=== PATIENT | female | born 1950 ===

== ENCOUNTER 2021-11-29 08:07 | Inpatient (IN) | payer MEDICARE ==
[2021-11-29] MEDS ORDERED: ZIPRASIDONE MESYLATE 20 MG VIAL IM ONE (09:29)
[2021-11-29] MEDS ORDERED: TETANUS,DIPH,PERTUSS(ACELL) VACCINE 0.5 ML SYRINGE IM ONE (11:32)
[2021-11-29] MEDS ORDERED: LORazepam 2 MG/ML VIAL IM PRN (11:32)
[2021-11-29] MEDS ORDERED: SODIUM CHLORIDE 0.9% IRR 500 ML BOTTLE IR ONE (11:32)
--- NOTE | 2021-11-29 11:35 | Emergency Department Report ---
ED General Adult HPI - General Chief complaint: Psych Stated complaint: PSYCH EVAL/COMBATIVE Time Seen by Provider: 11/29/21 11:25 Source: EMS ( EMS documentation not available at time of chart dictation ), RN notes reviewed Mode of arrival: Stretcher Limitations: Other (Disorganized behavior) - History of Present Illness Initial comments: The patient was evaluated in the emergency department for symptoms described in the history of present illness. He/she was evaluated in the context of the global COVID-19 pandemic, which necessitated consideration that the patient might be at risk for infection with the virus that causes COVID-19. Institutional protocols and algorithms that pertain to the evaluation of patients at risk for COVID-19 are in a state of rapid change based on information released by regulatory bodies including the CDC and federal and state organizations. These policies and algorithms were followed during the patient's care in the emergency department. Please note that these policies, procedures and recommendations changed on a rapid basis. This is a 71-year-old female who was sent to the emergency room by a local [facility] with a complaint of being combative with staff. Patient reportedly had treatment in an outpatient psychiatric facility. As per nursing documentation, the patient is screaming out in the emergency room. Prior to my personal evaluation, the patient required sedation with Geodon. She is currently sleepy but arousable. She moves 4 extremities. She does not answer open-ended or close ended questions to myself she is not accompanied by friends or family at this time for collateral information or additional information. Current medications include Aricept, Namenda, Trileptal, eliquis, Colace, Synthroid, vitamin B12. She also takes Celexa and Seroquel. No additional history is available at this time. Patient herself is unable to describe the qualitative nature of symptoms, exacerbating factors relieving factors or aggravating factors. She appears to have had her first 2 COVID-19 vaccinations. Does not appear that she has had a booster. She also has paperwork that indicates that she has had a recent negative COVID PCR test. -: unknown Severity scale (0 -10): 0 - Related Data Allergies Allergy/AdvReac Type Severity Reaction Status Date / Time No Known Allergies Allergy Unverified 11/29/21 08:47 ED Review of Systems ROS: Stated complaint: PSYCH EVAL/COMBATIVE Other details as noted in HPI Comment: Unobtainable due to pts medical conditions ED Past Medical Hx - Past Medical History Hx Psychiatric Treatment: Yes (bipolar) Additional medical history: hypothyroid ED Physical Exam - General Limitations: Other (Patient is disorganized and sedated) General appearance: in no apparent distress - Head Head exam: Present: normocephalic, other (There is a left lateral facial abrasion. There is left facial ecchymosis. There is left chin ecchymosis) - Eye Eye exam: Present: normal appearance, PERRL, EOMI. Absent: nystagmus - ENT ENT exam: Present: normal exam, mucous membranes dry, normal external ear exam - Neck Neck exam: Present: normal inspection, full ROM. Absent: tenderness, meningismus - Respiratory Respiratory exam: Present: normal lung sounds bilaterally, chest wall tenderness. Absent: respiratory distress, wheezes, rales, rhonchi, stridor, decreased breath sounds - Cardiovascular Cardiovascular Exam: Present: regular rate, normal rhythm, normal heart sounds. Absent: bradycardia, tachycardia, irregular rhythm, systolic murmur, diastolic murmur, rubs, gallop - GI/Abdominal GI/Abdominal exam: Present: soft. Absent: distended, tenderness, guarding, rebound, rigid, pulsatile mass - Extremities Exam Extremities exam: Present: full ROM, other (2+ pulses noted in the bilateral upper and lower extremities. There is no palpable cord. negative Homans sign. Muscular compartments are soft. The pelvis is stable.). Absent: normal inspection (There is a right hand ecchymosis. There is bilateral shoulder ecchymosis), calf tenderness - Back Exam Back exam: Present: normal inspection. Absent: tenderness, CVA tenderness (R), CVA tenderness (L), paraspinal tenderness, vertebral tenderness - Neurological Exam Neurological exam: Present: altered, other (There is no facial droop. The tongue is midline. EOMI. 5 out of 5 strength in 4 extremities) - Psychiatric Psychiatric exam: Present: agitated - Skin Skin exam: Present: warm, dry, abrasion, ecchymosis ED Course Vital Signs 11/29/21 08:46 Temperature 97.4 F L Pulse Rate 99 H Respiratory 18 Rate Blood Pressure 153/98 [Left] O2 Sat by Pulse 96 Oximetry - Reevaluation(s) Reevaluation #1: 11/29/21 12:39 Differential diagnosis, including but not limited to: Dementia, psychosis, thyroid derangement, electrolyte derangement, intracranial hemorrhage, closed head injury, pneumonia, UTI Assessment and plan: 71-year-old female with evidence of closed head injury, subacute ecchymosis, reportedly agitated, referred to the emergency room for report of combative behavior. Patient is medicated prior to my personal evaluation. She is still somewhat agitated. As needed Haldol and Versed have been ordered. Have requested CT scan brain, facial bones and cervical spine. Have requested appropriate laboratory studies and urinalysis. Have also requested mental health evaluation. Reassess after initial diagnostics have completed Reevaluation #2: 11/29/21 14:15 Laboratory studies are reviewed and appreciated. Leukocytosis is likely a stress reaction. X-ray of the chest reviewed and appreciated. Lung sounds are clear. Do not clinically suspect acute decompensated congestive heart failure. Laboratory studies also demonstrate mild renal insufficiency, elevated CK, and dehydration. CT scan brain and cervical spine negative for acute findings. CT scan facial bones suggestive of maxillary sinus fracture Patient will be given gentle IV hydration. Her urinalysis is pending. CK will decrease on its own with rest and oral hydration Maxillary sinus fracture to be treated supportively and symptomatically. At this point in time, the patient does not appear to have an immediate medical contraindication to psychiatric admission, evaluation, consultation and placement. Suspect that her presentation is likely secondary to bipolar with dementia. Mental health consultation pending at this time Reevaluation #3: 11/29/21 14:46 As per collateral information obtained from our psychiatric nail maker, the patient has been in her current nursing residence for approximately 4 days. She has not taking any of her psychiatric medications, she has been throwing herself on the floor, and engaging in self-injurious behavior. 1013 is recommended, ordered, written, and signed by myself. ED Medical Decision Making - Lab Data Result diagrams: 11/29/21 13:05 11/29/21 13:05 Vital Signs 11/29/21 08:46 Temperature 97.4 F L Pulse Rate 99 H Respiratory 18 Rate Blood Pressure 153/98 [Left] O2 Sat by Pulse 96 Oximetry - Radiology Data Radiology results: pending, report reviewed, image reviewed CT CERVICAL SPINE WITHOUT CONTRAST INDICATION / CLINICAL INFORMATION: Closed head injury, medical clearance for psychiatric. Neck pain. TECHNIQUE: Axial CT images were obtained through the cervical spine. Sagittal and coronal reformatted images were produced. All CT scans at this location are performed using CT dose reduction for ALARA by means of automated exposure control. COMPARISON: None available. FINDINGS: VERTEBRAE: No acute fracture. ALIGNMENT: No significant abnormality. DISC SPACES: Mild discogenic spondylosis at C5-6 and C6-7. FACET JOINTS: Mild multilevel facet spondylosis. CRANIOCERVICAL JUNCTION:No significant abnormality. SPINAL CANAL: No significant abnormality. PARASPINAL SOFT TISSUES: No significant abnormality. ADDITIONAL FINDINGS: None. LUNG APICES: No significant abnormality of visualized lungs. IMPRESSION: 1. No acute fracture or subluxation. Signer Name: Bee Velazco MD Signed: 11/29/2021 11:48 AM Workstation Name: [facility] CT MAXILLOFACIAL WITHOUT CONTRAST INDICATION / CLINICAL INFORMATION: Closed head injury, medical clearance for psychiatric. Facial trauma. TECHNIQUE: All CT scans at this location are performed using CT dose reduction for ALARA by means of automated exposure control. COMPARISON: None available. FINDINGS: FACIAL BONES: Mildly comminuted fracture of the anterior and posterior denney of the left maxillary sinus. PARANASAL SINUSES: Minimal mucosal thickening of the left maxillary sinus. Sinuses are otherwise clear. ORBITS: No significant abnormality. SOFT TISSUES: No significant abnormality. VISUALIZED INTRACRANIAL STRUCTURES: No significant abnormality. ADDITIONAL FINDINGS: None. IMPRESSION: 1. Mildly comminuted fracture of the anterior and posterior denney of the left maxillary sinus. Signer Name: Bee Velazco MD Signed: 11/29/2021 11:52 AM Workstation Name: Nipendo CT HEAD WITHOUT CONTRAST INDICATION / CLINICAL INFORMATION: Closed head injury, medical clearance for psychiatric. TECHNIQUE: All CT scans at this location are performed using CT dose reduction for ALARA by means of automated exposure control. COMPARISON: None available. FINDINGS: HEMORRHAGE: None. EXTRA-AXIAL SPACES: Mildly prominent likely related to cortical atrophy. VENTRICULAR SYSTEM: Normal in size and morphology for the patient's age. CEREBRAL PARENCHYMA: No significant abnormality. No acute territorial infarct. MIDLINE SHIFT / HERNIATION: None. CEREBELLUM / BRAINSTEM: No significant abnormality. ORBITS: Normal as visualized. SOFT TISSUES: No significant abnormality. SKULL: No significant abnormality. PARANASAL SINUSES / MASTOID AIR CELLS: Normal as visua lized. ADDITIONAL FINDINGS: None. IMPRESSION: 1. No acute intracranial abnormality. 2. Chronic and age-related findings. Signer Name: Bee Velazco MD Signed: 11/29/2021 11:50 AM Workstation Name: [id number] Chest single view INDICATION: Dyspnea IMPRESSION: Cardiomegaly with faint ill-defined interstitial opacities within both lower lungs, nonspecific. No prior exams are available for comparison to determine chronicity. Signer Name: Rao Zuluaga MD Signed: 11/29/2021 1:04 PM Workstation Name: [id number] Critical care attestation.: If time is entered above; I have spent that time in minutes in the direct care of this critically ill patient, excluding procedure time. ED Disposition Clinical Impression: Closed head injury, Arm bruise, Facial bruising, Behavior concern in adult, Medical clearance for psychiatric admission, Fracture of maxillary sinus, Dehydration Disposition: [address] [place] [address] Is pt being admited?: No Does the pt Need Aspirin: No Condition: Good Instructions: Apixaban oral tablets Referrals: SCOTT COHEN MD [Primary Care Provider] - 3-5 Days
[2021-11-29] MEDS: HALOPERIDOL LACTATE 5 MG/1 ML INJ IM PRN ×2 (12:08→19:12)
[2021-11-29] MEDS: MIDAZOLAM 2 MG/2 ML INJ IM PRN (12:08)
--- NOTE | 2021-11-29 12:52 | Cat Scan Report ---
CT CERVICAL SPINE WITHOUT CONTRAST INDICATION / CLINICAL INFORMATION: Closed head injury, medical clearance for psychiatric. Neck pain. TECHNIQUE: Axial CT images were obtained through the cervical spine. Sagittal and coronal reformatted images were produced. All CT scans at this location are performed using CT dose reduction for ALARA by means of automated exposure control. COMPARISON: None available. FINDINGS: VERTEBRAE: No acute fracture. ALIGNMENT: No significant abnormality. DISC SPACES: Mild discogenic spondylosis at C5-6 and C6-7. FACET JOINTS: Mild multilevel facet spondylosis. CRANIOCERVICAL JUNCTION:No significant abnormality. SPINAL CANAL: No significant abnormality. PARASPINAL SOFT TISSUES: No significant abnormality. ADDITIONAL FINDINGS: None. LUNG APICES: No significant abnormality of visualized lungs. IMPRESSION: 1. No acute fracture or subluxation. Signer Name: Bee Velazco MD Signed: 11/29/2021 12:48 PM Workstation Name: [id number]
--- NOTE | 2021-11-29 12:55 | Cat Scan Report ---
CT HEAD WITHOUT CONTRAST INDICATION / CLINICAL INFORMATION: Closed head injury, medical clearance for psychiatric. TECHNIQUE: All CT scans at this location are performed using CT dose reduction for ALARA by means of automated exposure control. COMPARISON: None available. FINDINGS: HEMORRHAGE: None. EXTRA-AXIAL SPACES: Mildly prominent likely related to cortical atrophy. VENTRICULAR SYSTEM: Normal in size and morphology for the patient's age. CEREBRAL PARENCHYMA: No significant abnormality. No acute territorial infarct. MIDLINE SHIFT / HERNIATION: None. CEREBELLUM / BRAINSTEM: No significant abnormality. ORBITS: Normal as visualized. SOFT TISSUES: No significant abnormality. SKULL: No significant abnormality. PARANASAL SINUSES / MASTOID AIR CELLS: Normal as visualized. ADDITIONAL FINDINGS: None. IMPRESSION: 1. No acute intracranial abnormality. 2. Chronic and age-related findings. Signer Name: Bee Velazco MD Signed: 11/29/2021 12:50 PM Workstation Name: [id number]
--- NOTE | 2021-11-29 12:56 | Cat Scan Report ---
CT MAXILLOFACIAL WITHOUT CONTRAST INDICATION / CLINICAL INFORMATION: Closed head injury, medical clearance for psychiatric. Facial mildred menjivar. TECHNIQUE: All CT scans at this location are performed using CT dose reduction for ALARA by means of automated exposure control. COMPARISON: None available. FINDINGS: FACIAL BONES: Mildly comminuted fracture of the anterior and posterior denney of the left maxillary si nus. PARANASAL SINUSES: Minimal mucosal thickening of the left maxillary sinus. Sinuses are otherwise pratima r. ORBITS: No significant abnormality. SOFT TISSUES: No significant abnormality. VISUALIZED INTRACRANIAL STRUCTURES: No significant abnormality. ADDITIONAL FINDINGS: None. IMPRESSION: 1. Mildly comminuted fracture of the anterior and posterior denney of the left maxillary sinus. Signer Name: Bee Velazco MD Signed: 11/29/2021 12:52 PM Workstation Name: [id number]
[2021-11-29 13:28] LABS: Basophils # (Auto) 0.1 K/mm3 (0.0-0.1); Basophils % (Auto) 0.4 % (0.0-1.8); Eosinophils % (Auto) 0.2 % (0.0-4.3); Hematocrit 37.4 % (30.3-42.9); Hemoglobin 12.2 gm/dl (10.1-14.3); Lymphocytes # (Auto) 2.3 K/mm3 (1.2-5.4); Lymphocytes % (Auto) 15.3 % (13.4-35.0); Mean Corpuscular HGB Conc 33 % (30-34); Mean Corpuscular Volume 91 fl (79-97); Monocytes # (Auto) 1.9 K/mm3 (0.0-0.8); Monocytes % (Auto) 12.7 % (0.0-7.3); Platelet Count 329 K/mm3 (140-440); Red Cell Distribution Width 14.6 % (13.2-15.2)
[2021-11-29 13:45] LABS: Albumin 4.4 g/dL (3.9-5); Calcium 9.6 mg/dL (8.4-10.2)
--- NOTE | 2021-11-29 14:08 | XRay Report ---
Chest single view INDICATION: Dyspnea IMPRESSION: Cardiomegaly with faint ill-defined interstitial opacities within both lower lungs, nonspecific. No p rior exams are available for comparison to determine chronicity. Signer Name: Rao Zuluaga MD Signed: 11/29/2021 2:04 PM Workstation Name: [id number]
[2021-11-29 14:48] LABS: Bilirubin,Urine Negative (Negative); Blood,Urine 1+ (Negative); Color,Urine Straw (Yellow); Urobilinogen,Urine < 2.0 mg/dL (<2.0)
[2021-11-29 14:51] LABS: Amphetamine Screen,Urine Negative; Benzodiazepines Screen,Urine Negative; Cannabinoid Screen,Urine Negative; Cocaine Screen,Urine Negative; Methadone Screen,Urine Negative; Opiate Screen,Urine Negative
[2021-11-29] MEDS: SODIUM CHLORIDE 0.9% 1000 ML 2,000 ML IV ONE ×2 (15:57→15:58)
[2021-11-29] MEDS: QUEtiapine 200 MG TAB PO SCH (22:10)
[2021-11-29] MEDS: DONEPEZIL 10 MG TAB PO SCH (22:11)
[2021-11-29] MEDS: OXcarbazepine 300 MG TAB PO SCH (22:11)
[2021-11-29] MEDS: MEMANTINE 5 MG TAB PO SCH (22:11)
[2021-11-29] MEDS: APIXABAN 5 MG TAB PO SCH (23:48)
[2021-11-30] MEDS: LEVOTHYROXINE 100 MCG TAB PO SCH (06:36)
[2021-11-30] MEDS: HALOPERIDOL LACTATE 5 MG/1 ML INJ IM PRN ×2 (09:09→15:19)
--- NOTE | 2021-11-30 10:54 | Consultation ---
History of Present Illness - Reason for Consult Consult date: 11/30/21 Reason for consult: agitation - History of Present Psychiatric Illness The patient was seen today. Security is present. She is in the seclusion room. The patient is confused and disorganized. She is speaking nonsensically. She is lying on the floor with food and fluid spilled. The patient has defecated on the floor. She is disheveled. There is blood on the floor. When the patient gets up it's observed to be coming from her elbow. She comes out of the seclusion room and tries to enter other rooms. The nurse is there and is medicating the patient. PAST PSYCHIATRIC HISTORY: Unable to obtain PAST MEDICAL HISTORY: None reported Family Psychiatric History: None reported or documented SOCIAL HISTORY: Unable to obtain REVIEW OF SYSTEMS Unable to obtain MENTAL STATUS EXAMINATION Assessment (1) Bipolar Current Visit: Yes Status: Acute Treatment Plan 1013 Sitter: Defer to primary Medical: per primary Disposition: Recommend acute psychiatric inpatient treatment Will follow. Thanks Case staffed with Dr. Nava Medications and Allergies Allergies Allergy/AdvReac Type Severity Reaction Status Date / Time No Known Allergies Allergy Unverified 11/29/21 08:47 Active Meds: Active Medications Apixaban (Apixaban 5 Mg Tab) 5 mg PO Q12HR [facility]; Protocol Last Admin: 11/29/21 23:48 Dose: Not Given Citalopram Hydrobromide (Citalopram 20 Mg Tab) 20 mg PO QDAY [facility] Cyanocobalamin (Cyanocobalamin (Vit B-12) 1000 Mcg Tab) 1,000 mcg PO QDAY [facility] Docusate Sodium (Docusate Sodium 100 Mg/10 Ml Oral Liqd) 100 mg PO QDAY [facility] Donepezil HCl (Donepezil 10 Mg Tab) 10 mg PO QHS [facility] Last Admin: 11/29/21 22:11 Dose: 10 mg Haloperidol Lactate (Haloperidol Lactate 5 Mg/1 Ml Inj) 5 mg IM Q6HR PRN PRN Reason: Agitation Last Admin: 11/30/21 09:09 Dose: 5 mg Levothyroxine Sodium (Levothyroxine 100 Mcg Tab) 100 mcg PO DAILY@0600 [facility] Memantine (Memantine 5 Mg Tab) 5 mg PO Q12HR [facility] Last Admin: 11/29/21 22:11 Dose: 5 mg Midazolam HCl (Midazolam 2 Mg/2 Ml Inj) 2 mg IM Q6HR PRN PRN Reason: Agitation Last Admin: 11/29/21 12:08 Dose: 2 mg Oxcarbazepine (Oxcarbazepine 300 Mg Tab) 600 mg PO BID [facility] Last Admin: 11/29/21 22:11 Dose: 600 mg Quetiapine Fumarate (Quetiapine 200 Mg Tab) 400 mg PO QHS [facility] Last Admin: 11/29/21 22:10 Dose: 400 mg Mental Status Exam - Vital signs Last Vital Signs Temp 97.6 F 11/29/21 20:28 Pulse 102 H 11/29/21 20:28 Resp 18 11/29/21 20:28 BP 133/112 11/29/21 20:28 Pulse Ox 95 11/29/21 20:28 Results Result Diagrams: 11/29/21 13:05 11/29/21 13:05 Abnormal lab results 11/29/21 11/29/21 11/29/21 Range/Units 13:05 13:05 13:05 WBC 15.0 H (4.5-11.0) K/mm3 [place] % (Auto) 12.7 H (0.0-7.3) % [place] # (Auto) 1.9 H (0.0-0.8) K/mm3 Seg Neutrophils % 71.4 H (40.0-70.0) % Seg Neutrophils # 10.7 H (1.8-7.7) K/mm3 Sodium (137-145) mmol/L Chloride (98-107) mmol/L BUN (7-17) mg/dL Creatinine (0.6-1.2) mg/dL Glucose (65-100) mg/dL AST (5-40) units/L Total Creatine Kinase (30-135) units/L Salicylates < 0.3 L (2.8-20.0) mg/dL Acetaminophen 5.0 L (10.0-30.0) ug/mL 11/29/21 Range/Units 13:05 WBC (4.5-11.0) K/mm3 [place] % (Auto) (0.0-7.3) % [place] # (Auto) (0.0-0.8) K/mm3 Seg Neutrophils % (40.0-70.0) % Seg Neutrophils # (1.8-7.7) K/mm3 Sodium 147 H (137-145) mmol/L Chloride 111.2 H (98-107) mmol/L BUN 21 H (7-17) mg/dL Creatinine 1.8 H (0.6-1.2) mg/dL Glucose 102 H (65-100) mg/dL AST 53 H (5-40) units/L Total Creatine Kinase 1106 H (30-135) units/L Salicylates (2.8-20.0) mg/dL Acetaminophen (10.0-30.0) ug/mL All other labs normal.
[2021-11-30] MEDS: MEMANTINE 5 MG TAB PO SCH ×2 (11:09→22:33)
[2021-11-30] MEDS: APIXABAN 5 MG TAB PO SCH (11:09)
[2021-11-30] MEDS: DOCUSATE SODIUM 100 MG/10 ML ORAL LIQD PO SCH (11:09)
[2021-11-30] MEDS: CITALOPRAM 20 MG TAB PO SCH (11:09)
[2021-11-30] MEDS: CYANOCOBALAMIN (VIT B-12) 1000 MCG TAB PO SCH (11:10)
[2021-11-30] MEDS: OXcarbazepine 300 MG TAB PO SCH ×2 (11:10→22:34)
--- NOTE | 2021-11-30 12:40 | Event Note ---
Date: 11/30/21 Nursing team reports to myself that the patient is throwing herself on the floor, and also may have hit her head. Repeat CT scan of the brain is obtained, and it demonstrates possible small bleed. Head of bed elevation, aspiration precautions, fall precautions. Have discontinued Eliquis. I contacted neurosurgery on-call, Dr. Tavares. Discussed the patient's history, physical, CT scan findings and clinical impression. He will follow in consultation. Recommends discontinuation of Eliquis, head of bed elevation, frequent neurochecks, placement to stepdown. Endorsed to hospital physician, Dr. Marilu Jacobson for placement on step down unit We will also obtain 6-hour head CT, which is times for 22: 00. I will defer to the inpatient team to follow this up [facility] [address] [id number] Cat Scan Report Signed Patient: CANDICE STANTON MR#: [id number] : 1950 Acct:[id number] Age/Sex: 71 / F ADM Date: 11/29/21 Loc: ED Attending Dr: Ordering Physician: CHUCHO RIVAS MD Date of Service: 11/30/21 Procedure(s): CT head/brain wo con Accession Number(s): [id number] cc: CHUCHO RIVAS MD CT BRAIN: 11/30/2021 INDICATION / CLINICAL INFORMATION: MULTIPLE FALLS. COMPARISON: CT brain 11/29/2021 FINDINGS: BRAIN/INTRACRANIAL STRUCTURES: Unenhanced CT images of the brain were obtained and compared to the prior exam from 11/29/2021. There is been no change. Age-related atrophic changes are present. There is very subtle thickening of the inferior dorsal falx, and subtle asymmetry in the density of the tentorium, left greater than right. This subtle finding is best seen on coronal images 54-57. This may represent a very thin subdural blood product collection. Its small size would make this of doubtful clinical significance. There is no evidence of parenchymal hemorrhage. EXTRACRANIAL STRUCTURES: Unremarkable. IMPRESSION: No change when compared to 11/29/2021. Question of very subtle subdural hematoma along the inferior falx and left tentorium. All CT scans at this location are performed using dose reduction to ALARA by means of automated exposure control. Signer Name: Wu Posada MD Signed: 11/30/2021 2:27 PM Workstation Name: [id number] Transcribed By: AO Dictated By: Wu Posada MD Electronically Authenticated By: Wu Posada MD Signed Date/Time: 11/30/211426 DD/ 20 TD/TT: Vital Signs 11/29/21 11/29/21 11/29/21 08:46 14:30 14:45 Temperature 97.4 F L Pulse Rate 99 H 90 71 Respiratory 18 19 16 Rate Blood Pressure 162/87 126/61 Blood Pressure 153/98 [Left] O2 Sat by Pulse 96 98 97 Oximetry 11/29/21 11/29/21 11/29/21 14:53 15:00 15:16 Temperature Pulse Rate 76 76 75 Respiratory 18 15 13 Rate Blood Pressure 126/61 120/53 Blood Pressure 120/53 [Left] O2 Sat by Pulse 97 98 98 Oximetry 11/29/21 11/29/21 11/29/21 15:30 15:46 16:00 Temperature Pulse Rate 78 78 77 Respiratory 15 12 11 L Rate Blood Pressure 122/57 126/87 135/79 Blood Pressure [Left] O2 Sat by Pulse 98 99 99 Oximetry 11/29/21 11/29/21 11/29/21 16:16 16:30 16:46 Temperature Pulse Rate 82 82 80 Respiratory 15 13 13 Rate Blood Pressure 120/77 132/75 145/82 Blood Pressure [Left] O2 Sat by Pulse 98 99 99 Oximetry 11/29/21 11/29/21 11/29/21 17:00 17:26 17:30 Temperature Pulse Rate 77 79 80 Respiratory 14 13 14 Rate Blood Pressure 147/73 132/75 132/75 Blood Pressure [Left] O2 Sat by Pulse 99 99 100 Oximetry 11/29/21 11/29/21 11/29/21 17:46 18:00 18:16 Temperature Pulse Rate 82 81 80 Respiratory 15 13 12 Rate Blood Pressure 135/73 135/73 129/72 Blood Pressure [Left] O2 Sat by Pulse 98 98 98 Oximetry 11/29/21 11/29/21 11/29/21 18:30 18:46 20:28 Temperature 97.6 F Pulse Rate 103 H 100 H 102 H Respiratory 20 18 18 Rate Blood Pressure 129/72 153/63 Blood Pressure 133/112 [Left] O2 Sat by Pulse 98 97 95 Oximetry 11/30/21 11/30/21 12:00 14:00 Temperature 98.0 F Pulse Rate 88 Respiratory 18 18 Rate Blood Pressure Blood Pressure 125/87 [Left] O2 Sat by Pulse 98 98 Oximetry
[2021-11-30] MEDS: MIDAZOLAM 2 MG/2 ML INJ IM PRN ×2 (12:55→19:32)
--- NOTE | 2021-11-30 14:31 | Cat Scan Report ---
CT BRAIN: 11/30/2021 INDICATION / CLINICAL INFORMATION: MULTIPLE FALLS. COMPARISON: CT brain 11/29/2021 FINDINGS: BRAIN/INTRACRANIAL STRUCTURES: Unenhanced CT images of the brain were obtained and compared to the pr ior exam from 11/29/2021. There is been no change. Age-related atrophic changes are present. There is very subtle thickening of the inferior dorsal falx, and subtle asymmetry in the density of t he tentorium, left greater than right. This subtle finding is best seen on coronal images 54-57. This may represent a very thin subdural blood product collection. Its small size would make this of doubt ful clinical significance. There is no evidence of parenchymal hemorrhage. EXTRACRANIAL STRUCTURES: Unremarkable. IMPRESSION: No change when compared to 11/29/2021. Question of very subtle subdural hematoma along the inferior falx and left tentorium. All CT scans at this location are performed using dose reduction to ALARA by means of automated expos ure control. Signer Name: Wu Posada MD Signed: 11/30/2021 2:27 PM Workstation Name: [id number]
--- NOTE | 2021-11-30 19:30 | History and Physical Report ---
History of Present Illness Date of examination: 11/30/21 Date of admission: 11/30/2021 Chief complaint: Fall from bed and very small subdural hematoma History of present illness: This is a 71-year-old female who was sent to the emergency room by a local group home with a complaint of being combative with staff. Patient reportedly had treatment in an outpatient psychiatric facility. As per nursing documentation, the patient is screaming out in the emergency room. Prior to my personal evaluation, the patient required sedation with Geodon. She is currently sleepy but arousable. She moves 4 extremities. She does not answer open-ended or close ended questions to myself she is not accompanied by friends or family at this time for collateral information or additional information. Current medications include Aricept, Namenda, Trileptal, eliquis, Colace, Sy nthroid, vitamin B12. She also takes Celexa and Seroquel. No additional history is available at this time. Patient herself is unable to describe the qualitative nature of symptoms, exacerbating factors relieving factors or aggravating factors. She appears to have had her first 2 COVID-19 vaccinations. Does not appear that she has had a booster. She also has paperwork that indicates that she has had a recent negative COVID PCR test. Nursing team reports that the patient is throwing herself on the floor, and also may have hit her head. Repeat CT scan of the brain is obtained, and it demon strates possible small bleed. Head of bed elevation, aspiration precautions, fall precautions. Eliquis was discontinued. ED physician contacted neurosurgery on-call Dr. Tavares and discussed the patient's history, physical exam, CAT scan findings and clinical impression. Dr. Tavares agreed to follow in consultation. Recommended admitting the patient to IMCU and close observation. No loss of consciousness. Alert but agitated. Now calm down after Haldol. Will repeat the CAT scan. Of the head. Normal neuro exam. Past Medical History --Psychiatric Treatment: Yes (bipolar) --Additional medical history: hypothyroid Past surgical history -- Not available -Family history --not available- Social history -- Not available Review of Systems ROS: Stated complaint: PSYCH EVAL/COMBATIVE Other details as noted in HPI Comment: Unobtainable due to pts medical conditions Medications and Allergies Allergies Allergy/AdvReac Type Severity Reaction Status Date / Time No Known Allergies Allergy Unverified 11/29/21 08:47 Active Meds: Active Medications Citalopram Hydrobromide (Citalopram 20 Mg Tab) 20 mg PO QDAY [facility] Last Admin: 11/30/21 11:09 Dose: Not Given Cyanocobalamin (Cyanocobalamin (Vit B-12) 1000 Mcg Tab) 1,000 mcg PO QDAY [facility] Last Admin: 11/30/21 11:10 Dose: Not Given Docusate Sodium (Docusate Sodium 100 Mg/10 Ml Oral Liqd) 100 mg PO QDAY [facility] Last Admin: 11/30/21 11:09 Dose: Not Given Donepezil HCl (Donepezil 10 Mg Tab) 10 mg PO QHS [facility] Last Admin: 11/29/21 22:11 Dose: 10 mg Haloperidol Lactate (Haloperidol Lactate 5 Mg/1 Ml Inj) 5 mg IM Q6HR PRN PRN Reason: Agitation Last Admin: 11/30/21 15:19 Dose: 5 mg Levothyroxine Sodium (Levothyroxine 100 Mcg Tab) 100 mcg PO DAILY@0600 [facility] Memantine (Memantine 5 Mg Tab) 5 mg PO Q12HR [facility] Last Admin: 11/30/21 11:09 Dose: Not Given Midazolam HCl (Midazolam 2 Mg/2 Ml Inj) 2 mg IM Q6HR PRN PRN Reason: Agitation Last Admin: 11/30/21 12:55 Dose: 2 mg Mirtazapine (Mirtazapine 15 Mg Tab) 7.5 mg PO QHS [facility] Oxcarbazepine (Oxcarbazepine 300 Mg Tab) 600 mg PO BID [facility] Last Admin: 11/30/21 11:10 Dose: Not Given Quetiapine Fumarate (Quetiapine 200 Mg Tab) 400 mg PO QHS [facility] Last Admin: 11/29/21 22:10 Dose: 400 mg Exam - Constitutional Vitals: Temp Pulse Resp BP Pulse Ox 98.0 F 88 18 125/87 98 11/30/21 12:00 11/30/21 12:00 11/30/21 14:00 11/30/21 12:00 11/30/21 14:00 General appearance: Present: no acute distress, well-nourished - EENT Eyes: Present: PERRL ENT: hearing intact, clear oral mucosa - Neck Neck: Present: supple, normal ROM - Respiratory Respiratory effort: normal Respiratory: bilateral: CTA - Cardiovascular Heart rate: 78 Rhythm: regular Heart Sounds: Present: S1 & S2. Absent: rub, click - Extremities Extremities: no ischemia, pulses symmetrical, No edema Peripheral Pulses: within normal limits - Abdominal General gastrointestinal: Present: soft, non-tender, non-distended, normal bowel sounds Female genitourinary: Present: normal - Integumentary Integumentary: Present: clear, warm, dry - Musculoskeletal Musculoskeletal: gait normal, strength equal bilaterally - Psychiatric Psychiatric: appropriate mood/affect, intact judgment & insight, agitated - Neurologic Neurologic: CNII-XII intact, moves all extremities - Allied Health Allied health notes reviewed: nursing, case management Results - Labs CBC & Chem 7: 11/29/21 13:05 11/29/21 13:05 Labs: Laboratory Last Values WBC 15.0 K/mm3 (4.5-11.0) H 11/29/21 13:05 RBC 4.10 M/mm3 (3.65-5.03) 11/29/21 13:05 Hgb 12.2 gm/dl (10.1-14.3) 11/29/21 13:05 Hct 37.4 % (30.3-42.9) 11/29/21 13:05 MCV 91 fl (79-97) 11/29/21 13:05 MCH 30 pg (28-32) 11/29/21 13:05 MCHC 33 % (30-34) 11/29/21 13:05 RDW 14.6 % (13.2-15.2) 11/29/21 13:05 Plt Count 329 K/mm3 (140-440) 11/29/21 13:05 Lymph % (Auto) 15.3 % (13.4-35.0) 11/29/21 13:05 [place] % (Auto) 12.7 % (0.0-7.3) H 11/29/21 13:05 Eos % (Auto) 0.2 % (0.0-4.3) 11/29/21 13:05 Baso % (Auto) 0.4 % (0.0-1.8) 11/29/21 13:05 Lymph # (Auto) 2.3 K/mm3 (1.2-5.4) 11/29/21 13:05 [place] # (Auto) 1.9 K/mm3 (0.0-0.8) H 11/29/21 13:05 Eos # (Auto) 0.0 K/mm3 (0.0-0.4) 11/29/21 13:05 Baso # (Auto) 0.1 K/mm3 (0.0-0.1) 11/29/21 13:05 Seg Neutrophils % 71.4 % (40.0-70.0) H 11/29/21 13:05 Seg Neutrophils # 10.7 K/mm3 (1.8-7.7) H 11/29/21 13:05 Sodium 147 mmol/L (137-145) H 11/29/21 13:05 Potassium 5.0 mmol/L (3.6-5.0) 11/29/21 13:05 Chloride 111.2 mmol/L (98-107) H 11/29/21 13:05 Carbon Dioxide 22 mmol/L (22-30) 11/29/21 13:05 Anion Gap 19 mmol/L 11/29/21 13:05 BUN 21 mg/dL (7-17) H 11/29/21 13:05 Creatinine 1.8 mg/dL (0.6-1.2) H 11/29/21 13:05 Estimated GFR 28 ml/min 11/29/21 13:05 BUN/Creatinine Ratio 12 % 11/29/21 13:05 Glucose 102 mg/dL (65-100) H 11/29/21 13:05 Calcium 9.6 mg/dL (8.4-10.2) 11/29/21 13:05 Total Bilirubin 0.60 mg/dL (0.1-1.2) 11/29/21 13:05 AST 53 units/L (5-40) H 11/29/21 13:05 ALT 36 units/L (7-56) 11/29/21 13:05 Alkaline Phosphatase 93 units/L (35-129) 11/29/21 13:05 Total Creatine Kinase 1106 units/L (30-135) H 11/29/21 13:05 Total Protein 7.9 g/dL (6.3-8.2) 11/29/21 13:05 Albumin 4.4 g/dL (3.9-5) 11/29/21 13:05 Albumin/Globulin Ratio 1.3 % 11/29/21 13:05 TSH 1.280 mlU/mL (0.270-4.200) 11/29/21 13:05 Urine Color Straw (Yellow) 11/29/21 14:10 Urine Turbidity Clear (Clear) 11/29/21 14:10 Urine pH 6.0 (5.0-7.0) 11/29/21 14:10 Ur Specific [place] 1.005 (1.003-1.030) 11/29/21 14:10 Urine Protein 30 mg/dl mg/dL (Negative) 11/29/21 14:10 Urine Glucose (UA) Negative mg/dL (Negative) 11/29/21 14:10 Urine Ketones 15 mg/dL (Negative) 11/29/21 14:10 Urine Blood 1+ (Negative) 11/29/21 14:10 Urine Nitrite Negative (Negative) 11/29/21 14:10 Ur Reducing Substances Not Reportable 11/29/21 14:10 Urine Bilirubin Negative (Negative) 11/29/21 14:10 Urine Ictotest Not Reportable 11/29/21 14:10 Urine Urobilinogen < 2.0 mg/dL (<2.0) 11/29/21 14:10 Ur Leukocyte Esterase Negative (Negative) 11/29/21 14:10 Urine WBC (Auto) 2.0 /HPF (0.0-6.0) 11/29/21 14:10 Urine RBC (Auto) 4.0 /HPF (0.0-6.0) 11/29/21 14:10 U Epithel Cells (Auto) < 1.0 /HPF (0-13.0) 11/29/21 14:10 Salicylates < 0.3 mg/dL (2.8-20.0) L 11/29/21 13:05 Urine Opiates Screen Negative 11/29/21 14:10 Urine Methadone Screen Negative 11/29/21 14:10 Acetaminophen 5.0 ug/mL (10.0-30.0) L 11/29/21 13:05 Ur Barbiturates Screen Negative 11/29/21 14:10 Ur Phencyclidine Scrn Negative 11/29/21 14:10 Ur Amphetamines Screen Negative 11/29/21 14:10 U Benzodiazepines Scrn Negative 11/29/21 14:10 Urine Cocaine Screen Negative 11/29/21 14:10 U Marijuana (THC) Screen Negative 11/29/21 14:10 Drugs of Abuse Note Disclamer 11/29/21 14:10 Plasma/Serum Alcohol < 0.01 % (0-0.07) 11/29/21 13:05 SARS-CoV-2 (PCR) Positive (Negative) A 11/30/21 09:23 - Imaging and Cardiology CT Scan - head: report reviewed Imaging and Cardiology: CT of the cervical spine No acute fractures or subluxation Facial CT Mildly comminuted fracture of the anterior and posterior denney of the left maxillary sinus Head CT#1 No acute intracranial findings Head CT #2 Very subtotal thickening of the inferior dorsal phalanx, and septal asymmetry in the density of the tentorium left greater than right. This subtle finding is best seen on image of [id number]. May represent a very thin subdural blood product collection. Its very small size and would make this of doubtful clinical significance. Head CT #3 Unchanged suspected small left tentorial/inferior falx subdural hematoma. No new acute findings. Assessment and Plan Assessment and plan: Critical care statement The high probability OF a clinically significant sudden or life-threatening deterioration of the cardiorespiratory system and endocrine system required my full and direct attention, intervention and postoperative management. The aggregate critical care time was 40 minutes. The time is in addition to time spent performing reported procedures but includes the followin: Data review and interpretation 2: Patient assessment and monitoring of vital signs 3: Documentation 4:: Medication orders and management Advance Directives: Yes (Full code) VTE prophylaxis?: Mechanical Reason for no VTE Prophylaxis: Bleeding Plan of care discussed with patient/family: Yes - Patient Problems (1) Subdural hematoma Current Visit: Yes Status: Acute Plan to address problem: Very subtle subdural hematoma No intervention per neurosurgery Observation for 24 to 48 hours Frequent neurochecks Repeat CAT scan Neurology consult and neurosurgery consult Discussed with Dr. Tavares (2) Closed head injury Current Visit: Yes Status: Acute Qualifiers: Encounter type: initial encounter Qualified Code(s): S09.90XA - Unspecified injury of head, initial encounter Plan to address problem: Close observation neurochecks (3) Acute hypernatremia Current Visit: Yes Status: Acute Plan to address problem: Half-normal saline for now (4) COVID-19 Current Visit: Yes Status: Acute Plan to address problem: Tested positive for COVID virus Vaccinated asked to Normal oxygen saturations on room air ID consult (5) BERNICE (acute kidney injury) Current Visit: Yes Status: Acute Plan to address problem: IV fluids for now Vasomotor nephropathy (6) Rhabdomyolysis Current Visit: Yes Status: Acute Qualifiers: Rhabdomyolysis type: traumatic Plan to address problem: Mild IV fluids Recheck creatinine kinase (7) Hypothyroidism Current Visit: Yes Status: Chronic Qualifiers: Hypothyroidism type: acquired Qualified Code(s): E03.9 - Hypothyroidism, unspecified Plan to address problem: Continue to Synthroid and check TSH TSH was normal (8) Acute psychosis Current Visit: Yes Status: Acute Plan to address problem: Justyn initiated Mental health and psychiatric consult (9) DVT prophylaxis Current Visit: Yes Status: Acute Plan to address problem: Eliquis. Stopped No heparin or Eliquis because of the subdural bleed GI prophylaxis (10) Advance care planning Current Visit: Yes Status: Acute Plan to address problem: Could not be done because of the patient's agitated condition
[2021-11-30] MEDS ORDERED: ONDANSETRON 4 MG/2 ML INJ IV PRN (19:46)
[2021-11-30] MEDS ORDERED: ACETAMINOPHEN 325 MG TAB PO PRN (19:46)
[2021-11-30] MEDS ORDERED: METOCLOPRAMIDE 10 MG/2 ML INJ IV PRN (19:54)
[2021-11-30] MEDS ORDERED: HYDROmorphone 0.5 MG/0.5 ML INJ IV PRN (19:54)
[2021-11-30] MEDS ORDERED: D5W/0.9% NACL 1,000 ML IV SCH (20:00)
[2021-11-30] MEDS ORDERED: WATER FOR INJ Sterile (PF) 10 ML ONE (21:38)
[2021-11-30] MEDS: ZIPRASIDONE MESYLATE 20 MG VIAL IM SCH (21:43)
[2021-11-30] MEDS ORDERED: MIRTAZAPINE 15 MG TAB PO SCH (22:00)
[2021-11-30] MEDS: QUEtiapine 200 MG TAB PO SCH (22:33)
--- NOTE | 2021-12-01 00:08 | Cat Scan Report ---
CT HEAD WITHOUT CONTRAST INDICATION / CLINICAL INFORMATION: Reevaluation of possible subdural hematoma. TECHNIQUE: All CT scans at this location are performed using CT dose reduction for ALARA by means of automated exposure control. COMPARISON: None available. FINDINGS: BRAIN PARENCHYMA: No intraparenchymal hemorrhage. No evidence of recent infarct. No mass effect or mi dline shift. VENTRICULAR SYSTEM/EXTRA-AXIAL SPACES: Ventricles are normal for age. A previously questioned small s ubdural hematoma involving the inferior left falx and the tentorium is unchanged and measures up to 3 .4 mm in thickness on image 54 of the coronal series. ORBITS: Normal as visualized. SKELETAL SYSTEM/SOFT TISSUES: Normal bones and soft tissues. PARANASAL SINUSES/MASTOID AIR CELLS: No significant abnormality. ADDITIONAL FINDINGS: None. IMPRESSION: Unchanged suspected small left tentorial/inferior falx subdural hematoma. No new acute findings. Signer Name: Perico Tarango MD Signed: 12/01/2021 12:04 AM Workstation Name: [id number]
[2021-12-01] MEDS: LEVOTHYROXINE 100 MCG TAB PO SCH ×2 (00:59→05:28)
[2021-12-01] MEDS: DONEPEZIL 10 MG TAB PO SCH ×2 (01:01→21:22)
[2021-12-01 06:27] LABS: Basophils # (Auto) 0.1 K/mm3 (0.0-0.1); Basophils % (Auto) 0.6 % (0.0-1.8); Eosinophils # (Auto) 0.3 K/mm3 (0.0-0.4); Eosinophils % (Auto) 3.2 % (0.0-4.3); Hematocrit 34.4 % (30.3-42.9); Hemoglobin 11.2 gm/dl (10.1-14.3); Lymphocytes # (Auto) 2.1 K/mm3 (1.2-5.4); Lymphocytes % (Auto) 21.7 % (13.4-35.0); Mean Corpuscular HGB Conc 33 % (30-34); Mean Corpuscular Volume 91 fl (79-97); Monocytes # (Auto) 1.4 K/mm3 (0.0-0.8); Monocytes % (Auto) 15.2 % (0.0-7.3); Platelet Count 344 K/mm3 (140-440); Red Blood Count 3.78 M/mm3 (3.65-5.03); Red Cell Distribution Width 14.9 % (13.2-15.2)
[2021-12-01 06:40] LABS: Albumin 3.7 g/dL (3.9-5)
[2021-12-01] MEDS ORDERED: WATER FOR INJ Sterile (PF) 10 ML ONE ×2 (09:27→20:41)
[2021-12-01] MEDS: ZIPRASIDONE MESYLATE 20 MG VIAL IM SCH ×2 (09:30→21:22)
[2021-12-01] MEDS ORDERED: FAMOTIDINE 20 MG/2 ML INJ IV SCH (10:00)
--- NOTE | 2021-12-01 10:28 | Progress Note ---
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 Hospital Course to Date: 12/01: Repeat CT head pending. Mentation improved this am, patient drowsy but calmer this am, following simple commands. Neurology and NeuroSurgery consults pending. Keep patient as 1013 status, Mental health/Psych is also following. Continue current antipsychotics meds and PRN Haldol, close Qtc monitoring. Continue neuro check per protocol. Patient COVID PCR positive, patient remains stable on RA and hemodynamicaly stable. Continue to monitor for now, ID also consulted for further recs. Assessment and Plan #Traumatic Closed Head Injury #Small Subdural Hematoma #Acute Psychosis - Presented in acute psychosis, agitated and combative. Threw herself on the floor and hit her head - Imagings reviewed, Mildly comminuted fracture of the anterior and posterior denney of the left maxillary sinus and small subdural hematoma noted - Case discussed with NeuroSurgery- Dr. Cr on admit, no intervention recommended at this time. - Continue to monitor for 24 to 48hrs, repeat CT head, and neuro checks - Full NeuroSurgery consult pending - Repeat CT head/brain pending this am - Patient remains as 1013 status, sitter at the bedside - Continue current antipsychotics meds and PRN Haldol - Close Qtc monitoring- 12 lead EKG pending - Neuro checks per protocol - Home meds resumed - Mental Health/Psych also on consult, appreciate recommendations - Continue to hold AC until further recommendations form Neuro and NeuroSurgery #COVID-19 Infection - COVID PCR came back positive - Patient received both dose of Yee vaccine, but no booster - CXR with Bilateral opacities - Patient remains stable on RA, afebrile, with no WBCs - Will continue to monitor for now - ID consulted for further recs #BERNICE (Acute Kidney Injury) most likely Vasomotor Nephropathy #Acute Hypernatremia - Probably due to dehydration - Baseline renal function is unchanged - renal function improved post IVF hydration - Continue gentle hydration X1 bag - Encourage PO intake - Strict intake and output - Avoid nephrotoxic medications; Renally dose medications - Monitor and replace electrolytes as needed #Rhabdomyolysis - Presented with mildly elevated CPK - Continue IV fluid hydration - Recheck creatinine kinase #Hypothyroidism - Continue supportive care - TSH was normal - Resume Synthroid #GI/DVT Prophylaxis - PPI- pepcid - SCDs to bilateral lower extremities while in bed #Advance Care Planning - Disease education data, care plan, diagnoses, and prognosis were discussed with patient's son via phone. Patient is a FULL code. Patient's son acknowledged understanding and agreed with current care plan. The high probability of a clinically significant, sudden or life threatening deterioration of the [multiple] system(s) required my full and direct attention, intervention and personal management. The aggregate critical care time was [60] minutes. This time is in addition to time spent performing reported procedures but includes the following: [x] Data Review and interpretation [x] Patient assessment and monitoring of vital signs [x] Documentation [x] Medication orders and management Disposition Plan: IMCU Total Time Spent with Patient (Minutes): 60 History Interval history: Patient seen and examined at the bedside. Drowsy but easily arousable, following simple commands. Stable on RA, denied any pain nor any discomfort at this time, VSS. Remains as a 1013 status, sitter at the bedside. Hospitalist Physical - Constitutional Vitals: Temp Pulse Resp BP Pulse Ox 98.2 F 90 13 118/60 98 12/01/21 02:50 12/01/21 08:21 12/01/21 08:21 12/01/21 08:21 12/01/21 08:21 General appearance: Present: no acute distress, well-nourished, obese - EENT Eyes: Present: PERRL ENT: hearing intact - Neck Neck: Present: normal ROM - Respiratory Respiratory effort: normal Respiratory: bilateral: diminished - Cardiovascular Rhythm: regular Heart Sounds: Present: S1 & S2 - Extremities Extremities: no ischemia, pulses intact, pulses symmetrical Peripheral Pulses: within normal limits - Abdominal General gastrointestinal: soft, non-distended, normal bowel sounds - Integumentary Integumentary: Present: warm, dry - Psychiatric Psychiatric: appropriate mood/affect, cooperative, other (Drowsy, easily arousable) - Neurologic Neurologic: moves all extremities - Allied Health Allied health notes reviewed: nursing, case management Results - Labs CBC & Chem 7: 12/01/21 05:17 12/01/21 04:00 Labs: Laboratory Last Values WBC 9.6 K/mm3 (4.5-11.0) 12/01/21 05:17 RBC 3.78 M/mm3 (3.65-5.03) 12/01/21 05:17 Hgb 11.2 gm/dl (10.1-14.3) 12/01/21 05:17 Hct 34.4 % (30.3-42.9) 12/01/21 05:17 MCV 91 fl (79-97) 12/01/21 05:17 MCH 30 pg (28-32) 12/01/21 05:17 MCHC 33 % (30-34) 12/01/21 05:17 RDW 14.9 % (13.2-15.2) 12/01/21 05:17 Plt Count 344 K/mm3 (140-440) 12/01/21 05:17 Lymph % (Auto) 21.7 % (13.4-35.0) 12/01/21 05:17 [place] % (Auto) 15.2 % (0.0-7.3) H 12/01/21 05:17 Eos % (Auto) 3.2 % (0.0-4.3) 12/01/21 05:17 Baso % (Auto) 0.6 % (0.0-1.8) 12/01/21 05:17 Lymph # (Auto) 2.1 K/mm3 (1.2-5.4) 12/01/21 05:17 [place] # (Auto) 1.4 K/mm3 (0.0-0.8) H 12/01/21 05:17 Eos # (Auto) 0.3 K/mm3 (0.0-0.4) 12/01/21 05:17 Baso # (Auto) 0.1 K/mm3 (0.0-0.1) 12/01/21 05:17 Seg Neutrophils % 59.3 % (40.0-70.0) 12/01/21 05:17 Seg Neutrophils # 5.7 K/mm3 (1.8-7.7) 12/01/21 05:17 Sodium 150 mmol/L (137-145) H 12/01/21 04:00 Potassium 3.6 mmol/L (3.6-5.0) D 12/01/21 04:00 Chloride 117.0 mmol/L (98-107) H 12/01/21 04:00 Carbon Dioxide 22 mmol/L (22-30) 12/01/21 04:00 Anion Gap 15 mmol/L 12/01/21 04:00 BUN 23 mg/dL (7-17) H 12/01/21 04:00 Creatinine 1.5 mg/dL (0.6-1.2) H 12/01/21 04:00 Estimated GFR 34 ml/min 12/01/21 04:00 BUN/Creatinine Ratio 15 % 12/01/21 04:00 Glucose 107 mg/dL (65-100) H 12/01/21 04:00 Calcium 9.0 mg/dL (8.4-10.2) 12/01/21 04:00 Total Bilirubin 0.60 mg/dL (0.1-1.2) 12/01/21 04:00 AST 34 units/L (5-40) 12/01/21 04:00 ALT 33 units/L (7-56) 12/01/21 04:00 Alkaline Phosphatase 80 units/L (35-129) 12/01/21 04:00 Total Creatine Kinase 1106 units/L (30-135) H 11/29/21 13:05 Total Protein 7.2 g/dL (6.3-8.2) 12/01/21 04:00 Albumin 3.7 g/dL (3.9-5) L 12/01/21 04:00 Albumin/Globulin Ratio 1.1 % 12/01/21 04:00 TSH 1.280 mlU/mL (0.270-4.200) 11/29/21 13:05 Urine Color Straw (Yellow) 11/29/21 14:10 Urine Turbidity Clear (Clear) 11/29/21 14:10 Urine pH 6.0 (5.0-7.0) 11/29/21 14:10 Ur Specific [place] 1.005 (1.003-1.030) 11/29/21 14:10 Urine Protein 30 mg/dl mg/dL (Negative) 11/29/21 14:10 Urine Glucose (UA) Negative mg/dL (Negative) 11/29/21 14:10 Urine Ketones 15 mg/dL (Negative) 11/29/21 14:10 Urine Blood 1+ (Negative) 11/29/21 14:10 Urine Nitrite Negative (Negative) 11/29/21 14:10 Ur Reducing Substances Not Reportable 11/29/21 14:10 Urine Bilirubin Negative (Negative) 11/29/21 14:10 Urine Ictotest Not Reportable 11/29/21 14:10 Urine Urobilinogen < 2.0 mg/dL (<2.0) 11/29/21 14:10 Ur Leukocyte Esterase Negative (Negative) 11/29/21 14:10 Urine WBC (Auto) 2.0 /HPF (0.0-6.0) 11/29/21 14:10 Urine RBC (Auto) 4.0 /HPF (0.0-6.0) 11/29/21 14:10 U Epithel Cells (Auto) < 1.0 /HPF (0-13.0) 11/29/21 14:10 Salicylates < 0.3 mg/dL (2.8-20.0) L 11/29/21 13:05 Urine Opiates Screen Negative 11/29/21 14:10 Urine Methadone Screen Negative 11/29/21 14:10 Acetaminophen 5.0 ug/mL (10.0-30.0) L 11/29/21 13:05 Ur Barbiturates Screen Negative 11/29/21 14:10 Ur Phencyclidine Scrn Negative 11/29/21 14:10 Ur Amphetamines Screen Negative 11/29/21 14:10 U Benzodiazepines Scrn Negative 11/29/21 14:10 Urine Cocaine Screen Negative 11/29/21 14:10 U Marijuana (THC) Screen Negative 11/29/21 14:10 Drugs of Abuse Note Disclamer 11/29/21 14:10 Plasma/Serum Alcohol < 0.01 % (0-0.07) 11/29/21 13:05 SARS-CoV-2 (PCR) Positive (Negative) A 11/30/21 09:23 Seymour/IV: Voiding Method Diaper Active Medications - Current Medications Current Medications: Generic Name Dose Route Start Last Admin Trade Name Freq PRN Reason Stop Dose Admin Acetaminophen 650 mg 11/30/21 19:46 Acetaminophen 325 Mg Tab PO Q4H PRN Pain MILD(1-3)/Fever >100.5/MERCEDES Citalopram Hydrobromide 20 mg 11/30/21 10:00 11/30/21 11:09 Citalopram 20 Mg Tab PO Not Given QDAY REPLACED BY [facility] Cyanocobalamin 1,000 mcg 11/30/21 10:00 11/30/21 11:10 Cyanocobalamin (Vit B-12) 1000 Mcg Tab PO Not Given QDAY REPLACED BY [facility] Docusate Sodium 100 mg 11/30/21 10:00 11/30/21 11:09 Docusate Sodium 100 Mg/10 Ml Oral Liqd PO Not Given QDAY REPLACED BY [facility] Donepezil HCl 10 mg 11/29/21 22:00 12/01/21 01:01 Donepezil 10 Mg Tab PO Not Given QHS REPLACED BY [facility] Famotidine 20 mg 12/01/21 10:00 Famotidine 20 Mg/2 Ml Inj IV QDAY REPLACED BY [facility] Haloperidol Lactate 5 mg 11/29/21 11:32 11/30/21 15:19 Haloperidol Lactate 5 Mg/1 Ml Inj IM 5 mg Q6HR PRN Administration Agitation Hydromorphone HCl 0.5 mg 11/30/21 19:54 Hydromorphone 0.5 Mg/0.5 Ml Inj IV Q3H PRN Pain , Severe (7-10) Dextrose 1,000 mls @ 50 mls/hr 12/01/21 09:00 D5w IV 12/02/21 08:59 DIRECT REPLACED BY [facility] Levothyroxine Sodium 100 mcg 11/30/21 06:00 12/01/21 05:28 Levothyroxine 100 Mcg Tab PO 100 mcg DAILY@0600 [facility] Administration Memantine 5 mg 11/29/21 22:00 11/30/21 22:33 Memantine 5 Mg Tab PO 5 mg Q12HR [facility] Administration Metoclopramide HCl 10 mg 11/30/21 19:54 Metoclopramide 10 Mg/2 Ml Inj IV Q6H PRN Nausea And Vomiting Midazolam HCl 2 mg 11/29/21 11:55 11/30/21 19:32 Midazolam 2 Mg/2 Ml Inj IM 2 mg Q6HR PRN Administration Agitation Mirtazapine 7.5 mg 11/30/21 22:00 11/30/21 22:33 Mirtazapine 15 Mg Tab PO 7.5 mg QHS [facility] Administration Morphine Sulfate 2 mg 11/30/21 19:54 Morphine 2 Mg/1 Ml Inj IV Q4H PRN Pain, Moderate (4-6) Ondansetron HCl 4 mg 11/30/21 19:46 Ondansetron 4 Mg/2 Ml Inj IV Q8H PRN Nausea And Vomiting Oxcarbazepine 600 mg 11/29/21 22:00 11/30/21 22:34 Oxcarbazepine 300 Mg Tab PO 600 mg BID [facility] Administration Quetiapine Fumarate 400 mg 11/29/21 22:00 11/30/21 22:33 Quetiapine 200 Mg Tab PO 400 mg QHS [facility] Administration Sodium Chloride 10 ml 11/30/21 22:00 12/01/21 01:01 Sodium Chloride 0.9% 10 Ml Flush Syringe IV Not Given BID [facility] Sodium Chloride 10 ml 11/30/21 19:46 Sodium Chloride 0.9% 10 Ml Flush Syringe IV PRN PRN LINE FLUSH Ziprasidone 20 mg 11/30/21 21:00 11/30/21 21:43 Ziprasidone Mesylate 20 Mg Vial IM 20 mg Q12H [facility] Administration <MARCELLO THRASHER - Last Filed: 12/02/21 07:22> Assessment and Plan Assessment and plan: I saw and evaluated the patient. I agree with the findings and the plan of care as documented in the Nurse Practitioner's~note, with the following corrections and additions. Hospitalist Physical - Constitutional Vitals: Temp Pulse Resp BP Pulse Ox 98.5 F 83 13 114/63 96 12/02/21 03:40 12/02/21 04:20 12/02/21 04:20 12/02/21 04:20 12/02/21 04:20 Results - Labs CBC & Chem 7: 12/02/21 05:05 12/02/21 05:05 Labs: Laboratory Last Values WBC 8.4 K/mm3 (4.5-11.0) 12/02/21 05:05 RBC 3.65 M/mm3 (3.65-5.03) 12/02/21 05:05 Hgb 10.9 gm/dl (10.1-14.3) 12/02/21 05:05 Hct 33.2 % (30.3-42.9) 12/02/21 05:05 MCV 91 fl (79-97) 12/02/21 05:05 MCH 30 pg (28-32) 12/02/21 05:05 MCHC 33 % (30-34) 12/02/21 05:05 RDW 15.1 % (13.2-15.2) 12/02/21 05:05 Plt Count 322 K/mm3 (140-440) 12/02/21 05:05 Lymph % (Auto) 21.7 % (13.4-35.0) 12/01/21 05:17 [place] % (Auto) 15.2 % (0.0-7.3) H 12/01/21 05:17 Eos % (Auto) 3.2 % (0.0-4.3) 12/01/21 05:17 Baso % (Auto) 0.6 % (0.0-1.8) 12/01/21 05:17 Lymph # (Auto) 2.1 K/mm3 (1.2-5.4) 12/01/21 05:17 [place] # (Auto) 1.4 K/mm3 (0.0-0.8) H 12/01/21 05:17 Eos # (Auto) 0.3 K/mm3 (0.0-0.4) 12/01/21 05:17 Baso # (Auto) 0.1 K/mm3 (0.0-0.1) 12/01/21 05:17 Seg Neutrophils % 59.3 % (40.0-70.0) 12/01/21 05:17 Seg Neutrophils # 5.7 K/mm3 (1.8-7.7) 12/01/21 05:17 Sodium 150 mmol/L (137-145) H 12/02/21 05:05 Potassium 3.5 mmol/L (3.6-5.0) L 12/02/21 05:05 Chloride 116.3 mmol/L (98-107) H 12/02/21 05:05 Carbon Dioxide 23 mmol/L (22-30) 12/02/21 05:05 Anion Gap 14 mmol/L 12/02/21 05:05 BUN 23 mg/dL (7-17) H 12/02/21 05:05 Creatinine 1.4 mg/dL (0.6-1.2) H 12/02/21 05:05 Estimated GFR 37 ml/min 12/02/21 05:05 BUN/Creatinine Ratio 16 % 12/02/21 05:05 Glucose 106 mg/dL (65-100) H 12/02/21 05:05 Calcium 8.6 mg/dL (8.4-10.2) 12/02/21 05:05 Phosphorus 2.90 mg/dL (2.5-4.5) 12/02/21 05:05 Magnesium 2.60 mg/dL (1.7-2.3) H 12/02/21 05:05 Total Bilirubin 0.60 mg/dL (0.1-1.2) 12/01/21 04:00 AST 34 units/L (5-40) 12/01/21 04:00 ALT 33 units/L (7-56) 12/01/21 04:00 Alkaline Phosphatase 80 units/L (35-129) 12/01/21 04:00 Total Creatine Kinase 241 units/L (30-135) H 12/02/21 05:05 Total Protein 7.2 g/dL (6.3-8.2) 12/01/21 04:00 Albumin 3.7 g/dL (3.9-5) L 12/01/21 04:00 Albumin/Globulin Ratio 1.1 % 12/01/21 04:00 TSH 1.280 mlU/mL (0.270-4.200) 11/29/21 13:05 Urine Color Straw (Yellow) 11/29/21 14:10 Urine Turbidity Clear (Clear) 11/29/21 14:10 Urine pH 6.0 (5.0-7.0) 11/29/21 14:10 Ur Specific [place] 1.005 (1.003-1.030) 11/29/21 14:10 Urine Protein 30 mg/dl mg/dL (Negative) 11/29/21 14:10 Urine Glucose (UA) Negative mg/dL (Negative) 11/29/21 14:10 Urine Ketones 15 mg/dL (Negative) 11/29/21 14:10 Urine Blood 1+ (Negative) 11/29/21 14:10 Urine Nitrite Negative (Negative) 11/29/21 14:10 Ur Reducing Substances Not Reportable 11/29/21 14:10 Urine Bilirubin Negative (Negative) 11/29/21 14:10 Urine Ictotest Not Reportable 11/29/21 14:10 Urine Urobilinogen < 2.0 mg/dL (<2.0) 11/29/21 14:10 Ur Leukocyte Esterase Negative (Negative) 11/29/21 14:10 Urine WBC (Auto) 2.0 /HPF (0.0-6.0) 11/29/21 14:10 Urine RBC (Auto) 4.0 /HPF (0.0-6.0) 11/29/21 14:10 U Epithel Cells (Auto) < 1.0 /HPF (0-13.0) 11/29/21 14:10 Salicylates < 0.3 mg/dL (2.8-20.0) L 11/29/21 13:05 Urine Opiates Screen Negative 11/29/21 14:10 Urine Methadone Screen Negative 11/29/21 14:10 Acetaminophen 5.0 ug/mL (10.0-30.0) L 11/29/21 13:05 Ur Barbiturates Screen Negative 11/29/21 14:10 Ur Phencyclidine Scrn Negative 11/29/21 14:10 Ur Amphetamines Screen Negative 11/29/21 14:10 U Benzodiazepines Scrn Negative 11/29/21 14:10 Urine Cocaine Screen Negative 11/29/21 14:10 U Marijuana (THC) Screen Negative 11/29/21 14:10 Drugs of Abuse Note Disclamer 11/29/21 14:10 Plasma/Serum Alcohol < 0.01 % (0-0.07) 11/29/21 13:05 SARS-CoV-2 (PCR) Positive (Negative) A 11/30/21 09:23 Seymour/IV: Voiding Method Incontinent Active Medications - Current Medications Current Medications: Generic Name Dose Route Start Last Admin Trade Name Freq PRN Reason Stop Dose Admin Acetaminophen 650 mg 11/30/21 19:46 Acetaminophen 325 Mg Tab PO Q4H PRN Pain MILD(1-3)/Fever >100.5/MERCEDES Citalopram Hydrobromide 20 mg 11/30/21 10:00 12/01/21 10:30 Citalopram 20 Mg Tab PO 20 mg QDAY [facility] Administration Cyanocobalamin 1,000 mcg 11/30/21 10:00 12/01/21 10:30 Cyanocobalamin (Vit B-12) 1000 Mcg Tab PO 1,000 mcg QDAY [facility] Administration Docusate Sodium 100 mg 11/30/21 10:00 12/01/21 10:30 Docusate Sodium 100 Mg/10 Ml Oral Liqd PO 100 mg QDAY [facility] Administration Donepezil HCl 10 mg 11/29/21 22:00 12/01/21 21:22 Donepezil 10 Mg Tab PO 10 mg QHS [facility] Administration Famotidine 20 mg 12/02/21 10:00 Famotidine 20 Mg Tab PO QDAY [facility] Hydromorphone HCl 0.5 mg 12/01/21 16:08 Hydromorphone 0.5 Mg/0.5 Ml Inj IV Q6H PRN Pain , Severe (7-10) Dextrose 1,000 mls @ 50 mls/hr 12/01/21 09:00 12/01/21 10:31 D5w IV 12/02/21 08:59 50 mls/hr DIRECT [facility] Administration Levothyroxine Sodium 100 mcg 11/30/21 06:00 12/02/21 05:03 Levothyroxine 100 Mcg Tab PO 100 mcg DAILY@0600 [facility] Administration Memantine 5 mg 11/29/21 22:00 12/01/21 21:22 Memantine 5 Mg Tab PO 5 mg Q12HR [facility] Administration Mirtazapine 15 mg 12/01/21 22:00 12/01/21 21:22 Mirtazapine 15 Mg Tab PO 15 mg QHS [facility] Administration Morphine Sulfate 2 mg 11/30/21 19:54 Morphine 2 Mg/1 Ml Inj IV Q4H PRN Pain, Moderate (4-6) Oxcarbazepine 600 mg 11/29/21 22:00 12/01/21 21:23 Oxcarbazepine 300 Mg Tab PO 600 mg BID [facility] Administration Quetiapine Fumarate 200 mg 12/01/21 22:00 12/01/21 21:22 Quetiapine 200 Mg Tab PO 200 mg BID [facility] Administration Sodium Chloride 10 ml 11/30/21 22:00 12/01/21 21:22 Sodium Chloride 0.9% 10 Ml Flush Syringe IV 10 ml BID [facility] Administration Sodium Chloride 10 ml 11/30/21 19:46 Sodium Chloride 0.9% 10 Ml Flush Syringe IV PRN PRN LINE FLUSH Ziprasidone 20 mg 11/30/21 21:00 12/01/21 21:22 Ziprasidone Mesylate 20 Mg Vial IM 20 mg Q12H [facility] Administration
[2021-12-01] MEDS: CITALOPRAM 20 MG TAB PO SCH (10:30)
[2021-12-01] MEDS: MEMANTINE 5 MG TAB PO SCH ×2 (10:30→21:22)
[2021-12-01] MEDS: OXcarbazepine 300 MG TAB PO SCH ×2 (10:30→21:23)
[2021-12-01] MEDS: DOCUSATE SODIUM 100 MG/10 ML ORAL LIQD PO SCH (10:30)
[2021-12-01] MEDS: CYANOCOBALAMIN (VIT B-12) 1000 MCG TAB PO SCH (10:30)
[2021-12-01] MEDS: DEXTROSE 5% IN WATER 1,000 ML IV SCH (10:31)
[2021-12-01] MEDS: HALOPERIDOL LACTATE 5 MG/1 ML INJ IM PRN (11:03)
--- NOTE | 2021-12-01 11:06 | Cat Scan Report ---
CT HEAD WITHOUT CONTRAST INDICATION / CLINICAL INFORMATION: Subdural hematoma--subtle. TECHNIQUE: Axial imaging performed from the skull apex through the skull base without the use of cont rast. Sagittal and coronal reformatted images. All CT scans at this location are performed using CT dose reduction for ALARA by means of automated exposure control. COMPARISON: 11/30/2021 11/29/2021. FINDINGS: CEREBRAL PARENCHYMA: No significant abnormality. No acute territorial infarct. HEMORRHAGE: No intraparenchymal hemorrhage. EXTRA-AXIAL SPACES: Previously described small subdural hemorrhage along the left side of the posteri or falx and left tentorium is unchanged or slightly decreased in size. No new acute hemorrhage. VENTRICULAR SYSTEM: Normal in size and morphology for the patient's age. MIDLINE SHIFT OR HERNIATION: None. CEREBELLUM / BRAINSTEM: No significant abnormality. CALVARIUM: No significant abnormality. ORBITS: Normal as visualized. PARANASAL SINUSES / MASTOID AIR CELLS: Normal as visualized. SOFT TISSUES of HEAD: No significant abnormality. ADDITIONAL FINDINGS: None. IMPRESSION: Minimal improvement or no change in the small left subdural hemorrhage as described. No new acute pro cess. Signer Name: Erick Mares Jr, MD Signed: 12/01/2021 11:02 AM Workstation Name: [id number]
--- NOTE | 2021-12-01 12:21 | Consultation ---
History of Present Illness - Reason for Consult Consult date: 12/01/21 COVID-19 positive Requesting physician: CASSIE MATTHEWS - History of Present Illness The patient is a 71-year-old female admitted from the [place] [facility] due to being combative and throwing herself on the floor, CT head revealed possible small bleed. She also tested positive for COVID-19. Is otherwise asymptomatic, on room air. ID was consulted for additional evaluation. Labs revealed mild BERNICE and elevated CK. Review of Systems: General: no fevers,chills or rigors HEENT: no new visual disturbance Respiratory: No cough, sputum, hemoptysis or shortness of breath Cardiovascular: No chest pain, syncope Gastrointestinal: No nausea, vomiting or diarrhea Genitourinary: No dysuria or hematuria Musculoskeletal: No new or worsening neck pain or back pain Neurologic: No headaches, seizures Hematologic: No easy bruising or bleeding Endocrine: No night sweats or acute weight loss Skin: negative for rash, jaundice Psychiatric: No suicidal or homicidal ideation Medications and Allergies Allergies Allergy/AdvReac Type Severity Reaction Status Date / Time No Known Allergies Allergy Unverified 11/29/21 08:47 Active Meds: Active Medications Acetaminophen (Acetaminophen 325 Mg Tab) 650 mg PO Q4H PRN PRN Reason: Pain MILD(1-3)/Fever >100.5/MERCEDES Citalopram Hydrobromide (Citalopram 20 Mg Tab) 20 mg PO QDAY [facility] Last Admin: 12/01/21 10:30 Dose: 20 mg Cyanocobalamin (Cyanocobalamin (Vit B-12) 1000 Mcg Tab) 1,000 mcg PO QDAY [facility] Last Admin: 12/01/21 10:30 Dose: 1,000 mcg Docusate Sodium (Docusate Sodium 100 Mg/10 Ml Oral Liqd) 100 mg PO QDAY [facility] Last Admin: 12/01/21 10:30 Dose: 100 mg Donepezil HCl (Donepezil 10 Mg Tab) 10 mg PO QHS [facility] Last Admin: 12/01/21 01:01 Dose: Not Given Famotidine (Famotidine 20 Mg/2 Ml Inj) 20 mg IV QDAY [facility] Last Admin: 12/01/21 10:30 Dose: 20 mg Haloperidol Lactate (Haloperidol Lactate 5 Mg/1 Ml Inj) 5 mg IM Q6HR PRN PRN Reason: Agitation Last Admin: 12/01/21 11:03 Dose: 5 mg Hydromorphone HCl (Hydromorphone 0.5 Mg/0.5 Ml Inj) 0.5 mg IV Q3H PRN PRN Reason: Pain , Severe (7-10) Dextrose (D5w) 1,000 mls @ 50 mls/hr IV DIRECT [facility] Stop: 12/02/21 08:59 Last Admin: 12/01/21 10:31 Dose: 50 mls/hr Levothyroxine Sodium (Levothyroxine 100 Mcg Tab) 100 mcg PO DAILY@0600 [facility] Last Admin: 12/01/21 05:28 Dose: 100 mcg Memantine (Memantine 5 Mg Tab) 5 mg PO Q12HR [facility] Last Admin: 12/01/21 10:30 Dose: 5 mg Metoclopramide HCl (Metoclopramide 10 Mg/2 Ml Inj) 10 mg IV Q6H PRN PRN Reason: Nausea And Vomiting Midazolam HCl (Midazolam 2 Mg/2 Ml Inj) 2 mg IM Q6HR PRN PRN Reason: Agitation Last Admin: 11/30/21 19:32 Dose: 2 mg Mirtazapine (Mirtazapine 15 Mg Tab) 7.5 mg PO QHS [facility] Last Admin: 11/30/21 22:33 Dose: 7.5 mg Morphine Sulfate (Morphine 2 Mg/1 Ml Inj) 2 mg IV Q4H PRN PRN Reason: Pain, Moderate (4-6) Ondansetron HCl (Ondansetron 4 Mg/2 Ml Inj) 4 mg IV Q8H PRN PRN Reason: Nausea And Vomiting Oxcarbazepine (Oxcarbazepine 300 Mg Tab) 600 mg PO BID [facility] Last Admin: 12/01/21 10:30 Dose: 600 mg Quetiapine Fumarate (Quetiapine 200 Mg Tab) 400 mg PO QHS [facility] Last Admin: 11/30/21 22:33 Dose: 400 mg Sodium Chloride (Sodium Chloride 0.9% 10 Ml Flush Syringe) 10 ml IV BID [facility] Last Admin: 12/01/21 01:01 Dose: Not Given Sodium Chloride (Sodium Chloride 0.9% 10 Ml Flush Syringe) 10 ml IV PRN PRN PRN Reason: LINE FLUSH Ziprasidone (Ziprasidone Mesylate 20 Mg Vial) 20 mg IM Q12H [facility] Last Admin: 12/01/21 09:30 Dose: 20 mg Physical Examination - Physical Exam Narrative exam: Physical Exam: Constitutional: Resting in bed Head, Ears, Nose: Normocephalic, atraumatic. External ears, nose normal Eyes: Conjunctivae/corneas clear. No icterus. No ptosis. Neck: Supple, no meningeal signs Oral: Deferred Cardiovascular: S1, S2 + Respiratory: Good air entry, clear to auscultation bilaterally GI: Soft, non-tender; bowel sounds normal. No peritoneal signs Musculoskeletal: No pedal edema, no cyanosis. Skin: No rash or abscess Hem/Lymphatic: No palpable cervical or supraclavicular nodes. No lymphangitis Psych: Has restraints, calm Neurological: Resting in bed - Constitutional Vitals: Vital Signs Temp Pulse Resp BP Pulse Ox 98.6 F 77 16 124/50 98 12/01/21 12:00 12/01/21 12:00 12/01/21 12:00 12/01/21 12:00 12/01/21 12:00 Temperature -Last 24 Hours Temperature 98.6 F Temperature 98.4 F Temperature 98.2 F Results - Labs CBC & Chem 7: 12/01/21 05:17 12/01/21 04:00 Labs: Abnormal lab results 12/01/21 12/01/21 Range/Units 04:00 05:17 [place] % (Auto) 15.2 H (0.0-7.3) % [place] # (Auto) 1.4 H (0.0-0.8) K/mm3 Sodium 150 H (137-145) mmol/L Chloride 117.0 H (98-107) mmol/L BUN 23 H (7-17) mg/dL Creatinine 1.5 H (0.6-1.2) mg/dL Glucose 107 H (65-100) mg/dL Albumin 3.7 L (3.9-5) g/dL - Imaging and Cardiology Chest x-ray: report reviewed, image reviewed (no obvious pneumonia seen ) Assessment and Plan Cultures: COVID-19 PCR: Positive A/P: 71-year-old female admitted [facility] the [place] due to being combative and throwing herself on the floor, CT head revealed possible small bleed. She also tested positive for COVID-19: #COVID-19, asymptomatic: Duration of illness is unclear. Remains on room air. No cycle threshold values available on the PCR. Hold off on any antiviral treatment at this time. #Small subdural hematoma: Being monitored. #BERNICE: Improving #Hypernatremia #Leukocytosis: Resolved Recs: -No COVID specific therapeutics at this time -If patient develops hypoxia, would initiate Remdesivir and steroids Bhavani Szymanski MD, FACP, [facility] ([facility] O: [phone] F: [phone] C: [phone]
--- NOTE | 2021-12-01 14:56 | Progress Note ---
Subjective - Reason for Consult Consult date: 12/01/21 Reason for consult: psychosis - Chief Complaint Chief complaint: The patient was seen today. She is COVID positive. She is confused and trying to get out of bed. She does respond when I call her name. The sitter at bedside says the patient has been restless, slightly agitated and trying to get out of bed. REVIEW OF SYSTEMS Unable to obtain MENTAL STATUS EXAMINATION Assessment (1) Bipolar Current Visit: Yes Status: Acute Treatment Plan Increase Mirtazepine 15mg po qhs to promote rest Agree with home meds Sitter: Defer to primary Medical: per primary Disposition: Recommend acute psychiatric inpatient treatment Will follow. Thanks Case staffed with Dr. Nava Mental Status Exam - Vital signs Last Vital Signs Temp 98.6 F 12/01/21 12:00 Pulse 77 12/01/21 12:00 Resp 16 12/01/21 12:00 BP 124/50 12/01/21 12:00 Pulse Ox 98 12/01/21 12:00
[2021-12-01] MEDS: MIDAZOLAM 2 MG/2 ML INJ IM PRN (15:04)
--- NOTE | 2021-12-01 18:06 | Consultation ---
History of Present Illness Consult date: 12/01/21 Requesting physician: CHUCHO RIVAS Chief complaint: altered mental status History of present illness: Yenifer Landry is a 71 y/o Female transferred to [facility] from nursing facility due to altered mental status. She reportedly threw herself on the ground multiple times, which seems to have preceded this development. CT head in the ER revealed a small left parafalcine, tentorial SDH. Repeat CT demonstrated stable hemo rrhage. She was admitted to [facility] for further evaluation. She has been somewhat confused today but does respond appropriately. Of note, she has tested positive for COVID-19. Presently, she denies significant headache, nausea or vomiting. Medications and Allergies Allergies Allergy/AdvReac Type Severity Reaction Status Date / Time No Known Allergies Allergy Unverified 11/29/21 08:47 Active Meds: Active Medications Acetaminophen (Acetaminophen 325 Mg Tab) 650 mg PO Q4H PRN PRN Reason: Pain MILD(1-3)/Fever >100.5/MERCEDES Citalopram Hydrobromide (Citalopram 20 Mg Tab) 20 mg PO QDAY [facility] Last Admin: 12/01/21 10:30 Dose: 20 mg Cyanocobalamin (Cyanocobalamin (Vit B-12) 1000 Mcg Tab) 1,000 mcg PO QDAY [facility] Last Admin: 12/01/21 10:30 Dose: 1,000 mcg Docusate Sodium (Docusate Sodium 100 Mg/10 Ml Oral Liqd) 100 mg PO QDAY [facility] Last Admin: 12/01/21 10:30 Dose: 100 mg Donepezil HCl (Donepezil 10 Mg Tab) 10 mg PO QHS [facility] Last Admin: 12/01/21 01:01 Dose: Not Given Famotidine (Famotidine 20 Mg Tab) 20 mg PO QDAY [facility] Hydromorphone HCl (Hydromorphone 0.5 Mg/0.5 Ml Inj) 0.5 mg IV Q6H PRN PRN Reason: Pain , Severe (7-10) Dextrose (D5w) 1,000 mls @ 50 mls/hr IV DIRECT [facility] Stop: 12/02/21 08:59 Last Admin: 12/01/21 10:31 Dose: 50 mls/hr Levothyroxine Sodium (Levothyroxine 100 Mcg Tab) 100 mcg PO DAILY@0600 [facility] Last Admin: 12/01/21 05:28 Dose: 100 mcg Memantine (Memantine 5 Mg Tab) 5 mg PO Q12HR [facility] Last Admin: 12/01/21 10:30 Dose: 5 mg Mirtazapine (Mirtazapine 15 Mg Tab) 15 mg PO QHS [facility] Morphine Sulfate (Morphine 2 Mg/1 Ml Inj) 2 mg IV Q4H PRN PRN Reason: Pain, Moderate (4-6) Oxcarbazepine (Oxcarbazepine 300 Mg Tab) 600 mg PO BID [facility] Last Admin: 12/01/21 10:30 Dose: 600 mg Quetiapine Fumarate (Quetiapine 200 Mg Tab) 200 mg PO BID [facility] Sodium Chloride (Sodium Chloride 0.9% 10 Ml Flush Syringe) 10 ml IV BID [facility] Last Admin: 12/01/21 01:01 Dose: Not Given Sodium Chloride (Sodium Chloride 0.9% 10 Ml Flush Syringe) 10 ml IV PRN PRN PRN Reason: LINE FLUSH Ziprasidone (Ziprasidone Mesylate 20 Mg Vial) 20 mg IM Q12H [facility] Last Admin: 12/01/21 09:30 Dose: 20 mg Review of Systems All systems: negative (what is specified in HPI) Physical Examination - Vital Signs Vital Signs: Vital Signs Temp Pulse Resp BP Pulse Ox 97.4 F L 99 H 18 153/98 96 11/29/21 08:46 11/29/21 08:46 11/29/21 08:46 11/29/21 08:46 11/29/21 08:46 - Physical Exam Narrative exam: seen and examined in restraints NAD L tonie-orbital ecchymoses RRR breathing non-labored abdomen soft no acute distress A&Ox3 CNII-XII intact motor strength grossly full, follows commands x 4 Results - Laboratory Findings CBC and BMP: 12/01/21 05:17 12/01/21 04:00 Abnormal Lab Findings: Abnormal Labs 11/29/21 11/29/21 11/29/21 13:05 13:05 13:05 WBC 15.0 H [place] % (Auto) 12.7 H [place] # (Auto) 1.9 H Seg Neutrophils % 71.4 H Seg Neutrophils # 10.7 H Sodium Chloride BUN Creatinine Glucose AST Total Creatine Kinase Albumin Salicylates < 0.3 L Acetaminophen 5.0 L SARS-CoV-2 (PCR) 11/29/21 11/30/21 12/01/21 13:05 09:23 04:00 WBC [place] % (Auto) [place] # (Auto) Seg Neutrophils % Seg Neutrophils # Sodium 147 H 150 H Chloride 111.2 H 117.0 H BUN 21 H 23 H Creatinine 1.8 H 1.5 H Glucose 102 H 107 H AST 53 H Total Creatine Kinase 1106 H Albumin 3.7 L Salicylates Acetaminophen SARS-CoV-2 (PCR) Positive A 12/01/21 05:17 WBC [place] % (Auto) 15.2 H [place] # (Auto) 1.4 H Seg Neutrophils % Seg Neutrophils # Sodium Chloride BUN Creatinine Glucose AST Total Creatine Kinase Albumin Salicylates Acetaminophen SARS-CoV-2 (PCR) Assessment and Plan 71 y/o Female w/ acute left parafalcine and tentorial SDH, stable neurologically -may downgrade to floor tomorrow morning -PT/OT/ST -hold all blood thinners -strict bp control < 140 -please notify if questions/concerns, will follow along with you
[2021-12-01] MEDS: QUEtiapine 200 MG TAB PO SCH (21:22)
[2021-12-01] MEDS: MIRTAZAPINE 15 MG TAB PO SCH (21:22)
[2021-12-02] MEDS: LEVOTHYROXINE 100 MCG TAB PO SCH (05:03)
[2021-12-02 05:22] LABS: Hematocrit 33.2 % (30.3-42.9); Hemoglobin 10.9 gm/dl (10.1-14.3); Mean Corpuscular HGB Conc 33 % (30-34); Mean Corpuscular Volume 91 fl (79-97); Platelet Count 322 K/mm3 (140-440); Red Blood Count 3.65 M/mm3 (3.65-5.03); Red Cell Distribution Width 15.1 % (13.2-15.2)
[2021-12-02 05:50] LABS: Calcium 8.6 mg/dL (8.4-10.2)
[2021-12-02] MEDS ORDERED: POTASSIUM CHLORIDE ER 20 MEQ TAB PO SCH (09:00)
--- NOTE | 2021-12-02 09:58 | Consultation ---
History of Present Illness Consult date: 12/01/21 Chief complaint: SDH History of present illness: 71 yo female with hx of falls who presents with traumatic SDH. Seen by neurosurgery. Medications and Allergies Allergies Allergy/AdvReac Type Severity Reaction Status Date / Time No Known Allergies Allergy Unverified 11/29/21 08:47 Active Meds: Active Medications Acetaminophen (Acetaminophen 325 Mg Tab) 650 mg PO Q4H PRN PRN Reason: Pain MILD(1-3)/Fever >100.5/[place]ERCED[place] Citalopram Hydrobromide (Citalopram 20 Mg Tab) 20 mg PO QDAY [facility] Last Admin: 12/01/21 10:30 Dose: 20 mg Cyanocobalamin (Cyanocobalamin (Vit B-12) 1000 Mcg Tab) 1,000 mcg PO QDAY [facility] Last Admin: 12/01/21 10:30 Dose: 1,000 mcg Docusate Sodium (Docusate Sodium 100 Mg/10 Ml Oral Liqd) 100 mg PO QDAY [facility] Last Admin: 12/01/21 10:30 Dose: 100 mg Donepezil HCl (Donepezil 10 Mg Tab) 10 mg PO QHS [facility] Last Admin: 12/01/21 21:22 Dose: 10 mg Famotidine (Famotidine 20 Mg Tab) 20 mg PO QDAY [facility] Hydromorphone HCl (Hydromorphone 0.5 Mg/0.5 Ml Inj) 0.5 mg IV Q6H PRN PRN Reason: Pain , Severe (7-10) Dextrose (D5w) 1,000 mls @ 75 mls/hr IV DIRECT [facility] Stop: 12/03/21 08:59 Last Admin: 12/01/21 10:31 Dose: 50 mls/hr Levothyroxine Sodium (Levothyroxine 100 Mcg Tab) 100 mcg PO DAILY@0600 [facility] Last Admin: 12/02/21 05:03 Dose: 100 mcg Memantine (Memantine 5 Mg Tab) 5 mg PO Q12HR [facility] Last Admin: 12/01/21 21:22 Dose: 5 mg Mirtazapine (Mirtazapine 15 Mg Tab) 15 mg PO QHS [facility] Last Admin: 12/01/21 21:22 Dose: 15 mg Morphine Sulfate (Morphine 2 Mg/1 Ml Inj) 2 mg IV Q4H PRN PRN Reason: Pain, Moderate (4-6) Oxcarbazepine (Oxcarbazepine 300 Mg Tab) 600 mg PO BID [facility] Last Admin: 12/01/21 21:23 Dose: 600 mg Potassium Chloride (Potassium Chloride Er 20 Meq Tab) 20 meq PO ONCE@0900 [facility] Stop: 12/02/21 13:00 Quetiapine Fumarate (Quetiapine 200 Mg Tab) 200 mg PO BID [facility] Last Admin: 12/01/21 21:22 Dose: 200 mg Sodium Chloride (Sodium Chloride 0.9% 10 Ml Flush Syringe) 10 ml IV BID [facility] Last Admin: 12/01/21 21:22 Dose: 10 ml Sodium Chloride (Sodium Chloride 0.9% 10 Ml Flush Syringe) 10 ml IV PRN PRN PRN Reason: LINE FLUSH Ziprasidone (Ziprasidone Mesylate 20 Mg Vial) 20 mg IM Q12H [facility] Last Admin: 12/01/21 21:22 Dose: 20 mg Physical Examination - Vital Signs Vital Signs: Vital Signs Temp Pulse Resp BP Pulse Ox 97.4 F L 99 H 18 153/98 96 11/29/21 08:46 11/29/21 08:46 11/29/21 08:46 11/29/21 08:46 11/29/21 08:46 Results - Laboratory Findings CBC and BMP: 12/02/21 05:05 12/02/21 05:05 Abnormal Lab Findings: Abnormal Labs 11/29/21 11/29/21 11/29/21 13:05 13:05 13:05 WBC 15.0 H [place] % (Auto) 12.7 H [place] # (Auto) 1.9 H Seg Neutrophils % 71.4 H Seg Neutrophils # 10.7 H Sodium Potassium Chloride BUN Creatinine Glucose Magnesium AST Total Creatine Kinase Albumin Salicylates < 0.3 L Acetaminophen 5.0 L SARS-CoV-2 (PCR) 11/29/21 11/30/21 12/01/21 13:05 09:23 04:00 WBC [place] % (Auto) [place] # (Auto) Seg Neutrophils % Seg Neutrophils # Sodium 147 H 150 H Potassium Chloride 111.2 H 117.0 H BUN 21 H 23 H Creatinine 1.8 H 1.5 H Glucose 102 H 107 H Magnesium AST 53 H Total Creatine Kinase 1106 H Albumin 3.7 L Salicylates Acetaminophen SARS-CoV-2 (PCR) Positive A 12/01/21 12/02/21 05:17 05:05 WBC [place] % (Auto) 15.2 H [place] # (Auto) 1.4 H Seg Neutrophils % Seg Neutrophils # Sodium 150 H Potassium 3.5 L Chloride 116.3 H BUN 23 H Creatinine 1.4 H Glucose 106 H Magnesium 2.60 H AST Total Creatine Kinase 241 H Albumin Salicylates Acetaminophen SARS-CoV-2 (PCR) Assessment and Plan 71 yo female with hx of falls who presents with traumatic SDH. Defer to Neurosurgery. Fritz Otero MD Neurology
[2021-12-02] MEDS: DEXTROSE 5% IN WATER 1,000 ML IV SCH ×3 (10:01→21:52)
[2021-12-02] MEDS: FAMOTIDINE 20 MG TAB PO SCH (10:29)
[2021-12-02] MEDS: QUEtiapine 200 MG TAB PO SCH (10:29)
[2021-12-02] MEDS: CYANOCOBALAMIN (VIT B-12) 1000 MCG TAB PO SCH (10:29)
[2021-12-02] MEDS: DOCUSATE SODIUM 100 MG/10 ML ORAL LIQD PO SCH (10:30)
[2021-12-02] MEDS: CITALOPRAM 20 MG TAB PO SCH (10:30)
[2021-12-02] MEDS: OXcarbazepine 300 MG TAB PO SCH ×2 (10:30→21:54)
[2021-12-02] MEDS: MEMANTINE 5 MG TAB PO SCH ×2 (10:31→21:53)
--- NOTE | 2021-12-02 11:07 | Progress Note ---
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 Hospital Course to Date: 12/01: Repeat CT head pending. Mentation improved this am, patient drowsy but calmer this am, following simple commands. Neurology and NeuroSurgery consults pending. Keep patient as 1013 status, Mental health/Psych is also following. Continue current antipsychotics meds and PRN Haldol, close Qtc monitoring. Continue neuro check per protocol. Patient COVID PCR positive, patient remains stable on RA and hemodynamicaly stable. Continue to monitor for now, ID also consulted for further recs. 12/02: Repeat CT head/reviewed, subdural hematoma stable. NeuroSurgery recommendations noted, will hold off AC for now. PT/OT/Speech consulted. Patient with persistent hypernatremia, D5W increased to 75ml/hr. Continue to encourage PO intake and trend BMP. Mental health recommends inpatient psych once medically clear. Patient is stable for transfer to the floor. Assessment and Plan #Traumatic Closed Head Injury #Small Subdural Hematoma #Acute Psychosis - Presented in acute psychosis, agitated and combative. Threw herself on the floor and hit her head - Imagings reviewed, Mildly comminuted fracture of the anterior and posterior denney of the left maxillary sinus and small subdural hematoma noted - Case discussed with NeuroSurgery- Dr. Cr on admit, no intervention recommended at this time. - Continue to monitor for 24 to 48hrs, repeat CT head, and neuro checks - NeuroSurgery consulted, appreciate recommendations - Repeat CT head/brain reviewed, subdural hematoma stable. - Continue to hold off on AC for now - Patient remains as 1013 status, sitter at the bedside - Continue current antipsychotics meds - Close Qtc monitoring- 12 lead EKG pending - Neuro checks per protocol - Home meds resumed - Mental Health/Psych also on consult, appreciate recommendations - Mental health recommends inpatient psych once medically clear #COVID-19 Infection - COVID PCR came back positive - Patient received both dose of Yee vaccine, but no booster - CXR with Bilateral opacities - Patient remains stable on RA, afebrile, with no WBCs - Will continue to monitor for now - ID consulted, no indications for treatment at this time - Per ID If patient develops hypoxia, initiate Remdesivir and steroids #BERNICE (Acute Kidney Injury) most likely Vasomotor Nephropathy #Acute Hypernatremia - Probably due to dehydration - Baseline renal function is unknown - renal function improved post IVF hydration - With persistent hypernatremia, continue gentle hydration D5W increased to 75ml/hr - Encourage PO intake - Strict intake and output - Avoid nephrotoxic medications; Renally dose medications - Monitor and replace electrolytes as needed #Rhabdomyolysis - Presented with mildly elevated CPK - CPK improved - Continue IV fluid hydration - check creatinine kinase #Hypothyroidism - Continue supportive care - TSH was normal - Resume Synthroid #GI/DVT Prophylaxis - PPI- pepcid - SCDs to bilateral lower extremities while in bed #Advance Care Planning - Disease education data, care plan, diagnoses, and prognosis were discussed with patient's son via phone. Patient is a FULL code. Patient's son acknowledged understanding and agreed with current care plan. The high probability of a clinically significant, sudden or life threatening deterioration of the [multiple] system(s) required my full and direct attention, intervention and personal management. The aggregate critical care time was [60] minutes. This time is in addition to time spent performing reported procedures but includes the following: [x] Data Review and interpretation [x] Patient assessment and monitoring of vital signs [x] Documentation [x] Medication orders and management Disposition Plan: Transfer to the Floor Total Time Spent with Patient (Minutes): 60 History Interval history: Patient seen and examined at the bedside. Awake and alert this am, following simple commands but more restless and repetitive with words. Stable on RA, de nied any pain nor any discomfort at this time, VSS. Remains as a 1013 status, back on Bilateral wrist restraints this am for safety. Bedside sitter is still present. Hospitalist Physical - Constitutional Vitals: Temp Pulse Resp BP Pulse Ox 98.4 F 78 21 153/80 97 12/02/21 08:00 12/02/21 10:00 12/02/21 10:00 12/02/21 10:12/02/21 10:00 General appearance: Present: no acute distress, well-nourished, obese - EENT Eyes: Present: PERRL (left eye bruise/black eye) ENT: hearing intact - Neck Neck: Present: normal ROM - Respiratory Respiratory effort: normal Respiratory: left: wheezing (Upper lobe), bilateral: diminished - Cardiovascular Rhythm: regular Heart Sounds: Present: S1 & S2 - Extremities Extremities: no ischemia, pulses intact, pulses symmetrical Peripheral Pulses: within normal limits - Abdominal General gastrointestinal: soft, non-distended, normal bowel sounds - Integumentary Integumentary: Present: warm, dry, erythema (Generalized bruises) - Psychiatric Psychiatric: cooperative, other (AAO, Restless and not appropriate. Repetitive with words) - Neurologic Neurologic: moves all extremities, other (AAO, restless, not appropriate) - Allied Health Allied health notes reviewed: nursing, case management Results - Labs CBC & Chem 7: 12/02/21 05:05 12/02/21 05:05 Labs: Laboratory Last Values WBC 8.4 K/mm3 (4.5-11.0) 12/02/21 05:05 RBC 3.65 M/mm3 (3.65-5.03) 12/02/21 05:05 Hgb 10.9 gm/dl (10.1-14.3) 12/02/21 05:05 Hct 33.2 % (30.3-42.9) 12/02/21 05:05 MCV 91 fl (79-97) 12/02/21 05:05 MCH 30 pg (28-32) 12/02/21 05:05 MCHC 33 % (30-34) 12/02/21 05:05 RDW 15.1 % (13.2-15.2) 12/02/21 05:05 Plt Count 322 K/mm3 (140-440) 12/02/21 05:05 Lymph % (Auto) 21.7 % (13.4-35.0) 12/01/21 05:17 Humphreys % (Auto) 15.2 % (0.0-7.3) H 12/01/21 05:17 Eos % (Auto) 3.2 % (0.0-4.3) 12/01/21 05:17 Baso % (Auto) 0.6 % (0.0-1.8) 12/01/21 05:17 Lymph # (Auto) 2.1 K/mm3 (1.2-5.4) 12/01/21 05:17 Humphreys # (Auto) 1.4 K/mm3 (0.0-0.8) H 12/01/21 05:17 Eos # (Auto) 0.3 K/mm3 (0.0-0.4) 12/01/21 05:17 Baso # (Auto) 0.1 K/mm3 (0.0-0.1) 12/01/21 05:17 Seg Neutrophils % 59.3 % (40.0-70.0) 12/01/21 05:17 Seg Neutrophils # 5.7 K/mm3 (1.8-7.7) 12/01/21 05:17 Sodium 150 mmol/L (137-145) H 12/02/21 05:05 Potassium 3.5 mmol/L (3.6-5.0) L 12/02/21 05:05 Chloride 116.3 mmol/L (98-107) H 12/02/21 05:05 Carbon Dioxide 23 mmol/L (22-30) 12/02/21 05:05 Anion Gap 14 mmol/L 12/02/21 05:05 BUN 23 mg/dL (7-17) H 12/02/21 05:05 Creatinine 1.4 mg/dL (0.6-1.2) H 12/02/21 05:05 Estimated GFR 37 ml/min 12/02/21 05:05 BUN/Creatinine Ratio 16 % 12/02/21 05:05 Glucose 106 mg/dL (65-100) H 12/02/21 05:05 Calcium 8.6 mg/dL (8.4-10.2) 12/02/21 05:05 Phosphorus 2.90 mg/dL (2.5-4.5) 12/02/21 05:05 Magnesium 2.60 mg/dL (1.7-2.3) H 12/02/21 05:05 Total Bilirubin 0.60 mg/dL (0.1-1.2) 12/01/21 04:00 AST 34 units/L (5-40) 12/01/21 04:00 ALT 33 units/L (7-56) 12/01/21 04:00 Alkaline Phosphatase 80 units/L (35-129) 12/01/21 04:00 Total Creatine Kinase 241 units/L (30-135) H 12/02/21 05:05 Total Protein 7.2 g/dL (6.3-8.2) 12/01/21 04:00 Albumin 3.7 g/dL (3.9-5) L 12/01/21 04:00 Albumin/Globulin Ratio 1.1 % 12/01/21 04:00 TSH 1.280 mlU/mL (0.270-4.200) 11/29/21 13:05 Urine Color Straw (Yellow) 11/29/21 14:10 Urine Turbidity Clear (Clear) 11/29/21 14:10 Urine pH 6.0 (5.0-7.0) 11/29/21 14:10 Ur Specific Sigel 1.005 (1.003-1.030) 11/29/21 14:10 Urine Protein 30 mg/dl mg/dL (Negative) 11/29/21 14:10 Urine Glucose (UA) Negative mg/dL (Negative) 11/29/21 14:10 Urine Ketones 15 mg/dL (Negative) 11/29/21 14:10 Urine Blood 1+ (Negative) 11/29/21 14:10 Urine Nitrite Negative (Negative) 11/29/21 14:10 Ur Reducing Substances Not Reportable 11/29/21 14:10 Urine Bilirubin Negative (Negative) 11/29/21 14:10 Urine Ictotest Not Reportable 11/29/21 14:10 Urine Urobilinogen < 2.0 mg/dL (<2.0) 11/29/21 14:10 Ur Leukocyte Esterase Negative (Negative) 11/29/21 14:10 Urine WBC (Auto) 2.0 /HPF (0.0-6.0) 11/29/21 14:10 Urine RBC (Auto) 4.0 /HPF (0.0-6.0) 11/29/21 14:10 U Epithel Cells (Auto) < 1.0 /HPF (0-13.0) 11/29/21 14:10 Salicylates < 0.3 mg/dL (2.8-20.0) L 11/29/21 13:05 Urine Opiates Screen Negative 11/29/21 14:10 Urine Methadone Screen Negative 11/29/21 14:10 Acetaminophen 5.0 ug/mL (10.0-30.0) L 11/29/21 13:05 Ur Barbiturates Screen Negative 11/29/21 14:10 Ur Phencyclidine Scrn Negative 11/29/21 14:10 Ur Amphetamines Screen Negative 11/29/21 14:10 U Benzodiazepines Scrn Negative 11/29/21 14:10 Urine Cocaine Screen Negative 11/29/21 14:10 U Marijuana (THC) Screen Negative 11/29/21 14:10 Drugs of Abuse Note Disclamer 11/29/21 14:10 Plasma/Serum Alcohol < 0.01 % (0-0.07) 11/29/21 13:05 SARS-CoV-2 (PCR) Positive (Negative) A 11/30/21 09:23 Seymour/IV: Voiding Method Incontinent Active Medications - Current Medications Current Medications: Generic Name Dose Route Start Last Admin Trade Name Freq PRN Reason Stop Dose Admin Acetaminophen 650 mg 11/30/21 19:46 Acetaminophen 325 Mg Tab PO Q4H PRN Pain MILD(1-3)/Fever >100.5/MERCEDES Citalopram Hydrobromide 20 mg 11/30/21 10:00 12/02/21 10:30 Citalopram 20 Mg Tab PO 20 mg QDAY UCHE Administration Cyanocobalamin 1,000 mcg 11/30/21 10:00 12/02/21 10:29 Cyanocobalamin (Vit B-12) 1000 Mcg Tab PO 1,000 mcg QDAY UC[facility] Administration Docusate Sodium 100 mg 11/30/21 10:00 12/02/21 10:30 Docusate Sodium 100 Mg/10 Ml Oral Liqd PO 100 mg QDAY [facility] Administration Donepezil HCl 10 mg 11/29/21 22:00 12/01/21 21:22 Donepezil 10 Mg Tab PO 10 mg QHS UC[facility] Administration Famotidine 20 mg 12/02/21 10:00 12/02/21 10:29 Famotidine 20 Mg Tab PO 20 mg QDAY UCHE Administration Hydromorphone HCl 0.5 mg 12/01/21 16:08 Hydromorphone 0.5 Mg/0.5 Ml Inj IV Q6H PRN Pain , Severe (7-10) Dextrose 1,000 mls @ 75 mls/hr 12/01/21 09:00 12/01/21 10:31 D5w IV 12/03/21 08:59 50 mls/hr DIRECT [facility]HE Administration Levothyroxine Sodium 100 mcg 11/30/21 06:00 12/02/21 05:03 Levothyroxine 100 Mcg Tab PO 100 mcg DAILY@0600 UCHE Administration Memantine 5 mg 11/29/21 22:00 12/02/21 10:31 Memantine 5 Mg Tab PO 5 mg Q12HR [facility] Administration Mirtazapine 15 mg 12/01/21 22:00 12/01/21 21:22 Mirtazapine 15 Mg Tab PO 15 mg QHS [facility] Administration Morphine Sulfate 2 mg 11/30/21 19:54 Morphine 2 Mg/1 Ml Inj IV Q4H PRN Pain, Moderate (4-6) Oxcarbazepine 600 mg 11/29/21 22:00 12/02/21 10:30 Oxcarbazepine 300 Mg Tab PO 600 mg BID [facility] Administration Potassium Chloride 20 meq 12/02/21 09:00 12/02/21 10:30 Potassium Chloride Er 20 Meq Tab PO 12/02/21 13:00 20 meq ONCE@0900 [facility] Administration Quetiapine Fumarate 200 mg 12/01/21 22:00 12/02/21 10:29 Quetiapine 200 Mg Tab PO 200 mg BID [facility] Administration Sodium Chloride 10 ml 11/30/21 22:00 12/02/21 10:31 Sodium Chloride 0.9% 10 Ml Flush Syringe IV 10 ml BID [facility] Administration Sodium Chloride 10 ml 11/30/21 19:46 Sodium Chloride 0.9% 10 Ml Flush Syringe IV PRN PRN LINE FLUSH Ziprasidone 20 mg 11/30/21 21:00 12/01/21 21:22 Ziprasidone Mesylate 20 Mg Vial IM 20 mg Q12H [facility] Administration <MARCELLO THRASHER - Last Filed: 12/03/21 07:12> Assessment and Plan Assessment and plan: I saw and evaluated the patient. I agree with the findings and the plan of care as documented in the Nurse Practitioner's~note, with the following corrections and additions. Hospitalist Physical - Constitutional Vitals: Temp Pulse Resp BP Pulse Ox 97.6 F 70 20 125/68 100 12/03/21 04:00 12/03/21 05:05 12/03/21 04:00 12/03/21 04:00 12/03/21 05:05 Results - Labs CBC & Chem 7: 12/02/21 05:05 12/02/21 05:05 Labs: Laboratory Last Values WBC 8.4 K/mm3 (4.5-11.0) 12/02/21 05:05 RBC 3.65 M/mm3 (3.65-5.03) 12/02/21 05:05 Hgb 10.9 gm/dl (10.1-14.3) 12/02/21 05:05 Hct 33.2 % (30.3-42.9) 12/02/21 05:05 MCV 91 fl (79-97) 12/02/21 05:05 MCH 30 pg (28-32) 12/02/21 05:05 MCHC 33 % (30-34) 12/02/21 05:05 RDW 15.1 % (13.2-15.2) 12/02/21 05:05 Plt Count 322 K/mm3 (140-440) 12/02/21 05:05 Lymph % (Auto) 21.7 % (13.4-35.0) 12/01/21 05:17 Humphreys % (Auto) 15.2 % (0.0-7.3) H 12/01/21 05:17 Eos % (Auto) 3.2 % (0.0-4.3) 12/01/21 05:17 Baso % (Auto) 0.6 % (0.0-1.8) 12/01/21 05:17 Lymph # (Auto) 2.1 K/mm3 (1.2-5.4) 12/01/21 05:17 Humphreys # (Auto) 1.4 K/mm3 (0.0-0.8) H 12/01/21 05:17 Eos # (Auto) 0.3 K/mm3 (0.0-0.4) 12/01/21 05:17 Baso # (Auto) 0.1 K/mm3 (0.0-0.1) 12/01/21 05:17 Seg Neutrophils % 59.3 % (40.0-70.0) 12/01/21 05:17 Seg Neutrophils # 5.7 K/mm3 (1.8-7.7) 12/01/21 05:17 Sodium 150 mmol/L (137-145) H 12/02/21 05:05 Potassium 3.5 mmol/L (3.6-5.0) L 12/02/21 05:05 Chloride 116.3 mmol/L (98-107) H 12/02/21 05:05 Carbon Dioxide 23 mmol/L (22-30) 12/02/21 05:05 Anion Gap 14 mmol/L 12/02/21 05:05 BUN 23 mg/dL (7-17) H 12/02/21 05:05 Creatinine 1.4 mg/dL (0.6-1.2) H 12/02/21 05:05 Estimated GFR 37 ml/min 12/02/21 05:05 BUN/Creatinine Ratio 16 % 12/02/21 05:05 Glucose 106 mg/dL (65-100) H 12/02/21 05:05 Calcium 8.6 mg/dL (8.4-10.2) 12/02/21 05:05 Phosphorus 2.90 mg/dL (2.5-4.5) 12/02/21 05:05 Magnesium 2.60 mg/dL (1.7-2.3) H 12/02/21 05:05 Total Bilirubin 0.60 mg/dL (0.1-1.2) 12/01/21 04:00 AST 34 units/L (5-40) 12/01/21 04:00 ALT 33 units/L (7-56) 12/01/21 04:00 Alkaline Phosphatase 80 units/L (35-129) 12/01/21 04:00 Total Creatine Kinase 241 units/L (30-135) H 12/02/21 05:05 Total Protein 7.2 g/dL (6.3-8.2) 12/01/21 04:00 Albumin 3.7 g/dL (3.9-5) L 12/01/21 04:00 Albumin/Globulin Ratio 1.1 % 12/01/21 04:00 TSH 1.280 mlU/mL (0.270-4.200) 11/29/21 13:05 Urine Color Straw (Yellow) 11/29/21 14:10 Urine Turbidity Clear (Clear) 11/29/21 14:10 Urine pH 6.0 (5.0-7.0) 11/29/21 14:10 Ur Specific Sigel 1.005 (1.003-1.030) 11/29/21 14:10 Urine Protein 30 mg/dl mg/dL (Negative) 11/29/21 14:10 Urine Glucose (UA) Negative mg/dL (Negative) 11/29/21 14:10 Urine Ketones 15 mg/dL (Negative) 11/29/21 14:10 Urine Blood 1+ (Negative) 11/29/21 14:10 Urine Nitrite Negative (Negative) 11/29/21 14:10 Ur Reducing Substances Not Reportable 11/29/21 14:10 Urine Bilirubin Negative (Negative) 11/29/21 14:10 Urine Ictotest Not Reportable 11/29/21 14:10 Urine Urobilinogen < 2.0 mg/dL (<2.0) 11/29/21 14:10 Ur Leukocyte Esterase Negative (Negative) 11/29/21 14:10 Urine WBC (Auto) 2.0 /HPF (0.0-6.0) 11/29/21 14:10 Urine RBC (Auto) 4.0 /HPF (0.0-6.0) 11/29/21 14:10 U Epithel Cells (Auto) < 1.0 /HPF (0-13.0) 11/29/21 14:10 Salicylates < 0.3 mg/dL (2.8-20.0) L 11/29/21 13:05 Urine Opiates Screen Negative 11/29/21 14:10 Urine Methadone Screen Negative 11/29/21 14:10 Acetaminophen 5.0 ug/mL (10.0-30.0) L 11/29/21 13:05 Ur Barbiturates Screen Negative 11/29/21 14:10 Ur Phencyclidine Scrn Negative 11/29/21 14:10 Ur Amphetamines Screen Negative 11/29/21 14:10 U Benzodiazepines Scrn Negative 11/29/21 14:10 Urine Cocaine Screen Negative 11/29/21 14:10 U Marijuana (THC) Screen Negative 11/29/21 14:10 Drugs of Abuse Note Disclamer 11/29/21 14:10 Plasma/Serum Alcohol < 0.01 % (0-0.07) 11/29/21 13:05 SARS-CoV-2 (PCR) Positive (Negative) A 11/30/21 09:23 Seymour/IV: Voiding Method Diaper Active Medications - Current Medications Current Medications: Generic Name Dose Route Start Last Admin Trade Name Freq PRN Reason Stop Dose Admin Acetaminophen 650 mg 11/30/21 19:46 Acetaminophen 325 Mg Tab PO Q4H PRN Pain MILD(1-3)/Fever >100.5/MERCEDES Citalopram Hydrobromide 20 mg 11/30/21 10:00 12/02/21 10:30 Citalopram 20 Mg Tab PO 20 mg QDAY [facility] Administration Cyanocobalamin 1,000 mcg 11/30/21 10:00 12/02/21 10:29 Cyanocobalamin (Vit B-12) 1000 Mcg Tab PO 1,000 mcg QDAY [facility] Administration Docusate Sodium 100 mg 11/30/21 10:00 12/02/21 10:30 Docusate Sodium 100 Mg/10 Ml Oral Liqd PO 100 mg QDAY [facility] Administration Donepezil HCl 10 mg 11/29/21 22:00 12/02/21 22:51 Donepezil 10 Mg Tab PO Not Given QHS [facility] Famotidine 20 mg 12/02/21 10:00 12/02/21 10:29 Famotidine 20 Mg Tab PO 20 mg QDAY [facility] Administration Hydromorphone HCl 0.5 mg 12/01/21 16:08 Hydromorphone 0.5 Mg/0.5 Ml Inj IV Q6H PRN Pain , Severe (7-10) Dextrose 1,000 mls @ 75 mls/hr 12/01/21 09:00 12/02/21 21:52 D5w IV 12/03/21 08:59 75 mls/hr DIRECT [facility] Administration Valproate Sodium 500 mg/ 105 mls @ 100 mls/hr 12/02/21 13:00 12/02/21 21:54 Sodium Chloride IV 100 mls/hr Q12HR [facility] Administration Levothyroxine Sodium 100 mcg 11/30/21 06:00 12/03/21 05:28 Levothyroxine 100 Mcg Tab PO 100 mcg DAILY@0600 [facility] Administration Memantine 5 mg 11/29/21 22:00 12/02/21 21:53 Memantine 5 Mg Tab PO 5 mg Q12HR [facility] Administration Mirtazapine 15 mg 12/01/21 22:00 12/02/21 21:53 Mirtazapine 15 Mg Tab PO 15 mg QHS [facility] Administration Morphine Sulfate 2 mg 11/30/21 19:54 Morphine 2 Mg/1 Ml Inj IV Q4H PRN Pain, Moderate (4-6) Oxcarbazepine 600 mg 11/29/21 22:00 12/02/21 21:54 Oxcarbazepine 300 Mg Tab PO 600 mg BID [facility] Administration Quetiapine Fumarate 300 mg 12/02/21 22:00 12/02/21 21:52 Quetiapine 100 Mg Tab PO 300 mg QHS [facility] Administration Sodium Chloride 10 ml 11/30/21 22:00 12/02/21 21:53 Sodium Chloride 0.9% 10 Ml Flush Syringe IV 10 ml BID [facility] Administration Sodium Chloride 10 ml 11/30/21 19:46 Sodium Chloride 0.9% 10 Ml Flush Syringe IV PRN PRN LINE FLUSH Ziprasidone 20 mg 11/30/21 21:00 12/02/21 21:53 Ziprasidone Mesylate 20 Mg Vial IM 20 mg Q12H [facility] Administration
--- NOTE | 2021-12-02 12:32 | Progress Note ---
Subjective - Reason for Consult Consult date: 12/02/21 Reason for consult: psychosis - Chief Complaint Chief complaint: The patient was seen today. She is in wrist restraints. She presents more with it today, but she is still confused. She asks me how I was doing. She says she's doing fine. The patient says she slept good. She denies SI/HI or hallucinations. The sitter at bedside says the patient has been disorganized. REVIEW OF SYSTEMS Unable to obtain MENTAL STATUS EXAMINATION Assessment (1) Delirium (2) Bipolar Disorder Current Visit: Yes Status: Acute Treatment Plan Mirtazepine 15mg po qhs to promote rest Valproic 500mg IV q12h Decrease seroquel 300mg qhs Sitter: Defer to primary Medical: per primary Disposition: Recommend acute psychiatric inpatient treatment Will follow. Thanks Case staffed with Dr. Nava Mental Status Exam - Vital signs Last Vital Signs Temp 97.9 F 12/02/21 11:44 Pulse 78 12/02/21 10:00 Resp 21 12/02/21 10:00 BP 153/80 12/02/21 10:00 Pulse Ox 97 12/02/21 10:00
[2021-12-02] MEDS ORDERED: QUEtiapine 200 MG TAB PO SCH (14:00)
[2021-12-02] MEDS: VALPROATE SODIUM 500 MG in SODIUM CHLORIDE 0.9% 100 ML IV SCH ×2 (14:50→21:54)
[2021-12-02] MEDS: ZIPRASIDONE MESYLATE 20 MG VIAL IM SCH ×2 (14:51→21:53)
--- NOTE | 2021-12-02 15:26 | Progress Note ---
Assessment and Plan Cultures: COVID-19 PCR: Positive A/P: 71-year-old female admitted from the retirement due to being combative and throwing herself on the floor, CT head revealed possible small bleed. She also tested positive for COVID-19: #COVID-19, asymptomatic: Duration of illness is unclear. Remains on room air. No cycle threshold values available on the PCR. Hold off on any antiviral treatment at this time. #Small subdural hematoma: Being monitored. #BERNICE: Improving #Hypernatremia #Leukocytosis: Resolved Recs: -No COVID specific therapeutics at this time Will sign off. Bhavani Szymanski MD, FACP, [facility] O: [phone] F: [phone] C: [phone] Subjective Date of service: 12/02/21 Interval history: Afebrile. Remains on room air. Objective - Exam Narrative Exam: Physical Exam: Deferred to minimize transmission risk with COVID-19 - Constitutional Vitals: Vital Signs Temp Pulse Resp BP Pulse Ox 97.9 F 78 21 153/80 97 12/02/21 11:44 12/02/21 10:00 12/02/21 10:00 12/02/21 10:00 12/02/21 10:00 Temperature -Last 24 Hours Temperature 97.9 F Temperature 98.4 F Temperature 98.5 F Temperature 98.7 F Temperature 98.4 F Temperature 98.9 F - Labs CBC & Chem 7: 12/02/21 05:05 12/02/21 05:05 Labs: Abnormal lab results 12/02/21 Range/Units 05:05 Sodium 150 H (137-145) mmol/L Potassium 3.5 L (3.6-5.0) mmol/L Chloride 116.3 H (98-107) mmol/L BUN 23 H (7-17) mg/dL Creatinine 1.4 H (0.6-1.2) mg/dL Glucose 106 H (65-100) mg/dL Magnesium 2.60 H (1.7-2.3) mg/dL Total Creatine Kinase 241 H (30-135) units/L
[2021-12-02] MEDS: QUEtiapine 100 MG TAB PO SCH (21:52)
[2021-12-02] MEDS: MIRTAZAPINE 15 MG TAB PO SCH (21:53)
[2021-12-02] MEDS: DONEPEZIL 10 MG TAB PO SCH (22:51)
[2021-12-03] MEDS: LEVOTHYROXINE 100 MCG TAB PO SCH (05:28)
[2021-12-03 08:07] LABS: Calcium 8.4 mg/dL (8.4-10.2)
[2021-12-03] MEDS: CYANOCOBALAMIN (VIT B-12) 1000 MCG TAB PO SCH (09:58)
[2021-12-03] MEDS: CITALOPRAM 20 MG TAB PO SCH (09:58)
[2021-12-03] MEDS: FAMOTIDINE 20 MG TAB PO SCH (09:58)
[2021-12-03] MEDS: OXcarbazepine 300 MG TAB PO SCH ×2 (09:58→21:27)
[2021-12-03] MEDS: DOCUSATE SODIUM 100 MG/10 ML ORAL LIQD PO SCH (09:58)
[2021-12-03] MEDS: ZIPRASIDONE MESYLATE 20 MG VIAL IM SCH ×2 (09:59→21:28)
[2021-12-03] MEDS: MEMANTINE 5 MG TAB PO SCH ×2 (09:59→21:28)
[2021-12-03] MEDS: VALPROATE SODIUM 500 MG in SODIUM CHLORIDE 0.9% 100 ML IV SCH ×2 (12:02→21:27)
--- NOTE | 2021-12-03 15:56 | Progress Note ---
Subjective - Reason for Consult Consult date: 12/03/21 Reason for consult: psychosis - Chief Complaint Chief complaint: The patient was seen today. She is lying in bed awake. She is confused. The sitter says patient has been restless, agitated, and all over the place. The nurse says the patient was medicated it works well for her disorganization. REVIEW OF SYSTEMS Unable to obtain MENTAL STATUS EXAMINATION Assessment (1) Delirium (2) Bipolar Disorder Current Visit: Yes Status: Acute Treatment Plan Mirtazepine 15mg po qhs to promote rest Valproic 500mg IV q12h Decrease seroquel 300mg qhs Sitter: Defer to primary Medical: per primary Disposition: Recommend acute psychiatric inpatient treatment Will follow. Thanks Case staffed with Dr. Nava Mental Status Exam - Vital signs Last Vital Signs Temp 98.5 F 12/03/21 11:16 Pulse 80 12/03/21 11:16 Resp 20 12/03/21 11:16 BP 134/69 12/03/21 11:16 Pulse Ox 98 12/03/21 12:00
--- NOTE | 2021-12-03 16:09 | Progress Note ---
Assessment and Plan This is a 71-year-old female with jail psych issues admitted for acute psychosis and was found with small subdural hematoma most likely related to trauma from throwing herself on the floor and hitting her head while in the ED. Hospital Course to Date: 12/01: Repeat CT head pending. Mentation improved this am, patient drowsy but calmer this am, following simple commands. Neurology and NeuroSurgery consults pending. Keep patient as 1013 status, Mental health/Psych is also following. Continue current antipsychotics meds and PRN Haldol, close Qtc monitoring. Continue neuro check per protocol. Patient COVID PCR positive, patient remains stable on RA and hemodynamicaly stable. Continue to monitor for now, ID also consulted for further recs. 12/02: Repeat CT head/reviewed, subdural hematoma stable. NeuroSurgery recommendations noted, will hold off AC for now. PT/OT/Speech consulted. Patient with persistent hypernatremia, D5W increased to 75ml/hr. Continue to encourage PO intake and trend BMP. Mental health recommends inpatient psych once medically clear. Patient is stable for transfer to the floor. 12/03; remains clam but still confused. psych adjusting medications and recommended acute inpt psych treatment. cont Mirtazepine 15mg po qhs to promote rest, Valproic 500mg IV q12h, Decrease seroquel 300mg qhs cont d5Ns @ 75ml/hr, follow BMP to trend Na. Assessment and Plan #Traumatic Closed Head Injury #Small Subdural Hematoma #Acute Psychosis - Presented in acute psychosis, agitated and combative. Threw herself on the floor and hit her head - Imagings reviewed, Mildly comminuted fracture of the anterior and posterior denney of the left maxillary sinus and small subdural hematoma noted - Case discussed with NeuroSurgery- Dr. Cr on admit, no intervention recommended at this time. - Continue to monitor for 24 to 48hrs, repeat CT head, and neuro checks - NeuroSurgery consulted, appreciate recommendations - Repeat CT head/brain reviewed, subdural hematoma stable. - Continue to hold off on AC for now - Patient remains as 1013 status, sitter at the bedside - Continue current antipsychotics meds - Close Qtc monitoring- 12 lead EKG pending - Neuro checks per protocol - Home meds resumed - Mental Health/Psych also on consult, appreciate recommendations - Mental health recommends inpatient psych once medically clear #COVID-19 Infection - COVID PCR came back positive - Patient received both dose of Yee vaccine, but no booster - CXR with Bilateral opacities - Patient remains stable on RA, afebrile, with no WBCs - Will continue to monitor for now - ID consulted, no indications for treatment at this time - Per ID If patient develops hypoxia, initiate Remdesivir and steroids #BERNICE (Acute Kidney Injury) most likely Vasomotor Nephropathy #Acute Hypernatremia - Probably due to dehydration - Baseline renal function is unknown - renal function improved post IVF hydration - With persistent hypernatremia, continue gentle hydration D5W increased to 75ml/hr - cont to Encourage PO intake - Strict intake and output - Avoid nephrotoxic medications; Renally dose medications - Monitor and replace electrolytes as needed #Rhabdomyolysis - Presented with mildly elevated CPK - CPK improved - Continue IV fluid hydration - check creatinine kinase #Hypothyroidism - Continue supportive care - TSH was normal - Resumed Synthroid #GI/DVT Prophylaxis - PPI- pepcid - SCDs to bilateral lower extremities while in bed #Advance Care Planning - Disease education data, care plan, diagnoses, and prognosis were discussed with patient's son via phone. Patient is a FULL code. Patient's son acknowledged understanding and agreed with current care plan. Subjective Date of service: 12/03/21 Interval history: Patient seen and examined. Medical records and medication list reviewed. Sitter at the bedside Patient complains of dizziness, sitting on the bed Discussed plan of care at bedside with patient. Objective - Exam Narrative Exam: General appearance: Present: no acute distress, elderly white female - EENT Eyes: Present: PERRL (left eye bruise/black eye) ENT: hearing intact - Neck Neck: Present: normal ROM - Respiratory Respiratory effort: normal Respiratory: left: wheezing (Upper lobe), bilateral: diminished - Cardiovascular Rhythm: regular Heart Sounds: Present: S1 & S2 - Extremities Extremities: no ischemia, pulses intact, pulses symmetrical Peripheral Pulses: within normal limits - Abdominal General gastrointestinal: soft, non-distended, normal bowel sounds - Integumentary Integumentary: Present: warm, dry, erythema (Generalized bruises) - Psychiatric Psychiatric: cooperative, oriented to self, confused - Neurologic Neurologic: moves all extremities, other (AAO to self only) - Allied Health Allied health notes reviewed: nursing, case management - Constitutional Vitals: Vital Signs - 12hr 12/03/21 12/03/21 12/03/21 05:05 08:00 11:16 Temperature 98.5 F 98.5 F Pulse Rate 70 80 Pulse Rate [ 80 Right] Respiratory 20 20 Rate Blood Pressure 134/69 134/69 O2 Sat by Pulse 100 98 100 Oximetry 12/03/21 12:00 Temperature Pulse Rate Pulse Rate [ Right] Respiratory Rate Blood Pressure O2 Sat by Pulse 98 Oximetry - Labs CBC & Chem 7: 12/02/21 05:05 12/05/21 12:08 Labs: Abnormal lab results 12/03/21 Range/Units 07:23 Sodium 148 H (137-145) mmol/L Potassium 3.5 L (3.6-5.0) mmol/L Chloride 114.5 H (98-107) mmol/L Creatinine 1.3 H (0.6-1.2) mg/dL Magnesium 2.40 H (1.7-2.3) mg/dL
[2021-12-03] MEDS: POTASSIUM CHLORIDE ER 10 MEQ TAB PO SCH (17:17)
[2021-12-03] MEDS: DEXTROSE 5% IN WATER 1,000 ML IV SCH (21:26)
[2021-12-03] MEDS: QUEtiapine 100 MG TAB PO SCH (21:27)
[2021-12-03] MEDS: DONEPEZIL 10 MG TAB PO SCH (21:27)
[2021-12-03] MEDS: MIRTAZAPINE 15 MG TAB PO SCH (21:28)
[2021-12-04] MEDS: LEVOTHYROXINE 100 MCG TAB PO SCH (07:21)
[2021-12-04 07:44] LABS: Calcium 8.3 mg/dL (8.4-10.2)
[2021-12-04] MEDS: CITALOPRAM 20 MG TAB PO SCH (09:50)
[2021-12-04] MEDS: ZIPRASIDONE MESYLATE 20 MG VIAL IM SCH ×2 (09:50→23:42)
[2021-12-04] MEDS: OXcarbazepine 300 MG TAB PO SCH ×2 (09:50→23:41)
[2021-12-04] MEDS: DEXTROSE 5% IN WATER 1,000 ML IV SCH ×2 (09:51→23:41)
[2021-12-04] MEDS: POTASSIUM CHLORIDE ER 10 MEQ TAB PO SCH (09:51)
[2021-12-04] MEDS: DOCUSATE SODIUM 100 MG/10 ML ORAL LIQD PO SCH (09:51)
[2021-12-04] MEDS: FAMOTIDINE 20 MG TAB PO SCH (09:52)
[2021-12-04] MEDS: CYANOCOBALAMIN (VIT B-12) 1000 MCG TAB PO SCH (09:52)
[2021-12-04] MEDS: VALPROATE SODIUM 500 MG in SODIUM CHLORIDE 0.9% 100 ML IV SCH (10:00)
[2021-12-04] MEDS: MEMANTINE 5 MG TAB PO SCH ×2 (10:02→23:42)
--- NOTE | 2021-12-04 16:16 | Progress Note ---
Assessment and Plan This is a 71-year-old female with assisted psych issues admitted for acute psychosis and was found with small subdural hematoma most likely related to trauma from throwing herself on the floor and hitting her head while in the ED. Hospital Course to Date: 12/01: Repeat CT head pending. Mentation improved this am, patient drowsy but calmer this am, following simple commands. Neurology and NeuroSurgery consults pending. Keep patient as 1013 status, Mental health/Psych is also following. Continue current antipsychotics meds and PRN Haldol, close Qtc monitoring. Continue neuro check per protocol. Patient COVID PCR positive, patient remains stable on RA and hemodynamicaly stable. Continue to monitor for now, ID also consulted for further recs. 12/02: Repeat CT head/reviewed, subdural hematoma stable. NeuroSurgery recommendations noted, will hold off AC for now. PT/OT/Speech consulted. Patient with persistent hypernatremia, D5W increased to 75ml/hr. Continue to encourage PO intake and trend BMP. Mental health recommends inpatient psych once medically clear. Patient is stable for transfer to the floor. 12/03; remains clam but still confused. psych adjusting medications and recommended acute inpt psych treatment. cont Mirtazepine 15mg po qhs to promote rest, Valproic 500mg IV q12h, Decrease seroquel 300mg qhs cont d5w @ 75ml/hr, follow BMP to trend Na. 12/04; patient is more calm and cooperative. Sodium level stable at 150s. Continue D5W, follow BMP. Assessment and Plan #Traumatic Closed Head Injury #Small Subdural Hematoma #Acute Psychosis - Presented in acute psychosis, agitated and combative. Threw herself on the floor and hit her head - Imagings reviewed, Mildly comminuted fracture of the anterior and posterior denney of the left maxillary sinus and small subdural hematoma noted - Case discussed with NeuroSurgery- Dr. Cr on admit, no intervention recomme nded at this time. - Continue to monitor for 24 to 48hrs, repeat CT head, and neuro checks - NeuroSurgery consulted, appreciate recommendations - Repeat CT head/brain reviewed, subdural hematoma stable. - Continue to hold off on AC for now - Patient remains as 1013 status, sitter at the bedside - Continue current antipsychotics meds - Close Qtc monitoring- 12 lead EKG pending - Neuro checks per protocol - Home meds resumed - Mental Health/Psych also on consult, appreciate recommendations - Mental health recommends inpatient psych once medically clear #COVID-19 Infection - COVID PCR came back positive - Patient received both dose of Yee vaccine, but no booster - CXR with Bilateral opacities - Patient remains stable on RA, afebrile, with no WBCs - Will continue to monitor for now - ID consulted, no indications for treatment at this time - Per ID If patient develops hypoxia, initiate Remdesivir and steroids #BERNICE (Acute Kidney Injury) most likely Vasomotor Nephropathy #Acute Hypernatremia - Probably due to dehydration - Baseline renal function is unknown - renal function improved post IVF hydration - With persistent hypernatremia, continue gentle hydration D5W increased to 75ml/hr - cont to Encourage PO intake - Strict intake and output - Avoid nephrotoxic medications; Renally dose medications - Monitor and replace electrolytes as needed #Rhabdomyolysis - Presented with mildly elevated CPK - CPK improved - Continue IV fluid hydration - check creatinine kinase #Hypothyroidism - Continue supportive care - TSH was normal - Resumed Synthroid #GI/DVT Prophylaxis - PPI- pepcid - SCDs to bilateral lower extremities while in bed #Advance Care Planning - Disease education data, care plan, diagnoses, and prognosis were discussed with patient's son via phone. Patient is a FULL code. Patient's son acknowledged understanding and agreed with current care plan. Subjective Date of service: 12/04/21 Interval history: Patient seen and examined. Medical records and medication list reviewed. Sitter at the bedside Patient resting on bed Discussed plan of care at bedside with patient. Objective - Exam Narrative Exam: General appearance: Present: no acute distress, elderly white female - EENT Eyes: Present: PERRL (left eye bruise/black eye) ENT: hearing intact - Neck Neck: Present: normal ROM - Respiratory Respiratory effort: normal Respiratory: left: wheezing (Upper lobe), bilateral: diminished - Cardiovascular Rhythm: regular Heart Sounds: Present: S1 & S2 - Extremities Extremities: no ischemia, pulses intact, pulses symmetrical Peripheral Pulses: within normal limits - Abdominal General gastrointestinal: soft, non-distended, normal bowel sounds - Integumentary Integumentary: Present: warm, dry, erythema (Generalized bruises) - Psychiatric Psychiatric: cooperative, oriented to self, confused - Neurologic Neurologic: moves all extremities, other (AAO to self only) - Allied Health Allied health notes reviewed: nursing, case management - Constitutional Vitals: Vital Signs - 12hr 12/04/21 12/04/21 12/04/21 04:48 08:22 10:12 Temperature 99.1 F Pulse Rate 80 96 H Respiratory 20 Rate Blood Pressure 135/58 120/81 O2 Sat by Pulse 97 97 98 Oximetry - Labs CBC & Chem 7: 12/02/21 05:05 12/05/21 12:08 Labs: Abnormal lab results 12/04/21 Range/Units 07:05 Sodium 150 H (137-145) mmol/L Chloride 116.7 H (98-107) mmol/L Creatinine 1.3 H (0.6-1.2) mg/dL Calcium 8.3 L (8.4-10.2) mg/dL
--- NOTE | 2021-12-04 18:14 | Electrocardiograph Report ---
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
[2021-12-04] MEDS: VALPROIC ACID 250 MG CAP PO SCH (23:41)
[2021-12-04] MEDS: QUEtiapine 100 MG TAB PO SCH (23:42)
[2021-12-04] MEDS: MIRTAZAPINE 15 MG TAB PO SCH (23:42)
[2021-12-04] MEDS: DONEPEZIL 10 MG TAB PO SCH (23:43)
[2021-12-05] MEDS: LEVOTHYROXINE 100 MCG TAB PO SCH (05:43)
[2021-12-05] MEDS: ZIPRASIDONE MESYLATE 20 MG VIAL IM SCH ×2 (08:50→21:16)
[2021-12-05] MEDS: CYANOCOBALAMIN (VIT B-12) 1000 MCG TAB PO SCH (09:08)
[2021-12-05] MEDS: OXcarbazepine 300 MG TAB PO SCH ×2 (09:08→21:18)
[2021-12-05] MEDS: CITALOPRAM 20 MG TAB PO SCH (09:08)
[2021-12-05] MEDS: POTASSIUM CHLORIDE ER 10 MEQ TAB PO SCH (09:08)
[2021-12-05] MEDS: MEMANTINE 5 MG TAB PO SCH ×2 (09:08→21:17)
[2021-12-05] MEDS: FAMOTIDINE 20 MG TAB PO SCH (09:08)
[2021-12-05] MEDS: DOCUSATE SODIUM 100 MG/10 ML ORAL LIQD PO SCH (09:08)
[2021-12-05] MEDS: VALPROIC ACID 250 MG CAP PO SCH ×2 (09:09→21:17)
[2021-12-05] MEDS: DEXTROSE 5% IN WATER 1,000 ML IV SCH (13:04)
[2021-12-05 13:28] LABS: Calcium 8.5 mg/dL (8.4-10.2)
--- NOTE | 2021-12-05 14:30 | Progress Note ---
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 Hospital Course to Date: 12/01: Repeat CT head pending. Mentation improved this am, patient drowsy but calmer this am, following simple commands. Neurology and NeuroSurgery consults pending. Keep patient as 1013 status, Mental health/Psych is also following. Continue current antipsychotics meds and PRN Haldol, close Qtc monitoring. Continue neuro check per protocol. Patient COVID PCR positive, patient remains stable on RA and hemodynamicaly stable. Continue to monitor for now, ID also consulted for further recs. 12/02: Repeat CT head/reviewed, subdural hematoma stable. NeuroSurgery recommendations noted, will hold off AC for now. PT/OT/Speech consulted. Patient with persistent hypernatremia, D5W increased to 75ml/hr. Continue to encourage PO intake and trend BMP. Mental health recommends inpatient psych once medically clear. Patient is stable for transfer to the floor. 12/03; remains clam but still confused. psych adjusting medications and recommended acute inpt psych treatment. cont Mirtazepine 15mg po qhs to promote rest, Valproic 500mg IV q12h, Decrease seroquel 300mg qhs cont d5w @ 75ml/hr, follow BMP to trend Na. 12/04; patient is more calm and cooperative. Sodium level stable at 150s. Continue D5W, follow BMP. 12/05: Na level normal today. patient c/o dizziness, order PT eval. follow psych recommendation Assessment and Plan #Traumatic Closed Head Injury #Small Subdural Hematoma #Acute Psychosis - Presented in acute psychosis, agitated and combative. Threw herself on the floor and hit her head - Imagings reviewed, Mildly comminuted fracture of the anterior and posterior denney of the left maxillary sinus and small subdural hematoma noted - Case discussed with NeuroSurgery- Dr. Cr on admit, no intervention recommended at this time. - Continue to monitor for 24 to 48hrs, repeat CT head, and neuro checks - NeuroSurgery consulted, appreciate recommendations - Repeat CT head/brain reviewed, subdural hematoma stable. - Continue to hold off on AC for now - Patient remains as 1013 status, sitter at the bedside - Continue current antipsychotics meds - Close Qtc monitoring- 12 lead EKG pending - Neuro checks per protocol - Home meds resumed - Mental Health/Psych also on consult, appreciate recommendations - Mental health recommends inpatient psych once medically clear #COVID-19 Infection - COVID PCR came back positive - Patient received both dose of Yee vaccine, but no booster - CXR with Bilateral opacities - Patient remains stable on RA, afebrile, with no WBCs - Will continue to monitor for now - ID consulted, no indications for treatment at this time - Per ID If patient develops hypoxia, initiate Remdesivir and steroids #BERNICE (Acute Kidney Injury) most likely Vasomotor Nephropathy #Acute Hypernatremia - Probably due to dehydration - Baseline renal function is unknown - renal function improved post IVF hydration - With persistent hypernatremia, continue gentle hydration D5W increased to 75ml/hr - cont to Encourage PO intake - Strict intake and output - Avoid nephrotoxic medications; Renally dose medications - Monitor and replace electrolytes as needed #Rhabdomyolysis - Presented with mildly elevated CPK - CPK improved - Continue IV fluid hydration - check creatinine kinase #Hypothyroidism - Continue supportive care - TSH was normal - Resumed Synthroid #GI/DVT Prophylaxis - PPI- pepcid - SCDs to bilateral lower extremities while in bed #Advance Care Planning - Disease education data, care plan, diagnoses, and prognosis were discussed with patient's son via phone. Patient is a FULL code. Patient's son acknowledged understanding and agreed with current care plan. Subjective Date of service: 12/05/21 Interval history: Patient seen and examined. Medical records and medication list reviewed. Sitter at the bedside Patient resting on bed Discussed plan of care at bedside with patient. Objective - Exam Narrative Exam: General appearance: Present: no acute distress, elderly white female - EENT Eyes: Present: PERRL (left eye bruise/black eye) ENT: hearing intact - Neck Neck: Present: normal ROM - Respiratory Respiratory effort: normal Respiratory: left: wheezing (Upper lobe), bilateral: diminished - Cardiovascular Rhythm: regular Heart Sounds: Present: S1 & S2 - Extremities Extremities: no ischemia, pulses intact, pulses symmetrical Peripheral Pulses: within normal limits - Abdominal General gastrointestinal: soft, non-distended, normal bowel sounds - Integumentary Integumentary: Present: warm, dry, erythema (Generalized bruises) - Psychiatric Psychiatric: cooperative, oriented to self, confused - Neurologic Neurologic: moves all extremities, other (AAO to self only) - Allied Health Allied health notes reviewed: nursing, case management - Constitutional Vitals: Vital Signs - 12hr 12/05/21 12/05/21 12/05/21 08:45 08:59 11:37 Temperature 98.8 F 98.2 F Pulse Rate 95 H 89 Respiratory 20 22 19 Rate Blood Pressure 114/52 147/70 O2 Sat by Pulse 96 95 97 Oximetry - Labs CBC & Chem 7: 12/02/21 05:05 12/05/21 12:08 Labs: Abnormal lab results 12/05/21 Range/Units 12:08 Chloride 110.6 H (98-107) mmol/L Glucose 118 H (65-100) mg/dL
--- NOTE | 2021-12-05 15:46 | Progress Note ---
Subjective - Reason for Consult Consult date: 12/05/21 Reason for consult: mental health evaluation - Chief Complaint Chief complaint: The patient was seen today. She was seen resting quietly in bed with sitter at the door. The patient is calm and cooperative. She states she is doing well. the denies any current suicidal/homicidal ideation and denies hallucinations. VIEW OF SYSTEMS Unable to obtain MENTAL STATUS EXAMINATION Assessment (1) Delirium (2) Bipolar Disorder Current Visit: Yes Status: Acute Treatment Plan Continue Mirtazepine 15mg po qhs to promote rest Continue Valproic 500mg po BID Continue seroquel 300mg qhs Sitter: Defer to primary Medical: per primary Disposition: Do not Recommend acute psychiatric inpatient treatment Will follow for medication management. Thanks Case staffed with Dr. Nava Mental Status Exam - Vital signs Last Vital Signs Temp 98.2 F 12/05/21 11:37 Pulse 89 12/05/21 11:37 Resp 19 12/05/21 11:37 BP 147/70 12/05/21 11:37 Pulse Ox 97 12/05/21 11:37
[2021-12-05] MEDS: DONEPEZIL 10 MG TAB PO SCH (21:16)
[2021-12-05] MEDS: MIRTAZAPINE 15 MG TAB PO SCH (21:17)
[2021-12-05] MEDS: QUEtiapine 100 MG TAB PO SCH (21:18)
[2021-12-06] MEDS: DEXTROSE 5% IN WATER 1,000 ML IV SCH ×2 (06:22→22:00)
[2021-12-06] MEDS: LEVOTHYROXINE 100 MCG TAB PO SCH (06:22)
[2021-12-06] MEDS: VALPROIC ACID 250 MG CAP PO SCH ×2 (11:30→22:02)
[2021-12-06] MEDS: MEMANTINE 5 MG TAB PO SCH ×2 (11:30→22:01)
[2021-12-06] MEDS: FAMOTIDINE 20 MG TAB PO SCH (11:31)
[2021-12-06] MEDS: DOCUSATE SODIUM 100 MG/10 ML ORAL LIQD PO SCH (11:31)
[2021-12-06] MEDS: ZIPRASIDONE MESYLATE 20 MG VIAL IM SCH ×2 (11:31→22:01)
[2021-12-06] MEDS: CITALOPRAM 20 MG TAB PO SCH (11:31)
[2021-12-06] MEDS: POTASSIUM CHLORIDE ER 10 MEQ TAB PO SCH (11:31)
[2021-12-06] MEDS: OXcarbazepine 300 MG TAB PO SCH ×2 (11:32→22:02)
[2021-12-06] MEDS: CYANOCOBALAMIN (VIT B-12) 1000 MCG TAB PO SCH (11:32)
[2021-12-06] MEDS ORDERED: WATER FOR INJ Sterile (PF) 10 ML ONE ×2 (11:51→21:55)
--- NOTE | 2021-12-06 12:12 | Discharge Summary ---
Providers - Providers Date of Admission: 11/30/21 19:46 Date of discharge: 12/06/21 Attending physician: SELINA MCCLAIN 11/29/21 11:32 Consult to Mental Health [CONS] Stat Reason For Exam: aggressive behavior 11/30/21 Consult to Case Management [CONS] Routine Services Needed at Discharge: Home Health Services Notified:: yes 11/30/21 16:03 Consult to Physician [CONS] Urgent Comment: Consulting Provider: DIMITRI LAO II Physician Instructions: Reason For Exam: ? traumatic subdural 12/01/21 06:20 Consult to Mental Health [CONS] Routine Reason For Exam: Acute psychosis Consult to Physician [CONS] Routine Comment: Consulting Provider: CHRISTEN LEVIN Physician Instructions: Reason For Exam: Subdural bleed 12/01/21 06:22 Consult to Physician [CONS] Routine Comment: Consulting Provider: MO LONGO Physician Instructions: Reason For Exam: COVID-positive 12/02/21 08:34 Occupational Therapy Evaluate and Treat [CONS] Routine Comment: Reason For Exam: Conditionning Physical Therapy Evaluation and Treat [CONS] Routine Comment: Reason For Exam: Conditionning 12/02/21 11:06 Speech Therapy Evaluation and Treat [CONS] Routine Reason For Exam: S/p Subdural bleed Primary care physician: SCOTT COHEN MD Hospitalization Condition: Good Hospital course: This is a 71-year-old female with [facility] psych issues admitted for acute psychosis and was found with small subdural hematoma most likely related to trauma from throwing herself on the floor and hitting her head while in the ED. Hospital Course to Date: 12/01: Repeat CT head pending. Mentation improved this am, patient drowsy but calmer this am, following simple commands. Neurology and NeuroSurgery consults pending. Keep patient as 1013 status, Mental health/Psych is also following. Continue current antipsychotics meds and PRN Haldol, close Qtc monitoring. Continue neuro check per protocol. Patient COVID PCR positive, patient remains stable on RA and hemodynamicaly stable. Continue to monitor for now, ID also consulted for further recs. 12/02: Repeat CT head/reviewed, subdural hematoma stable. NeuroSurgery recommendations noted, will hold off AC for now. PT/OT/Speech consulted. Patient with persistent hypernatremia, D5W increased to 75ml/hr. Continue to encourage PO intake and trend BMP. Mental health recommends inpatient psych once medically clear. Patient is stable for transfer to the floor. 12/03; remains clam but still confused. psych adjusting medications and recommended acute inpt psych treatment. cont Mirtazepine 15mg po qhs to promote rest, Valproic 500mg IV q12h, Decrease seroquel 300mg qhs cont d5w @ 75ml/hr, follow BMP to trend Na. 12/04; patient is more calm and cooperative. Sodium level stable at 150s. Continue D5W, follow BMP. 12/05: Na level normal today. patient c/o dizziness, order PT eval. follow psych recommendation 12/06: Patient is cleared by psych for d/c. [facility] till Wednesday per CM. cont to follow clinically 12/07: patient was little agitated this am, currently very clam. pending [facility]ment [facility] - likely on Wednesday, cont to follow Assessment and Plan #Traumatic Closed Head Injury #Small Subdural Hematoma #Acute Psychosis - Presented in acute psychosis, agitated and combative. Threw herself on the floor and hit her head - Imagings reviewed, Mildly comminuted fracture of the anterior and posterior denney of the left maxillary sinus and small subdural hematoma noted - Case discussed with NeuroSurgery- Dr. Cr on admit, no intervention recommended at this time. - Continue to monitor for 24 to 48hrs, repeat CT head, and neuro checks - NeuroSurgery consulted, appreciate recommendations - Repeat CT head/brain reviewed, subdural hematoma stable. - Continue to hold off on AC for now - Patient is off 1013 status, sitter at the bedside - Continue current antipsychotics meds - Close Qtc monitoring - Neuro checks per protocol - Home meds resumed - Mental Health/Psych also on consult, appreciate recommendations - Mental health now recommends no inpatient psych #COVID-19 Infection - COVID PCR came back positive - Patient received both dose of Yee vaccine, but no booster - CXR with Bilateral opacities - Patient remains stable on RA, afebrile, with no WBCs - Will continue to monitor for now - ID consulted, no indications for treatment at this time - Per ID If patient develops hypoxia, initiate Remdesivir and steroids #BERNICE (Acute Kidney Injury) most likely Vasomotor Nephropathy #Acute Hypernatremia, resolved - Probably due to dehydration - Baseline renal function is unknown - renal function improved post IVF hydration - With persistent hypernatremia, continue gentle hydration D5W increased to 75ml/hr - cont to Encourage PO intake - Strict intake and output - Avoid nephrotoxic medications; Renally dose medications - Monitor and replace electrolytes as needed #Rhabdomyolysis - Presented with mildly elevated CPK - CPK improved - Continue IV fluid hydration - check serial creatinine kinase #Hypothyroidism - Continue supportive care - TSH was normal - Resumed Synthroid #GI/DVT Prophylaxis - PPI- pepcid - SCDs to bilateral lower extremities while in bed #Advance Care Planning - Disease education data, care plan, diagnoses, and prognosis were discussed with patient's son via phone. Patient is a FULL code. Patient's son acknowledged understanding and agreed with current care plan. [facility] Time spent for discharge: 34 minutes Core Measure Documentation - Palliative Care Palliative Care/ Comfort Measures: Not Applicable - Core Measures Any of the following diagnoses?: none Exam - Physical Exam Narrative exam: General appearance: Present: no acute distress, elderly white female - EENT Eyes: Present: PERRL (left eye bruise/black eye) ENT: hearing intact - Neck Neck: Present: normal ROM - Respiratory Respiratory effort: normal Respiratory: left: wheezing (Upper lobe), bilateral: diminished - Cardiovascular Rhythm: regular Heart Sounds: Present: S1 & S2 - Extremities Extremities: no ischemia, pulses intact, pulses symmetrical Peripheral Pulses: within normal limits - Abdominal General gastrointestinal: soft, non-distended, normal bowel sounds - Integumentary Integumentary: Present: warm, dry, erythema (Generalized bruises) - Psychiatric Psychiatric: cooperative, oriented to self, confused - Neurologic Neurologic: moves all extremities, other (AAO to self only) - Allied Health Allied health notes reviewed: nursing, case management - Constitutional Vitals: Temp Pulse Resp BP Pulse Ox 99.6 F 94 H 20 120/54 95 12/06/21 05:36 12/06/21 05:36 12/06/21 05:36 12/06/21 05:36 12/06/21 05:36 Plan Activity: advance as tolerated Weight Bearing Status: Weight Bear as Tolerated Diet: low fat, low salt Follow up with: SCOTT COHEN MD [Primary Care Provider] - 3-5 Days
[2021-12-06] MEDS: DONEPEZIL 10 MG TAB PO SCH (22:02)
[2021-12-06] MEDS: MIRTAZAPINE 15 MG TAB PO SCH (22:02)
[2021-12-06] MEDS: QUEtiapine 100 MG TAB PO SCH (22:06)
[2021-12-07] MEDS: LEVOTHYROXINE 100 MCG TAB PO SCH (05:39)
[2021-12-07] MEDS ORDERED: WATER FOR INJ Sterile (PF) 10 ML ONE ×2 (10:14→20:28)
[2021-12-07] MEDS: CYANOCOBALAMIN (VIT B-12) 1000 MCG TAB PO SCH (10:22)
[2021-12-07] MEDS: DOCUSATE SODIUM 100 MG/10 ML ORAL LIQD PO SCH (10:22)
[2021-12-07] MEDS: OXcarbazepine 300 MG TAB PO SCH ×2 (10:22→22:03)
[2021-12-07] MEDS: VALPROIC ACID 250 MG CAP PO SCH ×2 (10:22→22:03)
[2021-12-07] MEDS: POTASSIUM CHLORIDE ER 10 MEQ TAB PO SCH (10:23)
[2021-12-07] MEDS: FAMOTIDINE 20 MG TAB PO SCH (10:23)
[2021-12-07] MEDS: CITALOPRAM 20 MG TAB PO SCH (10:23)
[2021-12-07] MEDS: MEMANTINE 5 MG TAB PO SCH ×2 (10:23→22:03)
[2021-12-07] MEDS: ZIPRASIDONE MESYLATE 20 MG VIAL IM SCH ×2 (10:23→22:02)
--- NOTE | 2021-12-07 11:35 | Progress Note ---
Subjective - Reason for Consult Consult date: 12/07/21 Reason for consult: mental health evaluation - Chief Complaint Chief complaint: The patient was seen today. She is resting quietly;per MAR, the patient recently received Geodon 20mg IM for agitation. VIEW OF SYSTEMS Unable to obtain MENTAL STATUS EXAMINATION Assessment (1) Delirium (2) Bipolar Disorder Current Visit: Yes Status: Acute Treatment Plan Continue Mirtazepine 15mg po qhs to promote rest Continue Valproic 500mg po BID Continue seroquel 300mg qhs Sitter: Defer to primary Medical: per primary Disposition: Do not Recommend acute psychiatric inpatient treatment Will follow for medication management. Thanks Case staffed with Dr. Nava Mental Status Exam - Vital signs Last Vital Signs Temp 99.1 F 12/07/21 05:19 Pulse 102 H 12/07/21 10:44 Resp 18 12/07/21 05:19 BP 123/46 12/07/21 05:19 Pulse Ox 95 12/07/21 10:49
--- NOTE | 2021-12-07 12:20 | Progress Note ---
Assessment and Plan This is a 71-year-old female with [facility] psych issues admitted for acute psychosis and was found with small subdural hematoma most likely related to trauma from throwing herself on the floor and hitting her head while in the ED. Hospital Course to Date: 12/01: Repeat CT head pending. Mentation improved this am, patient drowsy but calmer this am, following simple commands. Neurology and NeuroSurgery consults pending. Keep patient as 1013 status, Mental health/Psych is also following. Continue current antipsychotics meds and PRN Haldol, close Qtc monitoring. Continue neuro check per protocol. Patient COVID PCR positive, patient remains stable on RA and hemodynamicaly stable. Continue to monitor for now, ID also consulted for further recs. 12/02: Repeat CT head/reviewed, subdural hematoma stable. NeuroSurgery recommendations noted, will hold off AC for now. PT/OT/Speech consulted. Patient with persistent hypernatremia, D5W increased to 75ml/hr. Continue to encourage PO intake and trend BMP. Mental health recommends inpatient psych once medically clear. Patient is stable for transfer to the floor. 12/03; remains clam but still confused. psych adjusting medications and recommended acute inpt psych treatment. cont Mirtazepine 15mg po qhs to promote rest, Valproic 500mg IV q12h, Decrease seroquel 300mg qhs cont d5w @ 75ml/hr, follow BMP to trend Na. 12/04; patient is more calm and cooperative. Sodium level stable at 150s. Continue D5W, follow BMP. 12/05: Na level normal today. patient c/o dizziness, order PT eval. follow psych recommendation 12/06: Patient is cleared by psych for d/c. [facility] and can't go back there till Wednesday per CM. cont to follow clinically 12/07: patient was little agitated this am, currently very clam. pending placment [facility] - likely on Wednesday, cont to follow Assessment and Plan #Traumatic Closed Head Injury #Small Subdural Hematoma #Acute Psychosis - Presented in acute psychosis, agitated and combative. Threw herself on the floor and hit her head - Imagings reviewed, Mildly comminuted fracture of the anterior and posterior denney of the left maxillary sinus and small subdural hematoma noted - Case discussed with NeuroSurgery- Dr. Cr on admit, no intervention recommended at this time. - Continue to monitor for 24 to 48hrs, repeat CT head, and neuro checks - NeuroSurgery consulted, appreciate recommendations - Repeat CT head/brain reviewed, subdural hematoma stable. - Continue to hold off on AC for now - Patient is off 1013 status, sitter at the bedside - Continue current antipsychotics meds - Close Qtc monitoring - Neuro checks per protocol - Home meds resumed - Mental Health/Psych also on consult, appreciate recommendations - Mental health now recommends no inpatient psych #COVID-19 Infection - COVID PCR came back positive - Patient received both dose of Yee vaccine, but no booster - CXR with Bilateral opacities - Patient remains stable on RA, afebrile, with no WBCs - Will continue to monitor for now - ID consulted, no indications for treatment at this time - Per ID If patient develops hypoxia, initiate Remdesivir and steroids #BERNICE (Acute Kidney Injury) most likely Vasomotor Nephropathy #Acute Hypernatremia, resolved - Probably due to dehydration - Baseline renal function is unknown - renal function improved post IVF hydration - With persistent hypernatremia, continue gentle hydration D5W increased to 7 5ml/hr - cont to Encourage PO intake - Strict intake and output - Avoid nephrotoxic medications; Renally dose medications - Monitor and replace electrolytes as needed #Rhabdomyolysis - Presented with mildly elevated CPK - CPK improved - Continue IV fluid hydration - check serial creatinine kinase #Hypothyroidism - Continue supportive care - TSH was normal - Resumed Synthroid #GI/DVT Prophylaxis - PPI- pepcid - SCDs to bilateral lower extremities while in bed #Advance Care Planning - Disease education data, care plan, diagnoses, and prognosis were discussed with patient's son via phone. Patient is a FULL code. Patient's son acknowledged understanding and agreed with current care plan. Subjective Date of service: 12/07/21 Interval history: Patient seen and examined. Medical records and medication list reviewed. Sitter at the bedside for close monitoring Patient resting on bed Discussed plan of care at bedside with patient's RN. Objective - Exam Narrative Exam: General appearance: Present: no acute distress, elderly white female - EENT Eyes: Present: PERRL (left eye bruise/black eye) ENT: hearing intact - Neck Neck: Present: normal ROM - Respiratory Respiratory effort: normal Respiratory: left: wheezing (Upper lobe), bilateral: diminished - Cardiovascular Rhythm: regular Heart Sounds: Present: S1 & S2 - Extremities Extremities: no ischemia, pulses intact, pulses symmetrical Peripheral Pulses: within normal limits - Abdominal General gastrointestinal: soft, non-distended, normal bowel sounds - Integumentary Integumentary: Present: warm, dry, erythema (Generalized bruises) - Psychiatric Psychiatric: cooperative, oriented to self, confused - Neurologic Neurologic: moves all extremities, other (AAO to self and place only) - Allied Health Allied health notes reviewed: nursing, case management - Constitutional Vitals: Vital Signs - 12hr 12/07/21 12/07/21 12/07/21 05:19 10:44 10:49 Temperature 99.1 F Pulse Rate 86 102 H Respiratory 18 Rate Blood Pressure 123/46 O2 Sat by Pulse 100 95 Oximetry 12/07/21 11:58 Temperature 98.9 F Pulse Rate 92 H Respiratory 22 Rate Blood Pressure 133/76 O2 Sat by Pulse 100 Oximetry - Labs CBC & Chem 7: 12/02/21 05:05 12/05/21 12:08
[2021-12-07] MEDS: DEXTROSE 5% IN WATER 1,000 ML IV SCH (14:08)
[2021-12-07] MEDS: DONEPEZIL 10 MG TAB PO SCH (22:02)
[2021-12-07] MEDS: QUEtiapine 100 MG TAB PO SCH (22:03)
[2021-12-07] MEDS: MIRTAZAPINE 15 MG TAB PO SCH (22:04)
[2021-12-08] MEDS: LEVOTHYROXINE 100 MCG TAB PO SCH (06:07)
--- NOTE | 2021-12-08 08:45 | Progress Note ---
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 Hospital Course to Date: 12/01: Repeat CT head pending. Mentation improved this am, patient drowsy but calmer this am, following simple commands. Neurology and NeuroSurgery consults pending. Keep patient as 1013 status, Mental health/Psych is also following. Continue current antipsychotics meds and PRN Haldol, close Qtc monitoring. Continue neuro check per protocol. Patient COVID PCR positive, patient remains stable on RA and hemodynamicaly stable. Continue to monitor for now, ID also consulted for further recs. 12/02: Repeat CT head/reviewed, subdural hematoma stable. NeuroSurgery recommendations noted, will hold off AC for now. PT/OT/Speech consulted. Patient with persistent hypernatremia, D5W increased to 75ml/hr. Continue to encourage PO intake and trend BMP. Mental health recommends inpatient psych once medically clear. Patient is stable for transfer to the floor. 12/03; remains clam but still confused. psych adjusting medications and recommended acute inpt psych treatment. cont Mirtazepine 15mg po qhs to promote rest, Valproic 500mg IV q12h, Decrease seroquel 300mg qhs cont d5w @ 75ml/hr, follow BMP to trend Na. 12/04; patient is more calm and cooperative. Sodium level stable at 150s. Continue D5W, follow BMP. 12/05: Na level normal today. patient c/o dizziness, order PT eval. follow psych recommendation 12/06: Patient is cleared by psych for d/c. Patient [facility] and can't go back there till Wednesday per CM. cont to follow clinically Assessment and Plan #Traumatic Closed Head Injury #Small Subdural Hematoma #Acute Psychosis - Presented in acute psychosis, agitated and combative. Threw herself on the floor and hit her head - Imagings reviewed, Mildly comminuted fracture of the anterior and posterior denney of the left maxillary sinus and small subdural hematoma noted - Case discussed with NeuroSurgery- Dr. Cr on admit, no intervention recommended at this time. - Continue to monitor for 24 to 48hrs, repeat CT head, and neuro checks - NeuroSurgery consulted, appreciate recommendations - Repeat CT head/brain reviewed, subdural hematoma stable. - Continue to hold off on AC for now - Patient is off 1013 status, sitter at the bedside - Continue current antipsychotics meds - Close Qtc monitoring - Neuro checks per protocol - Home meds resumed - Mental Health/Psych also on consult, appreciate recommendations - Mental health now recommends no inpatient psych needs #COVID-19 Infection - COVID PCR came back positive - Patient received both dose of Yee vaccine, but no booster - CXR with Bilateral opacities - Patient remains stable on RA, afebrile, with no WBCs - Will continue to monitor for now - ID consulted, no indications for treatment at this time - Per ID If patient develops hypoxia, initiate Remdesivir and steroids #BERNICE (Acute Kidney Injury) most likely Vasomotor Nephropathy #Acute Hypernatremia, resolved - Probably due to dehydration - Baseline renal function is unknown - renal function improved post IVF hydration - With persistent hypernatremia, continue gentle hydration D5W increased to 75ml/hr - cont to Encourage PO intake - Strict intake and output - Avoid nephrotoxic medications; Renally dose medications - Monitor and replace electrolytes as needed #Rhabdomyolysis - Presented with mildly elevated CPK - CPK improved - Continue IV fluid hydration - check serial creatinine kinase #Hypothyroidism - Continue supportive care - TSH was normal - Resumed Synthroid #GI/DVT Prophylaxis - PPI- pepcid - SCDs to bilateral lower extremities while in bed #Advance Care Planning - Disease education data, care plan, diagnoses, and prognosis were discussed with patient's son via phone. Patient is a FULL code. Patient's son acknowledged understanding and agreed with current care plan. Subjective Date of service: 12/06/21 Interval history: Patient seen and examined. Medical records and medication list reviewed. Sitter at the bedside Patient resting on bed No acute event overnight Vitals noted and stable Sodium level stabilized Discussed plan of care at bedside with patient's RN. Objective - Exam Narrative Exam: General appearance: Present: no acute distress, elderly white female - EENT Eyes: Present: PERRL (left eye bruise/black eye) ENT: hearing intact - Neck Neck: Present: normal ROM - Respiratory Respiratory effort: normal Respiratory: left: wheezing (Upper lobe), bilateral: diminished - Cardiovascular Rhythm: regular Heart Sounds: Present: S1 & S2 - Extremities Extremities: no ischemia, pulses intact, pulses symmetrical Peripheral Pulses: within normal limits - Abdominal General gastrointestinal: soft, non-distended, normal bowel sounds - Integumentary Integumentary: Present: warm, dry, erythema (Generalized bruises) - Psychiatric Psychiatric: cooperative, oriented to self, confused - Neurologic Neurologic: moves all extremities, other (AAO to self and place only) - Allied Health Allied health notes reviewed: nursing, case management - Constitutional Vitals: Vital Signs - 12hr 12/08/21 12/08/21 12/08/21 00:00 06:33 08:19 Temperature 97.6 F 99.8 F H Pulse Rate 97 H 107 H Respiratory 18 20 Rate Blood Pressure 124/75 Blood Pressure 146/68 [Left] O2 Sat by Pulse 98 97 96 Oximetry - Labs CBC & Chem 7: 12/02/21 05:05 12/05/21 12:08
[2021-12-08] MEDS: FAMOTIDINE 20 MG TAB PO SCH (10:03)
[2021-12-08] MEDS: CITALOPRAM 20 MG TAB PO SCH (10:03)
[2021-12-08] MEDS: POTASSIUM CHLORIDE ER 10 MEQ TAB PO SCH (10:03)
[2021-12-08] MEDS: CYANOCOBALAMIN (VIT B-12) 1000 MCG TAB PO SCH (10:03)
[2021-12-08] MEDS: MEMANTINE 5 MG TAB PO SCH ×2 (10:04→21:54)
[2021-12-08] MEDS: OXcarbazepine 300 MG TAB PO SCH ×2 (10:04→21:58)
[2021-12-08] MEDS: DOCUSATE SODIUM 100 MG/10 ML ORAL LIQD PO SCH (10:05)
[2021-12-08] MEDS: VALPROIC ACID 250 MG CAP PO SCH (10:05)
[2021-12-08] MEDS ORDERED: WATER FOR INJ Sterile (PF) 10 ML ONE (10:55)
[2021-12-08] MEDS: ZIPRASIDONE MESYLATE 20 MG VIAL IM SCH ×2 (11:14→21:53)
--- NOTE | 2021-12-08 13:59 | Progress Note ---
Assessment and Plan This is a 71-year-old female with long-term psych issues admitted for acute psychosis and was found with small subdural hematoma most likely related to trauma from throwing herself on the floor and hitting her head while in the ED. Hospital Course to Date: 12/01: Repeat CT head pending. Mentation improved this am, patient drowsy but calmer this am, following simple commands. Neurology and NeuroSurgery consults pending. Keep patient as 1013 status, Mental health/Psych is also following. Continue current antipsychotics meds and PRN Haldol, close Qtc monitoring. Continue neuro check per protocol. Patient COVID PCR positive, patient remains stable on RA and hemodynamicaly stable. Continue to monitor for now, ID also consulted for further recs. 12/02: Repeat CT head/reviewed, subdural hematoma stable. NeuroSurgery recommendations noted, will hold off AC for now. PT/OT/Speech consulted. Patient with persistent hypernatremia, D5W increased to 75ml/hr. Continue to encourage PO intake and trend BMP. Mental health recommends inpatient psych once medically clear. Patient is stable for transfer to the floor. 12/03; remains clam but still confused. psych adjusting medications and recommended acute inpt psych treatment. cont Mirtazepine 15mg po qhs to promote rest, Valproic 500mg IV q12h, Decrease seroquel 300mg qhs cont d5w @ 75ml/hr, follow BMP to trend Na. 12/04; patient is more calm and cooperative. Sodium level stable at 150s. Continue D5W, follow BMP. 12/05: Na level normal today. patient c/o dizziness, order PT eval. follow psych recommendation 12/06: Patient is cleared by psych for d/c. [facility] and can't go back there till Wednesday per CM. cont to follow clinically 12/07: patient was little agitated this am, currently very clam. pending placment to [facility] - likely on Wednesday, cont to follow 12/08: Patient started to be combative again, not eating and keeping food/meds inside her mouth only. RN used IM meds to calm her down this morning. Discussed with Son and by phone. wait for repeat Psych eval and recommendation. Resume iv fluid as she has stopped eating. repeat labs Assessment and Plan #Traumatic Closed Head Injury #Small Subdural Hematoma #Acute Psychosis - Presented in acute psychosis, agitated and combative. Threw herself on the floor and hit her head - Imagings reviewed, Mildly comminuted fracture of the anterior and posterior denney of the left maxillary sinus and small subdural hematoma noted - Case discussed with NeuroSurgery- Dr. Cr on admit, no intervention recommended at this time. - Continue to monitor for 24 to 48hrs, repeat CT head, and neuro checks - NeuroSurgery consulted, appreciate recommendations - Repeat CT head/brain reviewed, subdural hematoma stable. - Continue to hold off on AC for now - Patient is off 1013 status, sitter at the bedside - Continue current antipsychotics meds - Close Qtc monitoring - Neuro checks per protocol - Home meds resumed - Mental Health/Psych also on consult, appreciate recommendations - Mental health now recommends no inpatient psych needs #COVID-19 Infection - COVID PCR came back positive - Patient received both dose of Yee vaccine, but no booster - CXR with Bilateral opacities - Patient remains stable on RA, afebrile, with no WBCs - Will continue to monitor for now - ID consulted, no indications for treatment at this time - Per ID If patient develops hypoxia, initiate Remdesivir and steroids #BERNICE (Acute Kidney Injury) most likely Vasomotor Nephropathy #Acute Hypernatremia, resolved - Probably due to dehydration - Baseline renal function is unknown - renal function improved post IVF hydration - With persistent hypernatremia, continue gentle hydration D5W increased to 75ml /hr - cont to Encourage PO intake - Strict intake and output - Avoid nephrotoxic medications; Renally dose medications - Monitor and replace electrolytes as needed #Rhabdomyolysis - Presented with mildly elevated CPK - CPK improved - Continue IV fluid hydration - check serial creatinine kinase #Hypothyroidism - Continue supportive care - TSH was normal - Resumed Synthroid #GI/DVT Prophylaxis - PPI- pepcid - SCDs to bilateral lower extremities while in bed #Advance Care Planning - Disease education data, care plan, diagnoses, and prognosis were discussed with patient's son via phone. Patient is a FULL code. Patient's son acknowledged understanding and agreed with current care plan. Subjective Date of service: 12/08/21 Interval history: Patient seen and examined. Medical records and medication list reviewed. Sitter at the bedside Vitals noted and stable Sodium level stabilized Discussed plan of care at bedside with patient's RN. called family for updates Patient today refusing meds and not eating she was restless this am Objective - Exam Narrative Exam: General appearance: Present: sleeping, elderly white female - EENT Eyes: Present: PERRL (left eye bruise/black eye) ENT: hearing intact - Neck Neck: Present: normal ROM - Respiratory Respiratory effort: normal Respiratory: bilateral: diminished - Cardiovascular Rhythm: regular Heart Sounds: Present: S1 & S2 - Extremities Extremities: no ischemia, pulses intact, pulses symmetrical Peripheral Pulses: within normal limits - Abdominal General gastrointestinal: soft, non-distended, normal bowel sounds - Integumentary Integumentary: Present: warm, dry, erythema (Generalized bruises) - Psychiatric Psychiatric: sleepy - Neurologic Neurologic: moves all extremities, very confused - Allied Health Allied health notes reviewed: nursing, case management - Constitutional Vitals: Vital Signs - 12hr 12/08/21 12/08/21 12/08/21 06:33 08:19 10:00 Temperature 99.8 F H Pulse Rate 107 H 95 H Respiratory 20 Rate Blood Pressure 124/75 O2 Sat by Pulse 97 96 Oximetry 12/08/21 11:11 Temperature 100.1 F H Pulse Rate 105 H Respiratory 20 Rate Blood Pressure 135/66 O2 Sat by Pulse 97 Oximetry - Labs CBC & Chem 7: 12/02/21 05:05 12/08/21 14:48
[2021-12-08 15:15] LABS: Calcium 8.8 mg/dL (8.4-10.2)
--- NOTE | 2021-12-08 15:29 | Progress Note ---
Subjective - Reason for Consult Consult date: 12/08/21 Reason for consult: mental health evaluation - Chief Complaint Chief complaint: The patient was seen today. She is resting quietly with the sitter in the room; unable to assess. Per nurse, the patient is refusing medications. VIEW OF SYSTEMS Unable to obtain MENTAL STATUS EXAMINATION Assessment (1) Delirium (2) Bipolar Disorder Current Visit: Yes Status: Acute Treatment Plan Continue Mirtazepine 15mg po qhs to promote rest Discontinue Valproic 500mg po BID Start Seroquel 100mg qhs Sitter: Defer to primary Medical: per primary Disposition: Do not Recommend acute psychiatric inpatient treatment Will follow for medication management. Thanks Case staffed with Dr. Nava Mental Status Exam - Vital signs Last Vital Signs Temp 100.1 F H 12/08/21 11:11 Pulse 105 H 12/08/21 11:11 Resp 20 12/08/21 11:11 BP 135/66 12/08/21 11:11 Pulse Ox 97 12/08/21 11:11
[2021-12-08] MEDS: D5W/0.45% NACL 1,000 ML IV SCH (18:06)
[2021-12-08] MEDS: WATER FOR INJ Sterile (PF) 10 ML IM SCH (21:53)
[2021-12-08] MEDS: DONEPEZIL 10 MG TAB PO SCH (21:54)
[2021-12-08] MEDS: MIRTAZAPINE 15 MG TAB PO SCH (21:56)
[2021-12-08] MEDS ORDERED: QUEtiapine 100 MG TAB PO SCH (22:00)
[2021-12-09] MEDS: HYDROmorphone 0.5 MG/0.5 ML INJ IV PRN (04:38)
[2021-12-09] MEDS: LEVOTHYROXINE 100 MCG TAB PO SCH (05:36)
--- NOTE | 2021-12-09 08:26 | Progress Note ---
Assessment and Plan Assessment and plan: This is a 71-year-old female with residential psych issues admitted for acute psychosis and was found with small subdural hematoma most likely related to trauma from throwing herself on the floor and hitting her head while in the ED. Hospital Course to Date: 12/01: Repeat CT head pending. Mentation improved this am, patient drowsy but calmer this am, following simple commands. Neurology and NeuroSurgery consults pending. Keep patient as 1013 status, Mental health/Psych is also following. Continue current antipsychotics meds and PRN Haldol, close Qtc monitoring. Continue neuro check per protocol. Patient COVID PCR positive, patient remains stable on RA and hemodynamicaly stable. Continue to monitor for now, ID also consulted for further recs. 12/02: Repeat CT head/reviewed, subdural hematoma stable. NeuroSurgery recommendations noted, will hold off AC for now. PT/OT/Speech consulted. Patient with persistent hypernatremia, D5W increased to 75ml/hr. Continue to encourage PO intake and trend BMP. Mental health recommends inpatient psych once medically clear. Patient is stable for transfer to the floor. 12/03; remains clam but still confused. psych adjusting medications and recommended acute inpt psych treatment. cont Mirtazepine 15mg po qhs to promote rest, Valproic 500mg IV q12h, Decrease seroquel 300mg qhs cont d5w @ 75ml/hr, follow BMP to trend Na. 12/04; patient is more calm and cooperative. Sodium level stable at 150s. Continue D5W, follow BMP. 12/05: Na level normal today. patient c/o dizziness, order PT eval. follow psych recommendation 12/06: Patient is cleared by psych for d/c. [facility] and can't go back there till Wednesday per CM. cont to follow clinically 12/07: patient was little agitated this am, currently very clam. pending placment to [facility] - likely on Wednesday, cont to follow 12/08: Patient started to be combative again, not eating and keeping food/meds inside her mouth only. RN used IM meds to calm her down this morning. Discussed with Son and by phone. wait for repeat Psych eval and recommendation. Resume iv fluid as she has stopped eating. repeat labs 12/09; patient is severely agitated, refusing to eat, requiring restraints, will check for speech therapy for swallow evaluation and diet and nutrition access if needed Assessment and Plan #Traumatic Closed Head Injury #Small Subdural Hematoma #Acute Psychosis - Presented in acute psychosis, agitated and combative. Threw herself on the floor and hit her head - Imagings reviewed, Mildly comminuted fracture of the anterior and posterior denney of the left maxillary sinus and small subdural hematoma noted - Case discussed with NeuroSurgery- Dr. Cr on admit, no intervention recommended at this time. - Continue to monitor for 24 to 48hrs, repeat CT head, and neuro checks - NeuroSurgery consulted, appreciate recommendations - Repeat CT head/brain reviewed, subdural hematoma stable. - Continue to hold off on AC for now - Patient is off 1013 status, sitter at the bedside - Continue current antipsychotics meds - Close Qtc monitoring - Neuro checks per protocol - Home meds resumed - Mental Health/Psych also on consult, appreciate recommendations - Mental health now recommends no inpatient psych needs #COVID-19 Infection - COVID PCR came back positive - Patient received both dose of Yee vaccine, but no booster - CXR with Bilateral opacities - Patient remains stable on RA, afebrile, with no WBCs - Will continue to monitor for now - ID consulted, no indications for treatment at this time - Per ID If patient develops hypoxia, initiate Remdesivir and steroids #BERNICE (Acute Kidney Injury) most likely Vasomotor Nephropathy #Acute Hypernatremia, resolved - Probably due to dehydration - Baseline renal function is unknown - renal function improved post IVF hydration - With persistent hypernatremia, continue gentle hydration D5W increased to 75 ml/hr - cont to Encourage PO intake - Strict intake and output - Avoid nephrotoxic medications; Renally dose medications - Monitor and replace electrolytes as needed #Rhabdomyolysis - Presented with mildly elevated CPK - CPK improved - Continue IV fluid hydration - check serial creatinine kinase #Hypothyroidism - Continue supportive care - TSH was normal - Resumed Synthroid #GI/DVT Prophylaxis - PPI- pepcid - SCDs to bilateral lower extremities while in bed #Advance Care Planning - Disease education data, care plan, diagnoses, and prognosis were discussed with patient's son via phone. Patient is a FULL code. Patient's son acknowledged understanding and agreed with current care plan. 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 the room Hospitalist Physical - Constitutional Vitals: Temp Pulse Resp BP Pulse Ox 98.4 F 76 20 120/86 96 12/09/21 05:31 12/09/21 05:31 12/09/21 05:31 12/09/21 05:31 12/09/21 05:31 General appearance: Present: no acute distress, well-nourished, obese, other (Patient is confused agitated pulling things) - EENT Eyes: Present: PERRL, EOM intact - Neck Neck: Present: supple, normal ROM - Respiratory Respiratory effort: normal Respiratory: bilateral: rales, rhonchi, negative: wheezing, other - Cardiovascular Rhythm: regular Heart Sounds: Present: S1 & S2 - Extremities Extremities: no ischemia, No edema - Abdominal General gastrointestinal: soft, non-tender, non-distended, normal bowel sounds - Integumentary Integumentary: Present: clear, warm - Psychiatric Psychiatric: other (Confused nonverbal) - Neurologic Neurologic: moves all extremities, other (Confused nonverbal) Results - Labs CBC & Chem 7: 12/02/21 05:05 12/08/21 14:48 Labs: Laboratory Last Values WBC 8.4 K/mm3 (4.5-11.0) 12/02/21 05:05 RBC 3.65 M/mm3 (3.65-5.03) 12/02/21 05:05 Hgb 10.9 gm/dl (10.1-14.3) 12/02/21 05:05 Hct 33.2 % (30.3-42.9) 12/02/21 05:05 MCV 91 fl (79-97) 12/02/21 05:05 MCH 30 pg (28-32) 12/02/21 05:05 MCHC 33 % (30-34) 12/02/21 05:05 RDW 15.1 % (13.2-15.2) 12/02/21 05:05 Plt Count 322 K/mm3 (140-440) 12/02/21 05:05 Lymph % (Auto) 21.7 % (13.4-35.0) 12/01/21 05:17 [place] % (Auto) 15.2 % (0.0-7.3) H 12/01/21 05:17 Eos % (Auto) 3.2 % (0.0-4.3) 12/01/21 05:17 Baso % (Auto) 0.6 % (0.0-1.8) 12/01/21 05:17 Lymph # (Auto) 2.1 K/mm3 (1.2-5.4) 12/01/21 05:17 [place] # (Auto) 1.4 K/mm3 (0.0-0.8) H 12/01/21 05:17 Eos # (Auto) 0.3 K/mm3 (0.0-0.4) 12/01/21 05:17 Baso # (Auto) 0.1 K/mm3 (0.0-0.1) 12/01/21 05:17 Seg Neutrophils % 59.3 % (40.0-70.0) 12/01/21 05:17 Seg Neutrophils # 5.7 K/mm3 (1.8-7.7) 12/01/21 05:17 Sodium 151 mmol/L (137-145) H D 12/08/21 14:48 Potassium 5.0 mmol/L (3.6-5.0) 12/08/21 14:48 Chloride 114.0 mmol/L (98-107) H 12/08/21 14:48 Carbon Dioxide 26 mmol/L (22-30) 12/08/21 14:48 Anion Gap 16 mmol/L 12/08/21 14:48 BUN 30 mg/dL (7-17) H 12/08/21 14:48 Creatinine 2.0 mg/dL (0.6-1.2) H D 12/08/21 14:48 Estimated GFR 25 ml/min 12/08/21 14:48 BUN/Creatinine Ratio 15 % 12/08/21 14:48 Glucose 95 mg/dL (65-100) 12/08/21 14:48 Calcium 8.8 mg/dL (8.4-10.2) 12/08/21 14:48 Phosphorus 2.80 mg/dL (2.5-4.5) 12/03/21 07:23 Magnesium 2.40 mg/dL (1.7-2.3) H 12/03/21 07:23 Total Bilirubin 0.60 mg/dL (0.1-1.2) 12/01/21 04:00 AST 34 units/L (5-40) 12/01/21 04:00 ALT 33 units/L (7-56) 12/01/21 04:00 Alkaline Phosphatase 80 units/L (35-129) 12/01/21 04:00 Total Creatine Kinase 241 units/L (30-135) H 12/02/21 05:05 Total Protein 7.2 g/dL (6.3-8.2) 12/01/21 04:00 Albumin 3.7 g/dL (3.9-5) L 12/01/21 04:00 Albumin/Globulin Ratio 1.1 % 12/01/21 04:00 TSH 1.280 mlU/mL (0.270-4.200) 11/29/21 13:05 Urine Color Straw (Yellow) 11/29/21 14:10 Urine Turbidity Clear (Clear) 11/29/21 14:10 Urine pH 6.0 (5.0-7.0) 11/29/21 14:10 Ur Specific [place] 1.005 (1.003-1.030) 11/29/21 14:10 Urine Protein 30 mg/dl mg/dL (Negative) 11/29/21 14:10 Urine Glucose (UA) Negative mg/dL (Negative) 11/29/21 14:10 Urine Ketones 15 mg/dL (Negative) 11/29/21 14:10 Urine Blood 1+ (Negative) 11/29/21 14:10 Urine Nitrite Negative (Negative) 11/29/21 14:10 Ur Reducing Substances Not Reportable 11/29/21 14:10 Urine Bilirubin Negative (Negative) 11/29/21 14:10 Urine Ictotest Not Reportable 11/29/21 14:10 Urine Urobilinogen < 2.0 mg/dL (<2.0) 11/29/21 14:10 Ur Leukocyte Esterase Negative (Negative) 11/29/21 14:10 Urine WBC (Auto) 2.0 /HPF (0.0-6.0) 11/29/21 14:10 Urine RBC (Auto) 4.0 /HPF (0.0-6.0) 11/29/21 14:10 U Epithel Cells (Auto) < 1.0 /HPF (0-13.0) 11/29/21 14:10 Salicylates < 0.3 mg/dL (2.8-20.0) L 11/29/21 13:05 Urine Opiates Screen Negative 11/29/21 14:10 Urine Methadone Screen Negative 11/29/21 14:10 Acetaminophen 5.0 ug/mL (10.0-30.0) L 11/29/21 13:05 Ur Barbiturates Screen Negative 11/29/21 14:10 Ur Phencyclidine Scrn Negative 11/29/21 14:10 Ur Amphetamines Screen Negative 11/29/21 14:10 U Benzodiazepines Scrn Negative 11/29/21 14:10 Urine Cocaine Screen Negative 11/29/21 14:10 U Marijuana (THC) Screen Negative 11/29/21 14:10 Drugs of Abuse Note Disclamer 11/29/21 14:10 Plasma/Serum Alcohol < 0.01 % (0-0.07) 11/29/21 13:05 SARS-CoV-2 (PCR) Positive (Negative) A 12/08/21 14:15 [place]/IV: Voiding Method Incontinent Active Medications - Current Medications Current Medications: Generic Name Dose Route Start Last Admin Trade Name Freq PRN Reason Stop Dose Admin Acetaminophen 650 mg 11/30/21 19:46 Acetaminophen 325 Mg Tab PO Q4H PRN Pain MILD(1-3)/Fever >100.5/MERCEDES Citalopram Hydrobromide 20 mg 11/30/21 10:00 12/08/21 10:03 Citalopram 20 Mg Tab PO 20 mg QDAY [facility] Administration Cyanocobalamin 1,000 mcg 11/30/21 10:00 12/08/21 10:03 Cyanocobalamin (Vit B-12) 1000 Mcg Tab PO 1,000 mcg QDAY [facility] Administration Docusate Sodium 100 mg 11/30/21 10:00 12/08/21 10:05 Docusate Sodium 100 Mg/10 Ml Oral Liqd PO 100 mg QDAY [facility] Administration Donepezil HCl 10 mg 11/29/21 22:00 12/08/21 21:54 Donepezil 10 Mg Tab PO 10 mg QHS [facility] Administration Famotidine 20 mg 12/02/21 10:00 12/08/21 10:03 Famotidine 20 Mg Tab PO 20 mg QDAY [facility] Administration Hydromorphone HCl 0.5 mg 12/01/21 16:08 12/09/21 04:38 Hydromorphone 0.5 Mg/0.5 Ml Inj IV 0.5 mg Q6H PRN Administration Pain , Severe (7-10) Dextrose/Sodium Chloride 1,000 mls @ 42 mls/hr 12/08/21 15:00 12/08/21 18:06 D5/0.45ns IV 42 mls/hr DIRECT [facility] Administration Levothyroxine Sodium 100 mcg 11/30/21 06:00 12/09/21 05:36 Levothyroxine 100 Mcg Tab PO 100 mcg DAILY@0600 [facility] Administration Memantine 5 mg 11/29/21 22:00 12/08/21 21:54 Memantine 5 Mg Tab PO 5 mg Q12HR [facility] Administration Mirtazapine 15 mg 12/01/21 22:00 12/08/21 21:56 Mirtazapine 15 Mg Tab PO 15 mg QHS [facility] Administration Morphine Sulfate 2 mg 11/30/21 19:54 Morphine 2 Mg/1 Ml Inj IV Q4H PRN Pain, Moderate (4-6) Oxcarbazepine 600 mg 11/29/21 22:00 12/08/21 21:58 Oxcarbazepine 300 Mg Tab PO 600 mg BID [facility] Administration Potassium Chloride 30 meq 12/03/21 18:00 12/08/21 10:03 Potassium Chloride Er 10 Meq Tab PO 30 meq QDAY [facility] Administration Quetiapine Fumarate 100 mg 12/08/21 22:00 12/08/21 21:56 Quetiapine 100 Mg Tab PO 100 mg QHS [facility] Administration Sodium Chloride 10 ml 11/30/21 22:00 12/08/21 21:56 Sodium Chloride 0.9% 10 Ml Flush Syringe IV 10 ml BID [facility] Administration Sodium Chloride 10 ml 11/30/21 19:46 Sodium Chloride 0.9% 10 Ml Flush Syringe IV PRN PRN LINE FLUSH Sterile Water 1.2 ml 12/08/21 22:00 12/08/21 21:53 Water For Inj Sterile (Pf) 10 Ml IM 1.2 ml BID [facility] Administration Ziprasidone 20 mg 11/30/21 21:00 12/08/21 21:53 Ziprasidone Mesylate 20 Mg Vial IM 20 mg Q12H [facility] Administration Nutrition/Malnutrition Assess - Dietary Evaluation Nutrition/Malnutrition Findings: Nutrition Notes Start: 12/05/21 11:40 Freq: Status: Active Protocol: Document 12/05/21 11:40 EARNEST (Rec: 12/05/21 11:45 EARENST [email or web address]) Nutrition Notes Need for Assessment generated from: LOS Initial or Follow up Brief Note Current Diagnosis Acute Kidney Injury Other Pertinent Diagnosis Traumatic CHI, Acute psychosis , COVID-19 (+) Current Diet Cardiac Labs/Tests reviewed Pertinent Medications Vit B12, 30mEq KCl Height 5 ft 6 in Weight 77 kg [place] Body Weight (kg) 59.09 BMI 27.3 Weight Status Overweight Subjective/Other Information Pt screened for LOS. She has consumed 54% of meals since admission. She is a 1013 and has a sitter at bedside. Percent of energy/protein needs met: 77% energy 74% pro Burn Absent Trauma Absent Current % PO Fair (50-74%) Minimum of two criteria No Is patient on ventilator? No Is Patient Ambulatory and/or Out of Bed No [facility] [phone] Calculation Used for Recommendations [facility] Additional Notes Pro needs 0.8-1.2g/k-92g/ day Fluid needs 1ml/kcal Nutrition Intervention Follow-Up By: 12/12/21 Additional Comments F/U: intakes, wt
[2021-12-09] MEDS: OXcarbazepine 300 MG TAB PO SCH ×2 (11:32→21:01)
[2021-12-09] MEDS: FAMOTIDINE 20 MG TAB PO SCH (11:33)
[2021-12-09] MEDS: DOCUSATE SODIUM 100 MG/10 ML ORAL LIQD PO SCH (11:33)
[2021-12-09] MEDS: POTASSIUM CHLORIDE ER 10 MEQ TAB PO SCH (11:33)
[2021-12-09] MEDS: CITALOPRAM 20 MG TAB PO SCH (11:33)
[2021-12-09] MEDS: ZIPRASIDONE MESYLATE 20 MG VIAL IM SCH ×2 (11:33→20:58)
[2021-12-09] MEDS: CYANOCOBALAMIN (VIT B-12) 1000 MCG TAB PO SCH (11:33)
[2021-12-09] MEDS: WATER FOR INJ Sterile (PF) 10 ML IM SCH ×2 (11:34→21:00)
[2021-12-09] MEDS: MEMANTINE 5 MG TAB PO SCH ×2 (11:36→21:02)
--- NOTE | 2021-12-09 13:29 | Progress Note ---
Subjective - Reason for Consult Consult date: 12/09/21 Reason for consult: mental health evaluation - Chief Complaint Chief complaint: The patient was seen today. She is confused and unable to follow command. VIEW OF SYSTEMS Unable to obtain MENTAL STATUS EXAMINATION Assessment (1) Delirium (2) Bipolar Disorder Current Visit: Yes Status: Acute Treatment Plan Continue Mirtazepine 15mg po qhs to promote rest continue Valproic 125mg po TID Start Seroquel 50mg qhs Start Seroquel 25mg po BID Sitter: Defer to primary Medical: per primary Disposition: Do not Recommend acute psychiatric inpatient treatment Will follow for medication management. Thanks Case staffed with Dr. Nava Mental Status Exam - Vital signs Last Vital Signs Temp 98.9 F 12/09/21 10:47 Pulse 105 H 12/09/21 10:47 Resp 20 12/09/21 10:47 BP 133/73 12/09/21 10:47 Pulse Ox 95 12/09/21 10:47
[2021-12-09] MEDS: QUEtiapine 25 MG TAB PO SCH ×2 (15:12→21:01)
[2021-12-09] MEDS: D5W/0.45% NACL 1,000 ML IV SCH (15:12)
[2021-12-09] MEDS: DIVALPROEX DR 125 MG TAB PO SCH ×2 (16:48→19:58)
[2021-12-09] MEDS: DONEPEZIL 10 MG TAB PO SCH (21:01)
[2021-12-09] MEDS: MIRTAZAPINE 15 MG TAB PO SCH (21:02)
[2021-12-10] MEDS: LEVOTHYROXINE 100 MCG TAB PO SCH (06:06)
[2021-12-10] MEDS: HYDROmorphone 0.5 MG/0.5 ML INJ IV PRN (06:13)
[2021-12-10 07:39] LABS: Basophils % (Auto) 0.2 % (0.0-1.8); Eosinophils # (Auto) 0.1 K/mm3 (0.0-0.4); Eosinophils % (Auto) 1.7 % (0.0-4.3); Hematocrit 31.4 % (30.3-42.9); Hemoglobin 10.2 gm/dl (10.1-14.3); Lymphocytes # (Auto) 1.1 K/mm3 (1.2-5.4); Lymphocytes % (Auto) 13.5 % (13.4-35.0); Mean Corpuscular HGB Conc 33 % (30-34); Mean Corpuscular Volume 94 fl (79-97); Monocytes # (Auto) 0.8 K/mm3 (0.0-0.8); Monocytes % (Auto) 9.9 % (0.0-7.3); Platelet Count 250 K/mm3 (140-440); Red Blood Count 3.35 M/mm3 (3.65-5.03); Red Cell Distribution Width 16.1 % (13.2-15.2)
[2021-12-10 08:01] LABS: Calcium 8.5 mg/dL (8.4-10.2)
--- NOTE | 2021-12-10 08:54 | Progress Note ---
Assessment and Plan Assessment and plan: This is a 71-year-old female with senior living psych issues admitted for acute psychosis and was found with small subdural hematoma most likely related to trauma from throwing herself on the floor and hitting her head while in the ED. Hospital Course to Date: 12/01: Repeat CT head pending. Mentation improved this am, patient drowsy but calmer this am, following simple commands. Neurology and NeuroSurgery consults pending. Keep patient as 1013 status, Mental health/Psych is also following. Continue current antipsychotics meds and PRN Haldol, close Qtc monitoring. Continue neuro check per protocol. Patient COVID PCR positive, patient remains stable on RA and hemodynamicaly stable. Continue to monitor for now, ID also consulted for further recs. 12/02: Repeat CT head/reviewed, subdural hematoma stable. NeuroSurgery recommendations noted, will hold off AC for now. PT/OT/Speech consulted. Patient with persistent hypernatremia, D5W increased to 75ml/hr. Continue to encourage PO intake and trend BMP. Mental health recommends inpatient psych once medically clear. Patient is stable for transfer to the floor. 12/03; remains clam but still confused. psych adjusting medications and recommended acute inpt psych treatment. cont Mirtazepine 15mg po qhs to promote rest, Valproic 500mg IV q12h, Decrease seroquel 300mg qhs cont d5w @ 75ml/hr, follow BMP to trend Na. 12/04; patient is more calm and cooperative. Sodium level stable at 150s. Continue D5W, follow BMP. 12/05: Na level normal today. patient c/o dizziness, order PT eval. follow psych recommendation 12/06: Patient is cleared by psych for d/c. [facility] and can't go back there till Wednesday per CM. cont to follow clinically 12/07: patient was little agitated this am, currently very clam. pending placment to [facility] - likely on Wednesday, cont to follow 12/08: Patient started to be combative again, not eating and keeping food/meds inside her mouth only. RN used IM meds to calm her down this morning. Discussed with Son and by phone. wait for repeat Psych eval and recommendation. Resume iv fluid as she has stopped eating. repeat labs 12/09; patient is severely agitated, refusing to eat, requiring restraints, will check for speech therapy for swallow evaluation and diet and nutrition access if needed 12/10; confused and agitated . social human services assistants in the room Assessment and Plan #Traumatic Closed Head Injury #Small Subdural Hematoma #Acute Psychosis - Presented in acute psychosis, agitated and combative. Threw herself on the floor and hit her head - Imagings reviewed, Mildly comminuted fracture of the anterior and posterior denney of the left maxillary sinus and small subdural hematoma noted - Case discussed with NeuroSurgery- Dr. Cr on admit, no intervention recommended at this time. - Continue to monitor for 24 to 48hrs, repeat CT head, and neuro checks - NeuroSurgery consulted, appreciate recommendations - Repeat CT head/brain reviewed, subdural hematoma stable. - Continue to hold off on AC for now - Patient is off 1013 status, sitter at the bedside - Continue current antipsychotics meds - Close Qtc monitoring - Neuro checks per protocol - Home meds resumed - Mental Health/Psych also on consult, appreciate recommendations - Mental health now recommends no inpatient psych needs #COVID-19 Infection - COVID PCR came back positive - Patient received both dose of Yee vaccine, but no booster - CXR with Bilateral opacities - Patient remains stable on RA, afebrile, with no WBCs - Will continue to monitor for now - ID consulted, no indications for treatment at this time - Per ID If patient develops hypoxia, initiate Remdesivir and steroids #BERNICE (Acute Kidney Injury) most likely Vasomotor Nephropathy #Acute Hypernatremia, resolved - Probably due to dehydration - Baseline renal function is unknown - renal function improved post IVF hydration - With persistent hypernatremia, continue gentle hydration D5W increased to 75ml/hr - cont to Encourage PO intake - Strict intake and output - Avoid nephrotoxic medications; Renally dose medications - Monitor and replace electrolytes as needed #Rhabdomyolysis - Presented with mildly elevated CPK - CPK improved - Continue IV fluid hydration - check serial creatinine kinase #Hypothyroidism - Continue supportive care - TSH was normal - Resumed Synthroid #GI/DVT Prophylaxis - PPI- pepcid - SCDs to bilateral lower extremities while in bed #Advance Care Planning - Disease education data, care plan, diagnoses, and prognosis were discussed with patient's son via phone. Patient is a FULL code. Patient's son acknowledged understanding and agreed with current care plan. History Interval history: Seen and examined the patient at the bedside Patient's chart and medications reviewed Patient is confused agitated trying to get out of the bed Vital signs noted social human services assistants in the room Hospitalist Physical - Constitutional Vitals: Temp Pulse Resp BP Pulse Ox 97.7 F 78 16 106/48 97 12/10/21 03:01 12/10/21 03:01 12/10/21 03:01 12/10/21 03:01 12/10/21 03:01 General appearance: Present: severe distress, well-nourished, other (Patient is confused agitated pulling things) - EENT Eyes: Present: PERRL, EOM intact - Neck Neck: Present: supple, normal ROM - Respiratory Respiratory effort: normal Respiratory: bilateral: diminished, negative: rales, rhonchi, wheezing - Cardiovascular Rhythm: regular Heart Sounds: Present: S1 & S2 - Extremities Extremities: no ischemia, No edema - Abdominal General gastrointestinal: soft, non-tender, non-distended, normal bowel sounds - Integumentary Integumentary: Present: clear, warm - Psychiatric Psychiatric: agitated, other - Neurologic Neurologic: moves all extremities ( confused and agitated ) Results - Labs CBC & Chem 7: 12/10/21 06:59 12/10/21 06:59 Labs: Laboratory Last Values WBC 8.4 K/mm3 (4.5-11.0) 12/10/21 06:59 RBC 3.35 M/mm3 (3.65-5.03) L 12/10/21 06:59 Hgb 10.2 gm/dl (10.1-14.3) 12/10/21 06:59 Hct 31.4 % (30.3-42.9) 12/10/21 06:59 MCV 94 fl (79-97) 12/10/21 06:59 MCH 31 pg (28-32) 12/10/21 06:59 MCHC 33 % (30-34) 12/10/21 06:59 RDW 16.1 % (13.2-15.2) H 12/10/21 06:59 Plt Count 250 K/mm3 (140-440) 12/10/21 06:59 Lymph % (Auto) 13.5 % (13.4-35.0) 12/10/21 06:59 [place] % (Auto) 9.9 % (0.0-7.3) H 12/10/21 06:59 Eos % (Auto) 1.7 % (0.0-4.3) 12/10/21 06:59 Baso % (Auto) 0.2 % (0.0-1.8) 12/10/21 06:59 Lymph # (Auto) 1.1 K/mm3 (1.2-5.4) L 12/10/21 06:59 Cecil # (Auto) 0.8 K/mm3 (0.0-0.8) 12/10/21 06:59 Eos # (Auto) 0.1 K/mm3 (0.0-0.4) 12/10/21 06:59 Baso # (Auto) 0.0 K/mm3 (0.0-0.1) 12/10/21 06:59 Seg Neutrophils % 74.7 % (40.0-70.0) H 12/10/21 06:59 Seg Neutrophils # 6.3 K/mm3 (1.8-7.7) 12/10/21 06:59 Sodium 151 mmol/L (137-145) H 12/10/21 06:59 Potassium 3.6 mmol/L (3.6-5.0) D 12/10/21 06:59 Chloride 115.5 mmol/L (98-107) H 12/10/21 06:59 Carbon Dioxide 27 mmol/L (22-30) 12/10/21 06:59 Anion Gap 12 mmol/L 12/10/21 06:59 BUN 37 mg/dL (7-17) H 12/10/21 06:59 Creatinine 1.9 mg/dL (0.6-1.2) H 12/10/21 06:59 Estimated GFR 26 ml/min 12/10/21 06:59 BUN/Creatinine Ratio 19 % 12/10/21 06:59 Glucose 111 mg/dL (65-100) H 12/10/21 06:59 Calcium 8.5 mg/dL (8.4-10.2) 12/10/21 06:59 Phosphorus 2.80 mg/dL (2.5-4.5) 12/03/21 07:23 Magnesium 2.80 mg/dL (1.7-2.3) H 12/10/21 06:59 Total Bilirubin 0.60 mg/dL (0.1-1.2) 12/01/21 04:00 AST 34 units/L (5-40) 12/01/21 04:00 ALT 33 units/L (7-56) 12/01/21 04:00 Alkaline Phosphatase 80 units/L (35-129) 12/01/21 04:00 Total Creatine Kinase 241 units/L (30-135) H 12/02/21 05:05 Total Protein 7.2 g/dL (6.3-8.2) 12/01/21 04:00 Albumin 3.7 g/dL (3.9-5) L 12/01/21 04:00 Albumin/Globulin Ratio 1.1 % 12/01/21 04:00 TSH 1.280 mlU/mL (0.270-4.200) 11/29/21 13:05 Urine Color Straw (Yellow) 11/29/21 14:10 Urine Turbidity Clear (Clear) 11/29/21 14:10 Urine pH 6.0 (5.0-7.0) 11/29/21 14:10 Ur Specific [place] 1.005 (1.003-1.030) 11/29/21 14:10 Urine Protein 30 mg/dl mg/dL (Negative) 11/29/21 14:10 Urine Glucose (UA) Negative mg/dL (Negative) 11/29/21 14:10 Urine Ketones 15 mg/dL (Negative) 11/29/21 14:10 Urine Blood 1+ (Negative) 11/29/21 14:10 Urine Nitrite Negative (Negative) 11/29/21 14:10 Ur Reducing Substances Not Reportable 11/29/21 14:10 Urine Bilirubin Negative (Negative) 11/29/21 14:10 Urine Ictotest Not Reportable 11/29/21 14:10 Urine Urobilinogen < 2.0 mg/dL (<2.0) 11/29/21 14:10 Ur Leukocyte Esterase Negative (Negative) 11/29/21 14:10 Urine WBC (Auto) 2.0 /HPF (0.0-6.0) 11/29/21 14:10 Urine RBC (Auto) 4.0 /HPF (0.0-6.0) 11/29/21 14:10 U Epithel Cells (Auto) < 1.0 /HPF (0-13.0) 11/29/21 14:10 Salicylates < 0.3 mg/dL (2.8-20.0) L 11/29/21 13:05 Urine Opiates Screen Negative 11/29/21 14:10 Urine Methadone Screen Negative 11/29/21 14:10 Acetaminophen 5.0 ug/mL (10.0-30.0) L 11/29/21 13:05 Ur Barbiturates Screen Negative 11/29/21 14:10 Ur Phencyclidine Scrn Negative 11/29/21 14:10 Ur Amphetamines Screen Negative 11/29/21 14:10 U Benzodiazepines Scrn Negative 11/29/21 14:10 Urine Cocaine Screen Negative 11/29/21 14:10 U Marijuana (THC) Screen Negative 11/29/21 14:10 Drugs of Abuse Note Disclamer 11/29/21 14:10 Plasma/Serum Alcohol < 0.01 % (0-0.07) 11/29/21 13:05 SARS-CoV-2 (PCR) Positive (Negative) A 12/08/21 14:15 [place]/IV: Voiding Method Incontinent Active Medications - Current Medications Current Medications: Generic Name Dose Route Start Last Admin Trade Name Freq PRN Reason Stop Dose Admin Acetaminophen 650 mg 11/30/21 19:46 Acetaminophen 325 Mg Tab PO Q4H PRN Pain MILD(1-3)/Fever >100.5/MERCEDES Citalopram Hydrobromide 20 mg 11/30/21 10:00 12/09/21 11:33 Citalopram 20 Mg Tab PO 20 mg QDAY [facility] Administration Cyanocobalamin 1,000 mcg 11/30/21 10:00 12/09/21 11:33 Cyanocobalamin (Vit B-12) 1000 Mcg Tab PO 1,000 mcg QDAY [facility] Administration Divalproex Sodium 125 mg 12/09/21 14:00 12/09/21 19:[address] 125 Mg Tab PO 125 mg TID [facility] Administration Docusate Sodium 100 mg 11/30/21 10:00 12/09/21 11:33 Docusate Sodium 100 Mg/10 Ml Oral Liqd PO 100 mg QDAY [facility] Administration Donepezil HCl 10 mg 11/29/21 22:00 12/09/21 21:01 Donepezil 10 Mg Tab PO 10 mg QHS [facility] Administration Famotidine 20 mg 12/02/21 10:00 12/09/21 11:33 Famotidine 20 Mg Tab PO 20 mg QDAY [facility] Administration Hydromorphone HCl 0.5 mg 12/01/21 16:08 12/10/21 06:13 Hydromorphone 0.5 Mg/0.5 Ml Inj IV 0.5 mg Q6H PRN Administration Pain , Severe (7-10) Dextrose/Sodium Chloride 1,000 mls @ 42 mls/hr 12/08/21 15:00 12/09/21 15:12 D5/0.45ns IV 42 mls/hr DIRECT [facility] Administration Levothyroxine Sodium 100 mcg 11/30/21 06:00 12/10/21 06:06 Levothyroxine 100 Mcg Tab PO 100 mcg DAILY@0600 [facility] Administration Memantine 5 mg 11/29/21 22:00 12/09/21 21:02 Memantine 5 Mg Tab PO 5 mg Q12HR [facility] Administration Mirtazapine 15 mg 12/01/21 22:00 12/09/21 21:02 Mirtazapine 15 Mg Tab PO 15 mg QHS [facility] Administration Morphine Sulfate 2 mg 11/30/21 19:54 Morphine 2 Mg/1 Ml Inj IV Q4H PRN Pain, Moderate (4-6) Oxcarbazepine 600 mg 11/29/21 22:00 12/09/21 21:01 Oxcarbazepine 300 Mg Tab PO 600 mg BID [facility] Administration Potassium Chloride 30 meq 12/03/21 18:00 12/09/21 11:33 Potassium Chloride Er 10 Meq Tab PO 30 meq QDAY [facility] Administration Quetiapine Fumarate 50 mg 12/09/21 22:00 12/09/21 21:01 Quetiapine 25 Mg Tab PO 50 mg QHS [facility] Administration Quetiapine Fumarate 25 mg 12/09/21 14:00 12/09/21 15:12 Quetiapine 25 Mg Tab PO 25 mg BID@0800,1400 [facility] Administration Sodium Chloride 10 ml 11/30/21 22:00 12/09/21 21:12 Sodium Chloride 0.9% 10 Ml Flush Syringe IV 10 ml BID [facility] Administration Sodium Chloride 10 ml 11/30/21 19:46 Sodium Chloride 0.9% 10 Ml Flush Syringe IV PRN PRN LINE FLUSH Sterile Water 1.2 ml 12/08/21 22:00 12/09/21 21:00 Water For Inj Sterile (Pf) 10 Ml IM 1.2 ml BID [facility] Administration Ziprasidone 20 mg 11/30/21 21:00 12/09/21 20:58 Ziprasidone Mesylate 20 Mg Vial IM 20 mg Q12H [facility] Administration Nutrition/Malnutrition Assess - Dietary Evaluation Nutrition/Malnutrition Findings: Nutrition Notes Start: 12/05/21 11:40 Freq: Status: Active Protocol: Document 12/05/21 11:40 EARNEST (Rec: 12/05/21 11:45 EARNEST [id number]) Nutrition Notes Need for Assessment generated from: LOS Initial or Follow up Brief Note Current Diagnosis Acute Kidney Injury Other Pertinent Diagnosis Traumatic CHI, Acute psychosis , COVID-19 (+) Current Diet Cardiac Labs/Tests reviewed Pertinent Medications Vit B12, 30mEq KCl Height 5 ft 6 in Weight 77 kg [place] Body Weight (kg) 59.09 BMI 27.3 Weight Status Overweight Subjective/Other Information Pt screened for LOS. She has consumed 54% of meals since admission. She is a 1013 and has a sitter at bedside. Percent of energy/protein needs met: 77% energy 74% pro Burn Absent Trauma Absent Current % PO Fair (50-74%) Minimum of two criteria No Is patient on ventilator? No Is Patient Ambulatory and/or Out of Bed No REE-([facility] [place]-confined to bed) [phone] Calculation Used for Recommendations [facility] Additional Notes Pro needs 0.8-1.2g/k-92g/ day Fluid needs 1ml/kcal Nutrition Intervention Follow-Up By: 12/12/21 Additional Comments F/U: intakes, wt
[2021-12-10] MEDS: OXcarbazepine 300 MG TAB PO SCH ×3 (10:17→22:49)
[2021-12-10] MEDS: WATER FOR INJ Sterile (PF) 10 ML IM SCH ×3 (10:17→22:50)
[2021-12-10] MEDS: MEMANTINE 5 MG TAB PO SCH ×3 (10:18→22:49)
[2021-12-10] MEDS: CYANOCOBALAMIN (VIT B-12) 1000 MCG TAB PO SCH (10:18)
[2021-12-10] MEDS: ZIPRASIDONE MESYLATE 20 MG VIAL IM SCH ×2 (10:18→20:42)
[2021-12-10] MEDS: CITALOPRAM 20 MG TAB PO SCH (10:18)
[2021-12-10] MEDS: QUEtiapine 25 MG TAB PO SCH ×4 (10:18→22:49)
[2021-12-10] MEDS: POTASSIUM CHLORIDE ER 10 MEQ TAB PO SCH (10:18)
[2021-12-10] MEDS: FAMOTIDINE 20 MG TAB PO SCH (10:19)
[2021-12-10] MEDS: DOCUSATE SODIUM 100 MG/10 ML ORAL LIQD PO SCH (10:19)
[2021-12-10] MEDS: DIVALPROEX DR 125 MG TAB PO SCH ×3 (10:19→20:49)
[2021-12-10] MEDS: FREE WATER PO SCH ×3 (10:20→20:50)
--- NOTE | 2021-12-10 14:36 | Progress Note ---
Subjective - Reason for Consult Consult date: 12/10/21 Reason for consult: Psychosis - Chief Complaint Chief complaint: The patient was seen today. She is resting quietly in bed but easily aroused. Will continue current psychotropic medications. VIEW OF SYSTEMS Unable to obtain MENTAL STATUS EXAMINATION Assessment (1) Delirium (2) Bipolar Disorder Current Visit: Yes Status: Acute Treatment Plan Continue Mirtazepine 15mg po qhs to promote rest continue Valproic 125mg po TID Start Seroquel 50mg qhs Start Seroquel 25mg po BID Sitter: Defer to primary Medical: per primary Disposition: Do not Recommend acute psychiatric inpatient treatment Will follow for medication management. Thanks Case staffed with Dr. Nava Mental Status Exam - Vital signs Last Vital Signs Temp 97.7 F 12/10/21 03:01 Pulse 78 12/10/21 03:01 Resp 16 12/10/21 03:01 BP 106/48 12/10/21 03:01 Pulse Ox 97 12/10/21 03:01
[2021-12-10] MEDS: DONEPEZIL 10 MG TAB PO SCH ×2 (20:48→22:49)
[2021-12-10] MEDS: MIRTAZAPINE 15 MG TAB PO SCH ×2 (20:48→22:49)
[2021-12-11] MEDS: FREE WATER PO SCH ×4 (02:41→22:14)
[2021-12-11] MEDS: HYDROmorphone 0.5 MG/0.5 ML INJ IV PRN (02:41)
[2021-12-11] MEDS: LEVOTHYROXINE 100 MCG TAB PO SCH (06:00)
--- NOTE | 2021-12-11 08:03 | Progress Note ---
Assessment and Plan Assessment and plan: This is a 71-year-old female with long-term psych issues admitted for acute psychosis and was found with small subdural hematoma most likely related to trauma from throwing herself on the floor and hitting her head while in the ED. Hospital Course to Date: 12/01: Repeat CT head pending. Mentation improved this am, patient drowsy but calmer this am, following simple commands. Neurology and NeuroSurgery consults pending. Keep patient as 1013 status, Mental health/Psych is also following. Continue current antipsychotics meds and PRN Haldol, close Qtc monitoring. Continue neuro check per protocol. Patient COVID PCR positive, patient remains stable on RA and hemodynamicaly stable. Continue to monitor for now, ID also consulted for further recs. 12/02: Repeat CT head/reviewed, subdural hematoma stable. NeuroSurgery recommendations noted, will hold off AC for now. PT/OT/Speech consulted. Patient with persistent hypernatremia, D5W increased to 75ml/hr. Continue to encourage PO intake and trend BMP. Mental health recommends inpatient psych once medically clear. Patient is stable for transfer to the floor. 12/03; remains clam but still confused. psych adjusting medications and recommended acute inpt psych treatment. cont Mirtazepine 15mg po qhs to promote rest, Valproic 500mg IV q12h, Decrease seroquel 300mg qhs cont d5w @ 75ml/hr, follow BMP to trend Na. 12/04; patient is more calm and cooperative. Sodium level stable at 150s. Continue D5W, follow BMP. 12/05: Na level normal today. patient c/o dizziness, order PT eval. follow psych recommendation 12/06: Patient is cleared by psych for d/c. [facility] and can't go back there till Wednesday per CM. cont to follow clinically 12/07: patient was little agitated this am, currently very clam. pending placment to [facility] - likely on Wednesday, cont to follow 12/08: Patient started to be combative again, not eating and keeping food/meds inside her mouth only. RN used IM meds to calm her down this morning. Discussed with Son and by phone. wait for repeat Psych eval and recommendation. Resume iv fluid as she has stopped eating. repeat labs 12/09; patient is severely agitated, refusing to eat, requiring restraints, will check for speech therapy for swallow evaluation and diet and nutrition access if needed 12/10; confused and agitated . ticker wirer in the room 12/11; patient is more alert and awake today, lithium started by psych Unable to admit to [facility] psych due to COVID-positive x2 Followup COVID test ordered for tomorrow Assessment and Plan #Traumatic Closed Head Injury #Small Subdural Hematoma Serial CT scans head, subdural hematoma stable Neurosurgeon evaluated the time of admission, no surgical intervention, supportive care Continue supportive care, Neurochecks Imagings reviewed, Mildly comminuted fracture of the anterior and posterior denney of the left maxillary sinus and small subdural hematoma noted #Acute Psychosis Presented in acute psychosis, agitated and combative. Threw herself on the floor and hit her head Patient is off 1013 status, sitter at the bedside Continue current antipsychotics meds Family requested to restart lithium as lithium keeps her calm I discussed with psychiatrist, they discussed with the family and restarted lithium today 12/11/2021 Requested the psych team the possibility of admitting to [facility] However they refused due to positive COVID test x2 Repeat Yee PCR test tomorrow August 22 #COVID-19 Infection - COVID PCR x2 positive - Patient received both dose of Yee vaccine, but no booster - CXR with Bilateral opacities - Patient remains stable on RA, afebrile, with no WBCs - Will continue to monitor for now - ID consulted, no indications for treatment at this time - Per ID If patient develops hypoxia, initiate Remdesivir and steroids #BERNICE (Acute Kidney Injury) most likely Vasomotor Nephropathy Trending down, monitor renal function, avoid nephrotoxin Nephrology consult if needed #Acute Hypernatremia, resolved - Probably due to dehydration Free water by mouth 250 mL 4 times a day - With persistent hypernatremia, continue gentle hydration D5W increased to 75ml/hr - Avoid nephrotoxic medications; Renally dose medications - Monitor and replace electrolytes as needed #Rhabdomyolysis CPK levels improved Closely monitor #Hypothyroidism - Continue supportive care - TSH was normal - Resumed Synthroid #GI/DVT Prophylaxis - PPI- pepcid - SCDs to bilateral lower extremities while in bed #Advance Care Planning - Disease education data, care plan, diagnoses, and prognosis were discussed with patient's son via phone. Patient is a FULL code. Patient's son acknowledged understanding and agreed with current care plan. DC planning per case management Possible transfer to inpatient psych facility when medically stable. Plan of care reviewed with the patient's nurse, the psychiatrist And the case management History Interval history: I have seen and examined the patient at the bedside Patient's chart and medications reviewed Patient is calm and quiet slight agitation ticker wirer in the room no new overnight events reported by nursing Vital signs noted Hospitalist Physical - Constitutional Vitals: Temp Pulse Resp BP Pulse Ox 97.0 F L 93 H 20 136/81 99 12/10/21 20:59 12/10/21 20:59 12/10/21 20:59 12/10/21 20:59 12/10/21 20:59 General appearance: Present: severe distress, well-nourished, other (Patient is confused agitated pulling things) - EENT Eyes: Present: PERRL, EOM intact - Neck Neck: Present: supple, normal ROM - Respiratory Respiratory effort: normal Respiratory: bilateral: diminished, negative: rales, rhonchi, wheezing - Cardiovascular Rhythm: regular Heart Sounds: Present: S1 & S2 - Extremities Extremities: no ischemia, No edema - Abdominal General gastrointestinal: soft, non-tender, non-distended, normal bowel sounds - Integumentary Integumentary: Present: clear, warm - Psychiatric Psychiatric: agitated, other (Psychosis) - Neurologic Neurologic: moves all extremities Results - Labs CBC & Chem 7: 12/10/21 06:59 12/10/21 06:59 Labs: Laboratory Last Values WBC 8.4 K/mm3 (4.5-11.0) 12/10/21 06:59 RBC 3.35 M/mm3 (3.65-5.03) L 12/10/21 06:59 Hgb 10.2 gm/dl (10.1-14.3) 12/10/21 06:59 Hct 31.4 % (30.3-42.9) 12/10/21 06:59 MCV 94 fl (79-97) 12/10/21 06:59 MCH 31 pg (28-32) 12/10/21 06:59 MCHC 33 % (30-34) 12/10/21 06:59 RDW 16.1 % (13.2-15.2) H 12/10/21 06:59 Plt Count 250 K/mm3 (140-440) 12/10/21 06:59 Lymph % (Auto) 13.5 % (13.4-35.0) 12/10/21 06:59 [place] % (Auto) 9.9 % (0.0-7.3) H 12/10/21 06:59 Eos % (Auto) 1.7 % (0.0-4.3) 12/10/21 06:59 Baso % (Auto) 0.2 % (0.0-1.8) 12/10/21 06:59 Lymph # (Auto) 1.1 K/mm3 (1.2-5.4) L 12/10/21 06:59 [place] # (Auto) 0.8 K/mm3 (0.0-0.8) 12/10/21 06:59 Eos # (Auto) 0.1 K/mm3 (0.0-0.4) 12/10/21 06:59 Baso # (Auto) 0.0 K/mm3 (0.0-0.1) 12/10/21 06:59 Seg Neutrophils % 74.7 % (40.0-70.0) H 12/10/21 06:59 Seg Neutrophils # 6.3 K/mm3 (1.8-7.7) 12/10/21 06:59 Sodium 151 mmol/L (137-145) H 12/10/21 06:59 Potassium 3.6 mmol/L (3.6-5.0) D 12/10/21 06:59 Chloride 115.5 mmol/L (98-107) H 12/10/21 06:59 Carbon Dioxide 27 mmol/L (22-30) 12/10/21 06:59 Anion Gap 12 mmol/L 12/10/21 06:59 BUN 37 mg/dL (7-17) H 12/10/21 06:59 Creatinine 1.9 mg/dL (0.6-1.2) H 12/10/21 06:59 Estimated GFR 26 ml/min 12/10/21 06:59 BUN/Creatinine Ratio 19 % 12/10/21 06:59 Glucose 111 mg/dL (65-100) H 12/10/21 06:59 Calcium 8.5 mg/dL (8.4-10.2) 12/10/21 06:59 Phosphorus 2.80 mg/dL (2.5-4.5) 12/03/21 07:23 Magnesium 2.80 mg/dL (1.7-2.3) H 12/10/21 06:59 Total Bilirubin 0.60 mg/dL (0.1-1.2) 12/01/21 04:00 AST 34 units/L (5-40) 12/01/21 04:00 ALT 33 units/L (7-56) 12/01/21 04:00 Alkaline Phosphatase 80 units/L (35-129) 12/01/21 04:00 Total Creatine Kinase 241 units/L (30-135) H 12/02/21 05:05 Total Protein 7.2 g/dL (6.3-8.2) 12/01/21 04:00 Albumin 3.7 g/dL (3.9-5) L 12/01/21 04:00 Albumin/Globulin Ratio 1.1 % 12/01/21 04:00 TSH 1.280 mlU/mL (0.270-4.200) 11/29/21 13:05 Urine Color Straw (Yellow) 11/29/21 14:10 Urine Turbidity Clear (Clear) 11/29/21 14:10 Urine pH 6.0 (5.0-7.0) 11/29/21 14:10 Ur Specific [place] 1.005 (1.003-1.030) 11/29/21 14:10 Urine Protein 30 mg/dl mg/dL (Negative) 11/29/21 14:10 Urine Glucose (UA) Negative mg/dL (Negative) 11/29/21 14:10 Urine Ketones 15 mg/dL (Negative) 11/29/21 14:10 Urine Blood 1+ (Negative) 11/29/21 14:10 Urine Nitrite Negative (Negative) 11/29/21 14:10 Ur Reducing Substances Not Reportable 11/29/21 14:10 Urine Bilirubin Negative (Negative) 11/29/21 14:10 Urine Ictotest Not Reportable 11/29/21 14:10 Urine Urobilinogen < 2.0 mg/dL (<2.0) 11/29/21 14:10 Ur Leukocyte Esterase Negative (Negative) 11/29/21 14:10 Urine WBC (Auto) 2.0 /HPF (0.0-6.0) 11/29/21 14:10 Urine RBC (Auto) 4.0 /HPF (0.0-6.0) 11/29/21 14:10 U Epithel Cells (Auto) < 1.0 /HPF (0-13.0) 11/29/21 14:10 Salicylates < 0.3 mg/dL (2.8-20.0) L 11/29/21 13:05 Urine Opiates Screen Negative 11/29/21 14:10 Urine Methadone Screen Negative 11/29/21 14:10 Acetaminophen 5.0 ug/mL (10.0-30.0) L 11/29/21 13:05 Ur Barbiturates Screen Negative 11/29/21 14:10 Ur Phencyclidine Scrn Negative 11/29/21 14:10 Ur Amphetamines Screen Negative 11/29/21 14:10 U Benzodiazepines Scrn Negative 11/29/21 14:10 Urine Cocaine Screen Negative 11/29/21 14:10 U Marijuana (THC) Screen Negative 11/29/21 14:10 Drugs of Abuse Note Disclamer 11/29/21 14:10 Plasma/Serum Alcohol < 0.01 % (0-0.07) 11/29/21 13:05 SARS-CoV-2 (PCR) Positive (Negative) A 12/08/21 14:15 Se[place]our/IV: Voiding Method Incontinent Active Medications - Current Medications Current Medications: Generic Name Dose Route Start Last Admin Trade Name Freq PRN Reason Stop Dose Admin Acetaminophen 650 mg 11/30/21 19:46 Acetaminophen 325 Mg Tab PO Q4H PRN Pain MILD(1-3)/Fever >100.5/MERCEDES Citalopram Hydrobromide 20 mg 11/30/21 10:00 12/10/21 10:18 Citalopram 20 Mg Tab PO 20 mg QDAY UCHE Administration Cyanocobalamin 1,000 mcg 11/30/21 10:00 12/10/21 10:18 Cyanocobalamin (Vit B-12) 1000 Mcg Tab PO 1,000 mcg QDAY UCHE Administration Divalproex Sodium 125 mg 12/09/21 14:00 12/10/21 20:[address] 125 Mg Tab PO 125 mg TID UCHE Administration Docusate Sodium 100 mg 11/30/21 10:00 12/10/21 10:19 Docusate Sodium 100 Mg/10 Ml Oral Liqd PO 100 mg QDAY UCHE Administration Donepezil HCl 10 mg 11/29/21 22:00 12/10/21 22:49 Donepezil 10 Mg Tab PO Not Given QHS UCHE Famotidine 20 mg 12/02/21 10:00 12/10/21 10:19 Famotidine 20 Mg Tab PO 20 mg QDAY UCHE Administration Hydromorphone HCl 0.5 mg 12/01/21 16:08 12/11/21 02:41 Hydromorphone 0.5 Mg/0.5 Ml Inj IV 0.5 mg Q6H PRN Administration Pain , Severe (7-10) Dextrose/Sodium Chloride 1,000 mls @ 42 mls/hr 12/08/21 15:00 12/09/21 15:12 D5/0.45ns IV 42 mls/hr DIRECT UCHE Administration Levothyroxine Sodium 100 mcg 11/30/21 06:00 12/11/21 06:00 Levothyroxine 100 Mcg Tab PO 100 mcg DAILY@0600 UC[facility] Administration Memantine 5 mg 11/29/21 22:00 12/10/21 22:49 Memantine 5 Mg Tab PO Not Given Q12HR UCHE Mirtazapine 15 mg 12/01/21 22:00 12/10/21 22:49 Mirtazapine 15 Mg Tab PO Not Given QHS UCHE Morphine Sulfate 2 mg 11/30/21 19:54 Morphine 2 Mg/1 Ml Inj IV Q4H PRN Pain, Moderate (4-6) Oxcarbazepine 600 mg 11/29/21 22:00 12/10/21 22:49 Oxcarbazepine 300 Mg Tab PO Not Given BID UCHE Potassium Chloride 30 meq 12/03/21 18:00 12/10/21 10:18 Potassium Chloride Er 10 Meq Tab PO 30 meq QDAY UCHE Administration Quetiapine Fumarate 50 mg 12/09/21 22:00 12/10/21 22:49 Quetiapine 25 Mg Tab PO Not Given QHS UCHE Quetiapine Fumarate 25 mg 12/09/21 14:00 12/10/21 16:50 Quetiapine 25 Mg Tab PO 25 mg BID@0800,1400 [facility] Administration Sodium Chloride 10 ml 11/30/21 22:00 12/10/21 22:49 Sodium Chloride 0.9% 10 Ml Flush Syringe IV Not Given BID UCHE Sodium Chloride 10 ml 11/30/21 19:46 12/11/21 02:41 Sodium Chloride 0.9% 10 Ml Flush Syringe IV 10 ml PRN PRN Administration LINE FLUSH Sterile Water 1.2 ml 12/08/21 22:00 12/10/21 22:50 Water For Inj Sterile (Pf) 10 Ml IM Not Given BID UCHE Ziprasidone 20 mg 11/30/21 21:00 12/10/21 20:42 Ziprasidone Mesylate 20 Mg Vial IM 20 mg Q12H UCHE Administration Nutrition/Malnutrition Assess - Dietary Evaluation Nutrition/Malnutrition Findings: Nutrition Notes Start: 12/05/21 11:40 Freq: Status: Active Protocol: Document 12/05/21 11:40 EARNEST (Rec: 12/05/21 11:45 EARNEST [email or web address]) Nutrition Notes Need for Assessment generated from: LOS Initial or Follow up Brief Note Current Diagnosis Acute Kidney Injury Other Pertinent Diagnosis Traumatic CHI, Acute psychosis , COVID-19 (+) Current Diet Cardiac Labs/Tests reviewed Pertinent Medications Vit B12, 30mEq KCl Height 5 ft 6 in Weight 77 kg [place] Body Weight (kg) 59.09 BMI 27.3 Weight Status Overweight Subjective/Other Information Pt screened for LOS. She has consumed 54% of meals since admission. She is a 1013 and has a sitter at bedside. Percent of energy/protein needs met: 77% energy 74% pro Burn Absent Trauma Absent Current % PO Fair (50-74%) Minimum of two criteria No Is patient on ventilator? No Is Patient Ambulatory and/or Out of Bed No REE-([place]-St. Jeor-confined to bed) 4416.142 Calculation Used for Recommendations [place]-St Jeor Additional Notes Pro needs 0.8-1.2g/k-92g/ day Fluid needs 1ml/kcal Nutrition Intervention Follow-Up By: 12/12/21 Additional Comments F/U: intakes, wt
[2021-12-11] MEDS: DIVALPROEX DR 125 MG TAB PO SCH (08:49)
[2021-12-11] MEDS: QUEtiapine 25 MG TAB PO SCH ×3 (08:49→22:13)
[2021-12-11] MEDS: DOCUSATE SODIUM 100 MG/10 ML ORAL LIQD PO SCH (09:03)
[2021-12-11] MEDS: CITALOPRAM 20 MG TAB PO SCH (09:03)
[2021-12-11] MEDS: FAMOTIDINE 20 MG TAB PO SCH (09:03)
[2021-12-11] MEDS: POTASSIUM CHLORIDE ER 10 MEQ TAB PO SCH (09:03)
[2021-12-11] MEDS: CYANOCOBALAMIN (VIT B-12) 1000 MCG TAB PO SCH (09:03)
[2021-12-11] MEDS: OXcarbazepine 300 MG TAB PO SCH ×2 (09:03→22:13)
[2021-12-11] MEDS: WATER FOR INJ Sterile (PF) 10 ML IM SCH (09:05)
[2021-12-11] MEDS: ZIPRASIDONE MESYLATE 20 MG VIAL IM SCH (09:15)
[2021-12-11] MEDS: MEMANTINE 5 MG TAB PO SCH ×2 (10:00→22:13)
--- NOTE | 2021-12-11 12:13 | Progress Note ---
Subjective - Reason for Consult Consult date: 12/11/21 Reason for consult: Mental health evaluation - Chief Complaint Chief complaint: The patient was seen today. She is resting quietly in bed but easily aroused. Start [place] 300mg po Q8hrs for mood stabilizing. VIEW OF SYSTEMS Unable to obtain MENTAL STATUS EXAMINATION Assessment (1) Delirium (2) Bipolar Disorder Current Visit: Yes Status: Acute Treatment Plan Start [place] 300mg po Q8hrs Continue Mirtazepine 15mg po qhs to promote rest Start Seroquel 50mg qhs Start Seroquel 25mg po BID Sitter: Defer to primary Medical: per primary Disposition: Do not Recommend acute psychiatric inpatient treatment Will follow for medication management. Thanks Case staffed with Dr. Nava Mental Status Exam - Vital signs Last Vital Signs Temp 98.6 F 12/11/21 08:07 Pulse 104 H 12/11/21 08:07 Resp 18 12/11/21 08:07 BP 122/59 12/11/21 08:07 Pulse Ox 96 12/11/21 08:07
[2021-12-11] MEDS: LITHIUM CARBONATE 300 MG CAP PO SCH ×2 (15:15→22:12)
[2021-12-11] MEDS: D5W/0.45% NACL 1,000 ML IV SCH (18:27)
[2021-12-11] MEDS: DONEPEZIL 10 MG TAB PO SCH (22:12)
[2021-12-11] MEDS: MIRTAZAPINE 15 MG TAB PO SCH (22:13)
[2021-12-11] MEDS: WATER FOR INJ Sterile (PF) 10 ML IM PRN (22:25)
[2021-12-11] MEDS: ZIPRASIDONE MESYLATE 20 MG VIAL IM PRN (22:25)
[2021-12-12] MEDS: FREE WATER PO SCH ×4 (02:46→21:05)
[2021-12-12] MEDS: HYDROmorphone 0.5 MG/0.5 ML INJ IV PRN ×2 (05:38→14:45)
[2021-12-12] MEDS: LITHIUM CARBONATE 300 MG CAP PO SCH ×3 (05:38→21:04)
[2021-12-12] MEDS: LEVOTHYROXINE 100 MCG TAB PO SCH (05:38)
[2021-12-12 07:50] LABS: Calcium 8.9 mg/dL (8.4-10.2)
[2021-12-12] MEDS: QUEtiapine 25 MG TAB PO SCH ×3 (08:21→21:04)
--- NOTE | 2021-12-12 09:45 | Progress Note ---
Assessment and Plan Assessment and plan: This is a 71-year-old female with jail psych issues admitted for acute psychosis and was found with small subdural hematoma most likely related to trauma from throwing herself on the floor and hitting her head while in the ED. Hospital Course to Date: 12/01: Repeat CT head pending. Mentation improved this am, patient drowsy but calmer this am, following simple commands. Neurology and NeuroSurgery consults pending. Keep patient as 1013 status, Mental health/Psych is also following. Continue current antipsychotics meds and PRN Haldol, close Qtc monitoring. Continue neuro check per protocol. Patient COVID PCR positive, patient remains stable on RA and hemodynamicaly stable. Continue to monitor for now, ID also consulted for further recs. 12/02: Repeat CT head/reviewed, subdural hematoma stable. NeuroSurgery recommendations noted, will hold off AC for now. PT/OT/Speech consulted. Patient with persistent hypernatremia, D5W increased to 75ml/hr. Continue to encourage PO intake and trend BMP. Mental health recommends inpatient psych once medically clear. Patient is stable for transfer to the floor. 12/03; remains clam but still confused. psych adjusting medications and recommended acute inpt psych treatment. cont Mirtazepine 15mg po qhs to promote rest, Valproic 500mg IV q12h, Decrease seroquel 300mg qhs cont d5w @ 75ml/hr, follow BMP to trend Na. 12/04; patient is more calm and cooperative. Sodium level stable at 150s. Continue D5W, follow BMP. 12/05: Na level normal today. patient c/o dizziness, order PT eval. follow psych recommendation 12/06: Patient is cleared by psych for d/c. [facility] and can't go back there till Wednesday per CM. cont to follow clinically 12/07: patient was little agitated this am, currently very clam. pending placment to [facility] - likely on Wednesday, cont to follow 12/08: Patient started to be combative again, not eating and keeping food/meds inside her mouth only. RN used IM meds to calm her down this morning. Discussed with Son and by phone. wait for repeat Psych eval and recommendation. Resume iv fluid as she has stopped eating. repeat labs 12/09; patient is severely agitated, refusing to eat, requiring restraints, will check for speech therapy for swallow evaluation and diet and nutrition access if needed 12/10; confused and agitated . safety sitter in the room 12/11; patient is more alert and awake today, lithium started by psych Unable to admit to [facility] due to COVID-positive x2 Followup COVID test ordered for tomorrow 12/12; hypernatremia, D5W, free water orally, COVID test negative Patient can be discharged, pending placement Assessment and Plan #Traumatic Closed Head Injury #Small Subdural Hematoma Serial CT scans head, subdural hematoma stable Neurosurgeon evaluated the time of admission, no surgical intervention, supportive care Continue supportive care, Neurochecks Imagings reviewed, Mildly comminuted fracture of the anterior and posterior denney of the left maxillary sinus and small subdural hematoma noted #Acute Psychosis Presented in acute psychosis, agitated and combative. Threw herself on the floor and hit her head Patient is off 1013 status, sitter at the bedside Continue current antipsychotics meds Family requested to restart lithium as lithium keeps her calm I discussed with psychiatrist, they discussed with the family and restarted lithium today 12/11/2021 Requested the psych team the possibility of admitting to [facility] However they refused due to positive COVID test x2 Repeat Yee PCR test tomorrow August 22 #COVID-19 Infection - COVID PCR x2 positive - Patient received both dose of Yee vaccine, but no booster - CXR with Bilateral opacities - Patient remains stable on RA, afebrile, with no WBCs - Will continue to monitor for now - ID consulted, no indications for treatment at this time - Per ID If patient develops hypoxia, initiate Remdesivir and steroids #BERNICE (Acute Kidney Injury) most likely Vasomotor Nephropathy Trending down, monitor renal function, avoid nephrotoxin Nephrology consult if needed #Acute Hypernatremia, resolved - Probably due to dehydration Free water by mouth 250 mL 4 times a day - With persistent hypernatremia, continue gentle hydration D5W increased to 75ml/hr - Avoid nephrotoxic medications; Renally dose medications - Monitor and replace electrolytes as needed #Rhabdomyolysis CPK levels improved Closely monitor #Hypothyroidism - Continue supportive care - TSH was normal - Resumed Synthroid #GI/DVT Prophylaxis - PPI- pepcid - SCDs to bilateral lower extremities while in bed #Advance Care Planning - Disease education data, care plan, diagnoses, and prognosis were discussed with patient's son via phone. Patient is a FULL code. Patient's son acknowledged understanding and agreed with current care plan. DC planning per case management Possible transfer to inpatient psych facility when medically stable. Plan of care reviewed with the patient's nurse, the psychiatrist And the case management History Interval history: I have seen and examined the patient at the bedside this morning safety sitter in the room, no new overnight events reported by the nursing Patient is more calm today however is confused and refused to eat Vital signs reviewed Hospitalist Physical - Constitutional Vitals: Temp Pulse Resp BP Pulse Ox 98.6 F 111 H 18 135/61 100 12/11/21 22:07 12/11/21 22:09 12/12/21 08:25 12/11/21 22:07 12/12/21 08:25 General appearance: Present: mild distress, well-nourished, other (Patient is confused) - EENT Eyes: Present: PERRL, EOM intact - Neck Neck: Present: supple, normal ROM - Respiratory Respiratory effort: normal Respiratory: bilateral: diminished, negative: rales, rhonchi, wheezing - Cardiovascular Rhythm: regular Heart Sounds: Present: S1 & S2 - Extremities Extremities: no ischemia, No edema - Abdominal General gastrointestinal: soft, non-tender, non-distended, normal bowel sounds - Integumentary Integumentary: Present: clear, warm - Psychiatric Psychiatric: appropriate mood/affect, cooperative - Neurologic Neurologic: CNII-XII intact, moves all extremities Results - Labs CBC & Chem 7: 12/10/21 06:59 12/12/21 07:18 Labs: Laboratory Last Values WBC 8.4 K/mm3 (4.5-11.0) 12/10/21 06:59 RBC 3.35 M/mm3 (3.65-5.03) L 12/10/21 06:59 Hgb 10.2 gm/dl (10.1-14.3) 12/10/21 06:59 Hct 31.4 % (30.3-42.9) 12/10/21 06:59 MCV 94 fl (79-97) 12/10/21 06:59 MCH 31 pg (28-32) 12/10/21 06:59 MCHC 33 % (30-34) 12/10/21 06:59 RDW 16.1 % (13.2-15.2) H 12/10/21 06:59 Plt Count 250 K/mm3 (140-440) 12/10/21 06:59 Lymph % (Auto) 13.5 % (13.4-35.0) 12/10/21 06:59 [place] % (Auto) 9.9 % (0.0-7.3) H 12/10/21 06:59 Eos % (Auto) 1.7 % (0.0-4.3) 12/10/21 06:59 Baso % (Auto) 0.2 % (0.0-1.8) 12/10/21 06:59 Lymph # (Auto) 1.1 K/mm3 (1.2-5.4) L 12/10/21 06:59 [place] # (Auto) 0.8 K/mm3 (0.0-0.8) 12/10/21 06:59 Eos # (Auto) 0.1 K/mm3 (0.0-0.4) 12/10/21 06:59 Baso # (Auto) 0.0 K/mm3 (0.0-0.1) 12/10/21 06:59 Seg Neutrophils % 74.7 % (40.0-70.0) H 12/10/21 06:59 Seg Neutrophils # 6.3 K/mm3 (1.8-7.7) 12/10/21 06:59 Sodium 154 mmol/L (137-145) H 12/12/21 07:18 Potassium 4.3 mmol/L (3.6-5.0) 12/12/21 07:18 Chloride 120.0 mmol/L (98-107) H 12/12/21 07:18 Carbon Dioxide 27 mmol/L (22-30) 12/12/21 07:18 Anion Gap 11 mmol/L 12/12/21 07:18 BUN 27 mg/dL (7-17) H 12/12/21 07:18 Creatinine 2.0 mg/dL (0.6-1.2) H 12/12/21 07:18 Estimated GFR 25 ml/min 12/12/21 07:18 BUN/Creatinine Ratio 14 % 12/12/21 07:18 Glucose 87 mg/dL (65-100) 12/12/21 07:18 Calcium 8.9 mg/dL (8.4-10.2) 12/12/21 07:18 Phosphorus 2.80 mg/dL (2.5-4.5) 12/03/21 07:23 Magnesium 2.90 mg/dL (1.7-2.3) H 12/12/21 07:18 Total Bilirubin 0.60 mg/dL (0.1-1.2) 12/01/21 04:00 AST 34 units/L (5-40) 12/01/21 04:00 ALT 33 units/L (7-56) 12/01/21 04:00 Alkaline Phosphatase 80 units/L (35-129) 12/01/21 04:00 Total Creatine Kinase 241 units/L (30-135) H 12/02/21 05:05 Total Protein 7.2 g/dL (6.3-8.2) 12/01/21 04:00 Albumin 3.7 g/dL (3.9-5) L 12/01/21 04:00 Albumin/Globulin Ratio 1.1 % 12/01/21 04:00 TSH 1.280 mlU/mL (0.270-4.200) 11/29/21 13:05 Urine Color Straw (Yellow) 11/29/21 14:10 Urine Turbidity Clear (Clear) 11/29/21 14:10 Urine pH 6.0 (5.0-7.0) 11/29/21 14:10 Ur Specific [place] 1.005 (1.003-1.030) 11/29/21 14:10 Urine Protein 30 mg/dl mg/dL (Negative) 11/29/21 14:10 Urine Glucose (UA) Negative mg/dL (Negative) 11/29/21 14:10 Urine Ketones 15 mg/dL (Negative) 11/29/21 14:10 Urine Blood 1+ (Negative) 11/29/21 14:10 Urine Nitrite Negative (Negative) 11/29/21 14:10 Ur Reducing Substances Not Reportable 11/29/21 14:10 Urine Bilirubin Negative (Negative) 11/29/21 14:10 Urine Ictotest Not Reportable 11/29/21 14:10 Urine Urobilinogen < 2.0 mg/dL (<2.0) 11/29/21 14:10 Ur Leukocyte Esterase Negative (Negative) 11/29/21 14:10 Urine WBC (Auto) 2.0 /HPF (0.0-6.0) 11/29/21 14:10 Urine RBC (Auto) 4.0 /HPF (0.0-6.0) 11/29/21 14:10 U Epithel Cells (Auto) < 1.0 /HPF (0-13.0) 11/29/21 14:10 Salicylates < 0.3 mg/dL (2.8-20.0) L 11/29/21 13:05 Urine Opiates Screen Negative 11/29/21 14:10 Urine Methadone Screen Negative 11/29/21 14:10 Acetaminophen 5.0 ug/mL (10.0-30.0) L 11/29/21 13:05 Ur Barbiturates Screen Negative 11/29/21 14:10 Ur Phencyclidine Scrn Negative 11/29/21 14:10 Ur Amphetamines Screen Negative 11/29/21 14:10 U Benzodiazepines Scrn Negative 11/29/21 14:10 Urine Cocaine Screen Negative 11/29/21 14:10 U Marijuana (THC) Screen Negative 11/29/21 14:10 Drugs of Abuse Note Disclamer 11/29/21 14:10 Plasma/Serum Alcohol < 0.01 % (0-0.07) 11/29/21 13:05 SARS-CoV-2 (PCR) Negative (Negative) 12/12/21 07:10 [place]/IV: Voiding Method Incontinent Active Medications - Current Medications Current Medications: Generic Name Dose Route Start Last Admin Trade Name Freq PRN Reason Stop Dose Admin Acetaminophen 650 mg 11/30/21 19:46 Acetaminophen 325 Mg Tab PO Q4H PRN Pain MILD(1-3)/Fever >100.5/MERCEDES Citalopram Hydrobromide 20 mg 11/30/21 10:00 12/11/21 09:03 Citalopram 20 Mg Tab PO 20 mg QDAY UCHE Administration Cyanocobalamin 1,000 mcg 11/30/21 10:00 12/11/21 09:03 Cyanocobalamin (Vit B-12) 1000 Mcg Tab PO 1,000 mcg QDAY UCHE Administration Docusate Sodium 100 mg 11/30/21 10:00 12/11/21 09:03 Docusate Sodium 100 Mg/10 Ml Oral Liqd PO 100 mg QDAY UCHE Administration Donepezil HCl 10 mg 11/29/21 22:00 12/11/21 22:12 Donepezil 10 Mg Tab PO 10 mg QHS UCHE Administration Famotidine 20 mg 12/02/21 10:00 12/11/21 09:03 Famotidine 20 Mg Tab PO 20 mg QDAY UCHE Administration Hydromorphone HCl 0.5 mg 12/01/21 16:08 12/12/21 05:38 Hydromorphone 0.5 Mg/0.5 Ml Inj IV 0.5 mg Q6H PRN Administration Pain , Severe (7-10) Dextrose 1,000 mls @ 150 mls/hr 12/12/21 10:00 D5w IV DIRECT UCHE Levothyroxine Sodium 100 mcg 11/30/21 06:00 12/12/21 05:38 Levothyroxine 100 Mcg Tab PO 100 mcg DAILY@0600 UCHE Administration Gerald Carbonate 300 mg 12/11/21 14:00 12/12/21 05:38 Gerald Carbonate 300 Mg Cap PO 300 mg Q8HR UCHE Administration Memantine 5 mg 11/29/21 22:00 12/11/21 22:13 Memantine 5 Mg Tab PO 5 mg Q12HR UCHE Administration Mirtazapine 15 mg 12/01/21 22:00 12/11/21 22:13 Mirtazapine 15 Mg Tab PO 15 mg QHS UCHE Administration Morphine Sulfate 2 mg 11/30/21 19:54 Morphine 2 Mg/1 Ml Inj IV Q4H PRN Pain, Moderate (4-6) Oxcarbazepine 600 mg 11/29/21 22:00 12/11/21 22:13 Oxcarbazepine 300 Mg Tab PO 600 mg BID UCHE Administration Potassium Chloride 30 meq 12/03/21 18:00 12/11/21 09:03 Potassium Chloride Er 10 Meq Tab PO 30 meq QDAY UCHE Administration Quetiapine Fumarate 50 mg 12/09/21 22:00 12/11/21 22:13 Quetiapine 25 Mg Tab PO 50 mg QHS UCHE Administration Quetiapine Fumarate 25 mg 12/09/21 14:00 12/12/21 08:21 Quetiapine 25 Mg Tab PO 25 mg BID@0800,1400 [facility] Administration Sodium Chloride 10 ml 11/30/21 22:00 12/11/21 22:13 Sodium Chloride 0.9% 10 Ml Flush Syringe IV 10 ml BID UCHE Administration Sodium Chloride 10 ml 11/30/21 19:46 12/11/21 02:41 Sodium Chloride 0.9% 10 Ml Flush Syringe IV 10 ml PRN PRN Administration LINE FLUSH Sterile Water 1.2 ml 12/11/21 12:00 12/11/21 22:25 Water For Inj Sterile (Pf) 10 Ml IM 1.2 ml Q12HR PRN Administration WITH GEODON Ziprasidone 20 mg 12/11/21 11:14 12/11/21 22:25 Ziprasidone Mesylate 20 Mg Vial IM 20 mg Q12H PRN Administration AGITATION Nutrition/Malnutrition Assess - Dietary Evaluation Nutrition/Malnutrition Findings: Nutrition Notes Start: 12/05/21 11:40 Freq: Status: Active Protocol: Document 12/05/21 11:40 EARNEST (Rec: 12/05/21 11:45 [id number]) Nutrition Notes Need for Assessment generated from: LOS Initial or Follow up Brief Note Current Diagnosis Acute Kidney Injury Other Pertinent Diagnosis Traumatic CHI, Acute psychosis , COVID-19 (+) Current Diet Cardiac Labs/Tests reviewed Pertinent Medications Vit B12, 30mEq KCl Height 5 ft 6 in Weight 77 kg [place] Body Weight (kg) 59.09 BMI 27.3 Weight Status Overweight Subjective/Other Information Pt screened for LOS. She has consumed 54% of meals since admission. She is a 1013 and has a sitter at bedside. Percent of energy/protein needs met: 77% energy 74% pro Burn Absent Trauma Absent Current % PO Fair (50-74%) Minimum of two criteria No Is patient on ventilator? No Is Patient Ambulatory and/or Out of Bed No REE-([place]-St. Jeor-confined to bed) [phone] Calculation Used for Recommendations [place] Jeor Additional Notes Pro needs 0.8-1.2g/k-92g/ day Fluid needs 1ml/kcal Nutrition Intervention Follow-Up By: 12/12/21 Additional Comments F/U: intakes, wt
[2021-12-12] MEDS: FAMOTIDINE 20 MG TAB PO SCH (10:28)
[2021-12-12] MEDS: CYANOCOBALAMIN (VIT B-12) 1000 MCG TAB PO SCH (10:28)
[2021-12-12] MEDS: POTASSIUM CHLORIDE ER 10 MEQ TAB PO SCH (10:28)
[2021-12-12] MEDS: MEMANTINE 5 MG TAB PO SCH ×2 (10:28→21:05)
[2021-12-12] MEDS: CITALOPRAM 20 MG TAB PO SCH (10:28)
[2021-12-12] MEDS: DOCUSATE SODIUM 100 MG/10 ML ORAL LIQD PO SCH (10:28)
[2021-12-12] MEDS: OXcarbazepine 300 MG TAB PO SCH ×2 (10:30→21:06)
--- NOTE | 2021-12-12 14:06 | Progress Note ---
Subjective - Reason for Consult Consult date: 12/12/21 Reason for consult: AMS - Chief Complaint Chief complaint: The patient was seen today. She is holding on the rails, rocking back and forth in the bed trying to raise herself up. She appears confused. She does not respond when I call her name, she just continues to try and pull herself up. The sitter at bedside says the patient has been resting, and at times seems restless. VIEW OF SYSTEMS Unable to obtain MENTAL STATUS EXAMINATION Unable to obtain Assessment (1) Delirium (2) Bipolar Disorder Treatment Plan Increased Night dose Seroquel 75mg po qhs Sitter: Defer to primary Medical: per primary Disposition: Do not Recommend acute psychiatric inpatient treatment Will follow for medication management. Thanks Case staffed with Dr. Nava Mental Status Exam - Vital signs Last Vital Signs Temp 98.6 F 12/11/21 22:07 Pulse 111 H 12/11/21 22:09 Resp 18 12/12/21 08:25 BP 135/61 12/11/21 22:07 Pulse Ox 100 12/12/21 08:25
[2021-12-12] MEDS: MORPHINE 2 MG/1 ML INJ IV PRN (17:59)
--- NOTE | 2021-12-12 19:10 | Progress Note ---
Assessment and Plan Assessment and plan: This is a 71-year-old female with snf psych issues admitted for acute psychosis and was found with small subdural hematoma most likely related to trauma from throwing herself on the floor and hitting her head while in the ED. Hospital Course to Date: 12/01: Repeat CT head pending. Mentation improved this am, patient drowsy but calmer this am, following simple commands. Neurology and NeuroSurgery consults pending. Keep patient as 1013 status, Mental health/Psych is also following. Continue current antipsychotics meds and PRN Haldol, close Qtc monitoring. Continue neuro check per protocol. Patient COVID PCR positive, patient remains stable on RA and hemodynamicaly stable. Continue to monitor for now, ID also consulted for further recs. 12/02: Repeat CT head/reviewed, subdural hematoma stable. NeuroSurgery recommendations noted, will hold off AC for now. PT/OT/Speech consulted. Patient with persistent hypernatremia, D5W increased to 75ml/hr. Continue to encourage PO intake and trend BMP. Mental health recommends inpatient psych once medically clear. Patient is stable for transfer to the floor. 12/03; remains clam but still confused. psych adjusting medications and recommended acute inpt psych treatment. cont Mirtazepine 15mg po qhs to promote rest, Valproic 500mg IV q12h, Decrease seroquel 300mg qhs cont d5w @ 75ml/hr, follow BMP to trend Na. 12/04; patient is more calm and cooperative. Sodium level stable at 150s. Continue D5W, follow BMP. 12/05: Na level normal today. patient c/o dizziness, order PT eval. follow psych recommendation 12/06: Patient is cleared by psych for d/c. [facility] and can't go back there till Wednesday per CM. cont to follow clinically 12/07: patient was little agitated this am, currently very clam. pending placment to [facility] - likely on Wednesday, cont to follow 12/08: Patient started to be combative again, not eating and keeping food/meds inside her mouth only. RN used IM meds to calm her down this morning. Discussed with Son and by phone. wait for repeat Psych eval and recommendation. Resume iv fluid as she has stopped eating. repeat labs 12/09; patient is severely agitated, refusing to eat, requiring restraints, will check for speech therapy for swallow evaluation and diet and nutrition access if needed 12/10; confused and agitated . calendar control clerk blood bank in the room 12/11; patient is more alert and awake today, lithium started by psych Unable to admit to [facility] due to COVID-positive x2 Followup COVID test ordered for tomorrow 12/12; hypernatremia, D5W, free water orally, COVID test negative Patient can be discharged, pending placement Assessment and Plan #Traumatic Closed Head Injury #Small Subdural Hematoma Serial CT scans head, subdural hematoma stable Neurosurgeon evaluated the time of admission, no surgical intervention, supportive care Continue supportive care, Neurochecks Imagings reviewed, Mildly comminuted fracture of the anterior and posterior denney of the left maxillary sinus and small subdural hematoma noted #Acute Psychosis Presented in acute psychosis, agitated and combative. Threw herself on the floor and hit her head Patient is off 1013 status, sitter at the bedside Continue current antipsychotics meds Family requested to restart lithium as lithium keeps her calm I discussed with psychiatrist, they discussed with the family and restarted lithium today 12/11/2021 Requested the psych team the possibility of admitting to [facility] However they refused due to positive COVID test x2 Repeat Yee PCR test tomorrow August 22 #COVID-19 Infection[asymptomatic] COVID test positive 12/08/21 COVID test positive 12/12/21 COVID test negative - COVID PCR x2 positive, negative on 12/12/2021 - Patient received both dose of Yee vaccine, but no booster - CXR with Bilateral opacities - Patient remains stable on RA, afebrile, with no WBCs #BERNICE (Acute Kidney Injury) most likely Vasomotor Nephropathy Trending down, monitor renal function, avoid nephrotoxin Nephrology consult if needed #Acute Hypernatremia, resolved - Probably due to dehydration Free water by mouth 250 mL 4 times a day - With persistent hypernatremia, continue gentle hydration D5W increased to 75ml/hr - Avoid nephrotoxic medications; Renally dose medications - Monitor and replace electrolytes as needed #Rhabdomyolysis CPK levels improved Closely monitor #Hypothyroidism - Continue supportive care - TSH was normal - Resumed Synthroid #GI/DVT Prophylaxis - PPI- pepcid - SCDs to bilateral lower extremities while in bed #Advance Care Planning - Disease education data, care plan, diagnoses, and prognosis were discussed with patient's son via phone. Patient is a FULL code. Patient's son acknowledged understanding and agreed with current care plan. DC planning per case management Possible transfer to inpatient psych facility when medically stable. Plan of care reviewed with the patient's nurse, the psychiatrist And the case management Awaiting placement History Interval history: I have seen and examined the patient at the bedside Patient's chart and medications reviewed No new events reported by the nursing Vital signs noted Patient is very calm not in acute distress Noncommunicative fidgety her baseline Hospitalist Physical - Constitutional Vitals: Temp Pulse Resp BP Pulse Ox 98.6 F 111 H 20 135/61 100 12/11/21 22:07 12/11/21 22:09 12/12/21 17:59 12/11/21 22:07 12/12/21 08:25 General appearance: Present: mild distress, well-nourished, other (Patient is confused) - EENT Eyes: Present: PERRL, EOM intact - Neck Neck: Present: supple, normal ROM - Respiratory Respiratory effort: normal Respiratory: bilateral: diminished, negative: rales, rhonchi, wheezing - Cardiovascular Rhythm: regular Heart Sounds: Present: S1 & S2 - Extremities Extremities: no ischemia, No edema - Abdominal General gastrointestinal: soft, non-tender, non-distended, normal bowel sounds - Integumentary Integumentary: Present: clear, warm - Psychiatric Psychiatric: agitated ( confused), other (Noncommunicative) - Neurologic Neurologic: moves all extremities Results - Labs CBC & Chem 7: 12/10/21 06:59 12/13/21 15:59 Labs: Laboratory Last Values WBC 8.4 K/mm3 (4.5-11.0) 12/10/21 06:59 RBC 3.35 M/mm3 (3.65-5.03) L 12/10/21 06:59 Hgb 10.2 gm/dl (10.1-14.3) 12/10/21 06:59 Hct 31.4 % (30.3-42.9) 12/10/21 06:59 MCV 94 fl (79-97) 12/10/21 06:59 MCH 31 pg (28-32) 12/10/21 06:59 MCHC 33 % (30-34) 12/10/21 06:59 RDW 16.1 % (13.2-15.2) H 12/10/21 06:59 Plt Count 250 K/mm3 (140-440) 12/10/21 06:59 Lymph % (Auto) 13.5 % (13.4-35.0) 12/10/21 06:59 [place] % (Auto) 9.9 % (0.0-7.3) H 12/10/21 06:59 Eos % (Auto) 1.7 % (0.0-4.3) 12/10/21 06:59 Baso % (Auto) 0.2 % (0.0-1.8) 12/10/21 06:59 Lymph # (Auto) 1.1 K/mm3 (1.2-5.4) L 12/10/21 06:59 [place] # (Auto) 0.8 K/mm3 (0.0-0.8) 12/10/21 06:59 Eos # (Auto) 0.1 K/mm3 (0.0-0.4) 12/10/21 06:59 Baso # (Auto) 0.0 K/mm3 (0.0-0.1) 12/10/21 06:59 Seg Neutrophils % 74.7 % (40.0-70.0) H 12/10/21 06:59 Seg Neutrophils # 6.3 K/mm3 (1.8-7.7) 12/10/21 06:59 Sodium 154 mmol/L (137-145) H 12/12/21 07:18 Potassium 4.3 mmol/L (3.6-5.0) 12/12/21 07:18 Chloride 120.0 mmol/L (98-107) H 12/12/21 07:18 Carbon Dioxide 27 mmol/L (22-30) 12/12/21 07:18 Anion Gap 11 mmol/L 12/12/21 07:18 BUN 27 mg/dL (7-17) H 12/12/21 07:18 Creatinine 2.0 mg/dL (0.6-1.2) H 12/12/21 07:18 Estimated GFR 25 ml/min 12/12/21 07:18 BUN/Creatinine Ratio 14 % 12/12/21 07:18 Glucose 87 mg/dL (65-100) 12/12/21 07:18 Calcium 8.9 mg/dL (8.4-10.2) 12/12/21 07:18 Phosphorus 2.80 mg/dL (2.5-4.5) 12/03/21 07:23 Magnesium 2.90 mg/dL (1.7-2.3) H 12/12/21 07:18 Total Bilirubin 0.60 mg/dL (0.1-1.2) 12/01/21 04:00 AST 34 units/L (5-40) 12/01/21 04:00 ALT 33 units/L (7-56) 12/01/21 04:00 Alkaline Phosphatase 80 units/L (35-129) 12/01/21 04:00 Total Creatine Kinase 241 units/L (30-135) H 12/02/21 05:05 Total Protein 7.2 g/dL (6.3-8.2) 12/01/21 04:00 Albumin 3.7 g/dL (3.9-5) L 12/01/21 04:00 Albumin/Globulin Ratio 1.1 % 12/01/21 04:00 TSH 1.280 mlU/mL (0.270-4.200) 11/29/21 13:05 Urine Color Straw (Yellow) 11/29/21 14:10 Urine Turbidity Clear (Clear) 11/29/21 14:10 Urine pH 6.0 (5.0-7.0) 11/29/21 14:10 Ur Specific [place] 1.005 (1.003-1.030) 11/29/21 14:10 Urine Protein 30 mg/dl mg/dL (Negative) 11/29/21 14:10 Urine Glucose (UA) Negative mg/dL (Negative) 11/29/21 14:10 Urine Ketones 15 mg/dL (Negative) 11/29/21 14:10 Urine Blood 1+ (Negative) 11/29/21 14:10 Urine Nitrite Negative (Negative) 11/29/21 14:10 Ur Reducing Substances Not Reportable 11/29/21 14:10 Urine Bilirubin Negative (Negative) 11/29/21 14:10 Urine Ictotest Not Reportable 11/29/21 14:10 Urine Urobilinogen < 2.0 mg/dL (<2.0) 11/29/21 14:10 Ur Leukocyte Esterase Negative (Negative) 11/29/21 14:10 Urine WBC (Auto) 2.0 /HPF (0.0-6.0) 11/29/21 14:10 Urine RBC (Auto) 4.0 /HPF (0.0-6.0) 11/29/21 14:10 U Epithel Cells (Auto) < 1.0 /HPF (0-13.0) 11/29/21 14:10 Salicylates < 0.3 mg/dL (2.8-20.0) L 11/29/21 13:05 Urine Opiates Screen Negative 11/29/21 14:10 Urine Methadone Screen Negative 11/29/21 14:10 Acetaminophen 5.0 ug/mL (10.0-30.0) L 11/29/21 13:05 Ur Barbiturates Screen Negative 11/29/21 14:10 Ur Phencyclidine Scrn Negative 11/29/21 14:10 Ur Amphetamines Screen Negative 11/29/21 14:10 U Benzodiazepines Scrn Negative 11/29/21 14:10 Urine Cocaine Screen Negative 11/29/21 14:10 U Marijuana (THC) Screen Negative 11/29/21 14:10 Drugs of Abuse Note Disclamer 11/29/21 14:10 Plasma/Serum Alcohol < 0.01 % (0-0.07) 11/29/21 13:05 SARS-CoV-2 (PCR) Negative (Negative) 12/12/21 07:10 [place]/IV: Voiding Method Incontinent Active Medications - Current Medications Current Medications: Generic Name Dose Route Start Last Admin Trade Name Freq PRN Reason Stop Dose Admin Acetaminophen 650 mg 11/30/21 19:46 Acetaminophen 325 Mg Tab PO Q4H PRN Pain MILD(1-3)/Fever >100.5/MERCEDES Citalopram Hydrobromide 20 mg 11/30/21 10:00 12/12/21 10:28 Citalopram 20 Mg Tab PO 20 mg QDAY UCHE Administration Cyanocobalamin 1,000 mcg 11/30/21 10:00 12/12/21 10:28 Cyanocobalamin (Vit B-12) 1000 Mcg Tab PO 1,000 mcg QDAY UCHE Administration Docusate Sodium 100 mg 11/30/21 10:00 12/12/21 10:28 Docusate Sodium 100 Mg/10 Ml Oral Liqd PO 100 mg QDAY UCHE Administration Donepezil HCl 10 mg 11/29/21 22:00 12/11/21 22:12 Donepezil 10 Mg Tab PO 10 mg QHS UCHE Administration Famotidine 20 mg 12/02/21 10:00 12/12/21 10:28 Famotidine 20 Mg Tab PO 20 mg QDAY UCHE Administration Hydromorphone HCl 0.5 mg 12/01/21 16:08 12/12/21 14:45 Hydromorphone 0.5 Mg/0.5 Ml Inj IV 0.5 mg Q6H PRN Administration Pain , Severe (7-10) Dextrose 1,000 mls @ 100 mls/hr 12/12/21 10:00 D5w IV DIRECT UCHE Levothyroxine Sodium 100 mcg 11/30/21 06:00 12/12/21 05:38 Levothyroxine 100 Mcg Tab PO 100 mcg DAILY@0600 UCHE Administration [place] Carbonate 300 mg 12/11/21 14:00 12/12/21 13:46 [place] Carbonate 300 Mg Cap PO 300 mg Q8HR UCHE Administration Memantine 5 mg 11/29/21 22:00 12/12/21 10:28 Memantine 5 Mg Tab PO 5 mg Q12HR UCHE Administration Mirtazapine 15 mg 12/01/21 22:00 12/11/21 22:13 Mirtazapine 15 Mg Tab PO 15 mg QHS UCHE Administration Morphine Sulfate 2 mg 11/30/21 19:54 12/12/21 17:59 Morphine 2 Mg/1 Ml Inj IV 2 mg Q4H PRN Administration Pain, Moderate (4-6) Oxcarbazepine 600 mg 11/29/21 22:00 12/12/21 10:30 Oxcarbazepine 300 Mg Tab PO 600 mg BID UCHE Administration Potassium Chloride 30 meq 12/03/21 18:00 12/12/21 10:28 Potassium Chloride Er 10 Meq Tab PO 30 meq QDAY UCHE Administration Quetiapine Fumarate 25 mg 12/09/21 14:00 12/12/21 13:47 Quetiapine 25 Mg Tab PO 25 mg BID@0800,1400 UCHE Administration Quetiapine Fumarate 75 mg 12/12/21 14:08 Quetiapine 25 Mg Tab PO QHS UCHE Sodium Chloride 10 ml 11/30/21 22:00 12/12/21 10:29 Sodium Chloride 0.9% 10 Ml Flush Syringe IV 10 ml BID UCHE Administration Sodium Chloride 10 ml 11/30/21 19:46 12/11/21 02:41 Sodium Chloride 0.9% 10 Ml Flush Syringe IV 10 ml PRN PRN Administration LINE FLUSH Sterile Water 1.2 ml 12/11/21 12:00 12/11/21 22:25 Water For Inj Sterile (Pf) 10 Ml IM 1.2 ml Q12HR PRN Administration WITH GEODON Ziprasidone 20 mg 12/11/21 11:14 12/11/21 22:25 Ziprasidone Mesylate 20 Mg Vial IM 20 mg Q12H PRN Administration AGITATION Nutrition/Malnutrition Assess - Dietary Evaluation Nutrition/Malnutrition Findings: Nutrition Notes Start: 12/05/21 11:40 Freq: Status: Active Protocol: Document 12/12/21 10:04 GUERDA (Rec: 12/12/21 10:36 GUERDA [id number]) Nutrition Notes Initial or Follow up Assessment Current Diagnosis Acute Kidney Injury Other Pertinent Diagnosis Head Trauma/Subdural Hematoma, s/p COVID-19, Rabdomyolisis, Psychosis, ... Current Diet Cardiac Diet (since 12/08), Cardiac -Renal- Diet+D Suppl ( from 12/12). Labs/Tests 12/12: Na 154, Cl 120.0, BUN 27, Crea 2.0, Mg 2.9. Pertinent Medications 12/12: Vit B12, Levothyroxine, KCL 20mEq, others nutritionally unremarkable. Height 5 ft 6 in Weight 77 kg [place] Body Weight (kg) 59.09 BMI 27.3 Intake Prior to Admission Good Weight change and time frame Pt denies having loss body weight ASPHALT SMOOTHER. No body weight change reported in 1 week. Weight Status Overweight Subjective/Other Information RD consult for radha F/U on dietary advancement. Diet continues as prescribed, but Pt's PO intake of meals has been Negligible (0-25%), according to ADL notes. I will prescribe dietary supplements to compensate for poor or insufficient PO intake of meals during LOS. I will prescribe Renal modification to current diet to support Pt's BERNICE condition. Pt is on Room Air, O2 saturation @ 100%, according to Physical Assessment History notes. Pt has missing teeth, according to Physical Assessment History notes. Pt presents some unspecified bruises as signs of concern for skin risk at the time, according to Physical Assessment History notes. Pt will be possibly discharge to a psychiatric facility when clinically stable, according to Progress notes. Percent of energy/protein needs met: Prescribed Cardiac -Renal- Diet provides for energy/ protein needs (2,230 Kcal/85 g ) during LOS; additionally, Dietary Supplements will compensate for possible poor or insufficient PO intake of meals with 1,275 Kcal and 57 g of protein. Burn Absent Trauma Present GI Symptoms None Food Allergy No Skin Integrity/Comment Unspecified bruises. Current % PO Negligible Minimum of two criteria No Fluid Accumulation N/A Reduced Packaging Technician Strength N/A (non-severe) Protein-Calorie Malnutrition N\A #2 Nutrition Diagnosis Inadequate protein-energy intake Etiology Possibly associated with Psychosis. As Evidenced by Signs and Symptoms Diet continues as prescribed, but Pt's PO intake of meals has been Negligible (0-25%), according to ADL notes. #1 Nutrition Diagnosis Altered nutrition-related laboratory values Etiology BERNICE. As Evidenced by Signs and Symptoms 12/12: Na 154, Cl 120.0, BUN 27, Crea 2.0, Mg 2.9. Is patient on ventilator? No Is Patient Ambulatory and/or Out of Bed No REE-([facility]-confined to bed) 1573.896 Kcal/Kg value to use for calculation 22 Approximate Energy Requirements Using 1694 kcal/Kg Calculation Used for Recommendations Kcal/kg Additional Notes Protein: 1-1.2 g/Kg ABW; 77-92 g/day. Fluids: 1 ml/Kcal, or as per MD. Nutrition Intervention Change Diet Order: Modify to Cardiac -Renal- Diet , continue as tolerated. Add Supplement/Snack (indicate name/kcal Start 8 fl oz Nepro w/ /protein ) CARBSTEADY; TID. Provides kCal: 1,275 Provides Protein (gm) 57 Goal #1 Compensate, through dietary supplementation, for possible poor or insufficient PO intake of meals during LOS. Goal #2 Help reach and maintain acceptable chemistry lab values during LOS. Goal #3 Adjust the dietary intervention to better serve Pt's needs and clinical conditions during LOS. Follow-Up By: 12/19/21 Additional Comments Continue monitoring food tolerance, dietary supplements , %PO intake of meals, and BM.
[2021-12-12] MEDS: DONEPEZIL 10 MG TAB PO SCH (21:03)
[2021-12-12] MEDS: ZIPRASIDONE MESYLATE 20 MG VIAL IM PRN (21:03)
[2021-12-12] MEDS: WATER FOR INJ Sterile (PF) 10 ML IM PRN (21:04)
[2021-12-12] MEDS: MIRTAZAPINE 15 MG TAB PO SCH (21:06)
[2021-12-13] MEDS: FREE WATER PO SCH ×4 (02:51→21:59)
[2021-12-13] MEDS: LITHIUM CARBONATE 300 MG CAP PO SCH ×3 (05:52→22:01)
[2021-12-13] MEDS: DEXTROSE 5% IN WATER 1,000 ML IV SCH ×2 (05:52→14:37)
[2021-12-13] MEDS: LEVOTHYROXINE 100 MCG TAB PO SCH (05:52)
[2021-12-13] MEDS: QUEtiapine 25 MG TAB PO SCH ×3 (08:00→22:00)
[2021-12-13] MEDS: DOCUSATE SODIUM 100 MG/10 ML ORAL LIQD PO SCH (09:22)
[2021-12-13] MEDS: CYANOCOBALAMIN (VIT B-12) 1000 MCG TAB PO SCH (09:23)
[2021-12-13] MEDS: POTASSIUM CHLORIDE ER 10 MEQ TAB PO SCH (09:23)
[2021-12-13] MEDS: FAMOTIDINE 20 MG TAB PO SCH (09:23)
[2021-12-13] MEDS: CITALOPRAM 20 MG TAB PO SCH (09:24)
[2021-12-13] MEDS: OXcarbazepine 300 MG TAB PO SCH ×2 (09:39→22:00)
[2021-12-13] MEDS: MEMANTINE 5 MG TAB PO SCH ×2 (09:56→22:02)
--- NOTE | 2021-12-13 11:52 | Progress Note ---
Subjective - Reason for Consult Consult date: 12/13/21 Reason for consult: bipolar - Chief Complaint Chief complaint: The patient was seen today. She has a sitter at bedside. She is grabbing the rails trying to sit up. The patient is confused. The sitter says she's not combative but moves about a lot. VIEW OF SYSTEMS Unable to obtain MENTAL STATUS EXAMINATION Unable to obtain Assessment (1) Delirium (2) Bipolar Disorder Treatment Plan Continue Seroquel 75mg po qhs Sitter: Defer to primary Medical: per primary Disposition: Do not Recommend acute psychiatric inpatient treatment Will follow for medication management. Thanks Case staffed with Dr. Nava Mental Status Exam - Vital signs Last Vital Signs Temp 98.6 F 12/13/21 06:00 Pulse 85 12/13/21 06:00 Resp 20 12/12/21 22:15 BP 122/74 12/13/21 06:00 Pulse Ox 98 12/12/21 22:15
[2021-12-13] MEDS: MIRTAZAPINE 15 MG TAB PO SCH (22:00)
[2021-12-13] MEDS: DONEPEZIL 10 MG TAB PO SCH (22:01)
[2021-12-14] MEDS: HYDROmorphone 0.5 MG/0.5 ML INJ IV PRN (00:25)
[2021-12-14] MEDS: DEXTROSE 5% IN WATER 1,000 ML IV SCH ×2 (00:25→16:20)
[2021-12-14] MEDS: FREE WATER PO SCH ×4 (03:06→21:52)
[2021-12-14 05:15] LABS: Calcium 8.9 mg/dL (8.4-10.2)
[2021-12-14] MEDS: LEVOTHYROXINE 100 MCG TAB PO SCH (05:50)
[2021-12-14] MEDS: LITHIUM CARBONATE 300 MG CAP PO SCH ×3 (06:02→21:54)
[2021-12-14] MEDS: ZIPRASIDONE MESYLATE 20 MG VIAL IM PRN (06:13)
[2021-12-14] MEDS: WATER FOR INJ Sterile (PF) 10 ML IM PRN (06:17)
[2021-12-14] MEDS: QUEtiapine 25 MG TAB PO SCH ×3 (08:00→21:54)
[2021-12-14] MEDS: POTASSIUM CHLORIDE ER 10 MEQ TAB PO SCH (09:55)
[2021-12-14] MEDS: DOCUSATE SODIUM 100 MG/10 ML ORAL LIQD PO SCH (09:55)
[2021-12-14] MEDS: FAMOTIDINE 20 MG TAB PO SCH (09:55)
[2021-12-14] MEDS: OXcarbazepine 300 MG TAB PO SCH ×2 (09:56→21:54)
[2021-12-14] MEDS: CYANOCOBALAMIN (VIT B-12) 1000 MCG TAB PO SCH (09:56)
[2021-12-14] MEDS: MEMANTINE 5 MG TAB PO SCH ×2 (09:57→21:53)
[2021-12-14] MEDS: CITALOPRAM 20 MG TAB PO SCH (09:57)
--- NOTE | 2021-12-14 12:59 | Progress Note ---
Assessment and Plan Assessment and plan: This is a 71-year-old female with fpc psych issues admitted for acute psychosis and was found with small subdural hematoma most likely related to trauma from throwing herself on the floor and hitting her head while in the ED. Hospital Course to Date: 12/01: Repeat CT head pending. Mentation improved this am, patient drowsy but calmer this am, following simple commands. Neurology and NeuroSurgery consults pending. Keep patient as 1013 status, Mental health/Psych is also following. Continue current antipsychotics meds and PRN Haldol, close Qtc monitoring. Continue neuro check per protocol. Patient COVID PCR positive, patient remains stable on RA and hemodynamicaly stable. Continue to monitor for now, ID also consulted for further recs. 12/02: Repeat CT head/reviewed, subdural hematoma stable. NeuroSurgery recommendations noted, will hold off AC for now. PT/OT/Speech consulted. Patient with persistent hypernatremia, D5W increased to 75ml/hr. Continue to encourage PO intake and trend BMP. Mental health recommends inpatient psych once medically clear. Patient is stable for transfer to the floor. 12/03; remains clam but still confused. psych adjusting medications and recommended acute inpt psych treatment. cont Mirtazepine 15mg po qhs to promote rest, Valproic 500mg IV q12h, Decrease seroquel 300mg qhs cont d5w @ 75ml/hr, follow BMP to trend Na. 12/04; patient is more calm and cooperative. Sodium level stable at 150s. Continue D5W, follow BMP. 12/05: Na level normal today. patient c/o dizziness, order PT eval. follow psych recommendation 12/06: Patient is cleared by psych for d/c. [facility] and can't go back there till Wednesday per CM. cont to follow clinically 12/07: patient was little agitated this am, currently very clam. pending placment to [facility] - likely on Wednesday, cont to follow 12/08: Patient started to be combative again, not eating and keeping food/meds inside her mouth only. RN used IM meds to calm her down this morning. Discussed with Son and by phone. wait for repeat Psych eval and recommendation. Resume iv fluid as she has stopped eating. repeat labs 12/09; patient is severely agitated, refusing to eat, requiring restraints, will check for speech therapy for swallow evaluation and diet and nutrition access if needed 12/10; confused and agitated . supervisor pressing department in the room 12/11; patient is more alert and awake today, lithium started by psych Unable to admit to [facility] due to COVID-positive x2 Followup COVID test ordered for tomorrow 12/12; hypernatremia, D5W, free water orally, COVID test negative Patient can be discharged, pending placement 12/14; continue current management Nurse to encourage the patient to drink water, mild hyponatremia : We will discharge tomorrow if stable Assessment and Plan #Traumatic Closed Head Injury #Small Subdural Hematoma Serial CT scans head, subdural hematoma stable Neurosurgeon evaluated the time of admission, no surgical intervention, supportive care Continue supportive care, Neurochecks Imagings reviewed, Mildly comminuted fracture of the anterior and posterior denney of the left maxillary sinus and small subdural hematoma noted #Acute Psychosis Presented in acute psychosis, agitated and combative. Threw herself on the floor and hit her head Patient is off 1013 status, sitter at the bedside Continue current antipsychotics meds Family requested to restart lithium as lithium keeps her calm I discussed with psychiatrist, they discussed with the family and restarted lithium today 12/11/2021 Requested the psych team the possibility of admitting to [facility] psych However they refused due to positive COVID test x2 Repeat Yee PCR test tomorrow August 22 #COVID-19 Infection[asymptomatic] COVID test positive 12/08/21 COVID test positive 12/12/21 COVID test negative - COVID PCR x2 positive, negative on 12/12/2021 - Patient received both dose of Yee vaccine, but no booster - CXR with Bilateral opacities - Patient remains stable on RA, afebrile, with no WBCs #BERNICE (Acute Kidney Injury) most likely Vasomotor Nephropathy Trending down, monitor renal function, avoid nephrotoxin Nephrology consult if needed #Acute Hypernatremia, resolved - Probably due to dehydration Free water by mouth 250 mL 4 times a day - With persistent hypernatremia, continue gentle hydration D5W increased to 75ml/hr - Avoid nephrotoxic medications; Renally dose medications - Monitor and replace electrolytes as needed #Rhabdomyolysis CPK levels improved Closely monitor #Hypothyroidism - Continue supportive care - TSH was normal - Resumed Synthroid #GI/DVT Prophylaxis - PPI- pepcid - SCDs to bilateral lower extremities while in bed #Advance Care Planning - Disease education data, care plan, diagnoses, and prognosis were discussed with patient's son via phone. Patient is a FULL code. Patient's son acknowledged understanding and agreed with current care plan. DC planning per case management Possible transfer to inpatient psych facility when medically stable. Plan of care reviewed with the patient's nurse, the psychiatrist And the case management Awaiting placement 12/14/2021; possible discharge tomorrow if stable History Interval history: I have seen and examined the patient at the bedside Patient's chart and medications reviewed No new events reported by the nursing Vital signs noted Patient is refusing to drink liquids or eat properly Confused Hospitalist Physical - Constitutional Vitals: Temp Pulse Resp BP Pulse Ox 98.9 F 90 20 112/61 93 12/14/21 10:40 12/14/21 10:40 12/14/21 10:40 12/14/21 10:40 12/14/21 10:40 General appearance: Present: mild distress, well-nourished, other (Patient is confused) - EENT Eyes: Present: PERRL, EOM intact - Neck Neck: Present: supple, normal ROM - Respiratory Respiratory effort: normal Respiratory: bilateral: diminished, negative: rales, rhonchi, wheezing - Cardiovascular Rhythm: regular Heart Sounds: Present: S1 & S2 - Extremities Extremities: no ischemia, No edema - Abdominal General gastrointestinal: soft, non-tender, non-distended - Integumentary Integumentary: Present: clear, warm - Psychiatric Psychiatric: appropriate mood/affect, cooperative - Neurologic Neurologic: moves all extremities Results - Labs CBC & Chem 7: 12/10/21 06:59 12/14/21 04:27 Labs: Laboratory Last Values WBC 8.4 K/mm3 (4.5-11.0) 12/10/21 06:59 RBC 3.35 M/mm3 (3.65-5.03) L 12/10/21 06:59 Hgb 10.2 gm/dl (10.1-14.3) 12/10/21 06:59 Hct 31.4 % (30.3-42.9) 12/10/21 06:59 MCV 94 fl (79-97) 12/10/21 06:59 MCH 31 pg (28-32) 12/10/21 06:59 MCHC 33 % (30-34) 12/10/21 06:59 RDW 16.1 % (13.2-15.2) H 12/10/21 06:59 Plt Count 250 K/mm3 (140-440) 12/10/21 06:59 Lymph % (Auto) 13.5 % (13.4-35.0) 12/10/21 06:59 [place] % (Auto) 9.9 % (0.0-7.3) H 12/10/21 06:59 Eos % (Auto) 1.7 % (0.0-4.3) 12/10/21 06:59 Baso % (Auto) 0.2 % (0.0-1.8) 12/10/21 06:59 Lymph # (Auto) 1.1 K/mm3 (1.2-5.4) L 12/10/21 06:59 [place] # (Auto) 0.8 K/mm3 (0.0-0.8) 12/10/21 06:59 Eos # (Auto) 0.1 K/mm3 (0.0-0.4) 12/10/21 06:59 Baso # (Auto) 0.0 K/mm3 (0.0-0.1) 12/10/21 06:59 Seg Neutrophils % 74.7 % (40.0-70.0) H 12/10/21 06:59 Seg Neutrophils # 6.3 K/mm3 (1.8-7.7) 12/10/21 06:59 Sodium 153 mmol/L (137-145) H 12/14/21 04:27 Potassium 4.2 mmol/L (3.6-5.0) 12/14/21 04:27 Chloride 118.5 mmol/L (98-107) H 12/14/21 04:27 Carbon Dioxide 28 mmol/L (22-30) 12/14/21 04:27 Anion Gap 11 mmol/L 12/14/21 04:27 BUN 29 mg/dL (7-17) H 12/14/21 04:27 Creatinine 2.0 mg/dL (0.6-1.2) H 12/14/21 04:27 Estimated GFR 25 ml/min 12/14/21 04:27 BUN/Creatinine Ratio 15 % 12/14/21 04:27 Glucose 94 mg/dL (65-100) 12/14/21 04:27 Calcium 8.9 mg/dL (8.4-10.2) 12/14/21 04:27 Phosphorus 2.80 mg/dL (2.5-4.5) 12/03/21 07:23 Magnesium 2.80 mg/dL (1.7-2.3) H 12/13/21 15:59 Total Bilirubin 0.60 mg/dL (0.1-1.2) 12/01/21 04:00 AST 34 units/L (5-40) 12/01/21 04:00 ALT 33 units/L (7-56) 12/01/21 04:00 Alkaline Phosphatase 80 units/L (35-129) 12/01/21 04:00 Total Creatine Kinase 241 units/L (30-135) H 12/02/21 05:05 Total Protein 7.2 g/dL (6.3-8.2) 12/01/21 04:00 Albumin 3.7 g/dL (3.9-5) L 12/01/21 04:00 Albumin/Globulin Ratio 1.1 % 12/01/21 04:00 TSH 1.280 mlU/mL (0.270-4.200) 11/29/21 13:05 Urine Color Straw (Yellow) 11/29/21 14:10 Urine Turbidity Clear (Clear) 11/29/21 14:10 Urine pH 6.0 (5.0-7.0) 11/29/21 14:10 Ur Specific [place] 1.005 (1.003-1.030) 11/29/21 14:10 Urine Protein 30 mg/dl mg/dL (Negative) 11/29/21 14:10 Urine Glucose (UA) Negative mg/dL (Negative) 11/29/21 14:10 Urine Ketones 15 mg/dL (Negative) 11/29/21 14:10 Urine Blood 1+ (Negative) 11/29/21 14:10 Urine Nitrite Negative (Negative) 11/29/21 14:10 Ur Reducing Substances Not Reportable 11/29/21 14:10 Urine Bilirubin Negative (Negative) 11/29/21 14:10 Urine Ictotest Not Reportable 11/29/21 14:10 Urine Urobilinogen < 2.0 mg/dL (<2.0) 11/29/21 14:10 Ur Leukocyte Esterase Negative (Negative) 11/29/21 14:10 Urine WBC (Auto) 2.0 /HPF (0.0-6.0) 11/29/21 14:10 Urine RBC (Auto) 4.0 /HPF (0.0-6.0) 11/29/21 14:10 U Epithel Cells (Auto) < 1.0 /HPF (0-13.0) 11/29/21 14:10 Salicylates < 0.3 mg/dL (2.8-20.0) L 11/29/21 13:05 Urine Opiates Screen Negative 11/29/21 14:10 Urine Methadone Screen Negative 11/29/21 14:10 Acetaminophen 5.0 ug/mL (10.0-30.0) L 11/29/21 13:05 Ur Barbiturates Screen Negative 11/29/21 14:10 Ur Phencyclidine Scrn Negative 11/29/21 14:10 Ur Amphetamines Screen Negative 11/29/21 14:10 U Benzodiazepines Scrn Negative 11/29/21 14:10 Urine Cocaine Screen Negative 11/29/21 14:10 U Marijuana (THC) Screen Negative 11/29/21 14:10 Drugs of Abuse Note Disclamer 11/29/21 14:10 Plasma/Serum Alcohol < 0.01 % (0-0.07) 11/29/21 13:05 SARS-CoV-2 (PCR) Negative (Negative) 12/12/21 07:10 Seymuor/IV: Voiding Method Incontinent Active Medications - Current Medications Current Medications: Generic Name Dose Route Start Last Admin Trade Name Freq PRN Reason Stop Dose Admin Acetaminophen 650 mg 11/30/21 19:46 Acetaminophen 325 Mg Tab PO Q4H PRN Pain MILD(1-3)/Fever >100.5/MERCEDES Citalopram Hydrobromide 20 mg 11/30/21 10:00 12/14/21 09:57 Citalopram 20 Mg Tab PO 20 mg QDAY UCHE Administration Cyanocobalamin 1,000 mcg 11/30/21 10:00 12/14/21 09:56 Cyanocobalamin (Vit B-12) 1000 Mcg Tab PO 1,000 mcg QDAY UCHE Administration Docusate Sodium 100 mg 11/30/21 10:00 12/14/21 09:55 Docusate Sodium 100 Mg/10 Ml Oral Liqd PO 100 mg QDAY UCHE Administration Donepezil HCl 10 mg 11/29/21 22:00 12/13/21 22:01 Donepezil 10 Mg Tab PO 10 mg QHS UCHE Administration Famotidine 20 mg 12/02/21 10:00 12/14/21 09:55 Famotidine 20 Mg Tab PO 20 mg QDAY UCHE Administration Hydromorphone HCl 0.5 mg 12/01/21 16:08 12/14/21 00:25 Hydromorphone 0.5 Mg/0.5 Ml Inj IV 0.5 mg Q6H PRN Administration Pain , Severe (7-10) Dextrose 1,000 mls @ 100 mls/hr 12/12/21 10:00 12/14/21 00:25 D5w IV 100 mls/hr DIRECT UCHE Administration Levothyroxine Sodium 100 mcg 11/30/21 06:00 12/14/21 05:50 Levothyroxine 100 Mcg Tab PO 100 mcg DAILY@0600 UCHE Administration [place] Carbonate 300 mg 12/11/21 14:00 12/14/21 06:02 [place] Carbonate 300 Mg Cap PO 300 mg Q8HR UCHE Administration Memantine 5 mg 11/29/21 22:00 12/14/21 09:57 Memantine 5 Mg Tab PO 5 mg Q12HR UCHE Administration Mirtazapine 15 mg 12/01/21 22:00 12/13/21 22:00 Mirtazapine 15 Mg Tab PO 15 mg QHS UCHE Administration Morphine Sulfate 2 mg 11/30/21 19:54 12/12/21 17:59 Morphine 2 Mg/1 Ml Inj IV 2 mg Q4H PRN Administration Pain, Moderate (4-6) Oxcarbazepine 600 mg 11/29/21 22:00 12/14/21 09:56 Oxcarbazepine 300 Mg Tab PO 600 mg BID UCHE Administration Potassium Chloride 30 meq 12/03/21 18:00 12/14/21 09:55 Potassium Chloride Er 10 Meq Tab PO 30 meq QDAY UCHE Administration Quetiapine Fumarate 25 mg 12/09/21 14:00 12/14/21 08:00 Quetiapine 25 Mg Tab PO 25 mg BID@0800,1400 UCHE Administration Quetiapine Fumarate 75 mg 12/12/21 14:08 12/13/21 22:00 Quetiapine 25 Mg Tab PO 75 mg QHS UCHE Administration Sodium Chloride 10 ml 11/30/21 22:00 12/14/21 09:55 Sodium Chloride 0.9% 10 Ml Flush Syringe IV 10 ml BID UCHE Administration Sodium Chloride 10 ml 11/30/21 19:46 12/11/21 02:41 Sodium Chloride 0.9% 10 Ml Flush Syringe IV 10 ml PRN PRN Administration LINE FLUSH Sterile Water 1.2 ml 12/11/21 12:00 12/14/21 06:17 Water For Inj Sterile (Pf) 10 Ml IM 1.2 ml Q12HR PRN Administration WITH GEODON Ziprasidone 20 mg 12/11/21 11:14 12/14/21 06:13 Ziprasidone Mesylate 20 Mg Vial IM 20 mg Q12H PRN Administration AGITATION Nutrition/Malnutrition Assess - Dietary Evaluation Nutrition/Malnutrition Findings: Nutrition Notes Start: 12/05/21 11:40 Freq: Status: Active Protocol: Document 12/12/21 10:04 GUERDA (Rec: 12/12/21 10:36 GUERDA [id number]) Nutrition Notes Initial or Follow up Assessment Current Diagnosis Acute Kidney Injury Other Pertinent Diagnosis Head Trauma/Subdural Hematoma, s/p COVID-19, Rabdomyolisis, Psychosis, ... Current Diet Cardiac Diet (since 12/08), Cardiac -Renal- Diet+D Suppl ( from L 12/12). Labs/Tests 12/12: Na 154, Cl 120.0, BUN 27, Crea 2.0, Mg 2.9. Pertinent Medications 12/12: Vit B12, Levothyroxine, KCL 20mEq, others nutritionally unremarkable. Height 5 ft 6 in Weight 77 kg [place] Body Weight (kg) 59.09 BMI 27.3 Intake Prior to Admission Good Weight change and time frame Pt denies having loss body weight REHAB AID. No body weight change reported in 1 week. Weight Status Overweight Subjective/Other Information RD consult for rotuine F/U on dietary advancement. Diet continues as prescribed, but Pt's PO intake of meals has been Negligible (0-25%), according to ADL notes. I will prescribe dietary supplements to compensate for poor or insufficient PO intake of meals during LOS. I will prescribe Renal modification to current diet to support Pt's BERNICE condition. Pt is on Room Air, O2 saturation @ 100%, according to Physical Assessment History notes. Pt has missing teeth, according to Physical Assessment History notes. Pt presents some unspecified bruises as signs of concern for skin risk at the time, according to Physical Assessment History notes. Pt will be possibly discharge to a psychiatric facility when clinically stable, according to Progress notes. Percent of energy/protein needs met: Prescribed Cardiac -Renal- Diet provides for energy/ protein needs (2,230 Kcal/85 g ) during LOS; additionally, Dietary Supplements will compensate for possible poor or insufficient PO intake of meals with 1,275 Kcal and 57 g of protein. Burn Absent Trauma Present GI Symptoms None Food Allergy No Skin Integrity/Comment Unspecified bruises. Current % PO Negligible Minimum of two criteria No Fluid Accumulation N/A Reduced [facility] Strength N/A (non-severe) Protein-Calorie Malnutrition N\A #2 Nutrition Diagnosis Inadequate protein-energy intake Etiology Possibly associated with Psychosis. As Evidenced by Signs and Symptoms Diet continues as prescribed, but Pt's PO intake of meals has been Negligible (0-25%), according to ADL notes. #1 Nutrition Diagnosis Altered nutrition-related laboratory values Etiology BERNICE. As Evidenced by Signs and Symptoms 12/12: Na 154, Cl 120.0, BUN 27, Crea 2.0, Mg 2.9. Is patient on ventilator? No Is Patient Ambulatory and/or Out of Bed No REE-([facility]-confined to bed) 1573.896 Kcal/Kg value to use for calculation 22 Approximate Energy Requirements Using 1694 kcal/Kg Calculation Used for Recommendations Kcal/kg Additional Notes Protein: 1-1.2 g/Kg ABW; 77-92 g/day. Fluids: 1 ml/Kcal, or as per MD. Nutrition Intervention Change Diet Order: Modify to Cardiac -Renal- Diet , continue as tolerated. Add Supplement/Snack (indicate name/kcal Start 8 fl oz Nepro w/ /protein ) CARBSTEADY; TID. Provides kCal: 1,275 Provides Protein (gm) 57 Goal #1 Compensate, through dietary supplementation, for possible poor or insufficient PO intake of meals during LOS. Goal #2 Help reach and maintain acceptable chemistry lab values during LOS. Goal #3 Adjust the dietary intervention to better serve Pt's needs and clinical conditions during LOS. Follow-Up By: 12/19/21 Additional Comments Continue monitoring food tolerance, dietary supplements , %PO intake of meals, and BM.
[2021-12-14] MEDS: MORPHINE 2 MG/1 ML INJ IV PRN (17:48)
[2021-12-14] MEDS: DONEPEZIL 10 MG TAB PO SCH (21:53)
[2021-12-14] MEDS: MIRTAZAPINE 15 MG TAB PO SCH (21:54)
[2021-12-15] MEDS: DEXTROSE 5% IN WATER 1,000 ML IV SCH (02:16)
[2021-12-15] MEDS: HYDROmorphone 0.5 MG/0.5 ML INJ IV PRN ×2 (02:17→14:36)
[2021-12-15] MEDS: FREE WATER PO SCH (02:22)
[2021-12-15 05:03] VITALS: BP 138/99
[2021-12-15] MEDS: LITHIUM CARBONATE 300 MG CAP PO SCH ×2 (05:46→14:27)
[2021-12-15] MEDS: LEVOTHYROXINE 100 MCG TAB PO SCH (05:46)
[2021-12-15] MEDS: QUEtiapine 25 MG TAB PO SCH ×2 (10:00→14:35)
[2021-12-15] MEDS: ZIPRASIDONE MESYLATE 20 MG VIAL IM PRN (11:49)
[2021-12-15] MEDS: WATER FOR INJ Sterile (PF) 10 ML IM PRN (11:49)
[2021-12-15] MEDS: OXcarbazepine 300 MG TAB PO SCH (11:50)
[2021-12-15] MEDS: CITALOPRAM 20 MG TAB PO SCH (11:51)
[2021-12-15] MEDS: CYANOCOBALAMIN (VIT B-12) 1000 MCG TAB PO SCH (11:51)
[2021-12-15] MEDS: DOCUSATE SODIUM 100 MG/10 ML ORAL LIQD PO SCH (11:51)
[2021-12-15] MEDS: POTASSIUM CHLORIDE ER 10 MEQ TAB PO SCH (11:52)
[2021-12-15] MEDS: MEMANTINE 5 MG TAB PO SCH (11:53)
[2021-12-15] MEDS: FAMOTIDINE 20 MG TAB PO SCH (11:53)
--- NOTE | 2021-12-15 13:09 | Discharge Summary ---
Providers - Providers Date of Admission: 11/30/21 19:46 Date of discharge: 12/15/21 Attending physician: LEIA GOODRICH 11/29/21 11:32 Consult to Mental Health [CONS] Stat Reason For Exam: aggressive behavior 11/30/21 Consult to Case Management [CONS] Routine Services Needed at Discharge: Home Health Services Notified:: yes 11/30/21 16:03 Consult to Physician [CONS] Urgent Comment: Consulting Provider: DIMITRI LAO II Physician Instructions: Reason For Exam: ? traumatic subdural 12/01/21 06:20 Consult to Mental Health [CONS] Routine Reason For Exam: Acute psychosis Consult to Physician [CONS] Routine Comment: Consulting Provider: CHRISTEN LEIVN Physician Instructions: Reason For Exam: Subdural bleed 12/01/21 06:22 Consult to Physician [CONS] Routine Comment: Consulting Provider: MO LONGO Physician Instructions: Reason For Exam: COVID-positive 12/02/21 08:34 Occupational Therapy Evaluate and Treat [CONS] Routine Comment: Reason For Exam: Conditionning Physical Therapy Evaluation and Treat [CONS] Routine Comment: Reason For Exam: Conditionning 12/02/21 11:06 Speech Therapy Evaluation and Treat [CONS] Routine Reason For Exam: S/p Subdural bleed Primary care physician: SCOTT COHEN MD Hospitalization Condition: Good Hospital course: #Traumatic Closed Head Injury #Small Subdural Hematoma Serial CT scans head, subdural hematoma stable Neurosurgeon evaluated the time of admission, no surgical intervention, supportive care Continue supportive care, Neurochecks Imagings reviewed, Mildly comminuted fracture of the anterior and posterior denney of the left maxillary sinus and small subdural hematoma noted #Acute Psychosis Presented in acute psychosis, agitated and combative. Threw herself on the floor and hit her head Patient is off 1013 status, sitter at the bedside Continue current antipsychotics meds Family requested to restart lithium as lithium keeps her calm I discussed with psychiatrist, they discussed with the family and restarted lithium today 12/11/2021 Requested the psych team the possibility of admitting to [facility] psych However they refused due to positive COVID test x2 Repeat Yee PCR test tomorrow August 22 #COVID-19 Infection[asymptomatic] COVID test positive 12/08/21 COVID test positive 12/12/21 COVID test negative - COVID PCR x2 positive, negative on 12/12/2021 - Patient received both dose of Yee vaccine, but no booster - CXR with Bilateral opacities - Patient remains stable on RA, afebrile, with no WBCs #BERNICE (Acute Kidney Injury) most likely Vasomotor Nephropathy Trending down, monitor renal function, avoid nephrotoxin Nephrology consult if needed #Acute Hypernatremia, resolved - Probably due to dehydration Free water by mouth 250 mL 4 times a day - With persistent hypernatremia, continue gentle hydration D5W increased to 75ml/hr - Avoid nephrotoxic medications; Renally dose medications - Monitor and replace electrolytes as needed #Rhabdomyolysis CPK levels improved Closely monitor #Hypothyroidism - Continue supportive care - TSH was normal - Resumed Synthroid Disposition: 04 [facility] Final Discharge Diagnosis (Prints w/discharge instructions): Traumatic brain injury chronic. Small subdural hematoma chronic. Acute psychosis improved. COVID-19 infection. COVID test - 12/12/2021. Acute kidney injury. Acute type blood natremia improved. Rhabdomyolysis improved. Hypothyroidism Time spent for discharge: 35 min Core Measure Documentation - Palliative Care Palliative Care/ Comfort Measures: Not Applicable - Core Measures Any of the following diagnoses?: none Exam - Constitutional Vitals: Temp Pulse Resp BP Pulse Ox 97.7 F 106 H 16 138/99 95 12/15/21 04:56 12/15/21 04:56 12/15/21 04:56 12/15/21 04:56 12/15/21 04:56 General appearance: Present: no acute distress, well-nourished, other (Confused) - EENT Eyes: Present: PERRL, EOM intact - Neck Neck: Present: supple, normal ROM - Respiratory Respiratory effort: normal Respiratory: bilateral: diminished, negative: rales, rhonchi, wheezing - Cardiovascular Rhythm: regular Heart Sounds: Present: S1 & S2 - Extremities Extremities: no ischemia, No edema - Abdominal General gastrointestinal: Present: soft, non-tender, non-distended, normal bowel sounds - Integumentary Integumentary: Present: clear, warm - Musculoskeletal Musculoskeletal: strength equal bilaterally, generalized weakness - Psychiatric Psychiatric: other (Confused) - Neurologic Neurologic: other (Confused) Plan Activity: advance as tolerated, other (Bedbound) Diet: other (Pured diet[renal and cardiac] nutrition supplements) Additional Instructions: Pured diet [renal and cardiac ]advance as tolerated. Nutrition supplements, Nepro vanilla/PICC line 1 can 3 times a day. Fall precautions, aspiration precautions. Follow-up psych in 1 to 2 weeks. Follow nephrology in 1 week Follow up with: SCOTT COHEN MD [Primary Care Provider] - 3-5 Days CORTEZ THURMAN MD [Staff Physician] - 14 Days Prescriptions: donepeziL [Aricept] 10 mg PO QHS #30 tablet Citalopram [Celexa] 20 mg PO QDAY #30 tablet Docusate Sodium [Colace ORAL LIQ] 100 mg PO QDAY 30 Days #2 bottle [place] Carbonate 300 mg PO Q8H #120 Memantine 5 mg PO Q12HR #60 tablet Mirtazapine 15 mg PO QHS #30 Famotidine [Pepcid] 20 mg PO QDAY #30 tablet QUEtiapine [SEROquel] 25 mg PO BID #60 tablet Quetiapine Fumarate [SEROquel] 75 mg PO QHS #45 tab Levothyroxine [Synthroid] 100 mcg PO DAILY@0600 #30 tablet Cyanocobalamin [Vitamin B-12] 1,000 mcg PO QDAY #30 tablet
--- NOTE | 2021-12-15 13:56 | Progress Note ---
Subjective - Reason for Consult Consult date: 12/15/21 Reason for consult: Bipolar - Chief Complaint Chief complaint: The patient was seen today. She is lying in bed with her eyes closed. She is trying to raise up in bed. She is confused. The patient is being discharged today to an [facility] VIEW OF SYSTEMS Unable to obtain MENTAL STATUS EXAMINATION Unable to obtain Assessment (1) Delirium (2) Bipolar Disorder Treatment Plan Seroquel 75mg po qhs Seroquel 25mg po BID Mirtazepine 15mg po qhs Citalopram 20mg po daily [place] 300mg po q8h Sitter: Defer to primary Medical: per primary Disposition: Do not Recommend acute psychiatric inpatient treatment Will follow for medication management. Thanks Case staffed with Dr. Nava on restarting [place]. Says family pushed for it and give script to continue on an outpatient basis Mental Status Exam - Vital signs Last Vital Signs Temp 97.7 F 12/15/21 04:56 Pulse 106 H 12/15/21 04:56 Resp 16 12/15/21 04:56 BP 138/99 12/15/21 04:56 Pulse Ox 95 12/15/21 04:56
--- NOTE | 2021-12-16 16:39 | Progress Note ---
History Interval history: I have seen and examined the patient at the bedside Patient's chart and medications reviewed No new events reported by the nursing Vital signs noted Patient is refusing to drink liquids or eat properly Confused Hospitalist Physical - Constitutional Vitals: Temp Pulse Resp BP Pulse Ox 97.7 F 106 H 16 138/99 95 12/15/21 04:56 12/15/21 04:56 12/15/21 04:56 12/15/21 04:56 12/15/21 04:56 General appearance: Present: mild distress, well-nourished, other (Patient is confused) Results - Labs CBC & Chem 7: 12/10/21 06:59 12/14/21 04:27 Labs: Laboratory Last Values WBC 8.4 K/mm3 (4.5-11.0) 12/10/21 06:59 RBC 3.35 M/mm3 (3.65-5.03) L 12/10/21 06:59 Hgb 10.2 gm/dl (10.1-14.3) 12/10/21 06:59 Hct 31.4 % (30.3-42.9) 12/10/21 06:59 MCV 94 fl (79-97) 12/10/21 06:59 MCH 31 pg (28-32) 12/10/21 06:59 MCHC 33 % (30-34) 12/10/21 06:59 RDW 16.1 % (13.2-15.2) H 12/10/21 06:59 Plt Count 250 K/mm3 (140-440) 12/10/21 06:59 Lymph % (Auto) 13.5 % (13.4-35.0) 12/10/21 06:59 [place] % (Auto) 9.9 % (0.0-7.3) H 12/10/21 06:59 Eos % (Auto) 1.7 % (0.0-4.3) 12/10/21 06:59 Baso % (Auto) 0.2 % (0.0-1.8) 12/10/21 06:59 Lymph # (Auto) 1.1 K/mm3 (1.2-5.4) L 12/10/21 06:59 [place] # (Auto) 0.8 K/mm3 (0.0-0.8) 12/10/21 06:59 Eos # (Auto) 0.1 K/mm3 (0.0-0.4) 12/10/21 06:59 Baso # (Auto) 0.0 K/mm3 (0.0-0.1) 12/10/21 06:59 Seg Neutrophils % 74.7 % (40.0-70.0) H 12/10/21 06:59 Seg Neutrophils # 6.3 K/mm3 (1.8-7.7) 12/10/21 06:59 Sodium 153 mmol/L (137-145) H 12/14/21 04:27 Potassium 4.2 mmol/L (3.6-5.0) 12/14/21 04:27 Chloride 118.5 mmol/L (98-107) H 12/14/21 04:27 Carbon Dioxide 28 mmol/L (22-30) 12/14/21 04:27 Anion Gap 11 mmol/L 12/14/21 04:27 BUN 29 mg/dL (7-17) H 12/14/21 04:27 Creatinine 2.0 mg/dL (0.6-1.2) H 12/14/21 04:27 Estimated GFR 25 ml/min 12/14/21 04:27 BUN/Creatinine Ratio 15 % 12/14/21 04:27 Glucose 94 mg/dL (65-100) 12/14/21 04:27 Calcium 8.9 mg/dL (8.4-10.2) 12/14/21 04:27 Phosphorus 2.80 mg/dL (2.5-4.5) 12/03/21 07:23 Magnesium 2.80 mg/dL (1.7-2.3) H 12/13/21 15:59 Total Bilirubin 0.60 mg/dL (0.1-1.2) 12/01/21 04:00 AST 34 units/L (5-40) 12/01/21 04:00 ALT 33 units/L (7-56) 12/01/21 04:00 Alkaline Phosphatase 80 units/L (35-129) 12/01/21 04:00 Total Creatine Kinase 241 units/L (30-135) H 12/02/21 05:05 Total Protein 7.2 g/dL (6.3-8.2) 12/01/21 04:00 Albumin 3.7 g/dL (3.9-5) L 12/01/21 04:00 Albumin/Globulin Ratio 1.1 % 12/01/21 04:00 TSH 1.280 mlU/mL (0.270-4.200) 11/29/21 13:05 Urine Color Straw (Yellow) 11/29/21 14:10 Urine Turbidity Clear (Clear) 11/29/21 14:10 Urine pH 6.0 (5.0-7.0) 11/29/21 14:10 Ur Specific [place] 1.005 (1.003-1.030) 11/29/21 14:10 Urine Protein 30 mg/dl mg/dL (Negative) 11/29/21 14:10 Urine Glucose (UA) Negative mg/dL (Negative) 11/29/21 14:10 Urine Ketones 15 mg/dL (Negative) 11/29/21 14:10 Urine Blood 1+ (Negative) 11/29/21 14:10 Urine Nitrite Negative (Negative) 11/29/21 14:10 Ur Reducing Substances Not Reportable 11/29/21 14:10 Urine Bilirubin Negative (Negative) 11/29/21 14:10 Urine Ictotest Not Reportable 11/29/21 14:10 Urine Urobilinogen < 2.0 mg/dL (<2.0) 11/29/21 14:10 Ur Leukocyte Esterase Negative (Negative) 11/29/21 14:10 Urine WBC (Auto) 2.0 /HPF (0.0-6.0) 11/29/21 14:10 Urine RBC (Auto) 4.0 /HPF (0.0-6.0) 11/29/21 14:10 U Epithel Cells (Auto) < 1.0 /HPF (0-13.0) 11/29/21 14:10 Salicylates < 0.3 mg/dL (2.8-20.0) L 11/29/21 13:05 Urine Opiates Screen Negative 11/29/21 14:10 Urine Methadone Screen Negative 11/29/21 14:10 Acetaminophen 5.0 ug/mL (10.0-30.0) L 11/29/21 13:05 Ur Barbiturates Screen Negative 11/29/21 14:10 Ur Phencyclidine Scrn Negative 11/29/21 14:10 Ur Amphetamines Screen Negative 11/29/21 14:10 U Benzodiazepines Scrn Negative 11/29/21 14:10 Urine Cocaine Screen Negative 11/29/21 14:10 U Marijuana (THC) Screen Negative 11/29/21 14:10 Drugs of Abuse Note Disclamer 11/29/21 14:10 Plasma/Serum Alcohol < 0.01 % (0-0.07) 11/29/21 13:05 SARS-CoV-2 (PCR) Negative (Negative) 12/12/21 07:10 [place]/IV: Voiding Method Incontinent Nutrition/Malnutrition Assess - Dietary Evaluation Nutrition/Malnutrition Findings: Nutrition Notes Start: 12/05/21 11:40 Freq: Status: Discharge Protocol: Document 12/12/21 10:04 GUERDA (Rec: 12/12/21 10:36 GUERDA [email or web address]) Nutrition Notes Initial or Follow up Assessment Current Diagnosis Acute Kidney Injury Other Pertinent Diagnosis Head Trauma/Subdural Hematoma, s/p COVID-19, Rabdomyolisis, Psychosis, ... Current Diet Cardiac Diet (since 12/08), Cardiac -Renal- Diet+D Suppl ( from L 12/12). Labs/Tests 12/12: Na 154, Cl 120.0, BUN 27, Crea 2.0, Mg 2.9. Pertinent Medications 12/12: Vit B12, Levothyroxine, KCL 20mEq, others nutritionally unremarkable. Height 5 ft 6 in Weight 77 kg [place] Body Weight (kg) 59.09 BMI 27.3 Intake Prior to Admission Good Weight change and time frame Pt denies having loss body weight [employer]. No body weight change reported in 1 week. Weight Status Overweight Subjective/Other Information RD consult for rotuine F/U on dietary advancement. Diet continues as prescribed, but Pt's PO intake of meals has been Negligible (0-25%), according to ADL notes. I will prescribe dietary supplements to compensate for poor or insufficient PO intake of meals during LOS. I will prescribe Renal modification to current diet to support Pt's BERNICE condition. Pt is on Room Air, O2 saturation @ 100%, according to Physical Assessment History notes. Pt has missing teeth, according to Physical Assessment History notes. Pt presents some unspecified bruises as signs of concern for skin risk at the time, according to Physical Assessment History notes. Pt will be possibly discharge to a psychiatric facility when clinically stable, according to Progress notes. Percent of energy/protein needs met: Prescribed Cardiac -Renal- Diet provides for energy/ protein needs (2,230 Kcal/85 g ) during LOS; additionally, Dietary Supplements will compensate for possible poor or insufficient PO intake of meals with 1,275 Kcal and 57 g of protein. Burn Absent Trauma Present GI Symptoms None Food Allergy No Skin Integrity/Comment Unspecified bruises. Current % PO Negligible Minimum of two criteria No Fluid Accumulation N/A Reduced Supervisor Assembly Stock Strength N/A (non-severe) Protein-Calorie Malnutrition N\A #2 Nutrition Diagnosis Inadequate protein-energy intake Etiology Possibly associated with Psychosis. As Evidenced by Signs and Symptoms Diet continues as prescribed, but Pt's PO intake of meals has been Negligible (0-25%), according to ADL notes. #1 Nutrition Diagnosis Altered nutrition-related laboratory values Etiology BERNICE. As Evidenced by Signs and Symptoms 12/12: Na 154, Cl 120.0, BUN 27, Crea 2.0, Mg 2.9. Is patient on ventilator? No Is Patient Ambulatory and/or Out of Bed No REE-([facility]-confined to bed) 1573.896 Kcal/Kg value to use for calculation 22 Approximate Energy Requirements Using 1694 kcal/Kg Calculation Used for Recommendations Kcal/kg Additional Notes Protein: 1-1.2 g/Kg ABW; 77-92 g/day. Fluids: 1 ml/Kcal, or as per MD. Nutrition Intervention Change Diet Order: Modify to Cardiac -Renal- Diet , continue as tolerated. Add Supplement/Snack (indicate name/kcal Start 8 fl oz Nepro w/ /protein ) CARBSTEADY; TID. Provides kCal: 1,275 Provides Protein (gm) 57 Goal #1 Compensate, through dietary supplementation, for possible poor or insufficient PO intake of meals during LOS. Goal #2 Help reach and maintain acceptable chemistry lab values during LOS. Goal #3 Adjust the dietary intervention to better serve Pt's needs and clinical conditions during LOS. Follow-Up By: 12/19/21 Additional Comments Continue monitoring food tolerance, dietary supplements , %PO intake of meals, and BM.
--- NOTE | 2021-12-16 18:24 | Progress Note ---
Hospitalist Physical - Constitutional Vitals: Temp Pulse Resp BP Pulse Ox 97.7 F 106 H 16 138/99 95 12/15/21 04:56 12/15/21 04:56 12/15/21 04:56 12/15/21 04:56 12/15/21 04:56 General appearance: Present: mild distress, well-nourished, other (Patient is confused) Results - Labs CBC & Chem 7: 12/10/21 06:59 12/14/21 04:27 Labs: Laboratory Last Values WBC 8.4 K/mm3 (4.5-11.0) 12/10/21 06:59 RBC 3.35 M/mm3 (3.65-5.03) L 12/10/21 06:59 Hgb 10.2 gm/dl (10.1-14.3) 12/10/21 06:59 Hct 31.4 % (30.3-42.9) 12/10/21 06:59 MCV 94 fl (79-97) 12/10/21 06:59 MCH 31 pg (28-32) 12/10/21 06:59 MCHC 33 % (30-34) 12/10/21 06:59 RDW 16.1 % (13.2-15.2) H 12/10/21 06:59 Plt Count 250 K/mm3 (140-440) 12/10/21 06:59 Lymph % (Auto) 13.5 % (13.4-35.0) 12/10/21 06:59 [place] % (Auto) 9.9 % (0.0-7.3) H 12/10/21 06:59 Eos % (Auto) 1.7 % (0.0-4.3) 12/10/21 06:59 Baso % (Auto) 0.2 % (0.0-1.8) 12/10/21 06:59 Lymph # (Auto) 1.1 K/mm3 (1.2-5.4) L 12/10/21 06:59 [place] # (Auto) 0.8 K/mm3 (0.0-0.8) 12/10/21 06:59 Eos # (Auto) 0.1 K/mm3 (0.0-0.4) 12/10/21 06:59 Baso # (Auto) 0.0 K/mm3 (0.0-0.1) 12/10/21 06:59 Seg Neutrophils % 74.7 % (40.0-70.0) H 12/10/21 06:59 Seg Neutrophils # 6.3 K/mm3 (1.8-7.7) 12/10/21 06:59 Sodium 153 mmol/L (137-145) H 12/14/21 04:27 Potassium 4.2 mmol/L (3.6-5.0) 12/14/21 04:27 Chloride 118.5 mmol/L (98-107) H 12/14/21 04:27 Carbon Dioxide 28 mmol/L (22-30) 12/14/21 04:27 Anion Gap 11 mmol/L 12/14/21 04:27 BUN 29 mg/dL (7-17) H 12/14/21 04:27 Creatinine 2.0 mg/dL (0.6-1.2) H 12/14/21 04:27 Estimated GFR 25 ml/min 12/14/21 04:27 BUN/Creatinine Ratio 15 % 12/14/21 04:27 Glucose 94 mg/dL (65-100) 12/14/21 04:27 Calcium 8.9 mg/dL (8.4-10.2) 12/14/21 04:27 Phosphorus 2.80 mg/dL (2.5-4.5) 12/03/21 07:23 Magnesium 2.80 mg/dL (1.7-2.3) H 12/13/21 15:59 Total Bilirubin 0.60 mg/dL (0.1-1.2) 12/01/21 04:00 AST 34 units/L (5-40) 12/01/21 04:00 ALT 33 units/L (7-56) 12/01/21 04:00 Alkaline Phosphatase 80 units/L (35-129) 12/01/21 04:00 Total Creatine Kinase 241 units/L (30-135) H 12/02/21 05:05 Total Protein 7.2 g/dL (6.3-8.2) 12/01/21 04:00 Albumin 3.7 g/dL (3.9-5) L 12/01/21 04:00 Albumin/Globulin Ratio 1.1 % 12/01/21 04:00 TSH 1.280 mlU/mL (0.270-4.200) 11/29/21 13:05 Urine Color Straw (Yellow) 11/29/21 14:10 Urine Turbidity Clear (Clear) 11/29/21 14:10 Urine pH 6.0 (5.0-7.0) 11/29/21 14:10 Ur Specific [place] 1.005 (1.003-1.030) 11/29/21 14:10 Urine Protein 30 mg/dl mg/dL (Negative) 11/29/21 14:10 Urine Glucose (UA) Negative mg/dL (Negative) 11/29/21 14:10 Urine Ketones 15 mg/dL (Negative) 11/29/21 14:10 Urine Blood 1+ (Negative) 11/29/21 14:10 Urine Nitrite Negative (Negative) 11/29/21 14:10 Ur Reducing Substances Not Reportable 11/29/21 14:10 Urine Bilirubin Negative (Negative) 11/29/21 14:10 Urine Ictotest Not Reportable 11/29/21 14:10 Urine Urobilinogen < 2.0 mg/dL (<2.0) 11/29/21 14:10 Ur Leukocyte Esterase Negative (Negative) 11/29/21 14:10 Urine WBC (Auto) 2.0 /HPF (0.0-6.0) 11/29/21 14:10 Urine RBC (Auto) 4.0 /HPF (0.0-6.0) 11/29/21 14:10 U Epithel Cells (Auto) < 1.0 /HPF (0-13.0) 11/29/21 14:10 Salicylates < 0.3 mg/dL (2.8-20.0) L 11/29/21 13:05 Urine Opiates Screen Negative 11/29/21 14:10 Urine Methadone Screen Negative 11/29/21 14:10 Acetaminophen 5.0 ug/mL (10.0-30.0) L 11/29/21 13:05 Ur Barbiturates Screen Negative 11/29/21 14:10 Ur Phencyclidine Scrn Negative 11/29/21 14:10 Ur Amphetamines Screen Negative 11/29/21 14:10 U Benzodiazepines Scrn Negative 11/29/21 14:10 Urine Cocaine Screen Negative 11/29/21 14:10 U Marijuana (THC) Screen Negative 11/29/21 14:10 Drugs of Abuse Note Disclamer 11/29/21 14:10 Plasma/Serum Alcohol < 0.01 % (0-0.07) 11/29/21 13:05 SARS-CoV-2 (PCR) Negative (Negative) 12/12/21 07:10 [place]/IV: Voiding Method Incontinent Nutrition/Malnutrition Assess - Dietary Evaluation Nutrition/Malnutrition Findings: Nutrition Notes Start: 12/05/21 11:40 Freq: Status: Discharge Protocol: Document 12/12/21 10:04 GUERDA (Rec: 12/12/21 10:36 GUERDA [id number]) Nutrition Notes Initial or Follow up Assessment Current Diagnosis Acute Kidney Injury Other Pertinent Diagnosis Head Trauma/Subdural Hematoma, s/p COVID-19, Rabdomyolisis, Psychosis, ... Current Diet Cardiac Diet (since 12/08), Cardiac -Renal- Diet+D Suppl ( from L 12/12). Labs/Tests 12/12: Na 154, Cl 120.0, BUN 27, Crea 2.0, Mg 2.9. Pertinent Medications 12/12: Vit B12, Levothyroxine, KCL 20mEq, others nutritionally unremarkable. 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 No body weight change reported in 1 week. Weight Status Overweight Subjective/Other Information RD consult for rotuine F/U on dietary advancement. Diet continues as prescribed, but Pt's PO intake of meals has been Negligible (0-25%), according to ADL notes. I will prescribe dietary supplements to compensate for poor or insufficient PO intake of meals during LOS. I will prescribe Renal modification to current diet to support Pt's BERNICE condition. Pt is on Room Air, O2 saturation @ 100%, according to Physical Assessment History notes. Pt has missing teeth, according to Physical Assessment History notes. Pt presents some unspecified bruises as signs of concern for skin risk at the time, according to Physical Assessment History notes. Pt will be possibly discharge to a psychiatric facility when clinically stable, according to Progress notes. Percent of energy/protein needs met: Prescribed Cardiac -Renal- Diet provides for energy/ protein needs (2,230 Kcal/85 g ) during LOS; additionally, Dietary Supplements will compensate for possible poor or insufficient PO intake of meals with 1,275 Kcal and 57 g of protein. Burn Absent Trauma Present GI Symptoms None Food Allergy No Skin Integrity/Comment Unspecified bruises. Current % PO Negligible Minimum of two criteria No Fluid Accumulation N/A Reduced Platform Attendant Strength N/A (non-severe) Protein-Calorie Malnutrition N\A #2 Nutrition Diagnosis Inadequate protein-energy intake Etiology Possibly associated with Psychosis. As Evidenced by Signs and Symptoms Diet continues as prescribed, but Pt's PO intake of meals has been Negligible (0-25%), according to ADL notes. #1 Nutrition Diagnosis Altered nutrition-related laboratory values Etiology BERNICE. As Evidenced by Signs and Symptoms 12/12: Na 154, Cl 120.0, BUN 27, Crea 2.0, Mg 2.9. Is patient on ventilator? No Is Patient Ambulatory and/or Out of Bed No REE-([facility]-confined to bed) 1573.896 Kcal/Kg value to use for calculation 22 Approximate Energy Requirements Using 1694 kcal/Kg Calculation Used for Recommendations Kcal/kg Additional Notes Protein: 1-1.2 g/Kg ABW; 77-92 g/day. Fluids: 1 ml/Kcal, or as per MD. Nutrition Intervention Change Diet Order: Modify to Cardiac -Renal- Diet , continue as tolerated. Add Supplement/Snack (indicate name/kcal Start 8 fl oz Nepro w/ /protein ) CARBSTEADY; TID. Provides kCal: 1,275 Provides Protein (gm) 57 Goal #1 Compensate, through dietary supplementation, for possible poor or insufficient PO intake of meals during LOS. Goal #2 Help reach and maintain acceptable chemistry lab values during LOS. Goal #3 Adjust the dietary intervention to better serve Pt's needs and clinical conditions during LOS. Follow-Up By: 12/19/21 Additional Comments Continue monitoring food tolerance, dietary supplements , %PO intake of meals, and BM.
== END 2021-12-15 17:00 | disposition home or self-care (01) | DRG 963 ==
LOC: ED 08:07 → IMCU 11-30 19:46 → 3A 12-02 18:23
PROVIDERS: ADMIT Internal Medicine; ATTEND Internal Medicine
DX: S06.5X0A Traumatic subdural hemorrhage without loss of consciousness, initial encounter (principal); N17.0 Acute kidney failure with tubular necrosis; T79.6XXA Traumatic ischemia of muscle, initial encounter; U07.1 COVID-19; F23 Brief psychotic disorder; E87.0 Hyperosmolality and hypernatremia; S02.40DA Maxillary fracture, left side, initial encounter for closed fracture; E03.9 Hypothyroidism, unspecified; F31.9 Bipolar disorder, unspecified; E86.0 Dehydration; S00.83XA Contusion of other part of head, initial encounter; S40.029A Contusion of unspecified upper arm, initial encounter; W06.XXXA Fall from bed, initial encounter; Y93.89 Activity, other specified; Y92.89 Other specified places as the place of occurrence of the external cause; Y99.8 Other external cause status; F03.90 Unspecified dementia, unspecified severity, without behavioral disturbance, psychotic disturbance, mood disturbance, and anxiety
CPT/HCPCS: 36415; 70450; 70486; 71045; 72125; 80048; 80053; 80307; 80320; 81001; 82550; 83735; 84100; 84132; 84295; 84443; 85025; 85027; 93005; G0378; J3490; J7070; G0480; J1170; J1630; J2250; J2270; J3486; J7030; J7042; U0003

== ENCOUNTER 2021-12-15 20:17 | Inpatient (IN) | payer MEDICARE ==
[2021-12-15] MEDS ORDERED: SODIUM CHLORIDE 0.9% 1000 ML 1,000 ML IV ONE (21:24)
--- NOTE | 2021-12-15 21:28 | Emergency Department Report ---
ED Altered Mental Status HPI - General Chief Complaint: Altered Mental Status Stated Complaint: ALTERED MENTAL Time Seen by Provider: 12/15/21 21:20 Source: EMS Mode of arrival: Stretcher Limitations: Altered Mental Status - History of Present Illness Initial Comments: Patient is a 71-year-old female brought in from custodial for altered mental status. Patient was reportedly bumping her head against the wall. Baseline mental status unknown at this time. Patient is nonverbal and altered on arrival. - Related Data Previous Rx's Medication Instructions Recorded Last Taken Type Citalopram [Celexa] 20 mg PO QDAY #30 tablet 12/15/21 Unknown Rx Cyanocobalamin [Vitamin B-12] 1,000 mcg PO QDAY #30 tablet 12/15/21 Unknown Rx Docusate Sodium [Colace ORAL LIQ] 100 mg PO QDAY 30 Days #2 bottle 12/15/21 Unknown Rx Famotidine [Pepcid] 20 mg PO QDAY #30 tablet 12/15/21 Unknown Rx Levothyroxine [Synthroid] 100 mcg PO DAILY@0600 #30 tablet 12/15/21 Unknown Rx [place] Carbonate 300 mg PO Q8H #120 12/15/21 Unknown Rx Memantine 5 mg PO Q12HR #60 tablet 12/15/21 Unknown Rx Mirtazapine 15 mg PO QHS #30 12/15/21 Unknown Rx QUEtiapine [SEROquel] 25 mg PO BID #60 tablet 12/15/21 Unknown Rx Quetiapine Fumarate [SEROquel] 75 mg PO QHS #45 tab 12/15/21 Unknown Rx donepeziL [Aricept] 10 mg PO QHS #30 tablet 12/15/21 Unknown Rx Allergies Allergy/AdvReac Type Severity Reaction Status Date / Time No Known Allergies Allergy Unverified 11/29/21 08:47 ED Review of Systems ROS: Stated complaint: ALTERED MENTAL Other details as noted in HPI Comment: Unobtainable due to pts medical conditions ED Past Medical Hx - Past Medical History Hx Psychiatric Treatment: Yes (bipolar) Additional medical history: hypothyroid - Social History Smoking Status: Never Smoker - Medications Home Medications: Home Medications Medication Instructions Recorded Confirmed Last Taken Type Citalopram [Celexa] 20 mg PO QDAY #30 tablet 12/15/21 Unknown Rx Cyanocobalamin [Vitamin B-12] 1,000 mcg PO QDAY #30 tablet 12/15/21 Unknown Rx Docusate Sodium [Colace ORAL LIQ] 100 mg PO QDAY 30 Days #2 bottle 12/15/21 Unknown Rx Famotidine [Pepcid] 20 mg PO QDAY #30 tablet 12/15/21 Unknown Rx Levothyroxine [Synthroid] 100 mcg PO DAILY@0600 #30 tablet 12/15/21 Unknown Rx [place] Carbonate 300 mg PO Q8H #120 12/15/21 Unknown Rx Memantine 5 mg PO Q12HR #60 tablet 12/15/21 Unknown Rx Mirtazapine 15 mg PO QHS #30 12/15/21 Unknown Rx QUEtiapine [SEROquel] 25 mg PO BID #60 tablet 12/15/21 Unknown Rx Quetiapine Fumarate [SEROquel] 75 mg PO QHS #45 tab 12/15/21 Unknown Rx donepeziL [Aricept] 10 mg PO QHS #30 tablet 12/15/21 Unknown Rx ED Physical Exam - General Limitations: Altered Mental Status General appearance: obtunded - Head Head exam: Present: atraumatic, normocephalic - Eye Eye exam: Present: PERRL - Respiratory Respiratory exam: Present: normal lung sounds bilaterally. Absent: respiratory distress - Cardiovascular Cardiovascular Exam: Present: regular rate, normal rhythm, normal heart sounds - GI/Abdominal GI/Abdominal exam: Present: soft. Absent: distended - Rectal Rectal exam: Present: deferred - Extremities Exam Extremities exam: Present: other (Patient moving all extremities). Absent: pedal edema, joint swelling - Neurological Exam Neurological exam: Present: altered - Skin Skin exam: Present: warm, dry, intact, normal color ED Course Vital Signs 12/15/21 21:17 Temperature 98.8 F Pulse Rate 104 H Respiratory 16 Rate Blood Pressure 111/64 [Right] O2 Sat by Pulse 92 Oximetry - Lab Data Result diagrams: 12/15/21 21:33 12/15/21 21:33 Lab Results 12/15/21 12/15/21 12/15/21 Range/Units 21:33 21:33 21:33 WBC 17.7 H (4.5-11.0) K/mm3 RBC 3.77 (3.65-5.03) M/mm3 Hgb 11.7 (10.1-14.3) gm/dl Hct 34.8 (30.3-42.9) % MCV 92 (79-97) fl MCH 31 (28-32) pg MCHC 34 (30-34) % RDW 15.6 H (13.2-15.2) % Plt Count 481 H (140-440) K/mm3 Lymph % (Auto) 10.0 L (13.4-35.0) % [place] % (Auto) 11.0 H (0.0-7.3) % Eos % (Auto) 1.1 (0.0-4.3) % Baso % (Auto) 0.3 (0.0-1.8) % Lymph # (Auto) 1.8 (1.2-5.4) K/mm3 [place] # (Auto) 1.9 H (0.0-0.8) K/mm3 Eos # (Auto) 0.2 (0.0-0.4) K/mm3 Baso # (Auto) 0.1 (0.0-0.1) K/mm3 Seg Neutrophils % 77.6 H (40.0-70.0) % Seg Neutrophils # 13.7 H (1.8-7.7) K/mm3 Sodium 146 H (137-145) mmol/L Potassium 4.2 (3.6-5.0) mmol/L Chloride 112.4 H (98-107) mmol/L Carbon Dioxide 25 (22-30) mmol/L Anion Gap 13 mmol/L BUN 25 H (7-17) mg/dL Creatinine 2.4 H (0.6-1.2) mg/dL Estimated GFR 20 ml/min BUN/Creatinine Ratio 10 % Glucose 112 H (65-100) mg/dL Lactic Acid 1.30 (0.7-2.0) mmol/L Calcium 9.6 (8.4-10.2) mg/dL Total Bilirubin 0.30 (0.1-1.2) mg/dL AST 50 H (5-40) units/L ALT 27 (7-56) units/L Alkaline Phosphatase 109 (35-129) units/L Ammonia (25-60) umol/L Total Creatine Kinase (30-135) units/L Troponin T (0.00-0.029) ng/mL Total Protein 7.5 (6.3-8.2) g/dL Albumin 3.1 L (3.9-5) g/dL Albumin/Globulin Ratio 0.7 % Triglycerides (2-149) mg/dL Cholesterol (50-199) mg/dL LDL Cholesterol Direct (50-130) mg/dL HDL Cholesterol (40-59) mg/dL Cholesterol/HDL Ratio % TSH (0.270-4.200) mlU/mL Free T4 (0.76-1.46) ng/dL Thyroxine (T4) (4.0-12.0) ug/dL 12/15/21 12/15/21 12/15/21 Range/Units 21:33 21:33 21:33 WBC (4.5-11.0) K/mm3 RBC (3.65-5.03) M/mm3 Hgb (10.1-14.3) gm/dl Hct (30.3-42.9) % MCV (79-97) fl MCH (28-32) pg MCHC (30-34) % RDW (13.2-15.2) % Plt Count (140-440) K/mm3 Lymph % (Auto) (13.4-35.0) % [place] % (Auto) (0.0-7.3) % Eos % (Auto) (0.0-4.3) % Baso % (Auto) (0.0-1.8) % Lymph # (Auto) (1.2-5.4) K/mm3 [place] # (Auto) (0.0-0.8) K/mm3 Eos # (Auto) (0.0-0.4) K/mm3 Baso # (Auto) (0.0-0.1) K/mm3 Seg Neutrophils % (40.0-70.0) % Seg Neutrophils # (1.8-7.7) K/mm3 Sodium (137-145) mmol/L Potassium (3.6-5.0) mmol/L Chloride (98-107) mmol/L Carbon Dioxide (22-30) mmol/L Anion Gap mmol/L BUN (7-17) mg/dL Creatinine (0.6-1.2) mg/dL Estimated GFR ml/min BUN/Creatinine Ratio % Glucose (65-100) mg/dL Lactic Acid (0.7-2.0) mmol/L Calcium (8.4-10.2) mg/dL Total Bilirubin (0.1-1.2) mg/dL AST (5-40) units/L ALT (7-56) units/L Alkaline Phosphatase (35-129) units/L Ammonia 31.0 (25-60) umol/L Total Creatine Kinase 1080 H (30-135) units/L Troponin T 0.087 H (0.00-0.029) ng/mL Total Protein (6.3-8.2) g/dL Albumin (3.9-5) g/dL Albumin/Globulin Ratio % Triglycerides 155 H (2-149) mg/dL Cholesterol 177 (50-199) mg/dL LDL Cholesterol Direct 93 (50-130) mg/dL HDL Cholesterol 39 L (40-59) mg/dL Cholesterol/HDL Ratio 4.53 % TSH 13.170 H (0.270-4.200) mlU/mL Free T4 (0.76-1.46) ng/dL Thyroxine (T4) (4.0-12.0) ug/dL 12/15/21 12/15/21 Range/Units 21:33 21:33 WBC (4.5-11.0) K/mm3 RBC (3.65-5.03) M/mm3 Hgb (10.1-14.3) gm/dl Hct (30.3-42.9) % MCV (79-97) fl MCH (28-32) pg MCHC (30-34) % RDW (13.2-15.2) % Plt Count (140-440) K/mm3 Lymph % (Auto) (13.4-35.0) % [place] % (Auto) (0.0-7.3) % Eos % (Auto) (0.0-4.3) % Baso % (Auto) (0.0-1.8) % Lymph # (Auto) (1.2-5.4) K/mm3 [place] # (Auto) (0.0-0.8) K/mm3 Eos # (Auto) (0.0-0.4) K/mm3 Baso # (Auto) (0.0-0.1) K/mm3 Seg Neutrophils % (40.0-70.0) % Seg Neutrophils # (1.8-7.7) K/mm3 Sodium (137-145) mmol/L Potassium (3.6-5.0) mmol/L Chloride (98-107) mmol/L Carbon Dioxide (22-30) mmol/L Anion Gap mmol/L BUN (7-17) mg/dL Creatinine (0.6-1.2) mg/dL Estimated GFR ml/min BUN/Creatinine Ratio % Glucose (65-100) mg/dL Lactic Acid (0.7-2.0) mmol/L Calcium (8.4-10.2) mg/dL Total Bilirubin (0.1-1.2) mg/dL AST (5-40) units/L ALT (7-56) units/L Alkaline Phosphatase (35-129) units/L Ammonia (25-60) umol/L Total Creatine Kinase (30-135) units/L Troponin T (0.00-0.029) ng/mL Total Protein (6.3-8.2) g/dL Albumin (3.9-5) g/dL Albumin/Globulin Ratio % Triglycerides (2-149) mg/dL Cholesterol (50-199) mg/dL LDL Cholesterol Direct (50-130) mg/dL HDL Cholesterol (40-59) mg/dL Cholesterol/HDL Ratio % TSH (0.270-4.200) mlU/mL Free T4 0.37 L (0.76-1.46) ng/dL Thyroxine (T4) 2.7 L (4.0-12.0) ug/dL - Medical Decision Making CT head shows no acute abnormality. Right hilar opacity noted on chest x-ray. WBC count 17,000. Will cover with IV Levaquin. Creatinine 2.4 with CK of 1080. 1 L saline bolus given. TSH 13. Patient has known history of hypothyroidism and is on Synthroid. IV Synthroid ordered. Troponin 0.087. EKG shows sinus rhythm with nonspecific T wave changes diffusely. Seymour catheter placed. UA pending. Patient takes multiple medications including donepezil, lithium and Seroquel. Differential diagnosis includes but is not limited to dementia/Alzheimer's, acute psychosis, UTI. Will admit to hospitalist Critical care attestation.: If time is entered above; I have spent that time in minutes in the direct care of this critically ill patient, excluding procedure time. ED Disposition Clinical Impression: Altered mental status, Hypothyroidism, Leukocytosis, Acute kidney injury Disposition: 09 ADMITTED INPATIENT Is pt being admited?: Yes Condition: Stable
[2021-12-15 22:11] LABS: Albumin 3.1 g/dL (3.9-5); Basophils # (Auto) 0.1 K/mm3 (0.0-0.1); Basophils % (Auto) 0.3 % (0.0-1.8); Calcium 9.6 mg/dL (8.4-10.2); Eosinophils # (Auto) 0.2 K/mm3 (0.0-0.4); Eosinophils % (Auto) 1.1 % (0.0-4.3); Hematocrit 34.8 % (30.3-42.9); Hemoglobin 11.7 gm/dl (10.1-14.3); Lymphocytes # (Auto) 1.8 K/mm3 (1.2-5.4); Mean Corpuscular HGB Conc 34 % (30-34); Mean Corpuscular Volume 92 fl (79-97); Monocytes # (Auto) 1.9 K/mm3 (0.0-0.8); Platelet Count 481 K/mm3 (140-440); Red Blood Count 3.77 M/mm3 (3.65-5.03); Red Cell Distribution Width 15.6 % (13.2-15.2)
[2021-12-15 22:29] LABS: Chol/HDL Ratio 4.53 %
--- NOTE | 2021-12-15 23:02 | XRay Report ---
CHEST 1 VIEW 12/15/2021 9:54 PM INDICATION / CLINICAL INFORMATION: Altered mental status, leukocytosis. COMPARISON: None available. FINDINGS: SUPPORT DEVICES: None. HEART / MEDIASTINUM: No significant abnormality. LUNGS / PLEURA: Mild increased density seen right hilum with atelectasis in the right lower lung and right midlung. Mild atelectasis with possible trace effusion in the left lung No pneumothorax. Signer Name: Adam Alcantara MD Signed: 12/15/2021 10:57 PM Workstation Name: [id number]
--- NOTE | 2021-12-16 01:02 | Cat Scan Report ---
CT HEAD WITHOUT CONTRAST INDICATION / CLINICAL INFORMATION: Altered Mental Status. TECHNIQUE: All CT scans at this location are performed using CT dose reduction for ALARA by means of automated e xposure control. COMPARISON: 12/01/2021 FINDINGS: Mild diffuse motion artifact throughout the examination. Coronal images are suboptimal due to signifi cant artifact. Patient was noted on prior examination to have subdural hemorrhage along left tentoriu m. This area is not well-seen on this examination. No definite new area of hemorrhage identified. The re is low-attenuation within the right basal ganglia and periventricular white matter. This was also seen on prior examination. Diffuse cerebral atrophy is seen. Visualized sinuses show sphenoid sinus d isease IMPRESSION: 1. Limited examination due to patient movement throughout the exam. Previously identified subdural he matoma is not as well-seen on today's examination. No area of new hemorrhage is definite seen 2. Old lacunar infarcts/area of low attenuation within the right basal ganglia and periventricular wh ite matter. 3. Sphenoid sinus disease. Signer Name: Adam Alcantara MD Signed: 12/16/2021 12:57 AM Workstation Name: [id number]
[2021-12-16] MEDS ORDERED: KETAMINE 500 MG/5 ML VIAL MDV IV ONE ×2 (01:15→06:52)
[2021-12-16] MEDS ORDERED: MORPHINE 4 MG/1 ML INJ IV PRN (01:31)
[2021-12-16] MEDS ORDERED: ONDANSETRON 4 MG/2 ML INJ IV PRN (01:31)
[2021-12-16] MEDS ORDERED: ACETAMINOPHEN 325 MG TAB PO PRN (01:31)
--- NOTE | 2021-12-16 01:52 | History and Physical Report ---
History of Present Illness Date of examination: 12/16/21 Date of admission: 12/16/2021 Chief complaint: Altered Mental Status History of present illness: 71-year-old female brought into the emergency room from a care home for evaluation of changes in mental status. Most of the history was obtained from the ER staff as patient is unable to give any history at this time. She is nonverbal. She was said to be hitting her head against the wall. Work-up in the emergency room today, CT scan of the head reveals:1. Limited examination due to patient movement throughout the exam. Previously identified subdural hematoma is not as well-seen on today's examination. No area of new hemorrhage is definite seen 2. Old lacunar infarcts/area of low attenuation within the right basal ganglia and periventricular white matter. 3. Sphenoid sinus disease. Chest x-ray reveals: Mild increased density seen right hilum with atelectasis in the right lower lung and right midlung. Mild atelectasis with possible trace effusion in the left lung No pneumothorax. Labs significant for leukocytosis of 17.7, hyponatremia 146, BUN of 25 and creatinine of 2.4. Total creatinine kinase of 1080, troponin of 0.087. TSH of 13.1, free T4 of 0.37, thyroxine level of 2.7. 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) Family history: other (Unknown) Medications and Allergies Allergies Allergy/AdvReac Type Severity Reaction Status Date / Time No Known Allergies Allergy Unverified 11/29/21 08:47 Home Medications Medication Instructions Recorded Confirmed Last Taken Type Citalopram [Celexa] 20 mg PO QDAY #30 tablet 12/15/21 Unknown Rx Cyanocobalamin [Vitamin B-12] 1,000 mcg PO QDAY #30 tablet 12/15/21 Unknown Rx Docusate Sodium [Colace ORAL LIQ] 100 mg PO QDAY 30 Days #2 bottle 12/15/21 Unknown Rx Famotidine [Pepcid] 20 mg PO QDAY #30 tablet 12/15/21 Unknown Rx Levothyroxine [Synthroid] 100 mcg PO DAILY@0600 #30 tablet 12/15/21 Unknown Rx [place] Carbonate 300 mg PO Q8H #120 12/15/21 Unknown Rx Memantine 5 mg PO Q12HR #60 tablet 12/15/21 Unknown Rx Mirtazapine 15 mg PO QHS #30 12/15/21 Unknown Rx QUEtiapine [SEROquel] 25 mg PO BID #60 tablet 12/15/21 Unknown Rx Quetiapine Fumarate [SEROquel] 75 mg PO QHS #45 tab 12/15/21 Unknown Rx donepeziL [Aricept] 10 mg PO QHS #30 tablet 12/15/21 Unknown Rx Active Meds: Active Medications Acetaminophen (Acetaminophen 325 Mg Tab) 650 mg PO Q4H PRN PRN Reason: Pain MILD(1-3)/Fever >100.5/MERCEDES Levofloxacin/Dextrose (Levaquin 750mg/150ml) 750 mg in 150 mls @ 100 mls/hr IV ONCE ONE; Protocol Stop: 12/16/21 02:26 Sodium Chloride (Nacl 0.9% 1000 Ml) 1,000 mls @ 125 mls/hr IV DIRECT [facility] Cefepime HCl (Cefepime/Ns 2 Gm/100 Ml) 2 gm in 100 mls @ 200 mls/hr IV Q8H [facility]; Protocol Levothyroxine Sodium (Levothyroxine 100 Mcg Inj) 100 mcg IV DAILY@0600 [facility] Morphine Sulfate (Morphine 2 Mg/1 Ml Inj) 2 mg IV Q4H PRN PRN Reason: Pain, Moderate (4-6) Morphine Sulfate (Morphine 4 Mg/1 Ml Inj) 4 mg IV Q4H PRN PRN Reason: Pain , Severe (7-10) Ondansetron HCl (Ondansetron 4 Mg/2 Ml Inj) 4 mg IV Q8H PRN PRN Reason: Nausea And Vomiting Sodium Chloride (Sodium Chloride 0.9% 10 Ml Flush Syringe) 10 ml IV BID [facility] Sodium Chloride (Sodium Chloride 0.9% 10 Ml Flush Syringe) 10 ml IV PRN PRN PRN Reason: LINE FLUSH Review of Systems ROS unobtainable: due to mental status Exam - Constitutional Vitals: Temp Pulse Resp BP Pulse Ox 98.8 F 104 H 16 111/64 92 12/15/21 21:17 12/15/21 21:17 12/15/21 21:17 12/15/21 21:17 12/15/21 21:17 General appearance: Present: no acute distress, well-nourished - EENT Eyes: Present: PERRL, EOM intact. Absent: scleral icterus ENT: hearing intact, clear oral mucosa, dentition normal - Neck Neck: Present: supple, normal ROM - Respiratory Respiratory effort: normal Respiratory: bilateral: CTA - Cardiovascular Rhythm: regular Heart Sounds: Present: S1 & S2. Absent: gallop, systolic murmur, diastolic murmur, rub, click - Extremities Extremities: no ischemia, pulses intact, pulses symmetrical, No edema, normal temperature, normal color, Full ROM Peripheral Pulses: within normal limits - Abdominal General gastrointestinal: Present: soft, non-tender, non-distended, normal bowel sounds. Absent: mass - Integumentary Integumentary: Present: clear, warm, dry, normal turgor. Absent: rash - Musculoskeletal Musculoskeletal: strength equal bilaterally - Psychiatric Psychiatric: cooperative - Neurologic Neurologic: CNII-XII intact, moves all extremities, other (Confused) HEART Score - HEART Score Troponin: Troponin T 0.087 ng/mL (0.00-0.029) H 12/15/21 21:33 Results - Labs CBC & Chem 7: 12/15/21 21:33 12/15/21 21:33 Labs: Abnormal lab results 12/15/21 12/15/21 12/15/21 Range/Units 21:33 21:33 21:33 WBC 17.7 H (4.5-11.0) K/mm3 RDW 15.6 H (13.2-15.2) % Plt Count 481 H (140-440) K/mm3 Lymph % (Auto) 10.0 L (13.4-35.0) % [place] % (Auto) 11.0 H (0.0-7.3) % [place] # (Auto) 1.9 H (0.0-0.8) K/mm3 Seg Neutrophils % 77.6 H (40.0-70.0) % Seg Neutrophils # 13.7 H (1.8-7.7) K/mm3 Sodium 146 H (137-145) mmol/L Chloride 112.4 H (98-107) mmol/L BUN 25 H (7-17) mg/dL Creatinine 2.4 H (0.6-1.2) mg/dL Glucose 112 H (65-100) mg/dL AST 50 H (5-40) units/L Total Creatine Kinase 1080 H (30-135) units/L Troponin T 0.087 H (0.00-0.029) ng/mL Albumin 3.1 L (3.9-5) g/dL Triglycerides 155 H (2-149) mg/dL HDL Cholesterol 39 L (40-59) mg/dL TSH (0.270-4.200) mlU/mL Free T4 (0.76-1.46) ng/dL Thyroxine (T4) (4.0-12.0) ug/dL 12/15/21 12/15/21 12/15/21 Range/Units 21:33 21:33 21:33 WBC (4.5-11.0) K/mm3 RDW (13.2-15.2) % Plt Count (140-440) K/mm3 Lymph % (Auto) (13.4-35.0) % [place] % (Auto) (0.0-7.3) % [place] # (Auto) (0.0-0.8) K/mm3 Seg Neutrophils % (40.0-70.0) % Seg Neutrophils # (1.8-7.7) K/mm3 Sodium (137-145) mmol/L Chloride (98-107) mmol/L BUN (7-17) mg/dL Creatinine (0.6-1.2) mg/dL Glucose (65-100) mg/dL AST (5-40) units/L Total Creatine Kinase (30-135) units/L Troponin T (0.00-0.029) ng/mL Albumin (3.9-5) g/dL Triglycerides (2-149) mg/dL HDL Cholesterol (40-59) mg/dL TSH 13.170 H (0.270-4.200) mlU/mL Free T4 0.37 L (0.76-1.46) ng/dL Thyroxine (T4) 2.7 L (4.0-12.0) ug/dL Assessment and Plan Assessment: 1.Altered Mental Status 2.Hypernatremia 3.Hypothyroidism 4.Possible Pneumonia 5.Leucocytosis 6. Elevated creatinine kinase. 7. Elevated troponin-possibly a troponin leak. 8. BERNICE-Baseline BUN and creatinine unknown Plan: 1. Patient admitted and placed on telemetry. We will monitor mental status. 2. Patient commenced on IV fluid. Will monitor on BUN and creatinine. 3. Consult will be placed to cardiology and nephrology for evaluation and recommendations. 4. Patient started on Synthroid. Will monitor TSH. 5. Patient also commenced on empiric IV antibiotics for possible underlying pneumonia. 6. We will resume routine home medications once reconciled and patient able to tolerate p.o. intake. DVT Prophylaxis:SQ Heparin Code Status: Full Code
[2021-12-16] MEDS ORDERED: CEFEPIME/NS 2 GM/100 ML 2 GM/100 ML BAG IV SCH (02:00)
[2021-12-16] MEDS ORDERED: VANCOMYCIN PHARMACY TO DOSE IV SCH (02:00)
[2021-12-16] MEDS ORDERED: VANCOMYCIN 1,500 MG in SODIUM CHLORIDE 0.9% 500 ML 500 ML IV ONE (02:00)
[2021-12-16] MEDS: SODIUM CHLORIDE 0.9% 1000 ML 1,000 ML IV SCH ×2 (04:00→17:30)
[2021-12-16] MEDS: CEFEPIME/NS 2 GM/100 ML 2 GM/100 ML BAG IV SCH (04:00)
[2021-12-16] MEDS: MORPHINE 2 MG/1 ML INJ IV PRN ×2 (05:39→07:27)
[2021-12-16] MEDS ORDERED: LEVOTHYROXINE 100 MCG INJ IV SCH (06:00)
[2021-12-16 06:28] LABS: Bilirubin,Urine Negative (Negative); Color,Urine Yellow (Yellow)
[2021-12-16 06:29] LABS: Blood,Urine Large (Negative)
[2021-12-16 06:30] LABS: Urobilinogen,Urine < 2.0 mg/dL (<2.0)
[2021-12-16 06:45] LABS: RBC,Urine < 1.0 /HPF (0.0-6.0); WBC,Urine < 1.0 /HPF (0.0-6.0)
--- NOTE | 2021-12-16 08:39 | Consultation ---
History of Present Illness - Reason for Consult acute renal failure - History of Present Illness Very ill-appearing and disheveled 71-year-old altered female with a past medical history documented of hypothyroidism and bipolar disorder, who presented to the ED from her shelter secondary to complaints of change in mentation. Unclear what her baseline mentation is and unfortunately there is no family at bedside. History was obtained from review of records this patient is a poor historian and essentially is nonverbal. Initial labs concerning for an acute kidney injury with urine analysis indicating a possible underlying UTI. Chest x-ray was done showing possible right-sided pneumonia. Nephrology consulted for further evaluation of acute kidney injury. Patient has Seymour catheter in place at this time. Past History Past Medical History: hypothyroidism, other (Bipolar) Past Surgical History: Other (Unknown) Social history: other (Lives in [facility]) Family history: other (Unknown) Medications and Allergies Allergies Allergy/AdvReac Type Severity Reaction Status Date / Time No Known Allergies Allergy Unverified 11/29/21 08:47 Home Medications Medication Instructions Recorded Confirmed Last Taken Type Citalopram [Celexa] 20 mg PO QDAY #30 tablet 12/15/21 Unknown Rx Cyanocobalamin [Vitamin B-12] 1,000 mcg PO QDAY #30 tablet 12/15/21 Unknown Rx Docusate Sodium [Colace ORAL LIQ] 100 mg PO QDAY 30 Days #2 bottle 12/15/21 Unknown Rx Famotidine [Pepcid] 20 mg PO QDAY #30 tablet 12/15/21 Unknown Rx Levothyroxine [Synthroid] 100 mcg PO DAILY@0600 #30 tablet 12/15/21 Unknown Rx [place] Carbonate 300 mg PO Q8H #120 12/15/21 Unknown Rx Memantine 5 mg PO Q12HR #60 tablet 12/15/21 Unknown Rx Mirtazapine 15 mg PO QHS #30 12/15/21 Unknown Rx QUEtiapine [SEROquel] 25 mg PO BID #60 tablet 12/15/21 Unknown Rx Quetiapine Fumarate [SEROquel] 75 mg PO QHS #45 tab 12/15/21 Unknown Rx donepeziL [Aricept] 10 mg PO QHS #30 tablet 12/15/21 Unknown Rx Active Meds: Active Medications Acetaminophen (Acetaminophen 325 Mg Tab) 650 mg PO Q4H PRN PRN Reason: Pain MILD(1-3)/Fever >100.5/MERCEDES Sodium Chloride (Nacl 0.9% 1000 Ml) 1,000 mls @ 125 mls/hr IV DIRECT [facility] Last Admin: 12/16/21 04:00 Dose: 125 mls/hr Cefepime HCl (Cefepime/Ns 2 Gm/100 Ml) 2 gm in 100 mls @ 200 mls/hr IV Q24H [facility]; Protocol Last Admin: 12/16/21 04:00 Dose: 200 mls/hr Levothyroxine Sodium (Levothyroxine 100 Mcg Inj) 100 mcg IV DAILY@0600 [facility] Last Admin: 12/16/21 05:39 Dose: 100 mcg Morphine Sulfate (Morphine 2 Mg/1 Ml Inj) 2 mg IV Q4H PRN PRN Reason: Pain, Moderate (4-6) Last Admin: 12/16/21 07:27 Dose: 2 mg Morphine Sulfate (Morphine 4 Mg/1 Ml Inj) 4 mg IV Q4H PRN PRN Reason: Pain , Severe (7-10) Ondansetron HCl (Ondansetron 4 Mg/2 Ml Inj) 4 mg IV Q8H PRN PRN Reason: Nausea And Vomiting Sodium Chloride (Sodium Chloride 0.9% 10 Ml Flush Syringe) 10 ml IV BID [facility] Sodium Chloride (Sodium Chloride 0.9% 10 Ml Flush Syringe) 10 ml IV PRN PRN PRN Reason: LINE FLUSH Review of Systems ROS unobtainable: due to mental status Exam - Vital Signs Vital signs: Vital Signs Temp Pulse Resp BP Pulse Ox 98.8 F 104 H 16 111/64 92 12/15/21 21:17 12/15/21 21:17 12/15/21 21:17 12/15/21 21:17 12/15/21 21:17 - General Appearance General appearance: chronically ill EENT: ATNC Neck: Present: neck supple Respiratory: Decreased Breath Sounds Heart: regular Gastrointestinal: Present: normal Integumentary: no rash Neurologic: disoriented Musculoskeletal: Present: deferred Results - Lab Results 12/15/21 21:33 12/15/21 21:33 Most recent lab results Calcium 9.6 mg/dL (8.4-10.2) 12/15/21 21:33 Assessment and Plan - Patient Problems (1) BERNICE (acute kidney injury) Current Visit: Yes Status: Acute Plan to address problem: Likely prerenal etiology. Agree with gentle IV fluid hydration. Please avoid all nephrotoxins and maintain mean arterial pressures above 65 mmHg. We will monitor closely. Renal ultrasound pending along with urine electrolytes. Urinalysis reviewed. (2) Hypernatremia Current Visit: Yes Status: Acute Plan to address problem: Agree with gentle IV fluid hydration and we will monitor closely. (3) Pneumonia Current Visit: Yes Status: Acute Plan to address problem: Results of chest x-ray was reviewed. Please ensure that antibiotics are dosed appropriately for her decreased renal function. (4) Altered mental status Current Visit: Yes Status: Acute Plan to address problem: Unclear what her baseline mentation is at this time. CT head noted. We will continue to monitor closely
--- NOTE | 2021-12-16 10:05 | Progress Note ---
Assessment and Plan 71-year-old female brought into the emergency room from a senior care for evaluation of changes in mental status. CT scan of the head reveals Previously identified subdural hematoma is not as well-seen, No area of new hemorrhage, Old lacunar infarcts/area of low attenuation within the right basal ganglia and periventricular white matter. Chest x-ray reveals: Mild increased density seen right hilum with atelectasis in the right lower lung and right midlung. Labs significant for leukocytosis of 17.7, hyponatremia 146, BUN of 25 and creatinine of 2.4. Total creatinine kinase of 1080, troponin of 0.087. TSH of 13.1, free T4 of 0.37, thyroxine level of 2.7. 12/18: Na level elevated today, cont 1/2NS, cont to follow BMP. consult mental health, resume home meds. Patient was discharged and readmitted same day. cont to follow. haldol as needed for agitation Assessment and Plan: -- Altered Mental Status/Acute metabolic encephalopathy --Hypernatremia --Hypothyroidism --Possible Pneumonia --Leucocytosis with SIRS --Elevated creatinine kinase. --Elevated troponin-possibly due to BERNICE. --BERNICE-likely vasomotor nephropathy --h/o bipolar disorder Plan: -- admitted and placed on telemetry. We will monitor mental status. -- Placed on IV fluid. Will monitor on BUN and creatinine, Na level. -- Consulted cardiology and nephrology for evaluation and recommendations. -- Patient started on Synthroid and empiric IV antibiotics for possible underlying pneumonia. -- resume routine home medications, haldol as needed for agitation --DVT Prophylaxis:SQ Heparin --Code Status: Full Code Subjective Date of service: 12/16/21 Interval history: Patient seen and examined vitals noted, Na level elevated patient is very confused Objective - Exam Narrative Exam: General appearance: chronically ill EENT: ATNC Neck: Present: neck supple Respiratory: Decreased Breath Sounds Heart: regular Gastrointestinal: Present: normal Integumentary: no rash Neurologic: disoriented Musculoskeletal: Present: deferred - Constitutional Vitals: Vital Signs - 12hr 12/16/21 12/16/21 12/16/21 01:30 01:33 03:49 Temperature Pulse Rate 98 H 91 H 72 Respiratory 28 H 26 H 16 Rate Blood Pressure 129/63 131/65 116/72 [Right] O2 Sat by Pulse 98 99 98 Oximetry 12/16/21 12/16/21 12/16/21 04:52 05:14 07:27 Temperature 99.1 F Pulse Rate 82 Respiratory 18 22 Rate Blood Pressure 113/68 [Right] O2 Sat by Pulse 98 97 Oximetry - Labs CBC & Chem 7: 12/17/21 04:11 12/19/21 08:47 Labs: Abnormal lab results 12/15/21 12/15/21 12/15/21 Range/Units 21:33 21:33 21:33 WBC 17.7 H (4.5-11.0) K/mm3 RDW 15.6 H (13.2-15.2) % Plt Count 481 H (140-440) K/mm3 Lymph % (Auto) 10.0 L (13.4-35.0) % [place] % (Auto) 11.0 H (0.0-7.3) % [place] # (Auto) 1.9 H (0.0-0.8) K/mm3 Seg Neutrophils % 77.6 H (40.0-70.0) % Seg Neutrophils # 13.7 H (1.8-7.7) K/mm3 Sodium 146 H (137-145) mmol/L Chloride 112.4 H (98-107) mmol/L BUN 25 H (7-17) mg/dL Creatinine 2.4 H (0.6-1.2) mg/dL Glucose 112 H (65-100) mg/dL AST 50 H (5-40) units/L Total Creatine Kinase 1080 H (30-135) units/L Troponin T 0.087 H (0.00-0.029) ng/mL Albumin 3.1 L (3.9-5) g/dL Triglycerides 155 H (2-149) mg/dL HDL Cholesterol 39 L (40-59) mg/dL TSH (0.270-4.200) mlU/mL Free T4 (0.76-1.46) ng/dL Thyroxine (T4) (4.0-12.0) ug/dL Urine pH (5.0-7.0) Urine Blood (Negative) 12/15/21 12/15/21 12/15/21 Range/Units 21:33 21:33 21:33 WBC (4.5-11.0) K/mm3 RDW (13.2-15.2) % Plt Count (140-440) K/mm3 Lymph % (Auto) (13.4-35.0) % [place] % (Auto) (0.0-7.3) % [place] # (Auto) (0.0-0.8) K/mm3 Seg Neutrophils % (40.0-70.0) % Seg Neutrophils # (1.8-7.7) K/mm3 Sodium (137-145) mmol/L Chloride (98-107) mmol/L BUN (7-17) mg/dL Creatinine (0.6-1.2) mg/dL Glucose (65-100) mg/dL AST (5-40) units/L Total Creatine Kinase (30-135) units/L Troponin T (0.00-0.029) ng/mL Albumin (3.9-5) g/dL Triglycerides (2-149) mg/dL HDL Cholesterol (40-59) mg/dL TSH 13.170 H (0.270-4.200) mlU/mL Free T4 0.37 L (0.76-1.46) ng/dL Thyroxine (T4) 2.7 L (4.0-12.0) ug/dL Urine pH (5.0-7.0) Urine Blood (Negative) 12/16/21 12/16/21 Range/Units 04:47 Unknown WBC (4.5-11.0) K/mm3 RDW (13.2-15.2) % Plt Count (140-440) K/mm3 Lymph % (Auto) (13.4-35.0) % [place] % (Auto) (0.0-7.3) % [place] # (Auto) (0.0-0.8) K/mm3 Seg Neutrophils % (40.0-70.0) % Seg Neutrophils # (1.8-7.7) K/mm3 Sodium (137-145) mmol/L Chloride (98-107) mmol/L BUN (7-17) mg/dL Creatinine (0.6-1.2) mg/dL Glucose (65-100) mg/dL AST (5-40) units/L Total Creatine Kinase 1460 H (30-135) units/L Troponin T (0.00-0.029) ng/mL Albumin (3.9-5) g/dL Triglycerides (2-149) mg/dL HDL Cholesterol (40-59) mg/dL TSH (0.270-4.200) mlU/mL Free T4 (0.76-1.46) ng/dL Thyroxine (T4) (4.0-12.0) ug/dL Urine pH 8.0 H (5.0-7.0) Urine Blood Large A (Negative) HEART Score - HEART Score Troponin: Troponin T 0.087 ng/mL (0.00-0.029) H 12/15/21 21:33
--- NOTE | 2021-12-16 10:43 | Electrocardiograph Report ---
[facility] Test Date: 2021-12-16 Test Time: 01:31:24 Pat Name: CANDICE STANTON Department: Room: A371 1 Gender: F Skip Tender: WANDA : 1950 Requested By: STEFANIE ROSALES Order Number: [id number] Reading MD: Camille Palomino Measurements Intervals [place] Rate: 91 P: 43 TX: 111 QRS: 32 QRSD: 104 T: -88 QT: QTc: 0 Interpretive Statements Artifacts Sinus rhythm Probable left atrial enlargement Nonspecific T abnormalities, diffuse leads Compared to ECG 12/02/2021 11:10:46 T-wave abnormality now present Ventricular premature complex(es) no longer present Electronically Signed On 12-16-2021 10:43:20 EDT by Camille Palomino
[2021-12-16 10:58] LABS: Calcium 9.1 mg/dL (8.4-10.2)
[2021-12-16] MEDS: QUEtiapine 25 MG TAB PO SCH ×2 (11:11→21:05)
--- NOTE | 2021-12-16 13:35 | Consultation ---
History of Present Illness Consult date: 12/16/21 Requesting physician: GANESH AUGUSTE Consult reason: elevated troponin History of present illness: Patient is 71-year-old female with past medical history of hypothyroidism and bipolar disorder who was brought to the ED from a nursing for altered mental status. History is taken from chart due to patient mental status and patient being nonverbal. Per documentation patient was hitting her head against a wall. Patient was found to have leukocytosis, elevated creatinine, elevated creatinine kinase, elevated troponins, CXR showed possible pneumonia, and urinalysis shows possible UTI. Of note patient was discharged on 12/15/2021 after having acute psychosis. Patient is previously unknown to our practice. Cardiology is consulted for elevated troponin Past History Past Medical History: hypothyroidism, other (Bipolar) Past Surgical History: Other (Unknown) Social history: other (Lives in [facility]) Family history: other (Unknown) Medications and Allergies Allergies Allergy/AdvReac Type Severity Reaction Status Date / Time No Known Allergies Allergy Unverified 11/29/21 08:47 Home Medications Medication Instructions Recorded Confirmed Last Taken Type Citalopram [Celexa] 20 mg PO QDAY #30 tablet 12/15/21 Unknown Rx Cyanocobalamin [Vitamin B-12] 1,000 mcg PO QDAY #30 tablet 12/15/21 Unknown Rx Docusate Sodium [Colace ORAL LIQ] 100 mg PO QDAY 30 Days #2 bottle 12/15/21 Unknown Rx Famotidine [Pepcid] 20 mg PO QDAY #30 tablet 12/15/21 Unknown Rx Levothyroxine [Synthroid] 100 mcg PO DAILY@0600 #30 tablet 12/15/21 Unknown Rx [place] Carbonate 300 mg PO Q8H #120 12/15/21 Unknown Rx Memantine 5 mg PO Q12HR #60 tablet 12/15/21 Unknown Rx Mirtazapine 15 mg PO QHS #30 12/15/21 Unknown Rx QUEtiapine [SEROquel] 25 mg PO BID #60 tablet 12/15/21 Unknown Rx Quetiapine Fumarate [SEROquel] 75 mg PO QHS #45 tab 12/15/21 Unknown Rx donepeziL [Aricept] 10 mg PO QHS #30 tablet 12/15/21 Unknown Rx Active Meds: Active Medications Acetaminophen (Acetaminophen 325 Mg Tab) 650 mg PO Q4H PRN PRN Reason: Pain MILD(1-3)/Fever >100.5/MERCEDES Aspirin (Aspirin 81 Mg Tab Chew) 81 mg PO QDAY [facility] Atorvastatin Calcium (Atorvastatin 10 Mg Tab) 10 mg PO QHS [facility] Donepezil HCl (Donepezil 10 Mg Tab) 10 mg PO QHS [facility] Sodium Chloride (Nacl 0.9% 1000 Ml) 1,000 mls @ 125 mls/hr IV DIRECT [facility] Last Admin: 12/16/21 04:00 Dose: 125 mls/hr Cefepime HCl (Cefepime/Ns 2 Gm/100 Ml) 2 gm in 100 mls @ 200 mls/hr IV Q24H [facility]; Protocol Last Admin: 12/16/21 04:00 Dose: 200 mls/hr Levothyroxine Sodium (Levothyroxine 100 Mcg Tab) 100 mcg PO DAILY@0600 [facility] Morphine Sulfate (Morphine 2 Mg/1 Ml Inj) 2 mg IV Q4H PRN PRN Reason: Pain, Moderate (4-6) Last Admin: 12/16/21 07:27 Dose: 2 mg Morphine Sulfate (Morphine 4 Mg/1 Ml Inj) 4 mg IV Q4H PRN PRN Reason: Pain , Severe (7-10) Ondansetron HCl (Ondansetron 4 Mg/2 Ml Inj) 4 mg IV Q8H PRN PRN Reason: Nausea And Vomiting Quetiapine Fumarate (Quetiapine 25 Mg Tab) 25 mg PO BID [facility] Last Admin: 12/16/21 11:11 Dose: 25 mg Sodium Chloride (Sodium Chloride 0.9% 10 Ml Flush Syringe) 10 ml IV BID [facility] Last Admin: 12/16/21 10:59 Dose: 10 ml Sodium Chloride (Sodium Chloride 0.9% 10 Ml Flush Syringe) 10 ml IV PRN PRN PRN Reason: LINE FLUSH Review of Systems ROS unobtainable: due to mental status Physical Examination Vital Signs Temp Pulse Resp BP Pulse Ox 98.8 F 104 H 16 111/64 92 12/15/21 21:17 12/15/21 21:17 12/15/21 21:17 12/15/21 21:17 12/15/21 21:17 General appearance: no acute distress, disheveled, other (Altered mental status) HEENT: Positive: PERRL Neck: Positive: trachea midline Cardiac: Positive: Reg Rate and Rhythm Lungs: Positive: Normal Breath Sounds Neuro: Positive: Other Abdomen: Positive: Soft (AMS) Skin: Negative: Rash Extremities: Present: upper extr. pulses. Absent: edema Results 12/15/21 21:33 12/16/21 Unknown Cardiac Enzymes 12/15/21 Range/Units 21:33 AST 50 H (5-40) units/L Lipids 12/15/21 Range/Units 21:33 Triglycerides 155 H (2-149) mg/dL Cholesterol 177 (50-199) mg/dL HDL Cholesterol 39 L (40-59) mg/dL Cholesterol/HDL Ratio 4.53 % CBC 12/15/21 Range/Units 21:33 WBC 17.7 H (4.5-11.0) K/mm3 RBC 3.77 (3.65-5.03) M/mm3 Hgb 11.7 (10.1-14.3) gm/dl Hct 34.8 (30.3-42.9) % Plt Count 481 H (140-440) K/mm3 Lymph # (Auto) 1.8 (1.2-5.4) K/mm3 [place] # (Auto) 1.9 H (0.0-0.8) K/mm3 Eos # (Auto) 0.2 (0.0-0.4) K/mm3 Baso # (Auto) 0.1 (0.0-0.1) K/mm3 Comprehensive Metabolic Panel 12/15/21 12/16/21 Range/Units 21:33 Unknown Sodium 146 H 151 H (137-145) mmol/L Potassium 4.2 4.3 (3.6-5.0) mmol/L Chloride 112.4 H 117.0 H (98-107) mmol/L Carbon Dioxide 25 21 L (22-30) mmol/L BUN 25 H 25 H (7-17) mg/dL Creatinine 2.4 H 2.4 H (0.6-1.2) mg/dL Glucose 112 H 77 (65-100) mg/dL Calcium 9.6 9.1 (8.4-10.2) mg/dL AST 50 H (5-40) units/L ALT 27 (7-56) units/L Alkaline Phosphatase 109 (35-129) units/L Total Protein 7.5 (6.3-8.2) g/dL Albumin 3.1 L (3.9-5) g/dL - Imaging and Cardiology Echo: pending EKG interpretations - Telemetry EKG Rhythm: Sinus Rhythm - EKG Sinus rhythms and dysrhythmias: sinus rhythm Repolarization changes or abnormalities: nonspecific abnormality, ST segment, and/or T wave Assessment and Plan Patient is 71-year-old female with past medical history of hypothyroidism and bipolar disorder who was brought to the ED from a nursing for altered mental status AMS Leukocytosis NSTEMI suspect type II BERNICE-nephrology following Suspected pneumonia Possible UTI Hypothyroidism Plan: EKG shows sinus rhythm probable left atrial enlargement, nonspecific T abnormalities. No acute ischemic changes seen Troponin noted to be elevated suspect NSTEMI type II in setting of BERNICE and leukocytosis Due to patient mental status recommend conservative management Will initiate aspirin and atorvastatin Echo pending Patient seen in conjunction with Dr. Nava who agrees with this plan of care - Patient Problems (1) BERNICE (acute kidney injury) Current Visit: Yes Status: Acute (2) Altered mental status Current Visit: Yes Status: Acute (3) Hypernatremia Current Visit: Yes Status: Acute (4) Leukocytosis Current Visit: Yes Status: Acute (5) Pneumonia Current Visit: Yes Status: Acute (6) Hypothyroidism Current Visit: Yes Status: Chronic Qualifiers: (7) Abnormal CT of brain Current Visit: No Status: Acute (8) Subdural hematoma Current Visit: No Status: Acute
[2021-12-16 14:26] LABS: Hematocrit 34.4 % (30.3-42.9); Mean Corpuscular HGB Conc 32 % (30-34); Mean Corpuscular Volume 93 fl (79-97); Platelet Count 465 K/mm3 (140-440); Red Blood Count 3.71 M/mm3 (3.65-5.03); Red Cell Distribution Width 15.3 % (13.2-15.2)
[2021-12-16] MEDS: HALOPERIDOL LACTATE 5 MG/1 ML INJ IM PRN (17:22)
[2021-12-16] MEDS: DONEPEZIL 10 MG TAB PO SCH (21:05)
[2021-12-17] MEDS: CEFEPIME/NS 2 GM/100 ML 2 GM/100 ML BAG IV SCH (01:37)
[2021-12-17] MEDS: SODIUM CHLORIDE 0.9% 1000 ML 1,000 ML IV SCH (01:38)
[2021-12-17] MEDS: HALOPERIDOL LACTATE 5 MG/1 ML INJ IM PRN ×3 (01:39→22:57)
[2021-12-17] MEDS: LEVOTHYROXINE 100 MCG TAB PO SCH (05:06)
[2021-12-17 05:15] LABS: Basophils % (Auto) 0.3 % (0.0-1.8); Eosinophils # (Auto) 0.2 K/mm3 (0.0-0.4); Eosinophils % (Auto) 1.1 % (0.0-4.3); Hematocrit 31.8 % (30.3-42.9); Lymphocytes # (Auto) 1.8 K/mm3 (1.2-5.4); Lymphocytes % (Auto) 12.4 % (13.4-35.0); Mean Corpuscular HGB Conc 31 % (30-34); Mean Corpuscular Volume 94 fl (79-97); Monocytes # (Auto) 1.4 K/mm3 (0.0-0.8); Monocytes % (Auto) 9.7 % (0.0-7.3); Platelet Count 490 K/mm3 (140-440); Red Blood Count 3.39 M/mm3 (3.65-5.03); Red Cell Distribution Width 15.8 % (13.2-15.2)
[2021-12-17 05:17] LABS: Calcium 9.2 mg/dL (8.4-10.2)
[2021-12-17] MEDS ORDERED: LEVOTHYROXINE 100 MCG TAB PO SCH (06:00)
--- NOTE | 2021-12-17 07:02 | Ultrasound Report ---
ULTRASOUND RENAL INDICATION / CLINICAL INFORMATION: BERNICE. COMPARISON: None available. FINDINGS: RIGHT KIDNEY: Length = 8.9 cm. - Echogenicity: Increased - Cortical Thickness: Normal. - Hydronephrosis: None. - Cyst or mass: No significant abnormality. - Stones: None seen. LEFT KIDNEY: Length = 9 cm. - Echogenicity: Increased - Cortical Thickness: Normal. - Hydronephrosis: Mild - Cyst or mass: No significant abnormality. - Stones: None seen. URINARY BLADDER: Seymour catheter. FREE FLUID: None. ADDITIONAL FINDINGS: Gallstones IMPRESSION: 1. Mild left hydronephrosis. Bilateral kidneys are echogenic suggesting medical renal disease. Mild a trophy. 2. Cholelithiasis Signer Name: Adam Alcantara MD Signed: 12/17/2021 6:58 AM Workstation Name: [id number]
[2021-12-17] MEDS ORDERED: D5W/0.45% NACL 1,000 ML IV SCH (08:00)
[2021-12-17] MEDS: ASPIRIN 81 MG TAB CHEW PO SCH (09:47)
[2021-12-17] MEDS: QUEtiapine 25 MG TAB PO SCH ×2 (09:47→22:57)
--- NOTE | 2021-12-17 12:13 | Progress Note ---
Assessment and Plan Patient is 71-year-old female with past medical history of hypothyroidism and bipolar disorder who was brought to the ED from a nursing for altered mental status AMS Leukocytosis NSTEMI suspect type II BERNICE-nephrology following Suspected pneumonia Possible UTI Hypothyroidism Echo 12/16/2021-technically difficult study. EF 50 to 55%. Mild diastolic dysfunction is present impaired relaxation pattern. Right ventricular systolic function is normal. No pericardial effusion Plan: Troponin noted to be elevated suspect NSTEMI type II in setting of BERNICE and leukocytosis Due to patient mental status recommend conservative management Continue aspirin and atorvastatin Echo results noted above technically difficult study but grossly normal Cardiac status appears otherwise stable Patient seen in conjunction with Dr. Nava who agrees with this plan of care - Patient Problems (1) BERNICE (acute kidney injury) Current Visit: Yes Status: Acute (2) Altered mental status Current Visit: Yes Status: Acute (3) Hypernatremia Current Visit: Yes Status: Acute (4) Leukocytosis Current Visit: Yes Status: Acute (5) Pneumonia Current Visit: Yes Status: Acute (6) Hypothyroidism Current Visit: Yes Status: Chronic Qualifiers: (7) Abnormal CT of brain Current Visit: No Status: Acute (8) Subdural hematoma Current Visit: No Status: Acute Subjective Date of service: 12/17/21 Principal diagnosis: AMS Interval history: Patient remains with AMS in no acute distress Sinus 90s to low 100 on monitor with few PVCs Objective Vital Signs Temp Pulse Resp BP Pulse Ox 12/17/21 06:19 98.5 F 103 H 20 157/82 95 12/16/21 22:13 99.2 F 92 H 18 128/66 86 12/16/21 22:00 18 98 - Physical Examination General: No Apparent Distress, Other (Altered mental status) HEENT: Positive: PERRL Neck: Positive: trachea midline Cardiac: Positive: Reg Rate and Rhythm Lungs: Positive: Normal Breath Sounds Neuro: Positive: Other Abdomen: Positive: Soft (AMS) Skin: Negative: Rash Extremities: Present: upper extr. pulses. Absent: edema - Labs and Meds CBC 12/16/21 12/17/21 Range/Units 10:13 04:11 WBC 17.4 H 14.3 H (4.5-11.0) K/mm3 RBC 3.71 3.39 L (3.65-5.03) M/mm3 Hgb 11.0 10.0 L (10.1-14.3) gm/dl Hct 34.4 31.8 (30.3-42.9) % Plt Count 465 H 490 H (140-440) K/mm3 Lymph # (Auto) 1.8 (1.2-5.4) K/mm3 [place] # (Auto) 1.4 H (0.0-0.8) K/mm3 Eos # (Auto) 0.2 (0.0-0.4) K/mm3 Baso # (Auto) 0.0 (0.0-0.1) K/mm3 Comprehensive Metabolic Panel 12/17/21 Range/Units 04:11 Sodium 160 H D (137-145) mmol/L Potassium 3.7 (3.6-5.0) mmol/L Chloride 129.0 H (98-107) mmol/L Carbon Dioxide 21 L (22-30) mmol/L BUN 24 H (7-17) mg/dL Creatinine 2.2 H (0.6-1.2) mg/dL Glucose 88 (65-100) mg/dL Calcium 9.2 (8.4-10.2) mg/dL - Imaging and Cardiology Echo: report reviewed - Telemetry EKG Rhythm: Sinus Rhythm - EKG Sinus rhythms and dysrhythmias: sinus rhythm Repolarization changes or abnormalities: nonspecific abnormality, ST segment, and/or T wave
--- NOTE | 2021-12-17 15:55 | Progress Note ---
Assessment and Plan 71-year-old female brought into the emergency room from a snf for evaluation of changes in mental status. CT scan of the head reveals Previously identified subdural hematoma is not as well-seen, No area of new hemorrhage, Old lacunar infarcts/area of low attenuation within the right basal ganglia and periventricular white matter. Chest x-ray reveals: Mild increased density seen right hilum with atelectasis in the right lower lung and right midlung. Labs significant for leukocytosis of 17.7, hyponatremia 146, BUN of 25 and creatinine of 2.4. Total creatinine kinase of 1080, troponin of 0.087. TSH of 13.1, free T4 of 0.37, thyroxine level of 2.7. 12/16: Na level elevated today, cont 1/2NS, cont to follow BMP. consult mental health, resume home meds. Patient was discharged and readmitted same day. cont to follow. haldol as needed for agitation 12/17: Na level remains elevated, change iv fluid to D5W, remains confused. Family planning for hospice. cont adjust meds and follow BMP. Assessment and Plan: -- Altered Mental Status/Acute metabolic encephalopathy --Hypernatremia --Hypothyroidism --Possible Pneumonia --Leucocytosis with SIRS --Elevated creatinine kinase. --Elevated troponin-possibly due to BERNICE. --BERNICE-likely vasomotor nephropathy --h/o bipolar disorder Plan: -- admitted and placed on telemetry. We will monitor mental status. -- Placed on IV fluid. Will monitor on BUN and creatinine, Na level. -- Consulted cardiology and nephrology for evaluation and recommendations. -- Patient started on Synthroid and empiric IV antibiotics for possible un derlying pneumonia. -- resume routine home medications, haldol as needed for agitation --DVT Prophylaxis:SQ Heparin --Code Status: Full Code Subjective Date of service: 12/17/21 Principal diagnosis: AMS Interval history: Patient seen and examined vitals noted, Na level elevated patient is very confused, restrained Objective - Exam Narrative Exam: General appearance: chronically ill EENT: ATNC Neck: Present: neck supple Respiratory: Decreased Breath Sounds Heart: regular Gastrointestinal: Present: normal Integumentary: no rash Neurologic: disoriented Musculoskeletal: Present: deferred - Constitutional Vitals: Vital Signs - 12hr 12/17/21 12/17/21 06:19 13:10 Temperature 98.5 F 97.8 F Pulse Rate 103 H 106 H Respiratory 20 20 Rate Blood Pressure 157/82 145/81 O2 Sat by Pulse 95 93 Oximetry - Labs CBC & Chem 7: 12/17/21 04:11 12/19/21 08:47 Labs: Abnormal lab results 12/17/21 12/17/21 Range/Units 04:11 04:11 WBC 14.3 H (4.5-11.0) K/mm3 RBC 3.39 L (3.65-5.03) M/mm3 Hgb 10.0 L (10.1-14.3) gm/dl RDW 15.8 H (13.2-15.2) % Plt Count 490 H (140-440) K/mm3 Lymph % (Auto) 12.4 L (13.4-35.0) % [place] % (Auto) 9.7 H (0.0-7.3) % [place] # (Auto) 1.4 H (0.0-0.8) K/mm3 Seg Neutrophils % 76.5 H (40.0-70.0) % Seg Neutrophils # 11.0 H (1.8-7.7) K/mm3 Sodium 160 H D (137-145) mmol/L Chloride 129.0 H (98-107) mmol/L Carbon Dioxide 21 L (22-30) mmol/L BUN 24 H (7-17) mg/dL Creatinine 2.2 H (0.6-1.2) mg/dL HEART Score - HEART Score Troponin: Troponin T 0.144 ng/mL (0.00-0.029) H* D 12/16/21 Unknown
--- NOTE | 2021-12-17 17:22 | Progress Note ---
Assessment and Plan - Patient Problems (1) BERNICE (acute kidney injury) Current Visit: Yes Status: Acute Plan to address problem: Likely prerenal etiology. Agree with gentle IV fluid hydration. Please avoid all nephrotoxins and maintain mean arterial pressures above 65 mmHg. We will monitor closely. Renal ultrasound report reviewed. Urinalysis reviewed. (2) Hypernatremia Current Visit: Yes Status: Acute Plan to address problem: Agree with gentle IV fluid hydration and we will monitor closely. Will adjust to D5 1/2 NS at 100 cc/hr. (3) Pneumonia Current Visit: Yes Status: Acute Plan to address problem: Results of chest x-ray was reviewed. Please ensure that antibiotics are dosed appropriately for her decreased renal function. (4) Altered mental status Current Visit: Yes Status: Acute Plan to address problem: Unclear what her baseline mentation is at this time. CT head noted. We will continue to monitor closely Subjective Date of service: 12/17/21 Principal diagnosis: AMS Interval history: No acute changes. Remains essentially non-verbal, altered mentation. Labs reviewed, with concerns for worsening hypernatremia. Objective - Vital Signs Vital signs: Vital Signs - 12hr 12/17/21 12/17/21 06:19 13:10 Temperature 98.5 F 97.8 F Pulse Rate 103 H 106 H Respiratory 20 20 Rate Blood Pressure 157/82 145/81 O2 Sat by Pulse 95 93 Oximetry - General Appearance General appearance: chronically ill, frail EENT: ATNC Neck: no thyromegaly, supple Respiratory: Present: Wheezes Cardiology: regular Gastrointestinal: normal Integumentary: warm and dry Neurologic: disoriented Musculoskeletal: deferred - Lab 12/17/21 04:11 12/17/21 04:11 Most recent lab results Calcium 9.2 mg/dL (8.4-10.2) 12/17/21 04:11 - Allied health notes Allied health notes reviewed: nursing Medications & Allergies - Medications Allergies/Adverse Reactions: Allergies No Known Allergies Allergy (Unverified 11/29/21 08:47) Home Medications: Home Medications Medication Instructions Recorded Confirmed Last Taken Type Citalopram [Celexa] 20 mg PO QDAY #30 tablet 12/15/21 Unknown Rx Cyanocobalamin [Vitamin B-12] 1,000 mcg PO QDAY #30 tablet 12/15/21 Unknown Rx Docusate Sodium [Colace ORAL LIQ] 100 mg PO QDAY 30 Days #2 bottle 12/15/21 Unknown Rx Famotidine [Pepcid] 20 mg PO QDAY #30 tablet 12/15/21 Unknown Rx Levothyroxine [Synthroid] 100 mcg PO DAILY@0600 #30 tablet 12/15/21 Unknown Rx [place] Carbonate 300 mg PO Q8H #120 12/15/21 Unknown Rx Memantine 5 mg PO Q12HR #60 tablet 12/15/21 Unknown Rx Mirtazapine 15 mg PO QHS #30 12/15/21 Unknown Rx QUEtiapine [SEROquel] 25 mg PO BID #60 tablet 12/15/21 Unknown Rx Quetiapine Fumarate [SEROquel] 75 mg PO QHS #45 tab 12/15/21 Unknown Rx donepeziL [Aricept] 10 mg PO QHS #30 tablet 12/15/21 Unknown Rx Active Medications: Generic Name Dose Route Start Last Admin Trade Name Freq PRN Reason Stop Dose Admin Acetaminophen 650 mg 12/16/21 01:31 Acetaminophen 325 Mg Tab PO Q4H PRN Pain MILD(1-3)/Fever >100.5/MERCEDES Aspirin 81 mg 12/17/21 10:00 12/17/21 09:47 Aspirin 81 Mg Tab Chew PO 81 mg QDAY UCHE Administration Atorvastatin Calcium 10 mg 12/16/21 22:00 12/16/21 21:05 Atorvastatin 10 Mg Tab PO 10 mg QHS UCHE Administration Donepezil HCl 10 mg 12/16/21 22:00 12/16/21 21:05 Donepezil 10 Mg Tab PO 10 mg QHS UCHE Administration Haloperidol Lactate 5 mg 12/16/21 17:00 12/17/21 10:07 Haloperidol Lactate 5 Mg/1 Ml Inj IM 5 mg Q6H PRN Administration Agitation Cefepime HCl 2 gm in 100 mls @ 200 mls/hr 12/16/21 02:00 12/17/21 04:46 Cefepime/Ns 2 Gm/100 Ml IV Infused Q24H UCHE Infusion Protocol Dextrose/Sodium Chloride 1,000 mls @ 100 mls/hr 12/17/21 08:00 12/17/21 08:04 D5/0.45ns IV 100 mls/hr DIRECT UCHE Administration Vancomycin HCl 1 gm in 250 mls @ 167.007 mls/hr 12/17/21 18:00 Vancomycin/Ns 1 Gm/250 Ml IV 12/17/21 19:29 ONCE ONE Levothyroxine Sodium 100 mcg 12/17/21 06:00 12/17/21 05:06 Levothyroxine 100 Mcg Tab PO 100 mcg DAILY@0600 UCHE Administration Morphine Sulfate 2 mg 12/16/21 01:31 12/16/21 07:27 Morphine 2 Mg/1 Ml Inj IV 2 mg Q4H PRN Administration Pain, Moderate (4-6) Morphine Sulfate 4 mg 12/16/21 01:31 Morphine 4 Mg/1 Ml Inj IV Q4H PRN Pain , Severe (7-10) Ondansetron HCl 4 mg 12/16/21 01:31 Ondansetron 4 Mg/2 Ml Inj IV Q8H PRN Nausea And Vomiting Quetiapine Fumarate 25 mg 12/16/21 10:30 12/17/21 09:47 Quetiapine 25 Mg Tab PO 25 mg BID UCHE Administration Sodium Chloride 10 ml 12/16/21 10:00 12/17/21 09:47 Sodium Chloride 0.9% 10 Ml Flush Syringe IV 10 ml BID UCHE Administration Sodium Chloride 10 ml 12/16/21 01:31 Sodium Chloride 0.9% 10 Ml Flush Syringe IV PRN PRN LINE FLUSH
[2021-12-17] MEDS ORDERED: VANCOMYCIN/NS 1 GM/250 ML 1 GM/250 ML BAG IV ONE (18:00)
[2021-12-17] MEDS ORDERED: MAGNESIUM CITRATE 300 ML ORAL LIQD PO ONE (22:21)
[2021-12-17] MEDS: DONEPEZIL 10 MG TAB PO SCH (22:57)
[2021-12-18] MEDS: CEFEPIME/NS 2 GM/100 ML 2 GM/100 ML BAG IV SCH (04:00)
[2021-12-18] MEDS: LEVOTHYROXINE 100 MCG TAB PO SCH (05:21)
[2021-12-18 05:45] LABS: BUN/Creatinine Ratio 12; Blood Urea Nitrogen 26 mg/dL (7-17); Calcium 9.3 mg/dL (8.4-10.2); Hemolysis Index 0
[2021-12-18] MEDS: DEXTROSE 5% IN WATER 1,000 ML IV SCH ×2 (06:51→21:55)
--- NOTE | 2021-12-18 08:33 | Progress Note ---
Assessment and Plan - Patient Problems (1) BERNICE (acute kidney injury) Current Visit: Yes Status: Acute Plan to address problem: Likely prerenal etiology. Agree with gentle IV fluid hydration. Please avoid all nephrotoxins and maintain mean arterial pressures above 65 mmHg. We will monitor closely. Renal ultrasound report reviewed. Urinalysis reviewed. (2) Hypernatremia Current Visit: Yes Status: Acute Plan to address problem: Agree with gentle IV fluid hydration and we will monitor closely. Will adjust to D5 W at 100 cc/hr. plan to repeat renal function panel at noon today to assess response. (3) Pneumonia Current Visit: Yes Status: Acute Plan to address problem: Results of chest x-ray was reviewed. Please ensure that antibiotics are dosed appropriately for her decreased renal function. (4) Altered mental status Current Visit: Yes Status: Acute Plan to address problem: Unclear what her baseline mentation is at this time. CT head noted. We will continue to monitor closely Subjective Date of service: 12/18/21 Principal diagnosis: AMS Interval history: Labs concerning for worsening hypernatremia. Per RN there had been no issues with her IV and she had been receiving D5 1/2NS yesterday. Agree with adjustment of current fluids to D5W given worsening hypernatremia. Objective - Vital Signs Vital signs: Vital Signs - 12hr 12/17/21 12/17/21 12/18/21 21:59 22:00 04:36 Temperature 98.2 F 98.1 F Pulse Rate 88 Respiratory 18 20 16 Rate Blood Pressure 158/75 140/65 O2 Sat by Pulse 94 98 Oximetry 12/18/21 04:41 Temperature Pulse Rate 90 Respiratory Rate Blood Pressure O2 Sat by Pulse 100 Oximetry - General Appearance General appearance: cachectic, chronically ill, frail EENT: ATNC Neck: no JVD Respiratory: Present: Wheezes Cardiology: regular Gastrointestinal: normal Integumentary: no rash Neurologic: confused, obtunded Musculoskeletal: deferred - Lab 12/17/21 04:11 12/18/21 04:27 Most recent lab results Calcium 9.3 mg/dL (8.4-10.2) 12/18/21 04:27 - Allied health notes Allied health notes reviewed: nursing Medications & Allergies - Medications Allergies/Adverse Reactions: Allergies No Known Allergies Allergy (Unverified 11/29/21 08:47) Home Medications: Home Medications Medication Instructions Recorded Confirmed Last Taken Type Citalopram [Celexa] 20 mg PO QDAY #30 tablet 12/15/21 Unknown Rx Cyanocobalamin [Vitamin B-12] 1,000 mcg PO QDAY #30 tablet 12/15/21 Unknown Rx Docusate Sodium [Colace ORAL LIQ] 100 mg PO QDAY 30 Days #2 bottle 12/15/21 Unknown Rx Famotidine [Pepcid] 20 mg PO QDAY #30 tablet 12/15/21 Unknown Rx Levothyroxine [Synthroid] 100 mcg PO DAILY@0600 #30 tablet 12/15/21 Unknown Rx [place] Carbonate 300 mg PO Q8H #120 12/15/21 Unknown Rx Memantine 5 mg PO Q12HR #60 tablet 12/15/21 Unknown Rx Mirtazapine 15 mg PO QHS #30 12/15/21 Unknown Rx QUEtiapine [SEROquel] 25 mg PO BID #60 tablet 12/15/21 Unknown Rx Quetiapine Fumarate [SEROquel] 75 mg PO QHS #45 tab 12/15/21 Unknown Rx donepeziL [Aricept] 10 mg PO QHS #30 tablet 12/15/21 Unknown Rx Active Medications: Generic Name Dose Route Start Last Admin Trade Name Freq PRN Reason Stop Dose Admin Acetaminophen 650 mg 12/16/21 01:31 Acetaminophen 325 Mg Tab PO Q4H PRN Pain MILD(1-3)/Fever >100.5/MERCEDES Aspirin 81 mg 12/17/21 10:00 12/17/21 09:47 Aspirin 81 Mg Tab Chew PO 81 mg QDAY [facility]HE Administration Atorvastatin Calcium 10 mg 12/16/21 22:00 12/17/21 22:57 Atorvastatin 10 Mg Tab PO 10 mg QHS UCHE Administration Donepezil HCl 10 mg 12/16/21 22:00 12/17/21 22:57 Donepezil 10 Mg Tab PO 10 mg QHS UCHE Administration Haloperidol Lactate 5 mg 12/16/21 17:00 12/17/21 22:57 Haloperidol Lactate 5 Mg/1 Ml Inj IM 5 mg Q6H PRN Administration Agitation Cefepime HCl 2 gm in 100 mls @ 200 mls/hr 12/16/21 02:00 12/18/21 05:23 Cefepime/Ns 2 Gm/100 Ml IV Infused Q24H [facility] Infusion Protocol Dextrose 1,000 mls @ 100 mls/hr 12/18/21 07:00 12/18/21 06:51 D5w IV 100 mls/hr DIRECT [facility] Administration Levothyroxine Sodium 100 mcg 12/17/21 06:00 12/18/21 05:21 Levothyroxine 100 Mcg Tab PO 100 mcg DAILY@0600 UCHE Administration Morphine Sulfate 2 mg 12/16/21 01:31 12/16/21 07:27 Morphine 2 Mg/1 Ml Inj IV 2 mg Q4H PRN Administration Pain, Moderate (4-6) Morphine Sulfate 4 mg 12/16/21 01:31 Morphine 4 Mg/1 Ml Inj IV Q4H PRN Pain , Severe (7-10) Ondansetron HCl 4 mg 12/16/21 01:31 Ondansetron 4 Mg/2 Ml Inj IV Q8H PRN Nausea And Vomiting Quetiapine Fumarate 25 mg 12/16/21 10:30 12/17/21 22:57 Quetiapine 25 Mg Tab PO 25 mg BID UCHE Administration Sodium Chloride 10 ml 12/16/21 10:00 12/17/21 22:59 Sodium Chloride 0.9% 10 Ml Flush Syringe IV 10 ml BID UCHE Administration Sodium Chloride 10 ml 12/16/21 01:31 Sodium Chloride 0.9% 10 Ml Flush Syringe IV PRN PRN LINE FLUSH
[2021-12-18] MEDS: QUEtiapine 25 MG TAB PO SCH ×2 (09:18→21:56)
[2021-12-18] MEDS: ASPIRIN 81 MG TAB CHEW PO SCH (09:18)
[2021-12-18] MEDS: HALOPERIDOL LACTATE 5 MG/1 ML INJ IM PRN (09:18)
--- NOTE | 2021-12-18 10:36 | Progress Note ---
Subjective - Reason for Consult Consult date: 12/18/21 Reason for consult: AMS - Chief Complaint Chief complaint: The patient was seen today. She was sent from local skilled nursing for Altered Mental Status. The patient was said to have been found bumping her head against the wall. During my evaluation, the patient is in bilateral wrist restraints. She is somnolent and unable to arouse. VIEW OF SYSTEMS Unable to obtain MENTAL STATUS EXAMINATION Unable to obtain Assessment (1) Delirium (2) Bipolar Disorder Treatment Plan Appreciate and agree with continuation of home meds Sitter: Defer to primary Medical: per primary Disposition: Do not Recommend acute psychiatric inpatient treatment at this time Will follow for medication management. Thanks Case staffed with Dr. Nava Mental Status Exam - Vital signs Last Vital Signs Temp 98.1 F 12/18/21 04:36 Pulse 90 12/18/21 04:41 Resp 16 12/18/21 04:36 BP 140/65 12/18/21 04:36 Pulse Ox 100 12/18/21 04:41
[2021-12-18] MEDS ORDERED: OLANzapine ZYDIS 5 MG TAB PO PRN (11:00)
--- NOTE | 2021-12-18 11:33 | Progress Note ---
Assessment and Plan Patient is 71-year-old female with past medical history of hypothyroidism and bipolar disorder who was brought to the ED from a nursing for altered mental status AMS Leukocytosis NSTEMI suspect type II BERNICE-nephrology following Suspected pneumonia Possible UTI Hypothyroidism Hypernatremia Echo 12/16/2021-technically difficult study. EF 50 to 55%. Mild diastolic dysfunction is present impaired relaxation pattern. Right ventricular systolic function is normal. No pericardial effusion Plan: Troponin noted to be elevated suspect NSTEMI type II in setting of BERNICE and leukocytosis Due to patient mental status recommend conservative management Continue aspirin and atorvastatin Echo results noted above technically difficult study but grossly normal Volume and electrolyte management as per nephrology Cardiac status appears otherwise stable. Will see as needed Patient seen in conjunction with Dr. Nava who agrees with this plan of care - Patient Problems (1) BERNICE (acute kidney injury) Current Visit: Yes Status: Acute (2) Altered mental status Current Visit: Yes Status: Acute (3) Hypernatremia Current Visit: Yes Status: Acute (4) Leukocytosis Current Visit: Yes Status: Acute (5) Pneumonia Current Visit: Yes Status: Acute (6) Hypothyroidism Current Visit: Yes Status: Chronic Qualifiers: (7) Abnormal CT of brain Current Visit: No Status: Acute (8) Subdural hematoma Current Visit: No Status: Acute Subjective Date of service: 12/18/21 Principal diagnosis: AMS Interval history: Patient remains with AMS in no acute distress Sinus 90s to low 100 on monitor with few PVCs Objective Vital Signs Temp Pulse Resp BP Pulse Ox 12/18/21 10:00 97 12/18/21 04:41 90 100 12/18/21 04:36 98.1 F 16 140/65 12/17/21 22:00 20 98 12/17/21 21:59 98.2 F 88 18 158/75 94 12/17/21 13:10 97.8 F 106 H 20 145/81 93 - Physical Examination General: No Apparent Distress, Other (Altered mental status) HEENT: Positive: PERRL, Mucus Membranes Dry Neck: Positive: trachea midline Cardiac: Positive: Reg Rate and Rhythm Lungs: Positive: Normal Breath Sounds Neuro: Positive: Other Abdomen: Positive: Soft (AMS) Skin: Negative: Rash Extremities: Present: upper extr. pulses. Absent: edema - Labs and Meds Comprehensive Metabolic Panel 12/18/21 Range/Units 04:27 Sodium 172 H* D (137-145) mmol/L Potassium 3.8 (3.6-5.0) mmol/L Chloride > 139 H (98-107) mmol/L Carbon Dioxide 20 L (22-30) mmol/L BUN 26 H (7-17) mg/dL Creatinine 2.2 H (0.6-1.2) mg/dL Glucose 109 H (65-100) mg/dL Calcium 9.3 (8.4-10.2) mg/dL - Imaging and Cardiology Echo: report reviewed - Telemetry EKG Rhythm: Sinus Rhythm - EKG Sinus rhythms and dysrhythmias: sinus rhythm Ventricular dysrhythmias: ventricular escape comple Repolarization changes or abnormalities: nonspecific abnormality, ST segment, and/or T wave - Allied health notes Allied health notes reviewed: nursing
[2021-12-18 11:44] LABS: Calcium 9.1 mg/dL (8.4-10.2)
--- NOTE | 2021-12-18 12:32 | Discharge Summary ---
Providers - Providers Date of Admission: 12/16/21 01:34 Date of discharge: 12/18/21 Attending physician: SELINA MCCLAIN 12/16/21 06:15 Consult to Cardiology [CONS] Routine Consulting Provider: KAREY BOSWELL Reason For Exam: Elevated troponin 12/16/21 06:16 Consult to Physician [CONS] Routine Comment: Consulting Provider: JEREMIAS ASHLEY Physician Instructions: Reason For Exam: BERNICE 12/17/21 08:32 Physical Therapy Evaluation and Treat [CONS] Stat Comment: Reason For Exam: Eval and treat 12/17/21 08:33 Occupational Therapy Evaluate and Treat [CONS] Stat Comment: Reason For Exam: Eval and treat 12/17/21 13:12 Consult to Mental Health [CONS] Routine Reason For Exam: psychosis Primary care physician: [employer] ENGINEER Hospitalization Condition: Stable Disposition: 30 STILL A PATIENT Exam - Constitutional Vitals: Temp Pulse Resp BP Pulse Ox 98.1 F 90 16 140/65 97 12/18/21 04:36 12/18/21 04:41 12/18/21 04:36 12/18/21 04:36 12/18/21 10:00 Plan Follow up with: PRIMARY CAREMD [Primary Care Provider] - 3-5 Days
[2021-12-18] MEDS: LITHIUM CARBONATE 300 MG CAP PO SCH ×2 (14:45→21:56)
[2021-12-18] MEDS: DONEPEZIL 10 MG TAB PO SCH (21:57)
[2021-12-19] MEDS: CEFEPIME/NS 2 GM/100 ML 2 GM/100 ML BAG IV SCH (02:22)
[2021-12-19] MEDS: LITHIUM CARBONATE 300 MG CAP PO SCH ×3 (05:28→21:37)
[2021-12-19] MEDS: LEVOTHYROXINE 100 MCG TAB PO SCH (05:28)
[2021-12-19] MEDS: QUEtiapine 25 MG TAB PO SCH ×2 (09:06→21:37)
[2021-12-19] MEDS: ASPIRIN 81 MG TAB CHEW PO SCH (09:06)
--- NOTE | 2021-12-19 09:06 | Progress Note ---
Assessment and Plan - Patient Problems (1) BERNICE (acute kidney injury) Current Visit: Yes Status: Acute Plan to address problem: Likely prerenal etiology. Agree with gentle IV fluid hydration. Please avoid all nephrotoxins and maintain mean arterial pressures above 65 mmHg. We will monitor closely. Renal ultrasound report reviewed. Urinalysis reviewed. (2) Hypernatremia Current Visit: Yes Status: Acute Plan to address problem: Agree with gentle IV fluid hydration and we will monitor closely. Continue with D5 W at 100 cc/hr. (3) Pneumonia Current Visit: Yes Status: Acute Plan to address problem: Results of chest x-ray was reviewed. Please ensure that antibiotics are dosed appropriately for her decreased renal function. (4) Altered mental status Current Visit: Yes Status: Acute Plan to address problem: Unclear what her baseline mentation is at this time. CT head noted. We will continue to monitor closely Subjective Date of service: 12/19/21 Principal diagnosis: AMS Interval history: No acute changes. Pending DC to hospice on Wednesday per CM notes. Objective - Vital Signs Vital signs: Vital Signs - 12hr 12/18/21 12/18/21 12/19/21 21:30 22:00 05:14 Temperature 99.5 F 99.4 F Pulse Rate 90 87 Respiratory 16 18 16 Rate Respiratory 18 Rate [Bilateral Lower Leg] Blood Pressure 142/77 136/74 O2 Sat by Pulse 92 92 91 Oximetry - General Appearance General appearance: chronically ill EENT: ATNC Neck: no JVD Respiratory: Present: Clear to Ascultation Cardiology: regular Gastrointestinal: normal Integumentary: no rash Neurologic: disoriented Musculoskeletal: deferred - Lab 12/17/21 04:11 12/18/21 12:05 Most recent lab results Calcium 9.1 mg/dL (8.4-10.2) 12/18/21 10:49 - Allied health notes Allied health notes reviewed: nursing Medications & Allergies - Medications Allergies/Adverse Reactions: Allergies No Known Allergies Allergy (Unverified 11/29/21 08:47) Home Medications: Home Medications Medication Instructions Recorded Confirmed Last Taken Type Citalopram [Celexa] 20 mg PO QDAY #30 tablet 12/15/21 Unknown Rx Cyanocobalamin [Vitamin B-12] 1,000 mcg PO QDAY #30 tablet 12/15/21 Unknown Rx Docusate Sodium [Colace ORAL LIQ] 100 mg PO QDAY 30 Days #2 bottle 12/15/21 Unknown Rx Famotidine [Pepcid] 20 mg PO QDAY #30 tablet 12/15/21 Unknown Rx Levothyroxine [Synthroid] 100 mcg PO DAILY@0600 #30 tablet 12/15/21 Unknown Rx [place] Carbonate 300 mg PO Q8H #120 12/15/21 Unknown Rx Memantine 5 mg PO Q12HR #60 tablet 12/15/21 Unknown Rx Mirtazapine 15 mg PO QHS #30 12/15/21 Unknown Rx QUEtiapine [SEROquel] 25 mg PO BID #60 tablet 12/15/21 Unknown Rx Quetiapine Fumarate [SEROquel] 75 mg PO QHS #45 tab 12/15/21 Unknown Rx donepeziL [Aricept] 10 mg PO QHS #30 tablet 12/15/21 Unknown Rx Active Medications: Generic Name Dose Route Start Last Admin Trade Name Freq PRN Reason Stop Dose Admin Acetaminophen 650 mg 12/16/21 01:31 Acetaminophen 325 Mg Tab PO Q4H PRN Pain MILD(1-3)/Fever >100.5/MERCEDES Aspirin 81 mg 12/17/21 10:00 12/18/21 09:18 Aspirin 81 Mg Tab Chew PO 81 mg QDAY UCHE Administration Atorvastatin Calcium 10 mg 12/16/21 22:00 12/18/21 21:56 Atorvastatin 10 Mg Tab PO 10 mg QHS UCHE Administration Donepezil HCl 10 mg 12/16/21 22:00 12/18/21 21:57 Donepezil 10 Mg Tab PO 10 mg QHS UCHE Administration Cefepime HCl 2 gm in 100 mls @ 200 mls/hr 12/16/21 02:00 12/19/21 02:22 Cefepime/Ns 2 Gm/100 Ml IV 200 mls/hr Q24H [facility] Administration Protocol Dextrose 1,000 mls @ 100 mls/hr 12/18/21 07:00 12/18/21 21:55 D5w IV 100 mls/hr DIRECT [facility] Administration Levothyroxine Sodium 100 mcg 12/17/21 06:00 12/19/21 05:28 Levothyroxine 100 Mcg Tab PO 100 mcg DAILY@0600 UCHE Administration Capitan Carbonate 300 mg 12/18/21 14:00 12/19/21 05:28 Capitan Carbonate 300 Mg Cap PO 300 mg Q8HR UCHE Administration Morphine Sulfate 2 mg 12/16/21 01:31 12/16/21 07:27 Morphine 2 Mg/1 Ml Inj IV 2 mg Q4H PRN Administration Pain, Moderate (4-6) Morphine Sulfate 4 mg 12/16/21 01:31 Morphine 4 Mg/1 Ml Inj IV Q4H PRN Pain , Severe (7-10) Olanzapine 5 mg 12/18/21 11:00 Olanzapine Zydis 5 Mg Tab PO Q6H PRN Agitation Ondansetron HCl 4 mg 12/16/21 01:31 Ondansetron 4 Mg/2 Ml Inj IV Q8H PRN Nausea And Vomiting Quetiapine Fumarate 25 mg 12/16/21 10:30 12/18/21 21:56 Quetiapine 25 Mg Tab PO 25 mg BID UCHE Administration Sodium Chloride 10 ml 12/16/21 10:00 12/18/21 21:58 Sodium Chloride 0.9% 10 Ml Flush Syringe IV 10 ml BID UCHE Administration Sodium Chloride 10 ml 12/16/21 01:31 Sodium Chloride 0.9% 10 Ml Flush Syringe IV PRN PRN LINE FLUSH
[2021-12-19] MEDS: DEXTROSE 5% IN WATER 1,000 ML IV SCH ×2 (09:56→20:17)
--- NOTE | 2021-12-19 16:05 | Progress Note ---
Assessment and Plan 71-year-old female brought into the emergency room from a assisted for evaluation of changes in mental status. CT scan of the head reveals Previously identified subdural hematoma is not as well-seen, No area of new hemorrhage, Old lacunar infarcts/area of low attenuation within the right basal ganglia and periventricular white matter. Chest x-ray reveals: Mild increased density seen right hilum with atelectasis in the right lower lung and right midlung. Labs significant for leukocytosis of 17.7, hyponatremia 146, BUN of 25 and creatinine of 2.4. Total creatinine kinase of 1080, troponin of 0.087. TSH of 13.1, free T4 of 0.37, thyroxine level of 2.7. 12/16: Na level elevated today, cont 1/2NS, cont to follow BMP. consult mental health, resume home meds. Patient was discharged and readmitted same day. cont to follow. haldol as needed for agitation 12/17: Na level remains elevated, change iv fluid to D5W, remains confused. Family planning for hospice. cont adjust meds and follow BMP. 12/18: cont D5W, follow BMP. pending hospice placement Assessment and Plan: -- Altered Mental Status/Acute metabolic encephalopathy --Hypernatremia -upto 172 --Hypothyroidism --Possible Pneumonia --Leucocytosis with SIRS --Elevated creatinine kinase. --Elevated troponin-possibly due to BERNICE. --BERNICE-likely vasomotor nephropathy --h/o bipolar disorder Plan: -- admitted and placed on telemetry. We will monitor mental status. -- Placed on IV fluid. Will monitor on BUN and creatinine, Na level. -- Consulted cardiology and nephrology for evaluation and recommendations. -- Patient started on Synthroid and empiric IV antibiotics for possible underlying pneumonia. -- resume routine home medications, haldol as needed for agitation --DVT Prophylaxis:SQ Heparin --Code Status: Full Code Subjective Date of service: 12/18/21 Principal diagnosis: AMS Interval history: Patient seen and examined vitals noted, Na level remains elevated patient is very confused, pending hospice placement Objective - Exam Narrative Exam: General appearance: chronically ill EENT: ATNC Neck: Present: neck supple Respiratory: Decreased Breath Sounds Heart: regular Gastrointestinal: Present: normal Integumentary: no rash Neurologic: disoriented Musculoskeletal: Present: deferred - Constitutional Vitals: Vital Signs - 12hr 12/19/21 12/19/21 05:14 14:00 Temperature 99.4 F Pulse Rate 87 Respiratory 16 Rate Blood Pressure 136/74 O2 Sat by Pulse 91 97 Oximetry - Labs CBC & Chem 7: 12/17/21 04:11 12/19/21 08:47 Labs: Abnormal lab results 12/15/21 12/19/21 Range/Units 21:33 08:47 Sodium 163 H* (137-145) mmol/L Chloride 134.3 H (98-107) mmol/L Carbon Dioxide 21 L (22-30) mmol/L BUN 26 H (7-17) mg/dL Creatinine 1.9 H (0.6-1.2) mg/dL Glucose 112 H (65-100) mg/dL Free T3 Index 1.0 L (2.3-4.2) pg/mL HEART Score - HEART Score Troponin: Troponin T 0.144 ng/mL (0.00-0.029) H* D 12/16/21 Unknown
[2021-12-19] MEDS: DONEPEZIL 10 MG TAB PO SCH (21:37)
[2021-12-19] MEDS ORDERED: VANCOMYCIN/NS 1 GM/250 ML 1 GM/250 ML BAG IV ONE (22:00)
[2021-12-20] MEDS: CEFEPIME/NS 2 GM/100 ML 2 GM/100 ML BAG IV SCH (01:27)
[2021-12-20] MEDS: LEVOTHYROXINE 100 MCG TAB PO SCH (06:06)
[2021-12-20] MEDS: LITHIUM CARBONATE 300 MG CAP PO SCH ×3 (06:06→22:57)
--- NOTE | 2021-12-20 07:28 | Progress Note ---
Assessment and Plan - Patient Problems (1) BERNICE (acute kidney injury) Current Visit: Yes Status: Acute Plan to address problem: Likely prerenal etiology. Agree with gentle IV fluid hydration. Please avoid all nephrotoxins and maintain mean arterial pressures above 65 mmHg. We will monitor closely. Renal ultrasound report reviewed. Urinalysis reviewed. (2) Hypernatremia Current Visit: Yes Status: Acute Plan to address problem: Continue with D5 W at 100 cc/hr. (3) Pneumonia Current Visit: Yes Status: Acute Plan to address problem: Please ensure that antibiotics are dosed appropriately for her decreased renal function. (4) Altered mental status Current Visit: Yes Status: Acute Plan to address problem: Unclear what her baseline mentation is at this time. CT head noted. We will continue to monitor closely Subjective Date of service: 12/20/21 Principal diagnosis: AMS Interval history: Pt remains confused, disoriented, receiving D5W for correction of hypernatremia Objective - Vital Signs Vital signs: Vital Signs - 12hr 12/19/21 12/19/21 12/20/21 21:04 22:00 02:00 Temperature 98.4 F Pulse Rate 87 Respiratory 17 17 Rate Respiratory 17 Rate [Bilateral Lower Leg] Blood Pressure 138/73 O2 Sat by Pulse 91 98 Oximetry 12/20/21 05:15 Temperature 98.1 F Pulse Rate 80 Respiratory 18 Rate Respiratory Rate [Bilateral Lower Leg] Blood Pressure 128/68 O2 Sat by Pulse 91 Oximetry - General Appearance General appearance: well-developed, well-nourished, appears stated age EENT: ATNC, PERRL, mucous membranes dry Neck: no JVD Respiratory: Present: Clear to Ascultation Cardiology: regular, S1S2 Gastrointestinal: normoactive bowel sounds Integumentary: no rash Neurologic: confused, disoriented - Lab 12/17/21 04:11 12/19/21 08:47 Most recent lab results Calcium 9.0 mg/dL (8.4-10.2) 12/19/21 08:47 Medications & Allergies - Medications Allergies/Adverse Reactions: Allergies No Known Allergies Allergy (Unverified 11/29/21 08:47) Home Medications: Home Medications Medication Instructions Recorded Confirmed Last Taken Type Citalopram [Celexa] 20 mg PO QDAY #30 tablet 12/15/21 Unknown Rx Cyanocobalamin [Vitamin B-12] 1,000 mcg PO QDAY #30 tablet 12/15/21 Unknown Rx Docusate Sodium [Colace ORAL LIQ] 100 mg PO QDAY 30 Days #2 bottle 12/15/21 Unknown Rx Famotidine [Pepcid] 20 mg PO QDAY #30 tablet 12/15/21 Unknown Rx Levothyroxine [Synthroid] 100 mcg PO DAILY@0600 #30 tablet 12/15/21 Unknown Rx Pl[place] Carbonate 300 mg PO Q8H #120 12/15/21 Unknown Rx Memantine 5 mg PO Q12HR #60 tablet 12/15/21 Unknown Rx Mirtazapine 15 mg PO QHS #30 12/15/21 Unknown Rx QUEtiapine [SEROquel] 25 mg PO BID #60 tablet 12/15/21 Unknown Rx Quetiapine Fumarate [SEROquel] 75 mg PO QHS #45 tab 12/15/21 Unknown Rx donepeziL [Aricept] 10 mg PO QHS #30 tablet 12/15/21 Unknown Rx Active Medications: Generic Name Dose Route Start Last Admin Trade Name [place] PRN Reason Stop Dose Admin Acetaminophen 650 mg 12/16/21 01:31 Acetaminophen 325 Mg Tab PO Q4H PRN Pain MILD(1-3)/Fever >100.5/MERCEDES Aspirin 81 mg 12/17/21 10:00 12/19/21 09:06 Aspirin 81 Mg Tab Chew PO 81 mg QDAY [facility] Administration Atorvastatin Calcium 10 mg 12/16/21 22:00 12/19/21 21:37 Atorvastatin 10 Mg Tab PO 10 mg QHS [facility] Administration Donepezil HCl 10 mg 12/16/21 22:00 12/19/21 21:37 Donepezil 10 Mg Tab PO 10 mg QHS [facility] Administration Dextrose 1,000 mls @ 100 mls/hr 12/18/21 07:00 12/19/21 20:17 D5w IV 100 mls/hr DIRECT [facility] Administration Levothyroxine Sodium 100 mcg 12/17/21 06:00 12/20/21 06:06 Levothyroxine 100 Mcg Tab PO 100 mcg DAILY@0600 [facility] Administration Platter Carbonate 300 mg 12/18/21 14:00 12/20/21 06:06 Platter Carbonate 300 Mg Cap PO 300 mg Q8HR [facility] Administration Morphine Sulfate 2 mg 12/16/21 01:31 12/16/21 07:27 Morphine 2 Mg/1 Ml Inj IV 2 mg Q4H PRN Administration Pain, Moderate (4-6) Morphine Sulfate 4 mg 12/16/21 01:31 Morphine 4 Mg/1 Ml Inj IV Q4H PRN Pain , Severe (7-10) Olanzapine 5 mg 12/18/21 11:00 Olanzapine Zydis 5 Mg Tab PO Q6H PRN Agitation Ondansetron HCl 4 mg 12/16/21 01:31 12/20/21 06:14 Ondansetron 4 Mg/2 Ml Inj IV 4 mg Q8H PRN Administration Nausea And Vomiting Quetiapine Fumarate 25 mg 12/16/21 10:30 12/19/21 21:37 Quetiapine 25 Mg Tab PO 25 mg BID UC[facility] Administration Sodium Chloride 10 ml 12/16/21 10:00 12/19/21 21:38 Sodium Chloride 0.9% 10 Ml Flush Syringe IV 10 ml BID [facility] Administration Sodium Chloride 10 ml 12/16/21 01:31 Sodium Chloride 0.9% 10 Ml Flush Syringe IV PRN PRN LINE FLUSH
[2021-12-20] MEDS: DEXTROSE 5% IN WATER 1,000 ML IV SCH ×2 (07:40→23:16)
[2021-12-20 10:15] LABS: Calcium 8.9 mg/dL (8.4-10.2)
[2021-12-20] MEDS: ASPIRIN 81 MG TAB CHEW PO SCH (11:53)
[2021-12-20] MEDS: QUEtiapine 25 MG TAB PO SCH ×2 (11:53→22:57)
--- NOTE | 2021-12-20 12:37 | Progress Note ---
Subjective - Reason for Consult Consult date: 12/20/21 Reason for consult: Mental health evaluation - Chief Complaint Chief complaint: The patient was seen today. She is resting with eyes closed. VIEW OF SYSTEMS Unable to obtain MENTAL STATUS EXAMINATION Unable to obtain Assessment (1) Delirium (2) Bipolar Disorder Treatment Plan Appreciate and agree with continuation of home meds Sitter: Defer to primary Medical: per primary Disposition: Do not Recommend acute psychiatric inpatient treatment at this time Will follow for medication management. Thanks Case staffed with Dr. Nava Mental Status Exam - Vital signs Last Vital Signs Temp 98.1 F 12/20/21 05:15 Pulse 80 12/20/21 05:15 Resp 18 12/20/21 05:15 BP 128/68 12/20/21 05:15 Pulse Ox 91 12/20/21 05:15
--- NOTE | 2021-12-20 13:57 | Progress Note ---
Assessment and Plan Assessment and Plan -- Altered Mental Status/Acute metabolic encephalopathy --Hypernatremia -172 to 163 --Hypothyroidism --Possible Pneumonia --Leucocytosis with SIRS --Elevated creatinine kinase. --Elevated troponin-possibly due to BERNICE. --BERNICE-likely vasomotor nephropathy --h/o bipolar disorder Plan: -- admitted and placed on telemetry. We will monitor mental status. -- Placed on IV fluid. Will monitor on BUN and creatinine, Na level. -- Cardiology and Nephrology consult and follow-up appreciated -- Patient started on Synthroid and empiric IV antibiotics for possible underlying pneumonia. -- resume routine home medications, haldol as needed for agitation --DVT Prophylaxis:SQ Heparin --Code Status: Full Code Subjective Date of service: 12/19/21 Principal diagnosis: Acute encephalopathy Interval history: 71-year-old female brought into the emergency room from a skilled nursing for evaluation of changes in mental status. CT scan of the head reveals Previously identified subdural hematoma is not as well-seen, No area of new hemorrhage, Old lacunar infarcts/area of low attenuation within the right basal ganglia and periventricular white matter. Chest x-ray reveals: Mild increased density seen right hilum with atelectasis in the right lower lung and right midlung. Labs significant for leukocytosis of 17.7, hyponatremia 146, BUN of 25 and cre atinine of 2.4. Total creatinine kinase of 1080, troponin of 0.087. TSH of 13.1, free T4 of 0.37, thyroxine level of 2.7. 12/16: Na level elevated today, cont 1/2NS, cont to follow BMP. consult mental health, resume home meds. Patient was discharged and readmitted same day. cont to follow. haldol as needed for agitation 12/17: Na level remains elevated, change iv fluid to D5W, remains confused. F amily planning for hospice. cont adjust meds and follow BMP. 12/18: cont D5W, follow BMP. pending hospice placement 12/19/2021 Continue IV D5W and follow BMP Subjective Date of service: 12/19/21 Principal diagnosis: AMS Interval history: Patient seen and examined vitals noted, Na level remains elevated patient is very confused, pending hospice placement Objective - Constitutional Vitals: Vital Signs - 12hr 08/12/20/21 12/20/21 02:00 05:15 11:25 Temperature 98.1 F 99.7 F H Pulse Rate 80 85 Respiratory 17 18 18 Rate Blood Pressure 128/68 127/69 O2 Sat by Pulse 98 91 98 Oximetry General appearance: Present: no acute distress, well-nourished - EENT Eyes: PERRL, EOM intact ENT: hearing intact, clear oral mucosa Ears: bilateral: normal - Neck Neck: supple, normal ROM - Respiratory Respiratory effort: normal Respiratory: bilateral: CTA - Breasts Breasts: normal - Cardiovascular Heart rate: 78 Rhythm: regular Heart Sounds: Present: S1 & S2. Absent: gallop, rub Extremities: pulses intact, No edema, normal color, Full ROM - Gastrointestinal General gastrointestinal: Present: soft, non-tender, non-distended, normal bowel sounds - Genitourinary Female genitourinary: normal - Integumentary Integumentary: clear, warm, dry - Musculoskeletal Musculoskeletal: generalized weakness - Neurologic Neurologic: moves all extremities - Psychiatric Psychiatric: other - Labs CBC & Chem 7: 12/17/21 04:11 12/20/21 09:11 Labs: Abnormal lab results 12/20/21 Range/Units 09:11 Sodium 157 H (137-145) mmol/L Chloride 127.0 H (98-107) mmol/L BUN 24 H (7-17) mg/dL Creatinine 1.8 H (0.6-1.2) mg/dL Glucose 124 H (65-100) mg/dL HEART Score - HEART Score Troponin: Troponin T 0.144 ng/mL (0.00-0.029) H* D 12/16/21 Unknown
--- NOTE | 2021-12-20 14:16 | Progress Note ---
Assessment and Plan Assessment and Plan -- Altered Mental Status/Acute metabolic encephalopathy --Hypernatremia -172 to 163 to 157 --Hypothyroidism --Possible Pneumonia --Leucocytosis with SIRS --Elevated creatinine kinase. --Elevated troponin-possibly due to BERNICE. --BERNICE-likely vasomotor nephropathy --h/o bipolar disorder Plan: -- admitted and placed on telemetry. We will monitor mental status. -- Placed on IV fluid. Will monitor on BUN and creatinine, Na level. -- Cardiology and Nephrology consult and follow-up appreciated -- Patient started on Synthroid and empiric IV antibiotics for possible un derlying pneumonia. -- resume routine home medications, haldol as needed for agitation --DVT Prophylaxis:SQ Heparin --Code Status: Full Code Subjective Date of service: 12/20/21 Principal diagnosis: Acute encephalopathy Interval history: 71-year-old female brought into the emergency room from a assisted for evaluation of changes in mental status. CT scan of the head reveals Previously identified subdural hematoma is not as well-seen, No area of new hemorrhage, Old lacunar infarcts/area of low attenuation within the right basal ganglia and periventricular white matter. Chest x-ray reveals: Mild increased density seen right hilum with atelectasis in the right lower lung and right midlung. Labs significant for leukocytosis of 17.7, hyponatremia 146, BUN of 25 and creatinine of 2.4. Total creatinine kinase of 1080, troponin of 0.087. TSH of 13.1, free T4 of 0.37, thyroxine level of 2.7. 12/16: Na level elevated today, cont 1/2NS, cont to follow BMP. consult mental health, resume home meds. Patient was discharged and readmitted same day. cont to follow. haldol as needed for agitation 12/17: Na level remains elevated, change iv fluid to D5W, remains confused. Family planning for hospice. cont adjust meds and follow BMP. 12/18: cont D5W, follow BMP. pending hospice placement 12/19/2021 Continue IV D5W and follow BMP 12/20/2021 Sodium is 157 today Subjective Date of service: 12/20/21 Principal diagnosis: AMS Interval history: Patient seen and examined vitals noted, Na level remains elevated patient is very confused, pending hospice placement Objective - Constitutional Vitals: Vital Signs - 12hr 12/20/21 12/20/21 12/20/21 05:15 10:00 11:25 Temperature 98.1 F 99.7 F H Pulse Rate 80 85 Respiratory 18 18 Rate Respiratory 17 Rate [Bilateral Lower Leg] Blood Pressure 128/68 127/69 O2 Sat by Pulse 91 98 Oximetry General appearance: Present: no acute distress, well-nourished - EENT Eyes: PERRL, EOM intact ENT: hearing intact, clear oral mucosa Ears: bilateral: normal - Neck Neck: supple, normal ROM - Respiratory Respiratory effort: normal Respiratory: bilateral: CTA - Breasts Breasts: normal - Cardiovascular Heart rate: 76 Rhythm: regular Heart Sounds: Present: S1 & S2. Absent: gallop, rub Extremities: pulses intact, No edema, normal color, Full ROM - Gastrointestinal General gastrointestinal: Present: soft, non-tender, non-distended, normal bowel sounds - Genitourinary Female genitourinary: normal - Integumentary Integumentary: clear, warm, dry - Musculoskeletal Musculoskeletal: generalized weakness - Neurologic Neurologic: moves all extremities - Psychiatric Psychiatric: other (Alert but confused) - Labs CBC & Chem 7: 12/17/21 04:11 12/20/21 09:11 Labs: Abnormal lab results 12/20/21 Range/Units 09:11 Sodium 157 H (137-145) mmol/L Chloride 127.0 H (98-107) mmol/L BUN 24 H (7-17) mg/dL Creatinine 1.8 H (0.6-1.2) mg/dL Glucose 124 H (65-100) mg/dL HEART Score - HEART Score Troponin: Troponin T 0.144 ng/mL (0.00-0.029) H* D 12/16/21 Unknown
[2021-12-20] MEDS: DONEPEZIL 10 MG TAB PO SCH (22:58)
[2021-12-21] MEDS: LITHIUM CARBONATE 300 MG CAP PO SCH ×3 (05:24→22:06)
[2021-12-21] MEDS: LEVOTHYROXINE 100 MCG TAB PO SCH (05:25)
[2021-12-21 06:54] LABS: Basophils # (Auto) 0.1 K/mm3 (0.0-0.1); Basophils % (Auto) 0.5 % (0.0-1.8); Eosinophils # (Auto) 0.7 K/mm3 (0.0-0.4); Eosinophils % (Auto) 5.1 % (0.0-4.3); Hematocrit 33.8 % (30.3-42.9); Hemoglobin 10.6 gm/dl (10.1-14.3); Lymphocytes # (Auto) 2.6 K/mm3 (1.2-5.4); Lymphocytes % (Auto) 18.4 % (13.4-35.0); Mean Corpuscular HGB Conc 32 % (30-34); Mean Corpuscular Volume 94 fl (79-97); Monocytes # (Auto) 1.1 K/mm3 (0.0-0.8); Monocytes % (Auto) 7.7 % (0.0-7.3); Platelet Count 394 K/mm3 (140-440); Red Blood Count 3.59 M/mm3 (3.65-5.03); Red Cell Distribution Width 16.2 % (13.2-15.2)
[2021-12-21 07:40] LABS: Albumin 2.9 g/dL (3.9-5)
[2021-12-21] MEDS: DEXTROSE 5% IN WATER 1,000 ML IV SCH ×2 (08:38→19:28)
[2021-12-21] MEDS: ASPIRIN 81 MG TAB CHEW PO SCH (11:26)
[2021-12-21] MEDS: QUEtiapine 25 MG TAB PO SCH ×2 (11:26→22:06)
--- NOTE | 2021-12-21 13:36 | Progress Note ---
Assessment and Plan 71-year-old female brought into the emergency room from a residential for evaluation of changes in mental status. CT scan of the head reveals Previously identified subdural hematoma is not as well-seen, No area of new hemorrhage, Old lacunar infarcts/area of low attenuation within the right basal ganglia and periventricular white matter. Chest x-ray reveals: Mild increased density seen right hilum with atelectasis in the right lower lung and right midlung. Labs significant for leukocytosis of 17.7, hyponatremia 146, BUN of 25 and creatinine of 2.4. Total creatinine kinase of 1080, troponin of 0.087. TSH of 13.1, free T4 of 0.37, thyroxine level of 2.7. 12/16: Na level elevated today, cont 1/2NS, cont to follow BMP. consult mental health, resume home meds. Patient was discharged and readmitted same day. cont to follow. haldol as needed for agitation 12/17: Na level remains elevated, change iv fluid to D5W, remains confused. Family planning for hospice. cont adjust meds and follow BMP. 12/18: cont D5W, follow BMP. pending hospice placement. started on lithium 12/19/2021, Continue IV D5W and follow BMP. pending hospice 12/20/2021. Sodium is 157 today, follow BMP, cont iv fluid 12/21: Na 152, cont d5w, pending hospice Assessment and Plan: -- Altered Mental Status/Acute metabolic encephalopathy --Hypernatremia - was upto 172 --Hypothyroidism --Possible Pneumonia --Leucocytosis with SIRS --Elevated creatinine kinase. --Elevated troponin-possibly due to BERNICE. --BERNICE-likely vasomotor nephropathy --h/o bipolar disorder Plan: -- admitted and placed on telemetry. We will monitor mental status. -- Placed on IV fluid. Will monitor on BUN and creatinine, Na level. -- Consulted cardiology and nephrology for evaluation and recommendations. -- Patient started on Synthroid and empiric IV antibiotics for possible underlying pneumonia. -- resumed routine home medications, haldol as needed for agitation --DVT Prophylaxis:SQ Heparin --Code Status: Full Code Subjective Date of service: 12/21/21 Principal diagnosis: Acute encephalopathy Interval history: Patient seen and examined vitals noted, Na level remains elevated patient is very confused, pending hospice placement Objective - Exam Narrative Exam: General appearance: chronically ill EENT: ATNC Neck: Present: neck supple Respiratory: Decreased Breath Sounds Heart: regular Gastrointestinal: Present: normal Integumentary: no rash Neurologic: disoriented Musculoskeletal: Present: deferred - Constitutional Vitals: Vital Signs - 12hr 12/21/21 12/21/21 02:00 11:20 Temperature 97.9 F Pulse Rate 85 Respiratory 16 Rate Blood Pressure 124/77 [Right] O2 Sat by Pulse 93 94 Oximetry - Labs CBC & Chem 7: 12/21/21 05:15 12/22/21 04:25 Labs: Abnormal lab results 12/21/21 12/21/21 Range/Units 05:15 05:15 WBC 13.8 H (4.5-11.0) K/mm3 RBC 3.59 L (3.65-5.03) M/mm3 RDW 16.2 H (13.2-15.2) % [place] % (Auto) 7.7 H (0.0-7.3) % Eos % (Auto) 5.1 H (0.0-4.3) % [place] # (Auto) 1.1 H (0.0-0.8) K/mm3 Eos # (Auto) 0.7 H (0.0-0.4) K/mm3 Seg Neutrophils # 9.4 H (1.8-7.7) K/mm3 Sodium 152 H (137-145) mmol/L Potassium 3.5 L (3.6-5.0) mmol/L Chloride 124.1 H (98-107) mmol/L BUN 23 H (7-17) mg/dL Creatinine 1.8 H (0.6-1.2) mg/dL Glucose 121 H (65-100) mg/dL Total Protein 6.2 L (6.3-8.2) g/dL Albumin 2.9 L (3.9-5) g/dL HEART Score - HEART Score Troponin: Troponin T 0.144 ng/mL (0.00-0.029) H* D 12/16/21 Unknown
--- NOTE | 2021-12-21 13:45 | Progress Note ---
Assessment and Plan - Patient Problems (1) BERNICE (acute kidney injury) Current Visit: Yes Status: Acute Plan to address problem: Likely prerenal etiology. Agree with gentle IV fluid hydration. Please avoid all nephrotoxins and maintain mean arterial pressures above 65 mmHg. We will monitor closely. Renal ultrasound report reviewed. Urinalysis reviewed. (2) Hypernatremia Current Visit: Yes Status: Acute Plan to address problem: Continue with D5 W at 100 cc/hr, Na improving at adequate rate (3) Pneumonia Current Visit: Yes Status: Acute Plan to address problem: Please ensure that antibiotics are dosed appropriately for her decreased renal function. (4) Altered mental status Current Visit: Yes Status: Acute Plan to address problem: Unclear what her baseline mentation is at this time. CT head noted. We will continue to monitor closely Subjective Date of service: 12/21/21 Principal diagnosis: Acute encephalopathy Interval history: Pt remains confused, disoriented, receiving D5W for correction of hypernatremia Objective - Vital Signs Vital signs: Vital Signs - 12hr 12/21/21 12/21/21 02:00 11:20 Temperature 97.9 F Pulse Rate 85 Respiratory 16 Rate Blood Pressure 124/77 [Right] O2 Sat by Pulse 93 94 Oximetry - General Appearance General appearance: well-developed, appears stated age EENT: ATNC, PERRL, mucous membranes dry Neck: no JVD Respiratory: Present: Clear to Ascultation Cardiology: regular, S1S2 Gastrointestinal: normoactive bowel sounds Integumentary: no rash Neurologic: confused, disoriented - Lab 12/21/21 05:15 12/21/21 05:15 Most recent lab results Calcium 9.0 mg/dL (8.4-10.2) 12/21/21 05:15 Medications & Allergies - Medications Allergies/Adverse Reactions: Allergies No Known Allergies Allergy (Unverified 11/29/21 08:47) Home Medications: Home Medications Medication Instructions Recorded Confirmed Last Taken Type Citalopram [Celexa] 20 mg PO QDAY #30 tablet 12/15/21 Unknown Rx Cyanocobalamin [Vitamin B-12] 1,000 mcg PO QDAY #30 tablet 12/15/21 Unknown Rx Docusate Sodium [Colace ORAL LIQ] 100 mg PO QDAY 30 Days #2 bottle 12/15/21 Unknown Rx Famotidine [Pepcid] 20 mg PO QDAY #30 tablet 12/15/21 Unknown Rx Levothyroxine [Synthroid] 100 mcg PO DAILY@0600 #30 tablet 12/15/21 Unknown Rx [place] Carbonate 300 mg PO Q8H #120 12/15/21 Unknown Rx Memantine 5 mg PO Q12HR #60 tablet 12/15/21 Unknown Rx Mirtazapine 15 mg PO QHS #30 12/15/21 Unknown Rx QUEtiapine [SEROquel] 25 mg PO BID #60 tablet 12/15/21 Unknown Rx Quetiapine Fumarate [SEROquel] 75 mg PO QHS #45 tab 12/15/21 Unknown Rx donepeziL [Aricept] 10 mg PO QHS #30 tablet 12/15/21 Unknown Rx Active Medications: Generic Name Dose Route Start Last Admin Trade Name Freq PRN Reason Stop Dose Admin Acetaminophen 650 mg 12/16/21 01:31 Acetaminophen 325 Mg Tab PO Q4H PRN Pain MILD(1-3)/Fever >100.5/MERCEDES Aspirin 81 mg 12/17/21 10:00 12/21/21 11:26 Aspirin 81 Mg Tab Chew PO Not Given QDAY UCHE Atorvastatin Calcium 10 mg 12/16/21 22:00 12/20/21 22:57 Atorvastatin 10 Mg Tab PO 10 mg QHS UCHE Administration Donepezil HCl 10 mg 12/16/21 22:00 12/20/21 22:58 Donepezil 10 Mg Tab PO 10 mg QHS UCHE Administration Dextrose 1,000 mls @ 100 mls/hr 12/18/21 07:00 12/21/21 08:38 D5w IV 100 mls/hr DIRECT UCHE Administration Levothyroxine Sodium 100 mcg 12/17/21 06:00 12/21/21 05:25 Levothyroxine 100 Mcg Tab PO Not Given DAILY@0600 UCHE [place] Carbonate 300 mg 12/18/21 14:00 12/21/21 05:24 [place] Carbonate 300 Mg Cap PO Not Given Q8HR UCHE Morphine Sulfate 2 mg 12/16/21 01:31 12/16/21 07:27 Morphine 2 Mg/1 Ml Inj IV 2 mg Q4H PRN Administration Pain, Moderate (4-6) Morphine Sulfate 4 mg 12/16/21 01:31 Morphine 4 Mg/1 Ml Inj IV Q4H PRN Pain , Severe (7-10) Olanzapine 5 mg 08/18/22 11:00 Olanzapine Zydis 5 Mg Tab PO Q6H PRN Agitation Ondansetron HCl 4 mg 12/16/21 01:31 12/20/21 06:14 Ondansetron 4 Mg/2 Ml Inj IV 4 mg Q8H PRN Administration Nausea And Vomiting Quetiapine Fumarate 25 mg 12/16/21 10:30 12/21/21 11:26 Quetiapine 25 Mg Tab PO Not Given BID UCHE Sodium Chloride 10 ml 12/16/21 10:00 12/21/21 11:22 Sodium Chloride 0.9% 10 Ml Flush Syringe IV 10 ml BID UCHE Administration Sodium Chloride 10 ml 12/16/21 01:31 Sodium Chloride 0.9% 10 Ml Flush Syringe IV PRN PRN LINE FLUSH
[2021-12-21] MEDS: DONEPEZIL 10 MG TAB PO SCH (22:06)
[2021-12-22] MEDS: LITHIUM CARBONATE 300 MG CAP PO SCH ×3 (05:20→22:15)
[2021-12-22] MEDS: LEVOTHYROXINE 100 MCG TAB PO SCH (05:20)
[2021-12-22] MEDS: DEXTROSE 5% IN WATER 1,000 ML IV SCH ×2 (06:06→16:32)
--- NOTE | 2021-12-22 07:45 | Progress Note ---
Assessment and Plan - Patient Problems (1) BERNICE (acute kidney injury) Current Visit: Yes Status: Acute Plan to address problem: Prerenal azotemia probably secondary to volume depletion. Improving with volume repletion. Continue gentle volume repletion and follow-up kidney function and electrolytes (2) Hypernatremia Current Visit: Yes Status: Acute Plan to address problem: Secondary to decreased free water intake. Sodium improving with free water repl acement parenterally. Follow-up sodium (3) Altered mental status Current Visit: Yes Status: Acute Plan to address problem: Encephalopathy etiology uncertain. Neurology consultation (4) Pneumonia Current Visit: Yes Status: Acute Plan to address problem: Continue antibiotics and follow-up Subjective Date of service: 12/22/21 Principal diagnosis: Acute encephalopathy, acute kidney injury Interval history: Patient seen lying in bed. She is nonverbal. Not following commands. Objective - Exam Narrative Exam: Elderly female lying in bed in no acute distress HEENT: NCAT, pink oral mucous membrane Neck: Supple, no venous distention CVS: S1S2 RRR with no murmur, rub or gallop Chest: Clear to auscultation Abdomen: Protuberant, soft, nontender, no organomegaly, bowel sounds are present Extremities: No edema Genitourinary deferred Neuro: Eyes open, not following commands, nonverbal, moans to sternal rub - Vital Signs Vital signs: Vital Signs - 12hr 12/21/21 12/22/21 22:11 01:01 Temperature 99.8 F H Pulse Rate 84 Respiratory 18 Rate Blood Pressure 134/75 [Right] O2 Sat by Pulse 95 95 Oximetry - Lab 12/21/21 05:15 12/22/21 04:25 Most recent lab results Calcium 9.0 mg/dL (8.4-10.2) 12/22/21 04:25 Medications & Allergies - Medications Allergies/Adverse Reactions: Allergies No Known Allergies Allergy (Unverified 11/29/21 08:47) Home Medications: Home Medications Medication Instructions Recorded Confirmed Last Taken Type Citalopram [Celexa] 20 mg PO QDAY #30 tablet 12/15/21 Unknown Rx Cyanocobalamin [Vitamin B-12] 1,000 mcg PO QDAY #30 tablet 12/15/21 Unknown Rx Docusate Sodium [Colace ORAL LIQ] 100 mg PO QDAY 30 Days #2 bottle 12/15/21 Unknown Rx Famotidine [Pepcid] 20 mg PO QDAY #30 tablet 12/15/21 Unknown Rx Levothyroxine [Synthroid] 100 mcg PO DAILY@0600 #30 tablet 12/15/21 Unknown Rx [place] Carbonate 300 mg PO Q8H #120 12/15/21 Unknown Rx Memantine 5 mg PO Q12HR #60 tablet 12/15/21 Unknown Rx Mirtazapine 15 mg PO QHS #30 12/15/21 Unknown Rx QUEtiapine [SEROquel] 25 mg PO BID #60 tablet 12/15/21 Unknown Rx Quetiapine Fumarate [SEROquel] 75 mg PO QHS #45 tab 12/15/21 Unknown Rx donepeziL [Aricept] 10 mg PO QHS #30 tablet 12/15/21 Unknown Rx Active Medications: Generic Name Dose Route Start Last Admin Trade Name Freq PRN Reason Stop Dose Admin Acetaminophen 650 mg 12/16/21 01:31 Acetaminophen 325 Mg Tab PO Q4H PRN Pain MILD(1-3)/Fever >100.5/MERCEDES Aspirin 81 mg 12/17/21 10:00 12/21/21 11:26 Aspirin 81 Mg Tab Chew PO Not Given QDAY UCHE Atorvastatin Calcium 10 mg 12/16/21 22:00 12/21/21 22:06 Atorvastatin 10 Mg Tab PO Not Given QHS UCHE Donepezil HCl 10 mg 12/16/21 22:00 12/21/21 22:06 Donepezil 10 Mg Tab PO Not Given QHS UCHE Dextrose 1,000 mls @ 100 mls/hr 12/18/21 07:00 12/22/21 06:06 D5w IV 100 mls/hr DIRECT UCHE Administration Levothyroxine Sodium 100 mcg 12/17/21 06:00 12/22/21 05:20 Levothyroxine 100 Mcg Tab PO Not Given DAILY@0600 UCHE [place] Carbonate 300 mg 12/18/21 14:00 12/22/21 05:20 [place] Carbonate 300 Mg Cap PO Not Given Q8HR UCHE Morphine Sulfate 2 mg 12/16/21 01:31 12/16/21 07:27 Morphine 2 Mg/1 Ml Inj IV 2 mg Q4H PRN Administration Pain, Moderate (4-6) Morphine Sulfate 4 mg 12/16/21 01:31 Morphine 4 Mg/1 Ml Inj IV Q4H PRN Pain , Severe (7-10) Olanzapine 5 mg 12/18/21 11:00 Olanzapine Zydis 5 Mg Tab PO Q6H PRN Agitation Ondansetron HCl 4 mg 12/16/21 01:31 12/20/21 06:14 Ondansetron 4 Mg/2 Ml Inj IV 4 mg Q8H PRN Administration Nausea And Vomiting Quetiapine Fumarate 25 mg 12/16/21 10:30 12/21/21 22:06 Quetiapine 25 Mg Tab PO Not Given BID UCHE Sodium Chloride 10 ml 12/16/21 10:00 12/21/21 22:07 Sodium Chloride 0.9% 10 Ml Flush Syringe IV 10 ml BID UCHE Administration Sodium Chloride 10 ml 12/16/21 01:31 Sodium Chloride 0.9% 10 Ml Flush Syringe IV PRN PRN LINE FLUSH
[2021-12-22] MEDS: ASPIRIN 81 MG TAB CHEW PO SCH (10:13)
[2021-12-22] MEDS: QUEtiapine 25 MG TAB PO SCH ×2 (10:13→22:16)
--- NOTE | 2021-12-22 13:30 | Progress Note ---
Subjective - Reason for Consult Consult date: 12/22/21 Reason for consult: psychosis - Chief Complaint Chief complaint: The patient was seen today. Pt is alert and calm. Non responsive to verbal stimuli. Pt unable to participate in assessment VIEW OF SYSTEMS Unable to obtain MENTAL STATUS EXAMINATION Unable to obtain Assessment (1) Delirium (2) Bipolar Disorder Treatment Plan Appreciate and agree with continuation of home meds Sitter: Defer to primary Medical: per primary Disposition: Do not Recommend acute psychiatric inpatient treatment at this time. The patient will benefit from hospice services Will sign off. Thanks Case staffed with Dr. Nava Mental Status Exam - Vital signs Last Vital Signs Temp 99.8 F H 12/21/21 22:11 Pulse 84 12/21/21 22:11 Resp 18 12/21/21 22:11 BP 134/75 12/21/21 22:11 Pulse Ox 95 12/22/21 01:01
--- NOTE | 2021-12-22 15:48 | Progress Note ---
Assessment and Plan 71-year-old female brought into the emergency room from a halfway for evaluation of changes in mental status. CT scan of the head reveals Previously identified subdural hematoma is not as well-seen, No area of new hemorrhage, Old lacunar infarcts/area of low attenuation within the right basal ganglia and periventricular white matter. Chest x-ray reveals: Mild increased density seen right hilum with atelectasis in the right lower lung and right midlung. Labs significant for leukocytosis of 17.7, hyponatremia 146, BUN of 25 and creatinine of 2.4. Total creatinine kinase of 1080, troponin of 0.087. TSH of 13.1, free T4 of 0.37, thyroxine level of 2.7. 12/16: Na level elevated today, cont 1/2NS, cont to follow BMP. consult mental health, resume home meds. Patient was discharged and readmitted same day. cont to follow. haldol as needed for agitation 12/17: Na level remains elevated, change iv fluid to D5W, remains confused. Family planning for hospice. cont adjust meds and follow BMP. 12/18: cont D5W, follow BMP. pending hospice placement. started on lithium 12/19/2021, Continue IV D5W and follow BMP. pending hospice 12/20/2021. Sodium is 157 today, follow BMP, cont iv fluid 12/21: Na 152, cont d5w, pending hospice 12/22: Na 148 today, follow BMP. pending hospice - plan for dc with hospice tomorrow Assessment and Plan: -- Altered Mental Status/Acute metabolic encephalopathy --Hypernatremia - was upto 172 --Hypothyroidism --Possible Pneumonia --Leucocytosis with SIRS --Elevated creatinine kinase. --Elevated troponin-possibly due to BERNICE. --BERNICE-likely vasomotor nephropathy --h/o bipolar disorder Plan: -- Admitted and placed on telemetry. We will monitor mental status. -- Placed on IV fluid. Will monitor on BUN and creatinine, Na level. -- Consulted cardiology and nephrology for evaluation and recommendations. -- Patient started on Synthroid and empiric IV antibiotics for possible underlying pneumonia. -- resumed routine home medications, haldol as needed for agitation -- DVT Prophylaxis:SQ Heparin -- Code Status: Full Code Subjective Date of service: 12/22/21 Principal diagnosis: Acute encephalopathy Interval history: Patient seen and examined vitals noted, Na level remains elevated patient is very confused, pending hospice placement Objective - Exam Narrative Exam: General appearance: chronically ill EENT: ATNC Neck: Present: neck supple Respiratory: Decreased Breath Sounds Heart: regular Gastrointestinal: Present: normal Integumentary: no rash Neurologic: disoriented Musculoskeletal: Present: deferred - Constitutional Vitals: Vital Signs - 12hr 12/22/21 12/22/21 13:35 14:00 Temperature 98.6 F Pulse Rate 80 Respiratory 18 Rate Blood Pressure 120/72 O2 Sat by Pulse 96 97 Oximetry - Labs CBC & Chem 7: 12/21/21 05:15 12/22/21 04:25 Labs: Abnormal lab results 12/22/21 Range/Units 04:25 Sodium 148 H (137-145) mmol/L Potassium 3.5 L (3.6-5.0) mmol/L Chloride 119.4 H (98-107) mmol/L Carbon Dioxide 21 L (22-30) mmol/L BUN 21 H (7-17) mg/dL Creatinine 1.4 H (0.6-1.2) mg/dL Glucose 122 H (65-100) mg/dL HEART Score - HEART Score Troponin: Troponin T 0.144 ng/mL (0.00-0.029) H* D 12/16/21 Unknown
[2021-12-22] MEDS: DONEPEZIL 10 MG TAB PO SCH (22:14)
[2021-12-23 01:49] LABS: Hyaline Casts,Urine 27 /LPF; Mucus,Urine 3+ /HPF
[2021-12-23] MEDS: DEXTROSE 5% IN WATER 1,000 ML IV SCH ×2 (01:52→15:56)
[2021-12-23 02:07] LABS: Bacteria,Urine 3+ /HPF (Negative)
[2021-12-23 05:07] LABS: Calcium 8.8 mg/dL (8.4-10.2)
[2021-12-23] MEDS: LEVOTHYROXINE 100 MCG TAB PO SCH (05:40)
[2021-12-23] MEDS: LITHIUM CARBONATE 300 MG CAP PO SCH ×3 (05:41→22:19)
--- NOTE | 2021-12-23 07:39 | Progress Note ---
Assessment and Plan - Patient Problems (1) BERNICE (acute kidney injury) Current Visit: Yes Status: Acute Plan to address problem: Prerenal azotemia probably secondary to volume depletion. Improving with volume repletion. Continue gentle volume repletion and follow-up kidney function and electrolytes (2) Hypernatremia Current Visit: Yes Status: Acute Plan to address problem: Secondary to decreased free water intake. Sodium improving slowly with free kaci er replacement parenterally. Follow-up sodium (3) Altered mental status Current Visit: Yes Status: Acute Plan to address problem: Encephalopathy etiology uncertain. Neurology consultation (4) Pneumonia Current Visit: Yes Status: Acute Plan to address problem: Continue antibiotics and follow-up (5) Hypokalemia Current Visit: Yes Status: Acute Plan to address problem: Supplement potassium and follow-up level Subjective Date of service: 12/23/21 Principal diagnosis: Acute encephalopathy Interval history: Patient seen lying in bed. She is still nonverbal. Not following commands. Objective - Exam Narrative Exam: Elderly female lying in bed in no acute distress HEENT: NCAT, pink oral mucous membrane Neck: Supple, no venous distention CVS: S1S2 RRR with no murmur, rub or gallop Chest: Clear to auscultation Abdomen: Protuberant, soft, nontender, no organomegaly, bowel sounds are present Extremities: No edema Genitourinary deferred Neuro: Eyes open, not following commands, nonverbal, moans to sternal rub - Vital Signs Vital signs: Vital Signs - 12hr 12/23/21 00:30 O2 Sat by Pulse 95 Oximetry - Lab 12/21/21 05:15 12/23/21 04:15 Most recent lab results Calcium 8.8 mg/dL (8.4-10.2) 12/23/21 04:15 Medications & Allergies - Medications Allergies/Adverse Reactions: Allergies No Known Allergies Allergy (Unverified 11/29/21 08:47) Home Medications: Home Medications Medication Instructions Recorded Confirmed Last Taken Type Citalopram [Celexa] 20 mg PO QDAY #30 tablet 12/15/21 Unknown Rx Cyanocobalamin [Vitamin B-12] 1,000 mcg PO QDAY #30 tablet 12/15/21 Unknown Rx Docusate Sodium [Colace ORAL LIQ] 100 mg PO QDAY 30 Days #2 bottle 12/15/21 Unknown Rx Famotidine [Pepcid] 20 mg PO QDAY #30 tablet 12/15/21 Unknown Rx Levothyroxine [Synthroid] 100 mcg PO DAILY@0600 #30 tablet 12/15/21 Unknown Rx [place] Carbonate 300 mg PO Q8H #120 12/15/21 Unknown Rx Memantine 5 mg PO Q12HR #60 tablet 12/15/21 Unknown Rx Mirtazapine 15 mg PO QHS #30 12/15/21 Unknown Rx QUEtiapine [SEROquel] 25 mg PO BID #60 tablet 12/15/21 Unknown Rx Quetiapine Fumarate [SEROquel] 75 mg PO QHS #45 tab 12/15/21 Unknown Rx donepeziL [Aricept] 10 mg PO QHS #30 tablet 12/15/21 Unknown Rx Active Medications: Generic Name Dose Route Start Last Admin Trade Name Freq PRN Reason Stop Dose Admin Acetaminophen 650 mg 12/16/21 01:31 Acetaminophen 325 Mg Tab PO Q4H PRN Pain MILD(1-3)/Fever >100.5/MERCEDES Aspirin 81 mg 12/17/21 10:00 12/22/21 10:13 Aspirin 81 Mg Tab Chew PO Not Given QDAY [facility] Atorvastatin Calcium 10 mg 12/16/21 22:00 12/22/21 22:15 Atorvastatin 10 Mg Tab PO Not Given QHS [facility] Donepezil HCl 10 mg 12/16/21 22:00 12/22/21 22:14 Donepezil 10 Mg Tab PO Not Given QHS [facility] Dextrose 1,000 mls @ 100 mls/hr 12/18/21 07:00 12/23/21 01:52 D5w IV 100 mls/hr DIRECT [facility] Administration Levothyroxine Sodium 100 mcg 12/17/21 06:00 12/23/21 05:40 Levothyroxine 100 Mcg Tab PO Not Given DAILY@0600 [facility] [place] Carbonate 300 mg 12/18/21 14:00 12/23/21 05:41 [place] Carbonate 300 Mg Cap PO Not Given Q8HR [facility] Morphine Sulfate 2 mg 12/16/21 01:31 12/16/21 07:27 Morphine 2 Mg/1 Ml Inj IV 2 mg Q4H PRN Administration Pain, Moderate (4-6) Morphine Sulfate 4 mg 12/16/21 01:31 Morphine 4 Mg/1 Ml Inj IV Q4H PRN Pain , Severe (7-10) Olanzapine 5 mg 12/18/21 11:00 Olanzapine Zydis 5 Mg Tab PO Q6H PRN Agitation Ondansetron HCl 4 mg 12/16/21 01:31 12/20/21 06:14 Ondansetron 4 Mg/2 Ml Inj IV 4 mg Q8H PRN Administration Nausea And Vomiting Quetiapine Fumarate 25 mg 12/16/21 10:30 12/22/21 22:16 Quetiapine 25 Mg Tab PO Not Given BID [facility] Sodium Chloride 10 ml 12/16/21 10:00 12/22/21 22:13 Sodium Chloride 0.9% 10 Ml Flush Syringe IV 10 ml BID [facility] Administration Sodium Chloride 10 ml 12/16/21 01:31 Sodium Chloride 0.9% 10 Ml Flush Syringe IV PRN PRN LINE FLUSH
[2021-12-23] MEDS: POTASSIUM CHLORIDE 10 MEQ 10 MEQ/100 ML BAG IV SCH ×2 (09:14→11:37)
[2021-12-23] MEDS: ASPIRIN 81 MG TAB CHEW PO SCH (09:18)
[2021-12-23] MEDS: QUEtiapine 25 MG TAB PO SCH ×2 (09:19→22:19)
--- NOTE | 2021-12-23 09:23 | Progress Note ---
Assessment and Plan Assessment and plan: 71-year-old female [facility] for evaluation of changes in mental status. CT scan of the head reveals Previously identified subdural hematoma is not as well-seen, No area of new hemorrhage, Old lacunar infarcts/area of low attenuation within the right basal ganglia and periventricular white matter. Chest x-ray reveals: Mild increased density seen right hilum with atelectasis in the right lower lung and right midlung. Labs significant for leukocytosis of 17.7, hyponatremia 146, BUN of 25 and creatinine of 2.4. Total creatinine kinase of 1080, troponin of 0.087. TSH of 13.1, free T4 of 0.37, thyroxine level of 2.7. 12/16: Na level elevated today, cont 1/2NS, cont to follow BMP. consult mental health, resume home meds. Patient was discharged and readmitted same day. cont to follow. haldol as needed for agitation 12/17: Na level remains elevated, change iv fluid to D5W, remains confused. Family planning for hospice. cont adjust meds and follow BMP. 12/18: cont D5W, follow BMP. pending hospice placement. started on lithium 12/19/2021, Continue IV D5W and follow BMP. pending hospice 12/20/2021. Sodium is 157 today, follow BMP, cont iv fluid 12/21: Na 152, cont d5w, pending hospice 12/22: Na 148 today, follow BMP. pending hospice - plan for dc with hospice tomorrow Assessment and Plan: -- Altered Mental Status/Acute metabolic encephalopathy --Hypernatremia - was upto 172 --Hypothyroidism --Possible Pneumonia --Leucocytosis with SIRS --Elevated creatinine kinase. --Elevated troponin-possibly due to BERNICE. --BERNICE-likely vasomotor nephropathy --h/o bipolar disorder Plan: -- Admitted and placed on telemetry. We will monitor mental status. -- Placed on IV fluid. Will monitor on BUN and creatinine, Na level. -- Consulted cardiology and nephrology for evaluation and recommendations. -- Patient started on Synthroid and empiric IV antibiotics for possible underlying pneumonia. -- resumed routine home medications, haldol as needed for agitation -- DVT Prophylaxis:SQ Heparin -- Code Status: Full Code Discharge planning; DC to [facility] with hospice The snf request the prescription be ready before the patient comes to the facility Pharmacy; [facility] pharmacy E prescribed medications and sent to [facility] pharmacy this evening. Except for lithium, prescription is printed here and signed, will be transferred to [facility] Plan of care reviewed with the patient's nurse and the case management Possible discharge tomorrow if everything is set up History Interval history: I have seen and examined the patient at the bedside Patient's chart and current medications reviewed Patient is confused, nonverbal, refusing to eat Vital signs noted Patient is being discharged to [facility] with hospice Hospitalist Physical - Constitutional Vitals: Temp Pulse Resp BP Pulse Ox 98.6 F 80 18 120/72 95 12/22/21 13:35 12/22/21 13:35 12/22/21 13:35 12/22/21 13:35 12/23/21 00:30 General appearance: Present: no acute distress, well-nourished - EENT Eyes: Present: PERRL, EOM intact - Neck Neck: Present: supple, normal ROM - Respiratory Respiratory effort: normal Respiratory: bilateral: diminished, negative: rales, rhonchi, wheezing - Cardiovascular Rhythm: regular Heart Sounds: Present: S1 & S2 - Extremities Extremities: no ischemia, No edema - Abdominal General gastrointestinal: soft, non-tender, non-distended, normal bowel sounds - Integumentary Integumentary: Present: clear, warm - Psychiatric Psychiatric: agitated (Times), other (Confused) - Neurologic Neurologic: moves all extremities, other (Nonverbal) HEART Score - HEART Score Troponin: Troponin T 0.144 ng/mL (0.00-0.029) H* D 12/16/21 Unknown Results - Labs CBC & Chem 7: 12/21/21 05:15 12/23/21 04:15 Labs: Laboratory Last Values WBC 13.8 K/mm3 (4.5-11.0) H 12/21/21 05:15 RBC 3.59 M/mm3 (3.65-5.03) L 12/21/21 05:15 Hgb 10.6 gm/dl (10.1-14.3) 12/21/21 05:15 Hct 33.8 % (30.3-42.9) 12/21/21 05:15 MCV 94 fl (79-97) 12/21/21 05:15 MCH 30 pg (28-32) 12/21/21 05:15 MCHC 32 % (30-34) 12/21/21 05:15 RDW 16.2 % (13.2-15.2) H 12/21/21 05:15 Plt Count 394 K/mm3 (140-440) 12/21/21 05:15 Lymph % (Auto) 18.4 % (13.4-35.0) 12/21/21 05:15 [place] % (Auto) 7.7 % (0.0-7.3) H 12/21/21 05:15 Eos % (Auto) 5.1 % (0.0-4.3) H 12/21/21 05:15 Baso % (Auto) 0.5 % (0.0-1.8) 12/21/21 05:15 Lymph # (Auto) 2.6 K/mm3 (1.2-5.4) 12/21/21 05:15 [place] # (Auto) 1.1 K/mm3 (0.0-0.8) H 12/21/21 05:15 Eos # (Auto) 0.7 K/mm3 (0.0-0.4) H 12/21/21 05:15 Baso # (Auto) 0.1 K/mm3 (0.0-0.1) 12/21/21 05:15 Seg Neutrophils % 68.3 % (40.0-70.0) 12/21/21 05:15 Seg Neutrophils # 9.4 K/mm3 (1.8-7.7) H 12/21/21 05:15 Sodium 145 mmol/L (137-145) 12/23/21 04:15 Potassium 3.4 mmol/L (3.6-5.0) L 12/23/21 04:15 Chloride 115.7 mmol/L (98-107) H 12/23/21 04:15 Carbon Dioxide 20 mmol/L (22-30) L 12/23/21 04:15 Anion Gap 13 mmol/L 12/23/21 04:15 BUN 19 mg/dL (7-17) H 12/23/21 04:15 Creatinine 1.2 mg/dL (0.6-1.2) 12/23/21 04:15 Estimated GFR 44 ml/min 12/23/21 04:15 BUN/Creatinine Ratio 16 % 12/23/21 04:15 Glucose 121 mg/dL (65-100) H 12/23/21 04:15 Lactic Acid 1.30 mmol/L (0.7-2.0) 12/15/21 21:33 Calcium 8.8 mg/dL (8.4-10.2) 12/23/21 04:15 Total Bilirubin 0.30 mg/dL (0.1-1.2) 12/21/21 05:15 AST 38 units/L (5-40) 12/21/21 05:15 ALT 31 units/L (7-56) 12/21/21 05:15 Alkaline Phosphatase 91 units/L (35-129) 12/21/21 05:15 Ammonia 31.0 umol/L (25-60) 12/15/21 21:33 Total Creatine Kinase 1460 units/L (30-135) H 12/16/21 Unknown Troponin T 0.144 ng/mL (0.00-0.029) H* D 12/16/21 Unknown Total Protein 6.2 g/dL (6.3-8.2) L 12/21/21 05:15 Albumin 2.9 g/dL (3.9-5) L 12/21/21 05:15 Albumin/Globulin Ratio 0.9 % 12/21/21 05:15 Triglycerides 155 mg/dL (2-149) H 12/15/21 21:33 Cholesterol 177 mg/dL (50-199) 12/15/21 21:33 LDL Cholesterol Direct 93 mg/dL (50-130) 12/15/21 21:33 HDL Cholesterol 39 mg/dL (40-59) L 12/15/21 21:33 Cholesterol/HDL Ratio 4.53 % 12/15/21 21:33 TSH 13.170 mlU/mL (0.270-4.200) H 12/15/21 21:33 Free T4 0.37 ng/dL (0.76-1.46) L 12/15/21 21:33 Thyroxine (T4) 2.7 ug/dL (4.0-12.0) L 12/15/21 21:33 Free T3 Index 1.0 pg/mL (2.3-4.2) L 12/15/21 21:33 Urine Color Yellow (Yellow) 12/16/21 04:47 Urine Turbidity Turbid (Clear) 12/16/21 04:47 Urine pH 8.0 (5.0-7.0) H 12/16/21 04:47 Ur Specific [place] 1.010 (1.003-1.030) 12/16/21 04:47 Urine Protein 100 mg/dl mg/dL (Negative) 12/16/21 04:47 Urine Glucose (UA) Negative mg/dL (Negative) 12/16/21 04:47 Urine Ketones Negative mg/dL (Negative) 12/16/21 04:47 Urine Blood Large (Negative) A 12/16/21 04:47 Urine Nitrite Negative (Negative) 12/16/21 04:47 Urine Bilirubin Negative (Negative) 12/16/21 04:47 Urine Urobilinogen < 2.0 mg/dL (<2.0) 12/16/21 04:47 Ur Leukocyte Esterase Moderate (Negative) 12/16/21 04:47 Urine WBC (Auto) < 1.0 /HPF (0.0-6.0) 12/16/21 04:47 Urine RBC (Auto) < 1.0 /HPF (0.0-6.0) 12/16/21 04:47 U Epithel Cells (Auto) 2.0 /HPF (0-13.0) 12/16/21 04:47 Urine Bacteria (Auto) 3+ /HPF (Negative) 12/16/21 04:47 Hyaline Casts 27 /LPF 12/16/21 04:47 Urine Mucus 3+ /HPF 12/16/21 04:47 Urine Yeast (Budding) Few /HPF 12/16/21 04:47 Random Vancomycin 16.5 ug/mL (0-40.0) 12/17/21 04:11 [place]/IV: Voiding Method Indwelling Catheter Active Medications - Current Medications Current Medications: Generic Name Dose Route Start Last Admin Trade Name Freq PRN Reason Stop Dose Admin Acetaminophen 650 mg 12/16/21 01:31 Acetaminophen 325 Mg Tab PO Q4H PRN Pain MILD(1-3)/Fever >100.5/MERCEDES Aspirin 81 mg 12/17/21 10:00 12/22/21 10:13 Aspirin 81 Mg Tab Chew PO Not Given QDAY [facility] Atorvastatin Calcium 10 mg 12/16/21 22:00 12/22/21 22:15 Atorvastatin 10 Mg Tab PO Not Given QHS [facility] Donepezil HCl 10 mg 12/16/21 22:00 12/22/21 22:14 Donepezil 10 Mg Tab PO Not Given QHS [facility] Dextrose 1,000 mls @ 100 mls/hr 12/18/21 07:00 12/23/21 01:52 D5w IV 100 mls/hr DIRECT [facility] Administration Potassium Chloride 10 meq in 100 mls @ 100 mls/hr 12/23/21 09:00 12/23/21 09:14 Kcl 10meq/100ml IV 12/23/21 10:59 100 mls/hr Q1H [facility] Administration Levothyroxine Sodium 100 mcg 12/17/21 06:00 12/23/21 05:40 Levothyroxine 100 Mcg Tab PO Not Given DAILY@0600 [facility] [place] Carbonate 300 mg 12/18/21 14:00 12/23/21 05:41 [place] Carbonate 300 Mg Cap PO Not Given Q8HR [facility] Morphine Sulfate 2 mg 12/16/21 01:31 12/16/21 07:27 Morphine 2 Mg/1 Ml Inj IV 2 mg Q4H PRN Administration Pain, Moderate (4-6) Morphine Sulfate 4 mg 12/16/21 01:31 Morphine 4 Mg/1 Ml Inj IV Q4H PRN Pain , Severe (7-10) Olanzapine 5 mg 12/18/21 11:00 Olanzapine Zydis 5 Mg Tab PO Q6H PRN Agitation Ondansetron HCl 4 mg 12/16/21 01:31 12/20/21 06:14 Ondansetron 4 Mg/2 Ml Inj IV 4 mg Q8H PRN Administration Nausea And Vomiting Quetiapine Fumarate 25 mg 12/16/21 10:30 12/22/21 22:16 Quetiapine 25 Mg Tab PO Not Given BID [facility] Sodium Chloride 10 ml 12/16/21 10:00 12/22/21 22:13 Sodium Chloride 0.9% 10 Ml Flush Syringe IV 10 ml BID [facility] Administration Sodium Chloride 10 ml 12/16/21 01:31 Sodium Chloride 0.9% 10 Ml Flush Syringe IV PRN PRN LINE FLUSH Nutrition/Malnutrition Assess - Dietary Evaluation Nutrition/Malnutrition Findings: Nutrition Notes Start: 12/16/21 16:36 Freq: Status: Active Protocol: Document 12/16/21 16:36 GUERDA (Rec: 12/16/21 16:58 GUERDA [id number]) Nutrition Notes 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 Current Diet Cardiac Diet (since B 12/16). Labs/Tests 12/16: Na 151, Cl 117.0, CO2 21, BUN 25, Crea 2.4. Pertinent Medications 12/16: Levothyroxine, others nutritionally unremarkable. 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 Weight Status Obese Subjective/Other Information RD consult for skin risk and risk of malnutrition assessments. No reports available on Pt'sd PO intake of meals at the time , will assess at F/U. Pt is on Room Air, O2 satuartion @ 98%, according to Physical Assessment History notes. Pt has missing teeth, according to Physical Assessment History notes. Pt shows no signs of concern for skin risk at the time, according to Physical Assessment History notes. Pt shows no signs of concern for risk of malnutrrition at the time, according to Physical Assessment History notes. Percent of energy/protein needs met: Prescribed Cardiac Diet provides for energy/protein needs (2,230 Kcal/85 g) during LOS. Burn Absent Trauma Absent GI Symptoms None Food Allergy No Skin Integrity/Comment Assessment WNL. Minimum of two criteria No Fluid Accumulation N/A Reduced [place] Regenerator Strength N/A (non-severe) Protein-Calorie Malnutrition N\A #1 Nutrition Diagnosis No nutrition diagnosis at this time Is patient on ventilator? No Is Patient Ambulatory and/or Out of Bed Yes REE-([place]. Jeor-ambulatory/OOB) [ 1716.611 [id number]] Kcal/Kg value to use for calculation 18 Approximate Energy Requirements Using 1468 kcal/Kg Calculation Used for Recommendations Kcal/kg Additional Notes Protein: 0.8-1.2 g/Kg AdjBW; 55-79 g/day. Fluids: 1 ml/Kcal, or as per MD. Nutrition Intervention Change Diet Order: Continue Cardiac Diet as tolerated. Follow-Up By: 12/23/21 Additional Comments Continue monitoring food tolerance, %PO intake of meals , and BM.
--- NOTE | 2021-12-23 12:21 | Discharge Summary ---
Providers - Providers Date of Admission: 12/16/21 01:34 Date of discharge: 12/23/21 Attending physician: LEIA GOODRICH 12/16/21 06:15 Consult to Cardiology [CONS] Routine Consulting Provider: KAREY BOSWELL Reason For Exam: Elevated troponin 12/16/21 06:16 Consult to Physician [CONS] Routine Comment: Consulting Provider: JEREMIAS ASHLEY Physician Instructions: Reason For Exam: BERNICE 12/17/21 08:32 Physical Therapy Evaluation and Treat [CONS] Stat Comment: Reason For Exam: Eval and treat 12/17/21 08:33 Occupational Therapy Evaluate and Treat [CONS] Stat Comment: Reason For Exam: Eval and treat 12/17/21 13:12 Consult to Mental Health [CONS] Routine Reason For Exam: psychosis 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 CT scan of the head reveals Previously identified subdural hematoma is not as well-seen, No area of new hemorrhage, Old lacunar infarcts/area of low attenuation within the right basal ganglia and periventricular white matter. Chest x-ray reveals: Mild increased density seen right hilum with atelectasis in the right lower lung and right midlung. Assessment and Plan: -- Altered Mental Status/Acute metabolic encephalopathy Multifactorial, treat underlying cause, supportive care --Severe hypernatremia resolved 172-on 45 --Hypothyroidism; continue Synthroid --Possible Pneumonia; received antibiotics --Leucocytosis with SIRS --Elevated creatinine kinase. --Elevated troponin-possibly due to BERNICE. --BERNICE-likely vasomotor nephropathy --h/o bipolar disorder. -- COVID-19 test is negative Case management has assisted with discharge planning Patient is being discharged to assisted living with hospice Patient is stable at discharge Disposition: [address] [place] [address] Final Discharge Diagnosis (Prints w/discharge instructions): -- Altered Mental Status/Acute metabolic encephalopathy. --Hypernatremia - was upto 172. --Hypothyroidism. --Possible Pneumonia HCAP. --Leucocytosis with SIRS. --Elevated creatinine kinase. --Elevated troponin-possibly due to BERNICE. --BERNICE-likely vasomotor nephropathy. --h/o bipolar disorder. Time spent for discharge: 35 minutes Core Measure Documentation - Palliative Care Palliative Care/ Comfort Measures: Not Applicable - Core Measures Any of the following diagnoses?: none Exam - Constitutional Vitals: Temp Pulse Resp BP Pulse Ox 98.6 F 80 18 120/72 95 12/22/21 13:35 12/22/21 13:35 12/22/21 13:35 12/22/21 13:35 12/23/21 00:30 General appearance: Present: no acute distress, well-nourished, other (Confused) - EENT Eyes: Present: PERRL, EOM intact - Neck Neck: Present: supple, normal ROM - Respiratory Respiratory effort: normal Respiratory: bilateral: diminished, negative: rales, rhonchi, wheezing - Cardiovascular Rhythm: regular Heart Sounds: Present: S1 & S2 - Extremities Extremities: no ischemia, No edema - Abdominal General gastrointestinal: Present: soft, non-tender, non-distended, normal bowel sounds - Integumentary Integumentary: Present: clear, warm - Musculoskeletal Musculoskeletal: strength equal bilaterally, generalized weakness - Psychiatric Psychiatric: other (Noncommunicative) - Neurologic Neurologic: other (Noncommunicative) Plan Activity: advance as tolerated, fall precautions Diet: other (Diet as tolerated) Additional Instructions: Fall precautions, aspiration precautions. Rest of the management per hospice medical csr Follow up with: PRIMARY MD SHAKIRA [Primary Care Provider] - 3-5 Days DAVID RODRIGUEZ MD [Staff Physician] - 7 Days CORTEZ THURMAN MD [Staff Physician] - 14 Days Prescriptions: donepeziL [Aricept] 10 mg PO QHS #30 tablet Aspirin [Aspirin BABY CHEW TAB] 81 mg PO QDAY #30 tab.chew AtorvaSTATin 10 mg PO QHS #30 tablet Citalopram [Celexa] 20 mg PO QDAY #30 tablet Docusate Sodium [Colace ORAL LIQ] 100 mg PO QDAY 30 Days #2 bottle [place] Carbonate 300 mg PO Q8H #120 Memantine 5 mg PO Q12HR #60 tablet Famotidine [Pepcid] 20 mg PO QDAY #30 tablet Mirtazapine Solutab [Remeron 15mg Solutab] 15 mg PO QHS #30 tab.rapdis QUEtiapine [SEROquel] 25 mg PO BID #60 tablet Quetiapine Fumarate [SEROquel] 75 mg PO QHS #45 tab Levothyroxine [Synthroid] 100 mcg PO DAILY@0600 #30 tablet Cyanocobalamin [Vitamin B-12] 1,000 mcg PO QDAY #30 tablet
[2021-12-23] MEDS: DONEPEZIL 10 MG TAB PO SCH (22:19)
[2021-12-24] MEDS: DEXTROSE 5% IN WATER 1,000 ML IV SCH ×2 (02:38→18:36)
[2021-12-24] MEDS: LITHIUM CARBONATE 300 MG CAP PO SCH ×3 (07:54→22:32)
[2021-12-24] MEDS: LEVOTHYROXINE 100 MCG TAB PO SCH (07:56)
[2021-12-24] MEDS: ASPIRIN 81 MG TAB CHEW PO SCH (10:10)
[2021-12-24] MEDS: QUEtiapine 25 MG TAB PO SCH ×2 (10:10→21:06)
--- NOTE | 2021-12-24 10:20 | Progress Note ---
Assessment and Plan - Patient Problems (1) BERNICE (acute kidney injury) Current Visit: Yes Status: Acute Plan to address problem: Prerenal azotemia probably secondary to volume depletion. Improving with volume repletion. No labs today. Continue gentle volume repletion and follow-up kidney function and electrolytes (2) Hypernatremia Current Visit: Yes Status: Acute Plan to address problem: Secondary to decreased free water intake. Sodium improved with free water replacement parenterally. Follow-up sodium (3) Altered mental status Current Visit: Yes Status: Acute Plan to address problem: Encephalopathy etiology uncertain. Neurology consultation (4) Pneumonia Current Visit: Yes Status: Acute Plan to address problem: Continue antibiotics and follow-up (5) Hypokalemia Current Visit: Yes Status: Acute Plan to address problem: Supplement potassium and follow-up level Subjective Date of service: 12/24/21 Principal diagnosis: Acute encephalopathy Interval history: Patient seen lying in bed. She is now speaking though still with paucity of verbal conversation. She denies any pain, nausea or vomiting. Objective - Exam Narrative Exam: Elderly female lying in bed in no acute distress HEENT: NCAT, pink conjunctiva, anicteric sclera Neck: Supple, no venous distention CVS: S1S2 RRR with no murmur, rub or gallop Chest: Clear to auscultation Abdomen: Protuberant, soft, nontender, no organomegaly, bowel sounds are present Extremities: No edema Genitourinary deferred Neuro: Awake, alert, oriented to person - Vital Signs Vital signs: Vital Signs - 12hr 12/24/21 12/24/21 12/24/21 02:00 04:30 08:19 Temperature 98.0 F 98.0 F Pulse Rate 79 77 Respiratory 16 14 Rate Blood Pressure 121/64 116/77 O2 Sat by Pulse 97 95 97 Oximetry - Lab 12/21/21 05:15 12/23/21 04:15 Most recent lab results Calcium 8.8 mg/dL (8.4-10.2) 12/23/21 04:15 Medications & Allergies - Medications Allergies/Adverse Reactions: Allergies No Known Allergies Allergy (Unverified 11/29/21 08:47) Home Medications: Home Medications Medication Instructions Recorded Confirmed Last Taken Type Aspirin [Aspirin BABY CHEW TAB] 81 mg PO QDAY #30 tab.chew 12/23/21 Unknown Rx AtorvaSTATin 10 mg PO QHS #30 tablet 12/23/21 Unknown Rx Citalopram [Celexa] 20 mg PO QDAY #30 tablet 12/23/21 Unknown Rx Cyanocobalamin [Vitamin B-12] 1,000 mcg PO QDAY #30 tablet 12/23/21 Unknown Rx Docusate Sodium [Colace ORAL LIQ] 100 mg PO QDAY 30 Days #2 bottle 12/23/21 Unknown Rx Famotidine [Pepcid] 20 mg PO QDAY #30 tablet 12/23/21 Unknown Rx Levothyroxine [Synthroid] 100 mcg PO DAILY@0600 #30 tablet 12/23/21 Unknown Rx [place]ona Carbonate 300 mg PO Q8H #120 12/23/21 Unknown Rx Memantine 5 mg PO Q12HR #60 tablet 12/23/21 Unknown Rx Mirtazapine Solutab [Remeron 15mg 15 mg PO QHS #30 tab.rapdis 12/23/21 Unknown Rx Solutab] QUEtiapine [SEROquel] 25 mg PO BID #60 tablet 12/23/21 Unknown Rx Quetiapine Fumarate [SEROquel] 75 mg PO QHS #45 tab 12/23/21 Unknown Rx donepeziL [Aricept] 10 mg PO QHS #30 tablet 12/23/21 Unknown Rx Active Medications: Generic Name Dose Route Start Last Admin Trade Name Freq PRN Reason Stop Dose Admin Acetaminophen 650 mg 12/16/21 01:31 Acetaminophen 325 Mg Tab PO Q4H PRN Pain MILD(1-3)/Fever >100.5/MERCEDES Aspirin 81 mg 12/17/21 10:00 12/24/21 10:10 Aspirin 81 Mg Tab Chew PO 81 mg QDAY [facility] Administration Atorvastatin Calcium 10 mg 12/16/21 22:00 12/23/21 22:19 Atorvastatin 10 Mg Tab PO Not Given QHS [facility] Donepezil HCl 10 mg 12/16/21 22:00 12/23/21 22:19 Donepezil 10 Mg Tab PO Not Given QHS [facility] Dextrose 1,000 mls @ 100 mls/hr 12/18/21 07:00 12/24/21 02:38 D5w IV 100 mls/hr DIRECT [facility] Administration Levothyroxine Sodium 100 mcg 12/17/21 06:00 12/24/21 07:56 Levothyroxine 100 Mcg Tab PO Not Given DAILY@0600 [facility] Iona Carbonate 300 mg 12/18/21 14:00 12/24/21 07:54 Iona Carbonate 300 Mg Cap PO Not Given Q8HR [facility] Morphine Sulfate 2 mg 12/16/21 01:31 12/16/21 07:27 Morphine 2 Mg/1 Ml Inj IV 2 mg Q4H PRN Administration Pain, Moderate (4-6) Morphine Sulfate 4 mg 12/16/21 01:31 Morphine 4 Mg/1 Ml Inj IV Q4H PRN Pain , Severe (7-10) Olanzapine 5 mg 12/18/21 11:00 Olanzapine Zydis 5 Mg Tab PO Q6H PRN Agitation Ondansetron HCl 4 mg 12/16/21 01:31 12/20/21 06:14 Ondansetron 4 Mg/2 Ml Inj IV 4 mg Q8H PRN Administration Nausea And Vomiting Quetiapine Fumarate 25 mg 12/16/21 10:30 12/24/21 10:10 Quetiapine 25 Mg Tab PO 25 mg BID [facility] Administration Sodium Chloride 10 ml 12/16/21 10:00 12/24/21 10:11 Sodium Chloride 0.9% 10 Ml Flush Syringe IV Not Given BID [facility] Sodium Chloride 10 ml 12/16/21 01:31 Sodium Chloride 0.9% 10 Ml Flush Syringe IV PRN PRN LINE FLUSH
[2021-12-24] MEDS: DONEPEZIL 10 MG TAB PO SCH (21:07)
[2021-12-25] MEDS: LEVOTHYROXINE 100 MCG TAB PO SCH (05:29)
[2021-12-25] MEDS: LITHIUM CARBONATE 300 MG CAP PO SCH (05:35)
[2021-12-25] MEDS: DEXTROSE 5% IN WATER 1,000 ML IV SCH (05:36)
--- NOTE | 2021-12-25 08:22 | Discharge Summary ---
Providers - Providers Date of Admission: 12/16/21 01:34 Date of discharge: 12/24/21 Attending physician: LEIA GOODRICH 12/16/21 06:15 Consult to Cardiology [CONS] Routine Consulting Provider: KAREY BOSWELL Reason For Exam: Elevated troponin 12/16/21 06:16 Consult to Physician [CONS] Routine Comment: Consulting Provider: JEREMIAS ASHLEY Physician Instructions: Reason For Exam: BERNICE 12/17/21 08:32 Physical Therapy Evaluation and Treat [CONS] Stat Comment: Reason For Exam: Eval and treat 12/17/21 08:33 Occupational Therapy Evaluate and Treat [CONS] Stat Comment: Reason For Exam: Eval and treat 12/17/21 13:12 Consult to Mental Health [CONS] Routine Reason For Exam: psychosis 12/23/21 17:17 Physical Therapy Evaluation and Treat [CONS] Urgent Comment: Reason For Exam: For discharge planning 12/23/21 17:18 Occupational Therapy Evaluate and Treat [CONS] Urgent Comment: Reason For Exam: For discharge planning Primary care physician: [employer] Hospitalization Condition: Stable Disposition: 50 HOSPICE/HOME Core Measure Documentation - Palliative Care Palliative Care/ Comfort Measures: Not Applicable Exam - Constitutional Vitals: Temp Pulse Resp BP Pulse Ox 97.7 F 77 16 113/66 97 12/25/21 04:44 12/25/21 04:44 12/25/21 04:44 12/25/21 04:44 12/25/21 04:44 Plan Follow up with: DAVID RODRIGUEZ MD [Staff Physician] - 7 Days PRIMARY CAREMD [Primary Care Provider] - 3-5 Days CORTEZ THURMAN MD [Staff Physician] - 14 Days Prescriptions: donepeziL [Aricept] 10 mg PO QHS #30 tablet Aspirin [Aspirin BABY CHEW TAB] 81 mg PO QDAY #30 tab.chew AtorvaSTATin 10 mg PO QHS #30 tablet Citalopram [Celexa] 20 mg PO QDAY #30 tablet Docusate Sodium [Colace ORAL LIQ] 100 mg PO QDAY 30 Days #2 bottle Espy Carbonate 300 mg PO Q8H #120 Memantine 5 mg PO Q12HR #60 tablet Famotidine [Pepcid] 20 mg PO QDAY #30 tablet Mirtazapine Solutab [Remeron 15mg Solutab] 15 mg PO QHS #30 tab.rapdis QUEtiapine [SEROquel] 25 mg PO BID #60 tablet Quetiapine Fumarate [SEROquel] 75 mg PO QHS #45 tab Levothyroxine [Synthroid] 100 mcg PO DAILY@0600 #30 tablet Cyanocobalamin [Vitamin B-12] 1,000 mcg PO QDAY #30 tablet
[2021-12-25] MEDS: QUEtiapine 25 MG TAB PO SCH (09:31)
[2021-12-25] MEDS: ASPIRIN 81 MG TAB CHEW PO SCH (09:31)
--- NOTE | 2021-12-25 10:07 | Progress Note ---
Assessment and Plan - Patient Problems (1) BERNICE (acute kidney injury) Current Visit: Yes Status: Acute Plan to address problem: Prerenal azotemia probably secondary to volume depletion. Improving with volume repletion. No labs today. Continue gentle volume repletion and follow-up kidney function and electrolytes (2) Hypernatremia Current Visit: Yes Status: Acute Plan to address problem: Secondary to decreased free water intake. Sodium improved with free water replacement parenterally. Follow-up sodium periodically (3) Altered mental status Current Visit: Yes Status: Acute Plan to address problem: Encephalopathy etiology uncertain. Neurology consultation (4) Pneumonia Current Visit: Yes Status: Acute Plan to address problem: Continue antibiotics and follow-up (5) Hypokalemia Current Visit: Yes Status: Acute Plan to address problem: Potassium was supplemented. Follow-up level in the morning if patient is still in the hospital Subjective Date of service: 12/25/21 Principal diagnosis: Acute encephalopathy Interval history: Patient seen lying in bed. She is now speaking though still with paucity of verbal conversation. She denies nausea or vomiting. Objective - Exam Narrative Exam: Elderly female lying in bed in no acute distress HEENT: NCAT, pink conjunctiva, anicteric sclera Neck: Supple, no venous distention CVS: S1S2 RRR with no murmur, rub or gallop Chest: Clear to auscultation Abdomen: Protuberant, soft, nontender, no organomegaly, bowel sounds are present Extremities: No edema Genitourinary deferred Neuro: Awake, alert, oriented to person - Vital Signs Vital signs: Vital Signs - 12hr 12/24/21 12/25/21 12/25/21 23:35 02:00 04:44 Temperature 97.3 F L 97.7 F Pulse Rate 79 77 Respiratory 16 16 Rate Blood Pressure 119/72 113/66 O2 Sat by Pulse 97 97 97 Oximetry - Lab 12/21/21 05:15 12/23/21 04:15 Most recent lab results Calcium 8.8 mg/dL (8.4-10.2) 12/23/21 04:15 Medications & Allergies - Medications Allergies/Adverse Reactions: Allergies No Known Allergies Allergy (Unverified 11/29/21 08:47) Home Medications: Home Medications Medication Instructions Recorded Confirmed Last Taken Type Aspirin [Aspirin BABY CHEW TAB] 81 mg PO QDAY #30 tab.chew 12/23/21 Unknown Rx AtorvaSTATin 10 mg PO QHS #30 tablet 12/23/21 Unknown Rx Citalopram [Celexa] 20 mg PO QDAY #30 tablet 12/23/21 Unknown Rx Cyanocobalamin [Vitamin B-12] 1,000 mcg PO QDAY #30 tablet 12/23/21 Unknown Rx Docusate Sodium [Colace ORAL LIQ] 100 mg PO QDAY 30 Days #2 bottle 12/23/21 Unknown Rx Famotidine [Pepcid] 20 mg PO QDAY #30 tablet 12/23/21 Unknown Rx Levothyroxine [Synthroid] 100 mcg PO DAILY@0600 #30 tablet 12/23/21 Unknown Rx Tancred Carbonate 300 mg PO Q8H #120 12/23/21 Unknown Rx Memantine 5 mg PO Q12HR #60 tablet 12/23/21 Unknown Rx Mirtazapine Solutab [Remeron 15mg 15 mg PO QHS #30 tab.rapdis 12/23/21 Unknown Rx Solutab] QUEtiapine [SEROquel] 25 mg PO BID #60 tablet 12/23/21 Unknown Rx Quetiapine Fumarate [SEROquel] 75 mg PO QHS #45 tab 12/23/21 Unknown Rx donepeziL [Aricept] 10 mg PO QHS #30 tablet 12/23/21 Unknown Rx Active Medications: Generic Name Dose Route Start Last Admin Trade Name Freq PRN Reason Stop Dose Admin Acetaminophen 650 mg 12/16/21 01:31 Acetaminophen 325 Mg Tab PO Q4H PRN Pain MILD(1-3)/Fever >100.5/MERCEDES Aspirin 81 mg 12/17/21 10:00 12/25/21 09:31 Aspirin 81 Mg Tab Chew PO 81 mg QDAY [facility] Administration Atorvastatin Calcium 10 mg 12/16/21 22:00 12/24/21 21:06 Atorvastatin 10 Mg Tab PO 10 mg QHS [facility] Administration Donepezil HCl 10 mg 12/16/21 22:00 12/24/21 21:07 Donepezil 10 Mg Tab PO 10 mg QHS [facility] Administration Dextrose 1,000 mls @ 100 mls/hr 12/18/21 07:00 12/25/21 05:36 D5w IV 100 mls/hr DIRECT [facility] Administration Levothyroxine Sodium 100 mcg 12/17/21 06:00 12/25/21 05:29 Levothyroxine 100 Mcg Tab PO 100 mcg DAILY@0600 [facility] Administration Tancred Carbonate 300 mg 12/18/21 14:00 12/25/21 05:35 Tancred Carbonate 300 Mg Cap PO 300 mg Q8HR [facility] Administration Morphine Sulfate 2 mg 12/16/21 01:31 12/16/21 07:27 Morphine 2 Mg/1 Ml Inj IV 2 mg Q4H PRN Administration Pain, Moderate (4-6) Morphine Sulfate 4 mg 12/16/21 01:31 Morphine 4 Mg/1 Ml Inj IV Q4H PRN Pain , Severe (7-10) Olanzapine 5 mg 12/18/21 11:00 Olanzapine Zydis 5 Mg Tab PO Q6H PRN Agitation Ondansetron HCl 4 mg 12/16/21 01:31 12/20/21 06:14 Ondansetron 4 Mg/2 Ml Inj IV 4 mg Q8H PRN Administration Nausea And Vomiting Quetiapine Fumarate 25 mg 12/16/21 10:30 12/25/21 09:31 Quetiapine 25 Mg Tab PO 25 mg BID [facility] Administration Sodium Chloride 10 ml 12/16/21 10:00 12/25/21 09:31 Sodium Chloride 0.9% 10 Ml Flush Syringe IV 10 ml BID [facility] Administration Sodium Chloride 10 ml 12/16/21 01:31 Sodium Chloride 0.9% 10 Ml Flush Syringe IV PRN PRN LINE FLUSH
[2021-12-25 10:23] VITALS: BP 117/61
== END 2021-12-25 11:12 | disposition hospice, home (50) | DRG 682 ==
LOC: ED 20:17 → 3A 12-16 01:34
PROVIDERS: ADMIT Internal Medicine Geriatric Medicine; ATTEND Internal Medicine
DX: N17.0 Acute kidney failure with tubular necrosis (principal); G93.41 Metabolic encephalopathy; J18.9 Pneumonia, unspecified organism; E87.0 Hyperosmolality and hypernatremia; N39.0 Urinary tract infection, site not specified; R65.10 Systemic inflammatory response syndrome (SIRS) of non-infectious origin without acute organ dysfunction; Z20.822 Contact with and (suspected) exposure to COVID-19; E03.9 Hypothyroidism, unspecified; F31.9 Bipolar disorder, unspecified; Z51.5 Encounter for palliative care; R77.8 Other specified abnormalities of plasma proteins
CPT/HCPCS: 36415; 70450; 71045; 76770; 80048; 80053; 80061; 80202; 81001; 82140; 82550; 84295; 84436; 84439; 84443; 84481; 84484; 85025; 85027; 87641; 93005; 93306; G0378; J3490; J7070; C8929; J0692; J1630; J1956; J2270; J2405; J3370; J3480; J7030; J7040; U0003